=== PATIENT | female | born 1980 | race Caucasian/White ===

== ENCOUNTER 2022-07-19 19:58 | Emergency (ER) | payer MEDICAID, SELFPAY ==
[2022-07-19 19:59] VITALS: BP 141/112; PULSE 88; RESP 16; TEMP 36.8; O2SAT 98; BMI 26.4
[2022-07-19 20:36] LABS: Bacteria 0 SEEN /hpf (None Seen); Mucous, Urine 0 SEEN /hpf (<or=2+); Red Blood Cells-Urine 0 SEEN /hpf (0-5); White Blood Cells 0 SEEN /hpf (0-5)
[2022-07-19 20:38] LABS: Color, Urine Yellow (Yellow); Glucose, Dipstick Normal (Normal); Ketone-Dipstick Negative (Negative); Leukocyte Esterase-Dipstick 25 /ul (Negative); Nitrite-Dipstick Negative (Negative); Occult Blood-Urine 10 /ul (Negative); Protein-Dipstick Negative (Negative); Specific Gravity, Urine 1.015 (1.002-1.030); Urine Bilirubin Dipstick Negative (Negative); Urine Clarity Clear (Clear); Urine Urobilinogen Normal (Normal)
--- NOTE | 2022-07-19 20:58 | CT_ITS ---
STUDY: CT ABDOMEN AND PELVIS WITHOUT CONTRAST REASON FOR EXAM: Female, 41 years old. R flank pain RADIATION DOSAGE (If Supplied By Facility): CTDIvol = ( 6.70 ) mGy, DLP = ( 292.78 ) mGycm TECHNIQUE: Transaxial images were obtained from the dome of the diaphragm to the symphysis pubis without oral contrast, and without intravenous contrast. Sagittal and coronal images were reconstructed. Individualized dose optimization techniques were used for this CT. COMPARISON: 06/09/2017 FINDINGS: The visualized lung bases are unremarkable. The visualized portions of the heart are within normal limits. Normal liver. Normal gallbladder and extrahepatic biliary system. Normal spleen. Normal pancreas. Normal bilateral adrenal glands. Normal right kidney. Normal left kidney. Normal visualized stomach. Normal small intestine. Normal colon. The appendix is visualized and appears normal. Normal abdominal aorta. Normal inferior vena cava. Normal retroperitoneum. Normal urinary bladder. Intrauterine device within the uterus. Normal abdominal wall. Normal osseous structures. CT/Abdomen/Pelvis without Cont IMPRESSION: Normal unenhanced CT of the abdomen and pelvis. Electronically Signed: Monroe Rasheed MD at 22:09 EDT ,
--- NOTE | 2022-07-19 20:58 | ED.VIS.GI ---
HPI HPI - GI History of Present Illness Chief Complaint: Abd Pain Informant: patient Abdominal Pain/Flank Pain Onset: Hours (3) Context: Sudden Onset Timing: Continuous Quality: Aching Location: Right Flank Current Severity: Severe Maximum Severity: Severe Worsened by: Nothing Relieved by: Nothing Nausea/Vomiting/Emesis GI Symptom: Positive for Nausea; Negative for Vomiting Diarrhea/Melena/Hematochezia GI Symptom: Negative for Diarrhea, Melena or Hematochezia Associated Symptoms Associated Symptoms: Negative for Dysuria, Frequency or Hematuria Narrative Narrative: Patient has sudden onset of right flank pain radiating down into her right groin couple hours prior to arrival. Colicky. History of kidney stone but it was very remote and she does not know if this feels the same or not. She denies feeling poorly all day prior to this starting out of nowhere. No injury. No urinary symptoms. No fevers or chills. No hematuria. [facility] Medical History Bacteremia Depression History of endocarditis Marijuana abuse Panic attack Seizure disorder Substance abuse Supraventricular tachycardia (02/08/22) Tobacco abuse Home Medications metoprolol succinate 25 mg tablet,extended release 24 hr 25 mg PO DAILY 07/19/22 [History Last Taken Unknown] sertraline 100 mg tablet (Zoloft) 200 mg PO DAILY 07/19/22 [History Last Taken Unknown] venlafaxine 37.5 mg tablet 37.5 mg PO DAILY 07/19/22 [History Last Taken Unknown] Allergy/AdvReac Type Severity Reaction Status Date / Time hydrocodone [Hydrocodone] AdvReac Itching Verified 07/19/22 20:02 nickel [Nickel] AdvReac Itching Verified 07/19/22 20:02 propoxyphene napsylate AdvReac Itching Verified 07/19/22 20:02 [From Darvocet-N 100] Surgical History History of cardioversion (02/08/22) History of open heart surgery History of ventricular septal defect repair (01/25/15) Social History Smoking Status: Former smoker substance use type: marijuana ROS ROS ED Constitutional Constitutional ED: Denies chills or fever(s) Eyes Eyes: Denies change in vision or diplopia ENT ENT ED: Denies rhinorrhea or sore throat Cardiovascular Cardiovascular: Denies chest pain or palpitations Respiratory/Chest Respiratory/Chest: Denies cough or dyspnea Gastrointestinal Gastrointestinal: Reports abdominal pain and nausea; Denies diarrhea or vomiting Genitourinary Genitourinary ED: Denies dysuria or hematuria Musculoskeletal Musculoskeletal: Reports back pain; Denies neck pain Integumentary Denies abscess or rash Neurologic Neurologic: Denies headache(s), paresthesias or weakness Psychiatric Psychiatric: Denies anxiety or suicidal thoughts EXAM Physical Exam Const Vital Signs: 07/19/22 19:59 07/19/22 22:10 Temperature 98.2 F Temperature Source Temporal Pulse Rate 88 79 Respiratory Rate 16 16 Blood Pressure 141/112 H 120/68 Blood Pressure Mean 121 85 Pulse Ox 98 95 Oxygen Delivery Method Room Air Room Air Positive well nourished and well developed Constitutional Narrative: Uncomfortable-appearing General Appearance ED: well developed and NAD HEENT Reports moist mucous membranes normocephalic and atraumatic Eyes PERRL and EOMs intact bilaterally Neck full ROM and supple Resp normal respiratory effort and clear to auscultation bilaterally Cardio regular rate, regular rhythm and no murmurs GI non-tender and non-distended Auscultation: normoactive bowel sounds Palpation: soft; Negative for pulsatile mass Back/Spine Back/Spine Narrative: Right CVA tenderness but relatively low. Normal inspection no rash. General Back: other FROM Extremity normal to inspection General Extremety ED: Negative for edema, pulses abnormal or tenderness General Extremity: Negative for edema or pulses abnormal Neuro oriented x3, CN's II-XII intact bilaterally and no sensory deficits noted Sensorium / Orientation: awake and alert Motor Exam: strength 5/5 throughout Psych mental status grossly normal and thought process normal Skin no rashes or lesions noted and no wounds MDM MDM MDM Narrative Medical decision making narrative: Sounds like renal colic/ureteral colic, prior to my seeing the patient nurses have already tried venipuncture in both upper extremities without success so we avoided further attempts/IVs, patient was okay getting oral Zofran and intramuscular analgesics while we obtained a CT and ran a urinalysis. As below, urine shows a trace amount of blood but no signs of infection. Her CT is completely negative. On reevaluation after Toradol, her pain is completely resolved. I suspect this was probably a passed stone. Less likely GI-related pain. Discharged stable improved condition discussed reasons to follow-up and return she is comfortable with that plan. Lab Data Attestation: I reviewed the patient's lab results. Labs: Laboratory Results - last 24 hr 07/19/22 20:25 Urine Color Yellow Urine Clarity Clear Urine pH 6.0 Ur Specific [place] 1.015 Urine Protein Negative Urine Glucose (UA) Normal Urine Ketones Negative Urine Occult Blood 10 H Urine Nitrite Negative Urine Bilirubin Negative Urine Urobilinogen Normal Ur Leukocyte Esterase 25 H Urine RBC 0 SEEN Urine WBC 0 SEEN Ur Squamous Epith Cells 0-5 SEEN Urine Bacteria 0 SEEN Urine Mucus 0 SEEN Radiography Diagnostic Testing: Clinical Impression(s) from Imaging Studies Abdomen/Pelvis CT 07/19/22 20:58 IMPRESSION: Normal unenhanced CT of the abdomen and pelvis. Electronically Signed: Monroe Rasheed MD at 22:09 EDT , Discharge Plan Triage Chief Complaint: Abd Pain ED Provider: Roly Blair Dx/Rx/DC Orders Clinical Impression: Acute right flank pain Instructions: ED Flank Pain, Uncertain Cause Prescriptions: No Action sertraline [Zoloft] 100 mg Tablet 200 mg PO DAILY venlafaxine [Effexor] 37.5 mg Tablet 37.5 mg PO DAILY metoprolol succinate 25 mg Tablet Extended Release 24 Hr 25 mg PO DAILY Primary Care Provider: Julio Cesar Mccollum Referrals: Julio Cesar Mccollum MD [Primary Care Provider] - 3-5 Days if not improving Disposition Disposition: Home, Self Care
[2022-07-19] MEDS: Morphine 4 MG/ML Syringe IM (21:05)
[2022-07-19] MEDS: Ketorolac 30 MG/ML Syringe 60 MG IM (21:05)
[2022-07-19] MEDS: Ondansetron ODT 4 MG Tablet 8 MG PO (21:06)
[2022-07-19 21:12] LABS: Squamous Epithelial Cells - UA 0-5 SEEN /hpf (5-10)
[2022-07-19 22:10] VITALS: BP 120/68; PULSE 79; RESP 16; O2SAT 95
[2022-07-19 23:11] VITALS: BP 120/68; PULSE 79; RESP 16; O2SAT 95
== END 2022-07-19 23:12 | disposition home or self-care (01) ==
PROVIDERS: Emergency Provider Emergency Medicine; PCP Family Medicine; Visit Provider Emergency Medicine
DX: R10.9 Unspecified abdominal pain (principal); F12.90 Cannabis use, unspecified, uncomplicated; F32.A Depression, unspecified; Z79.899 Other long term (current) drug therapy; Z87.891 Personal history of nicotine dependence
CPT/HCPCS: 74176; 81001; 96372; 99283; A4216

== ENCOUNTER 2022-09-18 09:47 | Emergency (ER) | payer MEDICAID, SELFPAY ==
[2022-09-18 09:48] VITALS: BP 117/54; PULSE 79; RESP 16; TEMP 36.6; O2SAT 100; BMI 29.5
[2022-09-18 09:50] VITALS: BP 117/54; PULSE 79; RESP 16; TEMP 36.6; O2SAT 100
--- NOTE | 2022-09-18 10:02 | CT_ITS ---
STUDY: CT ABDOMEN AND PELVIS WITHOUT CONTRAST REASON FOR EXAM: Female, 41 years old. Kidney Stone. Left flank pain. RADIATION DOSAGE (If Supplied By Facility): CTDIvol = ( 7.80 ) mGy, DLP = ( 350.62 ) mGycm TECHNIQUE: Transaxial images were obtained from the dome of the diaphragm to the symphysis pubis without oral contrast, and without intravenous contrast. Sagittal and coronal images were reconstructed. Individualized dose optimization techniques were used for this CT. COMPARISON: Comparison is made with prior examination dated 07/19/2022. FINDINGS: Stable mild linear scarring at the left lung base. The visualized portions of the heart are within normal limits. Normal liver. Normal gallbladder and extrahepatic biliary system. Normal spleen. Normal pancreas. Normal bilateral adrenal glands. Normal right kidney. Normal left kidney. Normal visualized stomach. Normal small intestine. Normal colon. The appendix is visualized and appears normal. Normal abdominal aorta. Normal inferior vena cava. Normal retroperitoneum. Normal urinary bladder. IUD is seen within the uterus. Follicles are seen in the left ovary. Phleboliths are seen in the pelvis. Normal abdominal wall. Normal osseous structures. CT/Abdomen/Pelvis without Cont IMPRESSION: Stable examination. No evidence of a obstructive uropathy. IUD is seen within the uterus. Electronically Signed: Rojas Clemons MD at 10:47 EST ,
--- NOTE | 2022-09-18 10:03 | EDS_ITS ---
HPI HPI - Female History of Present Illness Chief Complaint: Flank Pain Narrative Narrative: 41-year-old female presenting with acute onset left-sided flank pain. This started last evening. Its been constant. It radiates to the lower abdomen. Patient states she is having difficulty urinating but denies dysuria or hematuria. No fever, chills. She is not nauseous. No vaginal complaints. She does state that she has less bowel movements for last couple days but does not feel she is constipated. Patient states she has history of kidney stones and urinary tract infections. Patient states he was last treated for this a couple of months ago. She does not have a urologist. [facility] Medical History Bacteremia Depression History of endocarditis Marijuana abuse Panic attack Seizure disorder Substance abuse Supraventricular tachycardia (02/08/22) Tobacco abuse Home Medications metoprolol succinate 25 mg tablet,extended release 24 hr 25 mg PO DAILY 07/19/22 [History Last Taken Unknown] sertraline 100 mg tablet (Zoloft) 200 mg PO DAILY 07/19/22 [History Last Taken Unknown] venlafaxine 37.5 mg tablet 37.5 mg PO DAILY 07/19/22 [History Last Taken Unknown] Allergy/AdvReac Type Severity Reaction Status Date / Time hydrocodone [Hydrocodone] AdvReac Itching Verified 09/18/22 09:50 nickel [Nickel] AdvReac Itching Verified 09/18/22 09:50 propoxyphene napsylate AdvReac Itching Verified 09/18/22 09:50 [From Darvocet-N 100] Surgical History History of cardioversion (02/08/22) History of open heart surgery History of ventricular septal defect repair (01/25/15) Social History Smoking Status: Former smoker substance use type: marijuana ROS ROS ED Constitutional Constitutional ED: Denies chills or fever(s) Eyes Eyes: Denies change in vision or diplopia ENT ENT ED: Denies rhinorrhea or sore throat Cardiovascular Cardiovascular: Denies chest pain or palpitations Respiratory/Chest Respiratory/Chest: Denies cough or dyspnea Gastrointestinal Gastrointestinal: Denies constipation, diarrhea, nausea or vomiting Genitourinary Genitourinary ED: Reports other Details: Difficulty urinating ; Denies dysuria or hematuria Musculoskeletal Musculoskeletal: Denies arthralgias Integumentary Denies abscess or Abrasions Neurologic Neurologic: Denies headache(s) or paresthesias Psychiatric Psychiatric: Denies anxiety or depression EXAM Physical Exam Const Vital Signs: 09/18/22 09:48 09/18/22 09:50 09/18/22 10:50 Temperature 97.9 F 97.9 F 97.9 F Temperature Source Temporal Temporal Temporal Pulse Rate 79 79 79 Respiratory Rate 16 16 16 Blood Pressure 117/54 L 117/54 L 117/54 L Blood Pressure Mean 75 75 75 Pulse Ox 100 100 100 Oxygen Delivery Method Room Air Room Air Room Air Positive well nourished General Appearance ED: NAD; Negative for pallor HEENT Reports moist mucous membranes Eyes PERRL and EOMs intact bilaterally General Eye ED: Negative for pale conjunctiva or scleral icterus Resp normal respiratory effort Cardio regular rate and regular rhythm GI normal to inspection, nondistended, normoactive bowel sounds Back/Spine no CVA tenderness Thoracic Spine / Upper Back: Negative for thoracic spinal tenderness Lumbar Spine / Lower Back: Negative for lumbar spinal tenderness Neuro oriented x3 and CN's II-XII intact bilaterally Sensorium / Orientation: alert and oriented to person Motor Exam: strength 5/5 throughout Psych mental status grossly normal Skin no rashes or lesions noted General Skin Exam: Negative for jaundice or pallor MDM MDM MDM Narrative Medical decision making narrative: Patient treated with Toradol. She feels improvement after this. CBC and BMP are unremarkable. Urinalysis negative for infection or occult blood. CT of the abdomen pelvis was obtained to rule out kidney stone and there is no evidence of this. There is no other acute intra-abdominal process. Patient counseled on findings. She is feeling better so I think she can be discharged home. She will alternate Tylenol and ibuprofen for pain. Return precautions discussed. Impression: 1. Left flank pain Lab Data Attestation: I reviewed the patient's lab results. Labs: Laboratory Results - last 24 hr 09/18/22 09/18/22 09/18/22 10:10 10:10 10:50 WBC 7.2 RBC 4.50 Hgb 12.8 Hct 39.2 MCV 87.1 MCH 28.4 MCHC 32.7 RDW Std Deviation 44.1 H RDW Coeff of Miguel 13.8 Plt Count 264 MPV 10.1 Immature Gran % (Auto) 0.300 Neut % (Auto) 59.5 Lymph % (Auto) 28.5 [place] % (Auto) 7.9 Eos % (Auto) 3.2 Baso % (Auto) 0.6 Absolute Neuts (auto) 4.3 Absolute Lymphs (auto) 2.04 Nucleated RBC % 0 Sodium 140 Potassium 3.9 Chloride 108 H Carbon Dioxide 26.0 Anion Gap 6 BUN 10 Creatinine 0.45 L Estim Creat Clear Calc 125.40 Est GFR (MDRD) Af Amer 200 Est GFR (MDRD) Non-Af 165 BUN/Creatinine Ratio 22.4 H Glucose 69 L Calcium 8.6 Urine Color Yellow Urine Clarity Sl. Cloudy Urine pH 6.0 Ur Specific [place] 1.010 Urine Protein Negative Urine Glucose (UA) 50 H Urine Ketones Negative Urine Occult Blood Negative Urine Nitrite Negative Urine Bilirubin Negative Urine Urobilinogen Normal Ur Leukocyte Esterase 25 H Urine RBC 0 SEEN Urine WBC 0-5 SEEN Ur Squamous Epith Cells 5-10 SEEN Urine Bacteria 1+ Urine Mucus 0 SEEN Radiography Diagnostic Testing: Clinical Impression(s) from Imaging Studies Abdomen/Pelvis CT 09/18/22 10:02 IMPRESSION: Stable examination. No evidence of a obstructive uropathy. IUD is seen within the uterus. Electronically Signed: Rojas Clemons MD at 10:47 EST Reading Location ID and State: [address] [place] [address] , Service support , Discharge Plan Triage Chief Complaint: Flank Pain ED Provider: Dung Schultz Dx/Rx/DC Orders Instructions: ED Flank Pain, Uncertain Cause Prescriptions: No Action sertraline [Zoloft] 100 mg Tablet 200 mg PO DAILY venlafaxine [Effexor] 37.5 mg Tablet 37.5 mg PO DAILY metoprolol succinate 25 mg Tablet Extended Release 24 Hr 25 mg PO DAILY Primary Care Provider: Julio Cesar Mccollum Referrals: Julio Cesar Mccollum MD [Primary Care Provider] - Disposition Disposition: Home, Self Care
[2022-09-18 10:17] LABS: Absolute Lymphocyte Count 2.04 X10^3/uL (0.83-4.51); Absolute Neutrophil Count 4.3 X10^3/uL (2.0-7.7); Basophil# 0.04 X10^3/uL; Basophil% 0.6 % (0-1); Eosinophil# 0.23 X10^3/uL; Eosinophils% 3.2 % (0-5); Hematocrit 39.2 % (37-47); Hemoglobin 12.8 g/dL (12.0-15.0); Lymphocyte # 2.04 X10^3/ul (0.83-4.51); Lymphocyte % 28.5 % (19-41); Mean Corp Hgb Conc 32.7 g/dL (32-36); Mean Corpuscular Hgb 28.4 pg (27.0-32.0); Mean Corpuscular Volume 87.1 fL (81-99); Mean Platelet Vol. 10.1 fl (6.2-12.0); Monocyte# 0.57 X10^3/uL; Monocyte% 7.9 % (0-10); NRBC Flagged by Analyzer 0 % (0-5); Neutrophil # 4.27 X10^3/uL (2.7-7.7); Neutrophil % 59.5 % (47-70); Platelet Count 264 K/mm3 (150-450); RBC Distribution Width CV 13.8 % (11.6-14.6); RBC Distribution Width SD 44.1 fl (35.1-43.9); White Blood Count 7.2 K/mm3 (4.4-11.0)
[2022-09-18] MEDS: Ketorolac 15 MG/ML Vial IV (10:26)
[2022-09-18 10:30] LABS: Anion Gap 6 (5-15); BUN 10 mg/dL (7-18); BUN/Creat Ratio 22.4 RATIO (10-20); Calcium,Total 8.6 mg/dL (8.5-10.1); Chloride 108 mmol/L (98-107); Creatinine, Serum 0.45 mg/dL (0.55-1.02); EST Glomerular Filtration Rate 165 mL/min (>60); Est Glom Filt Rate - Afr Amer 200 mL/min (>60); Glucose 69 mg/dL (74-106); Potassium 3.9 mmol/L (3.5-5.1); Sodium Level 140 mmol/L (136-145)
[2022-09-18 10:50] VITALS: BP 117/54; PULSE 79; RESP 16; TEMP 36.6; O2SAT 100
[2022-09-18 11:06] LABS: Mucous, Urine 0 SEEN /hpf (<or=2+); Red Blood Cells-Urine 0 SEEN /hpf (0-5)
[2022-09-18 11:10] LABS: Color, Urine Yellow (Yellow); Glucose, Dipstick 50 mg/dl (Normal); Ketone-Dipstick Negative (Negative); Leukocyte Esterase-Dipstick 25 /ul (Negative); Nitrite-Dipstick Negative (Negative); Occult Blood-Urine Negative /ul (Negative); Protein-Dipstick Negative (Negative); Urine Bilirubin Dipstick Negative (Negative); Urine Clarity Sl. Cloudy (Clear); Urine Urobilinogen Normal (Normal)
[2022-09-18 11:15] LABS: Bacteria 1+ /hpf (None Seen); Squamous Epithelial Cells - UA 5-10 SEEN /hpf (5-10); White Blood Cells 0-5 SEEN /hpf (0-5)
[2022-09-18 12:01] VITALS: BP 109/73; PULSE 71; RESP 16; O2SAT 100
== END 2022-09-18 12:00 | disposition home or self-care (01) ==
PROVIDERS: Emergency Provider Student in an Organized Health Care Education/Training Program; PCP Family Medicine; Visit Provider Student in an Organized Health Care Education/Training Program
DX: R10.9 Unspecified abdominal pain (principal); F12.90 Cannabis use, unspecified, uncomplicated; Z87.891 Personal history of nicotine dependence
CPT/HCPCS: 74176; 80048; 81001; 85025; 96374; 99283; A4216

== ENCOUNTER 2023-04-28 15:52 | Emergency (ER) | payer MEDICAID, SELFPAY ==
[2023-04-28 15:53] VITALS: BP 190/158; PULSE 88; RESP 24; TEMP 36.6; O2SAT 98; BMI 31.4
--- NOTE | 2023-04-28 16:18 | EKG12_ITS ---
Test Reason : Blood Pressure : / mmHG Vent. Rate : 078 BPM Atrial Rate : 078 BPM P-R Int : 144 ms QRS Dur : 100 ms QT Int : 408 ms P-R-T Axes : -23 019 026 degrees QTc Int : 465 ms Normal sinus rhythm Normal ECG Confirmed by JACKY WOLFE, BARRON ([id number]), staff editor HORACIO TAPIA ([id number]) on 04/29/2023 10:43:19 AM Referred By: JAYE Confirmed By:BARRON RICO MD
--- NOTE | 2023-04-28 16:19 | EDS_ITS ---
HPI History of Present Illness Chief Complaint: Chest Pain Informant: patient Onset/Context/Timing Onset: Days Activity at onset: gradual Timing: Intermittent Narrative Narrative: Patient presents secondary to upper abdominal and chest pain. She states she has pain in the high epigastrium that will radiate up into the central portion of her chest. It has been intermittent over the past week. Over the past day or so she has had a few sharp pains over the lateral portion of her left chest. She also feels short of breath as if she has to continually take deep breaths. She has not had cough. No fever or chills. No vomiting or diarrhea. She states she tried taking a few Tums but this did not resolve her pain. Blood pressure is noted to be elevated at 190/158 in triage, however the time of my exam her blood pressure is 135/88. [facility] Medical History Bacteremia Depression History of endocarditis Marijuana abuse Panic attack Seizure disorder Substance abuse Supraventricular tachycardia (02/08/22) Tobacco abuse Home Medications metoprolol succinate 25 mg tablet,extended release 24 hr 25 mg PO DAILY 07/19/22 [History Last Taken Unknown] sertraline 100 mg tablet (Zoloft) 200 mg PO DAILY 07/19/22 [History Last Taken Unknown] venlafaxine 37.5 mg tablet 37.5 mg PO DAILY 07/19/22 [History Last Taken Unknown] hydroxyzine pamoate 25 mg capsule 25 mg PO QHS PRN anxiety 04/28/23 [History Last Taken 04/27/23] omeprazole 20 mg capsule,delayed release 20 mg PO DAILY 4 weeks #28 caps 04/28/23 [Rx Last Taken Unknown] prazosin 2 mg capsule (Minipress) 2 mg PO DAILY 04/28/23 [History Last Taken Unknown] quetiapine 100 mg tablet (Seroquel) 100 mg PO QHS 04/28/23 [History Last Taken Unknown] Allergy/AdvReac Type Severity Reaction Status Date / Time hydrocodone [Hydrocodone] AdvReac Itching Verified 04/28/23 15:52 nickel [Nickel] AdvReac Itching Verified 04/28/23 15:52 propoxyphene napsylate AdvReac Itching Verified 04/28/23 15:52 [From Darvocet-N 100] Surgical History History of cardioversion (02/08/22) History of open heart surgery History of ventricular septal defect repair (01/25/15) Social History Smoking Status: Former smoker substance use type: marijuana ROS ROS ED Constitutional Constitutional ED: Denies chills or fever(s) Eyes Eyes: Denies change in vision or discharge from eye(s) ENT ENT ED: Denies discharge from eye(s), rhinorrhea or sore throat Cardiovascular Cardiovascular: Reports chest pain; Denies palpitations Respiratory/Chest Respiratory/Chest: Reports dyspnea; Denies cough Gastrointestinal Gastrointestinal: Reports abdominal pain; Denies diarrhea, nausea or vomiting Genitourinary Genitourinary ED: Denies dysuria Musculoskeletal Musculoskeletal: Denies back pain or extremity pain Integumentary Denies Abrasions or rash Neurologic Neurologic: Denies headache(s) or weakness Psychiatric Psychiatric: Denies anxiety or depression Allergic/Immunologic Allergic/Immunologic ED: Denies lip swelling or urticaria EXAM Physical Exam Const Vital Signs: 04/28/23 15:53 04/28/23 15:52 04/28/23 17:52 Temperature 97.8 F Temperature Source Temporal Pulse Rate 88 77 Respiratory Rate 24 H 16 Respiratory Effort Normal Non-Labored Blood Pressure 190/158 H 124/88 H Blood Pressure Mean 168 100 Pulse Ox 98 99 Oxygen Delivery Method Room Air Room Air 04/28/23 18:46 Temperature Temperature Source Pulse Rate 75 Respiratory Rate 20 H Respiratory Effort Blood Pressure 126/74 H Blood Pressure Mean 91 Pulse Ox 100 Oxygen Delivery Method Room Air Positive well nourished and well developed General Appearance ED: well developed HEENT Reports normocephalic and head/scalp atraumatic Eyes PERRL and EOMs intact bilaterally Neck supple Chest Wall inspection of chest normal and palpation of chest normal Resp normal respiratory effort and clear to auscultation bilaterally Cardio regular rate and regular rhythm GI GI Narrative: Mild tenderness in the epigastrium. No guarding or rebound. 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 Dose of Protonix is ordered. EKG obtained to evaluate for cardiac arrhythmia/ischemia. Chest x-ray obtained to evaluate for acute lung pathology, cardiac size, or mediastinal abnormality. Labwork obtained to evaluate for leukocytosis, anemia, and electrolyte derangement. Lab Data Attestation: I reviewed the patient's lab results. Labs: Laboratory Results - last 24 hr 04/28/23 16:13 WBC 5.9 RBC 4.27 Hgb 12.4 Hct 37.0 MCV 86.7 MCH 29.0 MCHC 33.5 RDW Std Deviation 45.1 H RDW Coeff of Miguel 14.3 Plt Count 260 MPV 10.4 Immature Gran % (Auto) 0.300 Neut % (Auto) 60.2 Lymph % (Auto) 30.7 [place] % (Auto) 6.6 Eos % (Auto) 1.7 Baso % (Auto) 0.5 Absolute Neuts (auto) 3.6 Absolute Lymphs (auto) 1.81 Nucleated RBC % 0 D-Dimer Quant (PE/DVT) 0.57 H* Sodium 140 Potassium 3.5 Chloride 111 H Carbon Dioxide 25.0 Anion Gap 4 L BUN 9 Creatinine 0.61 Estim Creat Clear Calc 91.58 Est GFR (MDRD) Af Amer 140 Est GFR (MDRD) Non-Af 116 BUN/Creatinine Ratio 14.9 Glucose 82 Calcium 8.7 Total Bilirubin 0.10 L Direct Bilirubin 0.06 AST 14 L ALT 25 Alkaline Phosphatase 117 Troponin I High Sens 5 Total Protein 7.3 Albumin 3.4 Globulin 3.9 Lipase 45 Serum , Qual NEGATIVE Radiography Chest X-Ray - ED: 1 View, Read by ED Physician, Normal, Heart, Lungs and Mediastinum Diagnostic Testing: Clinical Impression(s) from Imaging Studies Chest X-Ray 04/28/23 16:27 IMPRESSION: No radiographic evidence of acute cardiopulmonary disease. Electronically Signed: Ed uTrner, at 16:48 EDT Reading Location ID and State: [facility] / [place] Tel , Service support , Chest CTA 04/28/23 17:39 IMPRESSION: Normal CTA chest examination, without a demonstrated pulmonary embolism or arterial dissection. Small calcified granuloma in the right upper lobe. Electronically Signed: Ed Turner, at 18:38 EDT , EKG Initial EKG: Attestation: I personally reviewed and interpreted this EKG as follows: Interpretation: Sinus Rhythm (Sinus at 78 bpm with no acute ischemia.) Differential Diagnosis Chest pain/SOB: pulmonary embolism Reason(s) PE less likely: Positive for Other (No PE on imaging studies.) and ACS ACS: Positive for no evidence of ACS based on cardiac biomarkers and EKG without ischemia Abdominal Pain: Pancreatitis Reason(s) Pancreatitis less likely: NL lab values Treatment and Re-Evaluation :: CBC was normal white count and hemoglobin. D-dimer slightly elevated at 0.57. Chemistry studies unremarkable with normal renal function. LFTs and lipase are normal. Troponin is normal at 5. test negative. Portable chest x- ray per my interpretation reveals no acute abnormalities. Radiology interpretation is reviewed and agrees. EKG reveals no ischemia. Patient was sent for CTA of the chest. This reveals no evidence of PE or dissection. Test results are discussed with the patient. She does report a lot of heartburn and will be started on Prilosec. Return instructions were provided. Discharge Plan Triage Chief Complaint: Chest Pain ED Provider: Rosalind Millan Dx/Rx/DC Orders Clinical Impression: Acid reflux, Chest pain Instructions: ED Chest Pain, Noncardiac, ED GERD (Adult) Prescriptions: New omeprazole 20 mg capsule,delayed release(DR/EC) 20 mg PO DAILY 28 Days Qty: 28 0RF No Action sertraline [Zoloft] 100 mg Tablet 200 mg PO DAILY venlafaxine [Effexor] 37.5 mg Tablet 37.5 mg PO DAILY metoprolol succinate 25 mg Tablet Extended Release 24 Hr 25 mg PO DAILY quetiapine [Seroquel] 100 mg tablet 100 mg PO QHS prazosin [Minipress] 2 mg capsule 2 mg PO DAILY hydroxyzine pamoate 25 mg capsule 25 mg PO QHS PRN Patient Comments: TAKE 1 CAPSULE BY MOUTH AT BEDTIME NEEDED FOR TROUBLE SLEEPING Primary Care Provider: Julio Cesar Mccollum Referrals: Julio Cesar Mccollum MD [Primary Care Provider] - 1-2 Weeks Disposition Disposition: Home, Self Care
--- NOTE | 2023-04-28 16:27 | RAD_ITS ---
INDICATION: chest pain EXAMINATION/TECHNIQUE: X-RAY - XR Chest 1 View COMPARISON: FINDINGS: LINES/DEVICES: None. LUNGS: No consolidation, edema or effusion. No pneumothorax. MEDIASTINUM AND CARDIOVASCULAR STRUCTURES: Cardiac silhouette not enlarged. Central airways and mediastinal contour are unremarkable. BONES AND SOFT TISSUES: Unremarkable. RAD/Chest 1 View (Portable) IMPRESSION: No radiographic evidence of acute cardiopulmonary disease. Electronically Signed: Ed Turner, at 16:48 EDT ,
[2023-04-28 16:40] LABS: Absolute Lymphocyte Count 1.81 X10^3/uL (0.83-4.51); Absolute Neutrophil Count 3.6 X10^3/uL (2.0-7.7); Basophil# 0.03 X10^3/uL; Basophil% 0.5 % (0-1); Eosinophils% 1.7 % (0-5); Hemoglobin 12.4 g/dL (12.0-15.0); Lymphocyte # 1.81 X10^3/ul (0.83-4.51); Lymphocyte % 30.7 % (19-41); Mean Corp Hgb Conc 33.5 g/dL (32-36); Mean Corpuscular Volume 86.7 fL (81-99); Mean Platelet Vol. 10.4 fl (6.2-12.0); Monocyte# 0.39 X10^3/uL; Monocyte% 6.6 % (0-10); NRBC Flagged by Analyzer 0 % (0-5); Neutrophil # 3.55 X10^3/uL (2.7-7.7); Neutrophil % 60.2 % (47-70); Platelet Count 260 K/mm3 (150-450); RBC Distribution Width CV 14.3 % (11.6-14.6); RBC Distribution Width SD 45.1 fl (35.1-43.9); Red Blood Count 4.27 M/mm3 (4.2-5.4); White Blood Count 5.9 K/mm3 (4.4-11.0)
[2023-04-28] MEDS: 0.9% Normal Saline 1,000 ML 150 ML IV (16:45)
[2023-04-28 16:58] LABS: D-Dimer Quantitative (DVT/PE) 0.57 FEU/ug/m (0.27-0.49)
--- NOTE | 2023-04-28 17:00 | ED.RN ---
d-dimer 0.57
[2023-04-28 17:09] LABS: AST(SGOT) 14 U/L (15-37); Alanine Aminotransfer ALT/SGPT 25 U/L (13-56); Albumin, Serum 3.4 g/dL (3.2-5.0); Alkaline Phosphatase 117 U/L (45-117); Anion Gap 4 (5-15); BUN 9 mg/dL (7-18); BUN/Creat Ratio 14.9 RATIO (10-20); Bilirubin, Direct 0.06 mg/dL (0.00-0.30); Calcium,Total 8.7 mg/dL (8.5-10.1); Chloride 111 mmol/L (98-107); Creatinine, Serum 0.61 mg/dL (0.55-1.02); EST Glomerular Filtration Rate 116 mL/min (>60); Est Glom Filt Rate - Afr Amer 140 mL/min (>60); Estimated Creatinine Clearance 91.58 ml/min; Globulin 3.9 g/dL (2.2-4.2); Glucose 82 mg/dL (74-106); Internal QC Validated? YES +Cl - CLEAR BKGD; Lipase 45 U/L (13-75); Potassium 3.5 mmol/L (3.5-5.1); Pregnancy, Serum, hCG Quali. NEGATIVE Negative; Protein, Total 7.3 g/dL (6.4-8.2); Sodium Level 140 mmol/L (136-145); Troponin-I HS 5 pg/mL (3.0-54.0)
--- NOTE | 2023-04-28 17:39 | CT_ITS ---
STUDY: CTA CHEST REASON FOR EXAM: Female, 42 years old. pulmonary embolism RADIATION DOSAGE (If Supplied By Facility): CTDIvol = ( 10.90 ) mGy, DLP = ( 438.22 ) mGycm TECHNIQUE: The examination was performed with the intravenous administration of IV 100mL Isovue-370. Post-processing of the angiographic images was performed, with multiplanar reformation and 3D reconstruction. Individualized dose optimization techniques were used for this CT. COMPARISON: FINDINGS: Normal enhancement of the main pulmonary artery and right and left pulmonary arteries. Normal enhancement of the bilateral peripheral pulmonary arteries. There is no demonstrated pulmonary embolism. Normal thoracic aorta and visualized great vessels. There is no demonstrated aortic dissection. Normal heart and pericardium. Normal mediastinum. Normal hilar regions. Normal visualized trachea and bronchi. The lungs are well expanded. There is a 4 mm calcified granuloma in the right upper lobe axial image 160. Lungs are otherwise clear without focal consolidations masses or fluid collections. There is minimal reticulonodular scarring in the left lung apex. Normal pleura. Normal chest wall structures. Normal osseous structures. Normal visualized upper abdomen. CT/CTA Chest W/WO Contrast IMPRESSION: Normal CTA chest examination, without a demonstrated pulmonary embolism or arterial dissection. Small calcified granuloma in the right upper lobe. Electronically Signed: Ed Turner, at 18:38 EDT ,
[2023-04-28 17:52] VITALS: BP 124/88; PULSE 77; RESP 16; O2SAT 99
[2023-04-28 18:46] VITALS: BP 126/74; PULSE 75; RESP 20; O2SAT 100
== END 2023-04-28 19:10 | disposition home or self-care (01) ==
PROVIDERS: Emergency Provider Emergency Medicine; PCP Family Medicine; Visit Provider Emergency Medicine
DX: K21.9 Gastro-esophageal reflux disease without esophagitis (principal); R07.9 Chest pain, unspecified; F12.90 Cannabis use, unspecified, uncomplicated; F32.A Depression, unspecified; Z79.899 Other long term (current) drug therapy; Z87.891 Personal history of nicotine dependence
CPT/HCPCS: 71045; 71275; 80048; 80076; 83690; 84484; 84703; 85025; 85379; 93005; 96365; 99283; J7030; Q9967; A4216

== ENCOUNTER 2023-11-24 19:46 | Emergency (ER) | payer MEDICAID, SELFPAY ==
[2023-11-24 19:47] VITALS: BP 123/89; PULSE 92; RESP 16; TEMP 36.7; O2SAT 100; BMI 30.2
--- NOTE | 2023-11-24 22:12 | EX.ED.VIS.HA ---
HPI History of Present Illness Chief Complaint: Headache Informant: patient Narrative Narrative: Patient states she has a history of migraines and has been having 1 off-and-on for the past week. Tonight it came on while she was at work it was fairly severe, she thinks it was triggered by the heat of the fryer's in the kitchen which has triggered her headaches in the past, and she was having trouble concentrating on her job because of her sensitivity to light so her boss brought her here to the ER. She took George back and body and some ibuprofen earlier, states it put a dent in her headache but it is still prominent. She denies any new unusual symptoms, these are typical of her migraines when she gets them which is on average about once every 4 months. She has a right frontal parietal headache, photophobia, nausea. No peripheral neurologic symptoms. No recent illness. No other [id number] medications or drugs recently. [facility] Medical History Bacteremia Depression History of endocarditis Marijuana abuse Panic attack Seizure disorder Substance abuse Supraventricular tachycardia (02/08/22) Tobacco abuse Home Medications metoprolol succinate 25 mg tablet,extended release 24 hr 25 mg PO DAILY 07/19/22 [History Last Taken Unknown] sertraline 100 mg tablet (Zoloft) 200 mg PO DAILY 07/19/22 [History Last Taken Unknown] venlafaxine 37.5 mg tablet 37.5 mg PO DAILY 07/19/22 [History Last Taken Unknown] hydroxyzine pamoate 25 mg capsule 25 mg PO QHS PRN anxiety 04/28/23 [History Last Taken 04/27/23] omeprazole 20 mg capsule,delayed release 20 mg PO DAILY 4 weeks #28 caps 04/28/23 [Rx Last Taken Unknown] prazosin 2 mg capsule (Minipress) 2 mg PO DAILY 04/28/23 [History Last Taken Unknown] quetiapine 100 mg tablet (Seroquel) 100 mg PO QHS 04/28/23 [History Last Taken Unknown] Allergy/AdvReac Type Severity Reaction Status Date / Time hydrocodone [Hydrocodone] AdvReac Itching Verified 11/24/23 19:50 nickel [Nickel] AdvReac Itching Verified 11/24/23 19:50 propoxyphene napsylate AdvReac Itching Verified 11/24/23 19:50 [From Darvocet-N 100] Surgical History History of cardioversion (02/08/22) History of open heart surgery History of ventricular septal defect repair (01/25/15) Social History Smoking Status: Former smoker substance use type: marijuana ROS ROS ED Constitutional Constitutional ED: Denies chills or fever(s) Eyes Eyes: Reports photophobia; Denies blurry vision or diplopia ENT ENT ED: Denies ear pain or sore throat Cardiovascular Cardiovascular: Denies chest pain or palpitations Respiratory/Chest Respiratory/Chest: Denies cough or dyspnea Gastrointestinal Gastrointestinal: Reports nausea; Denies abdominal pain, diarrhea or vomiting Genitourinary Genitourinary ED: Denies dysuria or urinary frequency Musculoskeletal Musculoskeletal: Denies back pain or myalgias Integumentary Denies abscess or rash Neurologic Neurologic: Reports headache(s); Denies paresthesias or weakness EXAM Physical Exam Const Vital Signs: 11/24/23 19:47 Temperature 98.1 F Temperature Source Temporal Pulse Rate 92 Respiratory Rate 16 Blood Pressure 123/89 H Blood Pressure Mean 100 Pulse Ox 100 Oxygen Delivery Method Room Air HEENT Reports normocephalic and moist mucous membranes atraumatic Eyes PERRL, EOMs intact bilaterally and conjunctivae normal Eyes Narrative: photophobia Neck no lymphadenopathy, supple and no meningeal signs Resp normal respiratory effort and clear to auscultation bilaterally GI non-tender and non-distended Palpation: soft Extremity normal to inspection and full ROM Neuro oriented x3 and CN's II-XII intact bilaterally Sensorium / Orientation: awake and alert Speech: speech normal Gait (Neuro): normal gait Motor Exam: strength 5/5 throughout Psych mental status grossly normal Skin Lesions: no lesions Rashes: no rashes MDM MDM MDM Narrative Medical decision making narrative: Patient sounds like she is having a standard migraine for her, I do not think she needs to have any advanced imaging or lumbar puncture to evaluate for other pathology such as meningitis or subarachnoid hemorrhage. She was treated empirically for migraine which is what she was requesting, she was given Reglan Benadryl and some IV fluids and Decadron to help prevent a recurrence and has been having them for the past week. She feeling much better on reevaluation and comfortable going home. We discussed reasons to return. Discharge Plan Triage Chief Complaint: Headache ED Provider: Roly Blair Dx/Rx/DC Orders Clinical Impression: Headache, migraine Instructions: ED, Migraine (Classical) Prescriptions: No Action sertraline [Zoloft] 100 mg Tablet 200 mg PO DAILY venlafaxine [Effexor] 37.5 mg Tablet 37.5 mg PO DAILY metoprolol succinate 25 mg Tablet Extended Release 24 Hr 25 mg PO DAILY quetiapine [Seroquel] 100 mg tablet 100 mg PO QHS prazosin [Minipress] 2 mg capsule 2 mg PO DAILY hydroxyzine pamoate 25 mg capsule 25 mg PO QHS PRN Patient Comments: TAKE 1 CAPSULE BY MOUTH AT BEDTIME NEEDED FOR TROUBLE SLEEPING omeprazole 20 mg capsule,delayed release(DR/EC) 20 mg PO DAILY 28 Days Qty: 28 0RF Primary Care Provider: Julio Cesar Mccollum Referrals: Julio Cesar Mccollum MD [Primary Care Provider] - As Needed Disposition Disposition: Home, Self Care
[2023-11-24] MEDS: dexAMETHasone 4 MG/ML Vial IV (22:17)
[2023-11-24] MEDS: 0.9% Normal Saline (500mL Bag) 500 ML 999 ML IV (22:17)
[2023-11-24] MEDS: DiphenhydrAMINE 50 MG/ML Syringe 25 MG IV (22:17)
[2023-11-24] MEDS: Metoclopramide 10 MG/2 ML Vial IV (22:17)
--- OUTSIDE RECORDS SUMMARY | 2023-11-24 22:37 | XMS RPT_ITS | CCD ---
Author Name Unknown Address [address] [place] [address] Organization [facility] Care Team Providers Care Director Of Student Affairs Name Role Phone Stephany Lozano Unavailable Unavailable Update Needed Unavailable Unavailable Unavailable Primary Care Provider Unavailabl e Robinson Smith MD Primary Care Provider [phone] Jeanette RN, Treasure Unavailable Unavailable Robinson Smith MD Primary Care Provider Robinson Smith MD Primary Care Provider Robinson Smith MD Primary Care Provider TORO OSUNA Attending Unavailable ROBINSON SMITH Primary Care Unavailable ROBINSON SMITH Primary Care Unavailable JUAN MATHIS Referring Unavailable ROBINSON SMITH Primary Care Unavailable ROBINSON SMITH Primary Care Unavailable Allergies Allergy Classification Reported Allergen(s) Allergy Type Date of Onset Reaction(s) Facility (1 source) HYDROcodone drug allergy 2 Itching [facility] Work Phone: (1 source) HYDROmorphone drug allergy 2 Itching [facility] Work Phone: (1 source) propoxyphene drug allergy 2 Itching [facility] Work Phone: (18 sources) Acetaminophen / HYDROcodone; Translations: [HYDROCODONE-ACET AMINOPHEN] Drug Allergy [address] [facility] (18 sources) nickel; Translations: [NICKEL] Drug Allergy 0 Rash, Unknown, Hives [facility] (18 sources) Propoxyphene N-Acetaminophen; Translations: [PROPOXYPHENE N-ACETAMINOPHEN] Drug Intolerance [address] [facility] Work Phone: Medications Completed/Discontinued Medications Medication Drug Class(es) Dates Sig (Normalized) Sig (Original) acetaminophen 325 mg / oxyCODONE hydrochloride 5 mg oral tablet (1 source) Opioid Agonist take 2 tablets by mouth every six hours as needed Percocet 5-325 MG Oral Tablet TAKE 2 TABLETS EVERY 6 HOURS NEEDED. Refills: 0 DO Active aspirin 81 mg oral strip (2 sources) Nonsteroidal Anti-inflammatory Drug Start: 02-01-2015 take 1 tablet by mouth once daily ASPIRIN 81 MG TABS One tablet by mouth daily ASPIRIN [id number] Scarlett Longoria RN Problems Active Problems Problem Classification Problem Date Documented Date Episodic/Chronic Anxiety disorders (17 sources) Generalized anxiety disorder; Translations: [Generalized anxiety disorder] Onset: 04-15-2010 04-15-2010 Chronic Cardiac and circulatory congenital anomalies (18 sources) Ventricular septal defect; Translations: [Patent foramen ovale] Onset: 03-03-2010 12-24-2011 Chronic Cardiac dysrhythmias (20 sources) Supraventricular tachycardia; Translations: [Supraventricular tachycardia] Onset: 02-11-2022 02-11-2022 Chronic Mood disorders (17 sources) Depressive disorder; Translations: [Depression] Onset: 04-15-2010 04-15-2010 Chronic Nonspecific chest pain (1 source) Chest discomfort; Translations: [Other chest pain] Episodic Other and ill-defined heart disease (16 sources) Left cardiac ventricular dilatation; Translations: [Cardiomegaly] Onset: 03-03-2010 03-03-2010 Chronic Other screening for suspected conditions (not mental disorders or infectious disease) (1 source) Patient encounter status; Translations: [Encounter for screening mammogram for malignant neoplasm of breast] Episodic Other upper respiratory infections (1 source) Sore throat symptom; Translations: [Acute pharyngitis, unspecified] Episodic Pulmonary heart disease (1 source) Pulmonary hypertension; Translations: [Other secondary pulmonary hypertension] Onset: 12-24-2011 12-24-2011 Chronic Residual codes; unclassified (1 source) History of repair of atrial septal defect; Translations: [History of Status post patent foramen ovale closure] Episodic Residual codes; unclassified (1 source) Other specified personal risk factors, not elsewhere classified; Translations: [Other specified personal history presenting hazards to health] Episodic Substance-related disorders (17 sources) History of drug abuse; Translations: [Nicotine dependence] Onset: 02-08-2022 02-08-2022 Chronic Past or Other Problems Problem Classification Problem Date Documented Date Episodic/Chronic Bacterial infection; unspecified site (16 sources) Chlamydial infection; Translations: [Chlamydial infection, unspecified] Onset: 03-10-2013 03-10-2013 Episodic Cardiac dysrhythmias (17 sources) Palpitations; Translations: [Palpitations] Onset: 12-24-2011 12-24-2011 Episodic Epilepsy; convulsions (17 sources) Seizure; Translations: [Unspecified convulsions] Onset: 11-22-2013 11-22-2013 Episodic Heart valve disorders (1 source) Heart murmur; Translations: [Cardiac murmur, unspecified] Onset: 12-24-2011 12-24-2011 Episodic Malaise and fatigue (1 source) Fatigue; Translations: [Other fatigue] Onset: 12-24-2011 12-24-2011 Episodic Other circulatory disease (1 source) Abnormal result of cardiovascular function study, unspecified; Translations: [Abnormal result of cardiovascular function study, unspecified] Onset: 12-24-2011 12-24-2011 Episodic Other lower respiratory disease (1 source) Dyspnea; Translations: [Dyspnea, unspecified] Onset: 12-24-2011 12-24-2011 Episodic Other non-traumatic joint disorders (1 source) Pain in right ankle and joints of right foot; Translations: [Acute right ankle pain] Onset: 06-14-2023 Episodic Mey-; endo-; and myocarditis; cardiomyopathy (1 source) Acute and subacute bacterial endocarditis; Translations: [Acute and subacute infective endocarditis] Onset: 02-04-2015 02-04-2015 Episodic Pulmonary heart disease (1 source) Pulmonary embolism; Translations: [Other pulmonary embolism without acute cor pulmonale] Onset: 01-14-2015 01-14-2015 Episodic Sexually transmitted infections (not HIV or hepatitis) (16 sources) Human papillomavirus deoxyribonucleic acid test positive, high risk on cervical specimen; Translations: [Cervical high risk human papillomavirus (HPV) DNA test positive] Onset: 03-09-2013 03-09-2013 Episodic Syncope (1 source) Syncope and collapse; Translations: [Syncope and collapse] Onset: 12-28-2011 12-28-2011 Episodic Unclassified (1 source) Patient encounter status; Translations: [Examination of ears and hearing] Unclassified (1 source) History of closure of ventricular septal defect; Translations: [History of S/P VSD closure] Results Test Name Value Interpretation Reference Range Facil ity Vital Signs Date Time Vital Sign Value Performing Clinician Aydin weiner 05-18-2023 14:51-0400 Body weight 73.03 kg Toro Osuna MD Work Phone: [facility] 05-18-2023 14:51-0400 Diastolic blood pressure 81 mm[Hg] Toro Osuna MD Work Phone: [facility] 05-18-2023 14:51-0400 Heart rate 88 /min Toro Osuna MD Work Phone: [facility] 05-18-2023 14:51-0400 SaO2% (BldA) [Mass fraction] 97 % Toro Osuna MD Work Phone: [facility] 05-18-2023 14:51-0400 Systolic blood pressure 122 mm[Hg] Toro Osuna MD Work Phone: [facility] 04-28-2023 15:26-0400 Body temperature 98.2 [degF] Desiree Juarez APRN.DENTAL INSTRUCTOR Work Phone: [facility] 04-28-2023 15:26-0400 Body weight 75.3 kg Desiree Juarez APRN.DENTAL INSTRUCTOR Work Phone: [facility] 04-28-2023 15:26-0400 Diastolic blood pressure 80 mm[Hg] Desiree Juarez APRN.DENTAL INSTRUCTOR Work Phone: [facility] 04-28-2023 15:26-0400 Heart rate 80 /min Desiree Juarez APRN.DENTAL INSTRUCTOR Work Phone: [facility] 04-28-2023 15:26-0400 Respiratory rate 18 /min Desiree Juarez APRN.DENTAL INSTRUCTOR Work Phone: [facility] 04-28-2023 15:26-0400 SaO2% (BldA) [Mass fraction] 100 % Desiree Juarez APRN.DENTAL INSTRUCTOR Work Phone: [facility] 04-28-2023 15:26-0400 Systolic blood pressure 122 mm[Hg] Desiree Juarez APRN.DENTAL INSTRUCTOR Work Phone: [facility] 07-15-2022 11:39-0400 Body temperature 97.9 [degF] Desiree Juarez APRN.DENTAL INSTRUCTOR Work Phone: [facility] 07-15-2022 11:39-0400 Body weight 63.5 kg Desiree Juarez APRN.DENTAL INSTRUCTOR Work Phone: [facility] 07-15-2022 11:39-0400 Diastolic blood pressure 60 mm[Hg] Desiree Juarez APRN.DENTAL INSTRUCTOR Work Phone: [facility] 07-15-2022 11:39-0400 Heart rate 92 /min Desiree Juarez APRN.DENTAL INSTRUCTOR Work Phone: [facility] 07-15-2022 11:39-0400 Respiratory rate 16 /min Desiree Juarez APRN.DENTAL INSTRUCTOR Work Phone: [facility] 07-15-2022 11:39-0400 SaO2% (BldA) [Mass fraction] 100 % Desiree Juarez APRN.DENTAL INSTRUCTOR Work Phone: [facility] 07-15-2022 11:39-0400 Systolic blood pressure 102 mm[Hg] Desiree Juarez APRN.DENTAL INSTRUCTOR Work Phone: [facility] 04-10-2022 14:22-0400 Body height 153 cm Toro Osuna MD Work Phone: [facility] 04-10-2022 14:22-0400 Body weight 57.15 kg Toro Osuna MD Work Phone: [facility] 04-10-2022 14:22-0400 Diastolic blood pressure 80 mm[Hg] Toro Osuna MD Work Phone: [facility] 04-10-2022 14:22-0400 Heart rate 90 /min Toro Osuna MD Work Phone: [facility] 04-10-2022 14:22-0400 SaO2% (BldA) [Mass fraction] 96 % Toro Osuna MD Work Phone: [facility] 04-10-2022 14:22-0400 Systolic blood pressure 112 mm[Hg] Toro Osuna MD Work Phone: [facility] 03-25-2022 09:43-0400 Body height 154.9 cm Kalie Munira AMBULATORY CARE.DENTAL INSTRUCTOR Work Phone: [facility] 03-25-2022 09:43-0400 Body weight 58.11 kg Kalie Munira AMBULATORY CARE.DENTAL INSTRUCTOR Work Phone: [facility] 03-25-2022 09:43-0400 Diastolic blood pressure 45 mm[Hg] Kalie Munira AMBULATORY CARE.DENTAL INSTRUCTOR Work Phone: [facility] 03-25-2022 09:43-0400 Heart rate 76 /min Kalie Munira AMBULATORY CARE.DENTAL INSTRUCTOR Work Phone: [facility] 03-25-2022 09:43-0400 Systolic blood pressure 107 mm[Hg] Kalie Munira AMBULATORY CARE.DENTAL INSTRUCTOR Work Phone: [facility] 12-28-2011 08:52-0500 BMI (Body Mass Index) 24.14 kg/m2 Stephany Thomas [facility] Work Phone: 12-28-2011 08:52-0500 BP Diastolic 70 mm[Hg] Stephany Thomas [facility] Work Phone: 12-28-2011 08:52-0500 BP Systolic 106 mm[Hg] Stephany [facility] Work Phone: 12-28-2011 08:52-0500 Height 154.94 cm Stephany [facility] Work Phone: 12-28-2011 08:52-0500 Pulse (Heart Rate) 80 /min Stephany [facility] Work Phone: 12-28-2011 08:52-0500 Respiratory Rate 16 /min Steph[facility] Work Phone: 12-28-2011 08:52-0500 Weight 57.74 kg Stephany [facility] Work Phone: Encounters Encounter Date Encounter Type Care Provider Facility Start: 06-14-2023 End: 06-14-2023 ambulatory ROBINSON SMITH Facility:[facility] Start: 05-18-2023 End: 05-18-2023 ambulatory TORO OSUNA Facility:[facility] Start: 05-18-2023 End: 05-18-2023 Patient encounter procedure Toro Osuna MD Work Phone: [facility] Procedures Date Procedure Procedure Detail Performing Clinician Start: 05-18-2023 Ecg routine ecg w/le ast 12 lds w/i&r Toro Osuna MD Work Phone: Start: 07-15-2022 STREP A MOLECULAR (POC) Desiree Juarez AMBULATORY CARE.DENTAL INSTRUCTOR Work Phone: Start: 04-10-2022 Ecg routine ecg w/le ast 12 lds w/i&r Toro Osuna MD Work Phone: Start: 07-04-2021 Hemoglobin glycosyla kayden a1c Ciro Tinsley Cain AMBULATORY CARE - DENTAL INSTRUCTOR Work Phone: Start: 12-28-2011 End: 12-28-2011 Electrocardiogram, complete Jose Maldonado MD Start: 12-28-2011 End: 12-28-2011 Follow Up Appt 3 months Jose Maldonado MD Plan of Treatment Date Care Activity Detail Author Start: 07-02-2023 Influenza vaccination C [facility] Start: 12-15-2022 COVID-19 VACCINE (3 - Booster for Pfizer series) COVID-19 VACCINE (3 - Booster for Pfizer series) [facility] Immunizations Immunization Date Immunization Notes Care Provider Fa cility 12-15-2021 influenza, injectabl e, quadrivalent, contains preservative Treasure Reid RN [facility] 12-15-2021 pneumococcal polysaccharide vaccine, 23 valent Treasure Reid RN [facility] 05-30-2021 COVID-19, Pfizer, PF , 30mcg/0.3mL Ciro Tinsley Sine AMBULATORY CARE - DENTAL INSTRUCTOR Work Phone: [facility] Work Phone: 05-09-2021 COVID-19, Pfizer, PF , 30mcg/0.3mL Ciro Tinsley Sine AMBULATORY CARE - DENTAL INSTRUCTOR Work Phone: [facility] Work Phone: Payers Date Payer Category Payer Medicaid [id number] 2020 Medicaid [employer] [id number] 2020-Present [phone] [address] [place] [address] Medicaid [id number] 2020 Medicaid [id number] 2020 Unknown [employer] [facility] MEDICAID [id number] 2020-Present [phone] CLAIMS DEPARTMENT [address] [place] [address] [id number] Social History Date Type Detail Facility Start: 1980 Sex Assigned At Not on file [facility] Work Phone: Tobacco smoking status NHIS Smokes tobacco daily [facility] History of tobacco use Cigarette Smoker [facility] Start: 02-11-2022 End: 05-18-2023 Alcohol intake Current drinker of alcohol (finding) [facility] Start: 08-31-2008 History SDOH Alcohol Comment OCCASIONALLY [facility] Start: 01-29-2022 End: 04-10-2022 Exposure to SARS-CoV-2 (event) Not sure [facility] Start: 04-10-2022 Tobacco Comment 4 xigs daily [facility] Start: 07-15-2022 Tobacco smoking status NHIS Ex-smoker [facility] Work Phone: History of tobacco use Current smoker [facility] Work Phone: Start: 07-15-2022 End: 11-13-2022 Cigarettes smoked current (pack per day) - Reported 0.3 [facility] Start: 07-15-2022 Tobacco use and exposure Smokeless tobacco non-user [facility] Work Phone: Start: 11-13-2022 End: 05-18-[address] [facility] National Score (1-100), lower number is lower risk 48 [facility] NEGATED: Highlighted row - - [facility] Work Phone: Functional Status Date Assessment Result Facility NEGATED: Highlighted row Functional performance Functional status health issues are not documented Disease [facility] Work Phone: Mental Status Date Assessment Result Facility NEGATED: Highlighted row Cognitive function [Interpretation] Cognitive status health issues are not documented Disease [facility] Work Phone: Clinical Notes 12-15-2021 to 10-20-2023 Toro Osuna MD - 05/18/2023 3:19 PM Libia Mack MA - 05/18/2023 2:55 PM EDTTelephone Encounter - Ria Milligan - 04/29/2023 5:33 PM EDT Note Date & Type Note Facility 10-20-2023 Note Patient Outreach (IN [facility]) ÁNGEL GALVAN ([id number]) 1980 F Date Time Provider Department 10/20/23 ROBINSON SMITH During your visit today, we recorded the following information about you: Allergies As of Date: 10/20/2023 Noted Allergy Reaction NICKEL 03/10/2010 2 - Rash 16 - Unknown 4 - Hives HYDROCODONE-ACETAMINOPHEN 10/09/2008 9 - Itching PROPOXYPHENE N-ACETAMINOPHEN 10/09/2008 11 - Vomiting Date Reviewed: 06/14/2023 Reviewed by: Yarelis Mckeon MA - Fully Assessed Visit Diagnosis:Encounter for screening mammogram for breast cancer [Z12.31] Order(s):[facility] SCREENING [[id number]] Order #: [id number] FUTURE Prescriptions as of 2023 - sertraline (ZOLOFT) 100 mg tablet Take 2 tablets by mouth once daily. - QUEtiapine (SEROQUEL) 100 mg tablet Take 100 mg by mouth daily at bedtime. - prazosin (MINIPRESS) 2 mg cap Take 2 mg by mouth daily at bedtime. - melatonin 3 mg tablet TAKE 2 TABLETS BY MOUTH AT BEDTIME NEEDED FOR FOR INSOMNIA. - venlafaxine ER (EFFEXOR XR) 37.5 mg 24 hr capsule Take 37.5 mg by mouth once daily. - venlafaxine HCl (EFFEXOR ORAL) Take by mouth. - metoprolol succinate ER (TOPROL XL) 25 mg 24 hr tablet Take 1 tablet by mouth once daily. - lisinopril 2.5 mg tablet Take 1 tablet by mouth once daily. - diphenhydrAMINE (BENADRYL) 25 mg capsule Take 1 capsule by mouth every 6 hours as needed (anxiety). Discontinue previous Rx Problem List As Of Date 10/20/2023 Noted Resolved Ventricular Septal Defect [Q21.0] 03/03/2010 LVE (Left Ventricular Enlargement) [I51.7] 03/03/2010 DEON (Generalized Anxiety Disorder) [F41.1] 04/15/2010 Depression [F32.A] 04/15/2010 Cervical high risk human papillomavirus (HPV) D*03/09/2013 Chlamydia [A74.9] 03/10/2013 Seizures [R56.9] 11/22/2013 Palpitations [R00.2] 02/08/2022 Nicotine use disorder, F17.2 [F17.200] 02/08/2022 SVT (supraventricular tachycardia) (HCC) [I47.1*02/11/2022 Encounter Status:Closed by EPIC, PRODUSER on 10/25/23 [facility] 06-14-2023 Note HNO ID: [id number] Author: Iris Pantoja RT(R) Service: Radiology Author Type: Technologist Type: Progress Notes Filed: 06/14/2023 4:28 PM Note Text: Radiology Service Progress Note PATIENT NAME: Ángel Galvan DATE OF SERVICE: June 14, 2023 TIME: 4:21 PM PATIENT IDENTITY VERIFICATION COMPLETED USING TWO (2) IDENTIFIERS: Name and Date of confirmed by patient verbally. FALL SCREENING: Has the patient had 2 falls in the last year or 1 fall with injury or currently using an Ambulatory Assistive Device (Walker, Cane, Wheelchair, Crutches, etc.)? No PATIENT GENDER DATA: Female. status: : No status: NO. PATIENT RELEVANT IMPLANT DATA REVIEWED: Not Applicable RADIOLOGY DEPARTMENT: General X-ray: Exam(s) Completed: Lower Extremity X-Ray(s): Tibia Fibula, Right PERIPHERAL IV DATA: Not applicable SIGNED BY: RT Nina(R) June 14, 2023 4:21 PM [facility] 06-14-2023 Note HNO ID: [id number] Author: Juan Mathis MD Service: ? Author Type: Physician Type: Progress Notes Filed: 06/14/2023 4:55 PM Note Text: Patient presents with: Ankle Injury: R ankle injury x2 days, unsure of cause, bruised and swollen HPI: Right ankle pain: Duration: noticed abruptly when standing up from sitting on the floor 2 days ago. Symptoms improved the following day, but have been bad since yesterday. Location: lateral right ankle and lower fibula Character: sharp and pulling with weight bearing Radiation: lateral leg Aggravating: standing and walking Relieving: very little throbbing at rest Pain relievers: Motrin and ice Associated: bruising, swelling Pertinent negatives: Denies numbness, knownsprain/injury PAST MEDICAL HISTORY Diagnosis Date Backache, unspecified Cervical high risk human papillomavirus (HPV) DNA test positive 03/09/2013 Chronic infective endocarditis Encounter for IUD insertion 06/09/2011 Mirena Insertion Generalized anxiety disorder PMH - PAST MEDICAL HISTORY OF HEART MURMUR MEDICATIONS: QUEtiapine (SEROQUEL) 100 mg tablet Take 100 mg by mouth daily at bedtime. prazosin (MINIPRESS) 2 mg cap Take 2 mg by mouth daily at bedtime. melatonin 3 mg tablet TAKE 2 TABLETS BY MOUTH AT BEDTIME NEEDED FOR FOR INSOMNIA. (Patient not taking: Reported on 07/15/2022) venlafaxine ER (EFFEXOR XR) 37.5 mg 24 hr capsule Take 37.5 mg by mouth once daily. venlafaxine HCl (EFFEXOR ORAL) Take by mouth. (Patient not taking: Reported on 04/10/2022) metoprolol succinate ER (TOPROL XL) 25 mg 24 hr tablet Take 1 tablet by mouth once daily. sertraline (ZOLOFT) 100 mg tablet Take 2 tablets by mouth once daily. lisinopril 2.5 mg tablet Take 1 tablet by mouth once daily. (Patient not taking: Reported on 04/10/2022) diphenhydrAMINE (BENADRYL) 25 mg capsule Take 1 capsule by mouth every 6 hours as needed (anxiety). Discontinue previous Rx (Patient not taking: Reported on 07/15/2022) ALLERGIES: ALLERGIES Allergen Reactions Nickel Rash, Unknown, Hives Hydrocodone-Acetami* Itching Propoxyphene N-Acet* Vomiting VITALS: BP 128/85 Pulse 98 Temp 36.6 ?C (97.9 ?F) Resp 18 Wt 74 kg (163 lb 3.2 oz) LMP 06/02/2011 SpO2 98% BMI 31.61 kg/m? PE: Pleasant, in no acute distress. ANKLE: right . Mild swelling lateral malleolus Range of motion: inversion - painful, eversion - painful, anterior drawer- non-painful. painful to bear weight. limping gait. Palpation: Medial malleolus non-painful, lateral malleolus numb, Dorsal proximal midfoot - non-painful, proximal 5th metatarsal - mild discomfort, posterior calcaneus non-painful ASSESSMENT/PLAN: 1. Acute right ankle pain - ICD9: 719.47, 338.19, ICD10: M25.571 - XR TIBIA FIBULA 2V AP/LAT RIGHT - no fractures or lytic lesions. Suspect inversion sprain. treat with rest, ice, and as needed analgesia. Provided crutches from [employer]. Follow-up with orthopedics if worsening or not improving. Juan Mathis MD [facility] 05-18-2023 Note HNO ID: [id number] Author: Toro Osuna MD Service: ? Author Type: Physician Type: Progress Notes Filed: 05/18/2023 3:22 PM Note Text: [facility] [place] [facility] SECTION OF CARDIAC PACING and ELECTROPHYSIOLOGY OUTPATIENT VISIT DATE May 18, 2023 OUTPATIENT VISIT TYPE ESTABLISHED PRIMARY CARE PHYSICIAN: Robinson Smith [address] [place] [address] [place] [address] HISTORY OF PRESENT ILLNESS: Prior history: 42-year-old female with history of remote tricuspid valve repair and amphetamine use who presented to the hospital in the spring 2021. Apparently she called 911 for dyspnea, and, according to the report, her heart rate was approximately 200 bpm. She was cardioverted. The tracings of the rhythm are not available to review. She remained in sinus rhythm throughout hospital stay, had an echocardiogram with EF of 40 to 45%, was discharged with an event monitor. Ms. Galvan was referred to EPS for suspected SVT. She reports ongoing fatigue and episodes of nonexertional pain in the left side of the chest lasting for a second . She also describes sensation of single skipped heartbeats that she describes as jumping . Denies sustained palpitation or syncope. Her ECG shows sinus rhythm at 79 bpm with normal intervals and no obvious preexcitation. Event monitor demonstrated sinus rhythm with infrequent supraventricular and ventricular ectopy, a brief episode of atrial tachycardia and NSVT, both not associated with symptoms, as well as multiple episodes of dyspnea and chest pain that correlated with normal sinus rhythm. Interval history: Ms. Galvan presents for an office visit. She reports fatigue, reports exertional dyspnea, denies chest pain, palpitation, or dizziness. Her ECG shows sinus rhythm 86 bpm with no ectopy. PAST MEDICAL HISTORY Diagnosis Date Backache, unspecified Cervical high risk human papillomavirus (HPV) DNA test positive 03/09/2013 Chronic infective endocarditis Encounter for IUD insertion 06/09/2011 Mirena Insertion Generalized anxiety disorder PMH - PAST MEDICAL HISTORY OF HEART MURMUR MEDICATIONS: QUEtiapine (SEROQUEL) 100 mg tablet Take 100 mg by mouth daily at bedtime. prazosin (MINIPRESS) 2 mg cap Take 2 mg by mouth daily at bedtime. venlafaxine ER (EFFEXOR XR) 37.5 mg 24 hr capsule Take 37.5 mg by mouth once daily. sertraline (ZOLOFT) 100 mg tablet Take 2 tablets by mouth once daily. melatonin 3 mg tablet TAKE 2 TABLETS BY MOUTH AT BEDTIME NEEDED FOR FOR INSOMNIA. (Patient not taking: Reported on 07/15/2022) venlafaxine HCl (EFFEXOR ORAL) Take by mouth. (Patient not taking: Reported on 04/10/2022) metoprolol succinate ER (TOPROL XL) 25 mg 24 hr tablet Take 1 tablet by mouth once daily. lisinopril 2.5 mg tablet Take 1 tablet by mouth once daily. (Patient not taking: Reported on 04/10/2022) diphenhydrAMINE (BENADRYL) 25 mg capsule Take 1 capsule by mouth every 6 hours as needed (anxiety). Discontinue previous Rx (Patient not taking: Reported on 07/15/2022) Review of Systems Constitutional: Positive for fatigue. Respiratory: Positive for shortness of breath. Cardiovascular: Negative for chest pain and palpitations. Neurological: Negative for syncope. Psychiatric/Behavioral: The patient is not nervous/anxious. PHYSICAL EXAMINATION: BP 122/81 (BP Site: Left Arm, BP Position: Sitting, BP Cuff Size: Regular Adult) Pulse 88 Wt 161 lb (73 kg) LMP 06/02/2011 SpO2 97% BMI 31.18 kg/m? BP w/Orthostatic Vitals Date and Time Orthostatic BP Orthostatic Pulse BP Pulse BP Position BP Site BP Cuff Size 05/18/23 1451 -- -- 122/81 88 Sitting Left Arm Regular Adult Physical Exam Constitutional: Appearance: Normal appearance. HENT: Head: Normocephalic and atraumatic. Eyes: Conjunctiva/sclera: Conjunctivae normal. Cardiovascular: Rate and Rhythm: Normal rate and regular rhythm. Pulmonary: Effort: Pulmonary effort is normal. No respiratory distress. Breath sounds: No stridor. No wheezing or rales. Skin: General: Skin is dry. Coloration: Skin is not pale. Neurological: Mental Status: She is alert and oriented to person, place, and time. Psychiatric: Mood and Affect: Mood normal. I have personally reviewed the Electrocardiogram. Assessment PLAN AND RECOMMENDATIONS: ASSESSMENT/PLAN: 1. PAC (premature atrial contraction) - ICD9: 427.61, ICD10: I49.1 - Event monitor in 2021 showed physiologic burden of supraventricular ectopy. Current symptoms do not appear to be related to cardiac rhythm abnormalities. Would recommend EPS follow-up on as-needed basis. - ECG B/O W INTERP (MED OFFICE) Toro Osuna MD CONTACT INFORMATION: Toro Osuna MD [facility] 05-18-2023 History of Present illness Narrative Images from the original note were not included. [facility] [place] [facility] SECTION OF CARDIAC PACING and ELECTROPHYSIOLOGY OUTPATIENT VISIT DATE May 18, 2023 OUTPATIENT VISIT TYPE ESTABLISHED PRIMARY CARE PHYSICIAN: Robinson Smith [address] [place] [address] [place] [address] HISTORY OF PRESENT ILLNESS: Prior history: 42-year-old female with history of remote tricuspid valve repair and amphetamine use who presented to the hospital in the spring 2021. Apparently she called 911 for dyspnea, and, according to the report, her heart rate was approximately 200 bpm. She was cardioverted. The tracings of the rhythm are not available to review. She remained in sinus rhythm throughout hospital stay, had an echocardiogram with EF of 40 to 45%, was discharged with an event monitor. Ms. Galvan was referred to EPS for suspected SVT. She reports ongoing fatigue and episodes of nonexertional pain in the left side of the chest lasting for a second . She also describes sensation of single skipped heartbeats that she describes as jumping . Denies sustained palpitation or syncope. Her ECG shows sinus rhythm at 79 bpm with normal intervals and no obvious preexcitation. Event monitor demonstrated sinus rhythm with infrequent supraventricular and ventricular ectopy, a brief episode of atrial tachycardia and NSVT, both not associated with symptoms, as well as multiple episodes of dyspnea and chest pain that correlated with normal sinus rhythm. Interval history: Ms. Galvan presents for an office visit. She reports fatigue, reports exertional dyspnea, denies chest pain, palpitation, or dizziness. Her ECG shows sinus rhythm 86 bpm with no ectopy. PAST MEDICAL HISTORY Diagnosis Date Backache, unspecified Cervical high risk human papillomavirus (HPV) DNA test positive 03/09/2013 Chronic infective endocarditis Encounter for IUD insertion 06/09/2011 Mirena Insertion Generalized anxiety disorder PMH - PAST MEDICAL HISTORY OF HEART MURMUR MEDICATIONS: QUEtiapine (SEROQUEL) 100 mg tablet Take 100 mg by mouth daily at bedtime. prazosin (MINIPRESS) 2 mg cap Take 2 mg by mouth daily at bedtime. venlafaxine ER (EFFEXOR XR) 37.5 mg 24 hr capsule Take 37.5 mg by mouth once daily. sertraline (ZOLOFT) 100 mg tablet Take 2 tablets by mouth once daily. melatonin 3 mg tablet TAKE 2 TABLETS BY MOUTH AT BEDTIME NEEDED FOR FOR INSOMNIA. (Patient not taking: Reported on 07/15/2022) venlafaxine HCl (EFFEXOR ORAL) Take by mouth. (Patient not taking: Reported on 04/10/2022) metoprolol succinate ER (TOPROL XL) 25 mg 24 hr tablet Take 1 tablet by mouth once daily. lisinopril 2.5 mg tablet Take 1 tablet by mouth once daily. (Patient not taking: Reported on 04/10/2022) diphenhydrAMINE (BENADRYL) 25 mg capsule Take 1 capsule by mouth every 6 hours as needed (anxiety). Discontinue previous Rx (Patient not taking: Reported on 07/15/2022) Review of Systems Constitutional: Positive for fatigue. Respiratory: Positive for shortness of breath. Cardiovascular: Negative for chest pain and palpitations. Neurological: Negative for syncope. Psychiatric/Behavioral: The patient is not nervous/anxious. PHYSICAL EXAMINATION: BP 122/81 (BP Site: Left Arm, BP Position: Sitting, BP Cuff Size: Regular Adult) Pulse 88 Wt 161 lb (73 kg) LMP 06/02/2011 SpO2 97% BMI 31.18 kg/m BP w/Orthostatic Vitals Date and Time Orthostatic BP Orthostatic Pulse BP Pulse BP Position BP Site BP Cuff Size 05/18/23 1451 -- -- 122/81 88 Sitting Left Arm Regular Adult Physical Exam Constitutional: Appearance: Normal appearance. HENT: Head: Normocephalic and atraumatic. Eyes: Conjunctiva/sclera: Conjunctivae normal. Cardiovascular: Rate and Rhythm: Normal rate and regular rhythm. Pulmonary: Effort: Pulmonary effort is normal. No respiratory distress. Breath sounds: No stridor. No wheezing or rales. Skin: General: Skin is dry. Coloration: Skin is not pale. Neurological: Mental Status: She is alert and oriented to person, place, and time. Psychiatric: Mood and Affect: Mood normal. I have personally reviewed the Electrocardiogram. Assessment PLAN AND RECOMMENDATIONS: ASSESSMENT/PLAN: 1. PAC (premature atrial contraction) - ICD9: 427.61, ICD10: I49.1 - Event monitor in 2021 showed physiologic burden of supraventricular ectopy. Current symptoms do not appear to be related to cardiac rhythm abnormalities. Would recommend EPS follow-up on as-needed basis. - ECG B/O W INTERP (MED OFFICE) Toro Osuna MD CONTACT INFORMATION: Toro Osuna MD documented in this encounter [facility] 05-18-2023 Nurse Note C/o increased SOB c/o being very fatigued has been out of Metoprolol for about 2 weeks. Libia Stock MA documented in this encounter [facility] 04-29-2023 Miscellaneous Notes Received ED summary, labs, ekg and imaging for chest pain from [facility]. Placed in provider's inbox for review. Route to [place] scanning. documented in this encounter [facility] 04-28-2023 Note HNO ID: [id number] Author: Desiree Juarez APRN.RODRIGO Service: ? Author Type: Nurse Practitioner Type: Progress Notes Filed: 04/28/2023 3:43 PM Note Text: Female with complaints of chest tightness and discomfort in the center. Patient has a significant heart history including valve repairs endocarditis. Says it feels really hard to get air in. Patient said she had a couple sharp shooting pains in her chest today as well. Patient denies any sick symptoms associated with this. At this time patient is being referred to the emergency room for full work-up. Patient was okay with this care plan and her mother will take her. [facility] 04-28-2023 History of Present illness Narrative Female with complaints of chest tightness and discomfort in the center. Patient has a significant heart history including valve repairs endocarditis. Says it feels really hard to get air in. Patient said she had a couple sharp shooting pains in her chest today as well. Patient denies any sick symptoms associated with this. At this time patient is being referred to the emergency room for full work-up. Patient was okay with this care plan and her mother will take her. documented in this encounter [facility] 11-11-2022 Note Patient Outreach (IN [facility]) ÁNGEL GALVAN ([id number]) 1980 F Date Time Provider Department 11/11/22 ROBINSON SMITH During your visit today, we recorded the following information about you: Allergies As of Date: 11/11/2022 Noted Allergy Reaction NICKEL 03/10/2010 2 - Rash 16 - Unknown 4 - Hives HYDROCODONE-ACETAMINOPHEN 10/09/2008 9 - Itching PROPOXYPHENE N-ACETAMINOPHEN 10/09/2008 11 - Vomiting Date Reviewed: 07/15/2022 Reviewed by: Kemi Egan - Fully Assessed Visit Diagnosis:Encounter for screening mammogram for breast cancer [Z12.31] Order(s):[facility] SCREENING [[id number]] Order #: [id number] FUTURE Prescriptions as of 11/16/2022 - melatonin 3 mg tablet TAKE 2 TABLETS BY MOUTH AT BEDTIME NEEDED FOR FOR INSOMNIA. - venlafaxine ER (EFFEXOR XR) 37.5 mg 24 hr capsule Take 37.5 mg by mouth once daily. - venlafaxine HCl (EFFEXOR ORAL) Take by mouth. - metoprolol succinate ER (TOPROL XL) 25 mg 24 hr tablet Take 1 tablet by mouth once daily. - sertraline (ZOLOFT) 100 mg tablet Take 2 tablets by mouth once daily. - lisinopril 2.5 mg tablet Take 1 tablet by mouth once daily. - diphenhydrAMINE (BENADRYL) 25 mg capsule Take 1 capsule by mouth every 6 hours as needed (anxiety). Discontinue previous Rx Problem List As Of Date 11/11/2022 Noted Resolved Ventricular Septal Defect [Q21.0] 03/03/2010 LVE (Left Ventricular Enlargement) [I51.7] 03/03/2010 DEON (Generalized Anxiety Disorder) [F41.1] 04/15/2010 Depression [F32.A] 04/15/2010 Cervical high risk human papillomavirus (HPV) D*03/09/2013 Chlamydia [A74.9] 03/10/2013 Seizures [R56.9] 11/22/2013 Palpitations [R00.2] 02/08/2022 Nicotine use disorder, F17.2 [F17.200] 02/08/2022 SVT (supraventricular tachycardia) (HCC) [I47.1]02/11/2022 Encounter Status:Closed by RIN QUINTERO on 11/16/22 [facility] 09-18-2022 Miscellaneous Notes Received 09/18/2022 from [facility]. Placed in provider's inbox for review. Route to [place] for scanning ER Summary 09/16/2022 Left sided flank pain. Difficulty urinating. DX flank pain uncertain cause documented in this encounter [facility] 09-18-2022 Miscellaneous Notes Received 09/18/2022 from [facility]. Placed in provider's inbox for review. Route to [place] for scanning. 09/18/2022 CT abdomen and pelvis Stable examination No evidence of obstructive uropathy IUD is seen within the uterus documented in this encounter [facility] 07-15-2022 History of Present illness Narrative CC: Patient presents with: Sore Throat: sore throat x 2 days, cough x 1 day HPI: Ángel Galvan is a 41 year old female who presents to the office with complaint of cough, nonproductive and sore throat since last night. Symptoms are staying the same. Associated symptoms includes headache. Denies fever, nausea, vomiting , and diarrhea. Treatments tried include nothing so far. with no relief of symptoms. Sick contacts: unknown. History of asthma, frequent episodes of bronchitis, chronic bronchitis, bronchiectasis or COPD: No Smoker: No Seasonal/environmental allergies: No The ROS is otherwise negative. The patient's pmh, medications, allergies, and past visits are reviewed. PHYSICAL EXAM: BP 102/60 Pulse 92 Temp 36.6 C (97.9 F) Resp 16 Wt 63.5 kg (140 lb) LMP 06/02/2011 SpO2 100% BMI 27.12 kg/m General appearance: alert, cooperative, pleasant, in no acute distress Head: Normocephalic Eyes: EOM's intact, conjunctiva pink and moist, no icterus, sclera white, non-injected Ears: Right ear: External ear/canal- Normal, TM - clear with good landmarks. Left ear: External ear/canal- Normal, TM - clear with good landmarks Oropharynx:moderate erythema, without exudates present Heart: Negative. RRR without obvious murmur, gallop, or rubs. No ectopy. 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 metoprolol succinate ER (TOPROL XL) 25 mg 24 hr tablet Take 1 tablet by mouth once daily. sertraline (ZOLOFT) 100 mg tablet Take 2 tablets by mouth once daily. melatonin 3 mg tablet TAKE 2 TABLETS BY MOUTH AT BEDTIME NEEDED FOR FOR INSOMNIA. (Patient not taking: Reported on 07/15/2022) venlafaxine HCl (EFFEXOR ORAL) Take by mouth. (Patient not taking: Reported on 04/10/2022 ) lisinopril 2.5 mg tablet Take 1 tablet by mouth once daily. (Patient not taking: Reported on 04/10/2022 ) diphenhydrAMINE (BENADRYL) 25 mg capsule Take 1 capsule by mouth every 6 hours as needed (anxiety). Discontinue previous Rx (Patient not taking: Reported on 07/15/2022) FAMILY HISTORY Problem Relation Age of Onset Cancer Maternal Grandmother LUNG Cancer Maternal Aunt CERVICAL Colon Cancer Maternal Uncle Ischemic Heart Disease Maternal Uncle in his sleep at age 54 Social History Tobacco Use Smoking status: Former Packs/day: 0.25 Types: Cigarettes Smokeless tobacco: Never Substance Use Topics Alcohol use: Yes Comment: OCCASIONALLY Drug use: No Comment: history of meth use ASSESSMENT/PLAN: 1. Sore throat - ICD9: 462, ICD10: J02.9 - STREP A MOLECULAR (POC) - negative Covid test pending Prescription instructions reviewed with patient as applicable. Potential red flag symptoms discussed with the patient. Reviewed appropriate action plan to take if red flag symptoms occur. Patient agreeable to treatment plan. Desiree Juarez APRN.RODRIGO documented in this encounter [facility] 04-21-2022 Miscellaneous Notes Pharmacy verified in [employer]. Patient has been identified by name and date of : Yes Patient aware RX will be sent to pharmacy. No need to notify patient. Patient phones for refill(s): Pending Prescriptions Disp Refills MELATONIN 3 MG TABLET 60 tablet 1 Sig: TAKE 2 TABLETS BY MOUTH AT BEDTIME NEEDED FOR FOR INSOMNIA. ABEL: Yes Date of last office visit : 03/25/2022 Date of next office visit : Visit date not found Last 2 Encounter Wt Readings: Date: Wt: 04/10/2022 57.2 kg (126 lb) 03/25/2022 58.1 kg (128 lb 1.6 oz) Not applicable Please advise. Gris Holloway MA documented in this encounter [facility] 04-10-2022 History of Present illness Narrative This note was created using Access UK[employer]. Subjective Ángel Galvan is a 41 year old female. HPI 41-year-old female with history of remote tricuspid valve repair and amphetamine use who presented to the hospital in the spring 2021. Apparently she called 911 for dyspnea, and, according to the report, her heart rate was approximately 200 bpm. She was cardioverted. The tracings of the rhythm are not available to review. She remained in sinus rhythm throughout hospital stay, had an echocardiogram with EF of 40 to 45%, was discharged with an event monitor. Ms. Galvan was referred to EPS for suspected SVT. She reports ongoing fatigue and episodes of nonexertional pain in the left side of the chest lasting for a second . She also describes sensation of single skipped heartbeats that she describes as jumping . Denies sustained palpitation or syncope. Her ECG shows sinus rhythm at 79 bpm with normal intervals and no obvious preexcitation. Event monitor demonstrated sinus rhythm with infrequent supraventricular and ventricular ectopy, a brief episode of atrial tachycardia and NSVT, both not associated with symptoms, as well as multiple episodes of dyspnea and chest pain that correlated with normal sinus rhythm. PAST MEDICAL HISTORY Diagnosis Date Backache, unspecified Cervical high risk human papillomavirus (HPV) DNA test positive 03/09/2013 Chronic infective endocarditis Encounter for IUD insertion 06/09/2011 Mirena Insertion Generalized anxiety disorder PMH - PAST MEDICAL HISTORY OF HEART MURMUR Current Outpatient Medications Medication Sig Dispense Refill venlafaxine ER (EFFEXOR XR) 37.5 mg 24 hr capsule Take 37.5 mg by mouth once daily. metoprolol succinate ER (TOPROL XL) 25 mg 24 hr tablet Take 1 tablet by mouth once daily. 90 tablet 1 melatonin 3 mg tablet Take 2 tablets by mouth at bedtime as needed for for insomnia. (Patient taking differently: Take 6 mg by mouth at bedtime as needed for for insomnia. Taking 10 mg ) 90 tablet 0 sertraline (ZOLOFT) 100 mg tablet Take 2 tablets by mouth once daily. 60 tablet 1 diphenhydrAMINE (BENADRYL) 25 mg capsule Take 1 capsule by mouth every 6 hours as needed (anxiety). Discontinue previous Rx 90 capsule 0 venlafaxine HCl (EFFEXOR ORAL) Take by mouth. (Patient not taking: Reported on 04/10/2022 ) lisinopril 2.5 mg tablet Take 1 tablet by mouth once daily. (Patient not taking: Reported on 04/10/2022 ) 90 tablet 3 No current facility-administered medications for this visit. Review of Systems Constitutional: Positive for fatigue. Negative for fever. HENT: Negative for hearing loss. Eyes: Negative for pain. Respiratory: Positive for shortness of breath. Negative for cough. Cardiovascular: Positive for chest pain and palpitations. Negative for leg swelling. Gastrointestinal: Negative for abdominal pain and blood in stool. Endocrine: Negative for cold intolerance. Genitourinary: Negative for hematuria. Musculoskeletal: Negative for back pain. Skin: Negative for pallor. Neurological: Negative for dizziness and syncope. Psychiatric/Behavioral: The patient is nervous/anxious. Objective BP 112/80 (BP Site: Left Arm, BP Position: Sitting, BP Cuff Size: Regular Adult) Pulse 90 Ht 5' 0.25 (1.53 m) Wt 126 lb (57.2 kg) LMP 06/02/2011 SpO2 96% BMI 24.40 kg/m Physical Exam Constitutional: General: She is not in acute distress. Appearance: She is well-developed. HENT: Head: Normocephalic and atraumatic. Eyes: General: No scleral icterus. Conjunctiva/sclera: Conjunctivae normal. Pupils: Pupils are equal, round, and reactive to light. Cardiovascular: Rate and Rhythm: Normal rate and regular rhythm. Pulmonary: Effort: No respiratory distress. Breath sounds: No stridor. No wheezing or rales. Abdominal: Tenderness: There is no abdominal tenderness. Skin: General: Skin is warm and dry. Findings: No rash. Neurological: Mental Status: She is alert and oriented to person, place, and time. Assessment and Plan 41-year-old female with history of tricuspid valve repair and substance abuse with atypical chest pain and dyspnea correlated with sinus rhythm on an event monitor, as well as a history of tachycardia that required cardioversion with no further information available. Ángel's chest discomfort does not appear to be related to any arrhythmia. She does have PACs which she is aware of, but the burden is well within normal limits. It is possible that the rhythm described by the paramedics was indeed SVT. If she experiences further episodes of sustained palpitation, she would need either long-term cardiac rhythm monitoring or even an electrophysiologic study for SVT inducibility. She will contact the office for additional testing if she develops symptoms suggestive of supraventricular tachycardia. Meanwhile she can be seen in EPS follow-up on as-needed basis. documented in this encounter [facility] 04-10-2022 Nurse Note C/o sob and shooting pain in left chest area,states she is having a lot of anxiety since being off of the Lisinopril, also lightheadedness. Libia Stock MA documented in this encounter [facility] 03-25-2022 Miscellaneous Notes Patient is scheduled to see EP Francheska Ascencio Consult to EP Any Provider For SVT Please call to Schedule Nisreen Rivers APRN.RODRIGO Yes, Ms Galvan said she would see an EP. Thank you, Love Castano LPN Ok To stop Lisinopril At Last OV She was hesitant about EP Referral. Has she changed her mind? Nisreen Rivers APRN.RODRIGO Ms Galvan called to let Nisreen Rivers NP know that since starting the lisinopril 2.5mg daily on 03-13-22, she has noted headache, exhaustion, and dizziness. Her B/P today at Kalie Fox NP's office was 107/45 as noted on her Epic chart. Ángel said she is going to hold the lisinopril at this time until she hears back from our office. She also wanted to know if Nisreen is going to refer her to EP since she failed the lisinopril? She said this was discussed in office visit on 03-12-2022. Thank you, Love Castano LPN documented in this encounter [facility] 03-25-2022 History of Present illness Narrative This note was created using Access UK[employer]. Subjective Ángel Galvan is a 41 year old female. Patient here for follow-up on mood and SVT. She saw the robot programmer and was continued on metoprolol and started on low dose lisinopril. Since starting the lisinopril she has had a headache, and this morning she felt dizzy. Her blood pressure is low today, she is not monitoring her blood pressure's as she is still living in [facility], scheduled to be discharged from there at the end of April. Has follow-up with cardiology on 04/23. Saw psychiatrist yesterday and started on Effexor in addition to Zoloft. Sees them again in 6 weeks, appt mid-May. Is using benadryl at night only to help with sleep, hasn't needed it for anxiety symptoms during the day. Review of Systems Respiratory: Negative for shortness of breath and wheezing. Cardiovascular: Positive for palpitations. Negative for chest pain. Gastrointestinal: Negative for abdominal pain. Allergic/Immunologic: Negative for immunocompromised state. Neurological: Positive for dizziness and headaches. 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 metoprolol succinate ER (TOPROL XL) 25 mg 24 hr tablet Take 1 tablet by mouth once daily. melatonin 3 mg tablet Take 2 tablets by mouth at bedtime as needed for for insomnia. sertraline (ZOLOFT) 100 mg tablet Take 2 tablets by mouth once daily. lisinopril 2.5 mg tablet Take 1 tablet by mouth once daily. diphenhydrAMINE (BENADRYL) 25 mg capsule Take 1 capsule by mouth every 6 hours as needed (anxiety). Discontinue previous Rx FAMILY HISTORY Problem Relation Age of Onset Cancer Maternal Grandmother LUNG Cancer Maternal Aunt CERVICAL Colon Cancer Maternal Uncle Ischemic Heart Disease Maternal Uncle in his sleep at age 54 Social History Tobacco Use Smoking status: Current Every Day Smoker Packs/day: 0.50 Types: Cigarettes Smokeless tobacco: Never Used Substance Use Topics Alcohol use: Yes Comment: OCCASIONALLY Drug use: No Comment: history of meth use Objective BP (!) 107/45 Pulse 76 Ht 154.9 cm (5' 0.98 ) Wt 58.1 kg (128 lb 1.6 oz) LMP 06/02/2011 BMI 24.22 kg/m Physical Exam Vitals and nursing note reviewed. Constitutional: Appearance: She is well-developed. She is not ill-appearing. Cardiovascular: Rate and Rhythm: Normal rate and regular rhythm. Heart sounds: Normal heart sounds. Pulmonary: Effort: Pulmonary effort is normal. Breath sounds: Normal breath sounds. Skin: General: Skin is warm and dry. Neurological: Mental Status: She is alert and oriented to person, place, and time. Psychiatric: Mood and Affect: Mood normal. Behavior: Behavior normal. Thought Content: Thought content normal. Assessment and Plan 1. SVT (supraventricular tachycardia) (HCC) Continue to follow with cardiology. Recommend to contact robot programmer about the symptoms she's experiencing since starting the lisinopril as they will probably discontinue that due to the side effects and low blood pressure. - metoprolol succinate ER (TOPROL XL) 25 mg 24 hr tablet; Take 1 tablet by mouth once daily. Dispense: 90 tablet; Refill: 1 2. DEON (generalized anxiety disorder) Linked with psychiatrist now for medication Management and will follow with them. Plans to start counseling in [place] once she returns home after being discharged from [facility] next month. 3. Depression, unspecified depression type Follow up with us once yearly for a physical and as needed for any new concerns. Kalie Lombardo APRN.RODRIGO documented in this encounter [facility] 03-04-2022 Miscellaneous Notes Received 03/14/2022 from Cardiac Testing Dept [facility]. Placed in provider's inbox for review. Route to [place] for scanning [facility] monitoring report 02/11/2022 - 02/24/2022 documented in this encounter [facility] 02-13-2022 History of Present illness Narrative TRANSITIONAL CARE MANAGEMENT (TCM) COMMUNITY MONITORING PROGRAM Provider Action/FYI: Unable to reach- LM on VM. Additional Instructions Patient discharged from [facility] to Facility Substance Abuse Treatment Provider Name Lauren House TCM Home Visit Referral Source of Stratification: [facility] Admission Status: Discharged Readmission Risk Score: 8 DELONTE Score: 3 Program referral criteria met: Does not meet referral criteria Patient does not qualify for High Risk TCM Home Visit program due to: Does not meet referral criteria Patient does not quality for High Risk TCM Home Visit Program due to: Does not meet referral criteria Preferred contact number: N/A Is patient staying somewhere other than the listed home address: No Dialysis Patient: No SUMMARY: Pt discharged from on 02/11. Admitted for: palpitations Contact made with patient: No - 2nd unsuccessful attempt - end outreach and close encounter Outreach ended documented in this encounter [facility] 02-12-2022 History of Present illness Narrative TCM Home Visit Referral Source of Stratification: [facility] Admission Status: Discharged Readmission Risk Score: 8 DELONTE Score: 3 Program referral criteria met: Does not meet referral criteria Patient does not qualify for High Risk TCM Home Visit program due to: Does not meet referral criteria Patient does not quality for High Risk TCM Home Visit Program due to: Does not meet referral criteria Preferred contact number: N/A Is patient staying somewhere other than the listed home address: No Dialysis Patient: No Treasure Reid RN, BSN Care Coordination team TRANSITIONAL CARE MANAGEMENT (TCM) COMMUNITY MONITORING PROGRAM Provider Action/FYI: [facility] discharge 02-11-22- initial outreach - Left voice message SUMMARY: Pt discharged from on 02-11-22. Admitted for: Palpitations. 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 Return as directed. You will receive results from your PCP appointment. If you have any questions, you may call the company number as provided in the packet. -Please work on quitting smoking. This is one of the best things you can do for your health right now. Smoking causes lung cancer, heart disease and vascular disease. Quitting now can help prevent future health problems. If you need help quitting smoking, you just have to ask. Talk with your doctor and your family and ask for help. Nothing changes until you take that step. But you CAN do it. Contact made with patient: No - next outreach attempt will be on next business day Attempted outreach to patient for hospital discharge initial outreach first attempt. No answer. Left a voicemail to return my call at [phone] Will attempt to outreach to patient again later today or on next business day 02-13-22 if no return call from patient. Thank you. Outreach ended Treasure Reid RN, BSN Care Coordination team documented in this encounter [facility] 12-15-2021 Miscellaneous Notes Opened in error documented in this encounter [facility] Diagnosis SVT (supraventricular tachycardia) (HCC)- Primary Other specified cardiac dysrhythmias [facility] [place] [facility] Diagnosis SVT (supraventricular tachycardia) (HCC)- Primary Other specified cardiac dysrhythmias [facility] [place] [facility]* Diagnosis Sore throat- Primary Acute pharyngitis At increased risk of exposure to COVID-19 virus [facility] [place] [facility]* Diagnosis Encounter for screening mammogram for breast cancer [facility] Diagnosis Chest discomfort- Primary Other chest pain [facility] [place] [facility]* Diagnosis PAC (premature atrial contraction)- Primary Supraventricular premature beats [facility]ative)* Diagnostic Procedure Only (Routine) - Pending Review Specialty Diagnoses / Procedures Referred By Ko sotelo Referred To Contact [facility] Diagnoses Encounter for screening mammogram for breast cancer Procedures MICHAEL SCREENING SCREENING MAMMOGRAPHY BI 2-VIEW BREAST INC Robinson Thomason MD [address] [place] [address] [place] [address] [facility] [address] [place] [address] Referral ID Status Reason Start Date Expiration Date Visits Requested Visits Authorized [id number] Pending Review Auto-Generat ed Referral 11/11/2022 12/11/2023 1 1 [facility] Family History No Family History Records Found Father Name Dates Details Family history of cardiac di sorder(V17.49, Z82.49) Status:Active Summary Purpose Advance Directives No Advanced Directives Records FoundDocuments on File Type Date Recorded 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 Advance Directive(s) Advance Directive(s) 02/08/2022 11:30 AM Advance Directive(s) 07/26/2021 9:50 PM Advance Directive(s) 12/17/2019 11:37 PM Documents on File Type Date Recorded 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 Advance Directive(s) Advance Directive(s) 02/17/2022 12:02 PM Advance Directive(s) 02/08/2022 11:30 AM Advance Directive(s) 07/26/2021 9:50 PM Advance Directive(s) 12/17/2019 11:37 PM Documents on File Type Date Recorded 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 Advance Directive(s) Advance Directive(s) 02/17/2022 12:02 PM Advance Directive(s) 02/08/2022 11:30 AM Advance Directive(s) 07/26/2021 9:50 PM Advance Directive(s) 12/17/2019 11:37 PM Health Concerns Infection Onset Date Last Indicated Resolved Time COVID-19 Rule-Out 02/08/2022 02/08/2022 02/08/2022 4:02 PM EDT Infection Onset Date Last Indicated Resolved Time COVID-19 Rule-Out 07/15/2022 07/15/2022 Reason for Referral Specialty Diagnoses / Procedures Referred By Contac t Referred To Contact Diagnoses SVT (supraventricular tachycardia) (HCC) Procedures CONSULT TO ELECTROPHYSIOLOGY OFFICE/OUTPATIENT NEW HIGH MDM 60-74 MINUTES Denzel Napier MD [address] [place] [address] Referral ID Status Reason Start Date Expiration Date Visits Requested Visits Authorized [id number] Authorized PCP Requested Referral 04/02/2022 06/23/2022 1 1 Additional Source Comments INFORMATION SOURCE (unrecogn ized section and content) DATE CREATED AUTHOR AUTHOR'S ORGANIZ ATION 07/10/2021 [facility] DATE CREATED AUTHOR AUTHOR'S ORGANIZ ATION 05/19/2023 [facility] DATE CREATED AUTHOR AUTHOR'S ORGANIZ ATION 10/27/2023 [facility] Source Comments (unrecognize d section and content) In the event this informatio n is protected by the Federal Confidentiality of Alcohol and Drug Abuse Patient Records regulations: The Federal rules restrict any use of the information to criminally investigate or prosecute any alcohol or drug abuse patient.[facility] the event this information is protected by the Federal Confidentiality of Alcohol and Drug Abuse Patient Records regulations: The Federal rules restrict any use of the information to criminally investigate or prosecute any alcohol or drug abuse patient.[facility] the event this information is protected by the Federal Confidentiality of Alcohol and Drug Abuse Patient Records regulations: The Federal rules restrict any use of the information to criminally investigate or prosecute any alcohol or drug abuse patient.[facility] the event this information is protected by the Federal Confidentiality of Alcohol and Drug Abuse Patient Records regulations: The Federal rules restrict any use of the information to criminally investigate or prosecute any alcohol or drug abuse patient.[facility] the event this information is protected by the Federal Confidentiality of Alcohol and Drug Abuse Patient Records regulations: The Federal rules restrict any use of the information to criminally investigate or prosecute any alcohol or drug abuse patient.[facility] the event this information is protected by the Federal Confidentiality of Alcohol and Drug Abuse Patient Records regulations: The Federal rules restrict any use of the information to criminally investigate or prosecute any alcohol or drug abuse patient.[facility] the event this information is protected by the Federal Confidentiality of Alcohol and Drug Abuse Patient Records regulations: The Federal rules restrict any use of the information to criminally investigate or prosecute any alcohol or drug abuse patient.[facility] the event this information is protected by the Federal Confidentiality of Alcohol and Drug Abuse Patient Records regulations: The Federal rules restrict any use of the information to criminally investigate or prosecute any alcohol or drug abuse patient.[facility] the event this information is protected by the Federal Confidentiality of Alcohol and Drug Abuse Patient Records regulations: The Federal rules restrict any use of the information to criminally investigate or prosecute any alcohol or drug abuse patient.[facility] the event this information is protected by the Federal Confidentiality of Alcohol and Drug Abuse Patient Records regulations: The Federal rules restrict any use of the information to criminally investigate or prosecute any alcohol or drug abuse patient.[facility] the event this information is protected by the Federal Confidentiality of Alcohol and Drug Abuse Patient Records regulations: The Federal rules restrict any use of the information to criminally investigate or prosecute any alcohol or drug abuse patient.[facility] the event this information is protected by the Federal Confidentiality of Alcohol and Drug Abuse Patient Records regulations: The Federal rules restrict any use of the information to criminally investigate or prosecute any alcohol or drug abuse patient.[facility] the event this information is protected by the Federal Confidentiality of Alcohol and Drug Abuse Patient Records regulations: The Federal rules restrict any use of the information to criminally investigate or prosecute any alcohol or drug abuse patient.[facility] the event this information is protected by the Federal Confidentiality of Alcohol and Drug Abuse Patient Records regulations: The Federal rules restrict any use of the information to criminally investigate or prosecute any alcohol or drug abuse patient.[facility] the event this information is protected by the Federal Confidentiality of Alcohol and Drug Abuse Patient Records regulations: The Federal rules restrict any use of the information to criminally investigate or prosecute any alcohol or drug abuse patient.[facility]In the event this information is protected by the Federal Confidentiality of Alcohol and Drug Abuse Patient Records regulations: The Federal rules restrict any use of the information to criminally investigate or prosecute any alcohol or drug abuse patient.[facility] Reason for Visit (unrecogniz ed section and content) Reason Onset Date Comments Transition Of Care 02/13/2022 TCM initial o utreach- discharge 02/11 Reason Comments Opened In Error Reason Comments Received Outside Medical Records Cardiac Testing Dept [facility] Reason Comments Follow Up Reason Comments Patient Update Reason Comments New Patient SVT Reason Comments Refill Request Reason Comments Sore Throat sore throat x 2 days , cough x 1 day Reason Comments Received Outside Medical Records [facility] CT abdomen/ pelvis without contrast 09/18/2022 Reason Comments Received Outside Medical Records [facility] Emergency Depart Summary 09/16/2022 Reason Comments Received Outside Medical Records Reason Comments Chest Congestion Chest congestion and SOB x 6 days Reason Comments Received Outside Medical Records [facility] ED 04/28/23 Reason Comments Cardiology Follow Up SVT c/o SOB x 1 mon and very fatigued Care Teams (unrecognized sec tion and content) Director Of Student Affairs Relationship Specialty Start Date End Date Robinson Smith MD [address] [place], [place] [id number] PCP - General Family Practice 12/15/11 Director Of Student Affairs Relationship Specialty Start Date End Date Robinson Smith MD [address] [place], [place] [id number] PCP - General Family Practice 12/15/11 Director Of Student Affairs Relationship Specialty Start Date End Date Robinson Smith MD [address] [place] [address] PCP - General Family Practice 12/15/11 Director Of Student Affairs Relationship Specialty Start Date End Date Robinson Smith MD [facility] [place] [address] PCP - General Family Practice 12/15/11 Director Of Student Affairs Relationship Specialty Start Date End Date Robinson Smith MD [address] [place] [address], [place] [address] PCP - General Family Practice 12/15/11 Director Of Student Affairs Relationship Specialty Start Date End Date Robinson Smith MD [address] [place] [address], [place] [address] PCP - General Family Practice 12/15/11 Director Of Student Affairs Relationship Specialty Start Date End Date Robinson Smith MD [address] [place] [address], [place] [address] PCP - General Family Medicine 12/15/11 Director Of Student Affairs Relationship Specialty Start Date End Date Robinson Smith MD [address] [place] [address], [place] [address] PCP - General Family Medicine 12/15/11 Director Of Student Affairs Relationship Specialty Start Date End Date Robinson Smith MD [address] [place] [address], [place] [address] PCP - General Family Medicine 12/15/11 Director Of Student Affairs Relationship Specialty Start Date End Date Robinson Smith MD [address] [place] [address], [place] [address] PCP - General Family Medicine 12/15/11 Director Of Student Affairs Relationship Specialty Start Date End Date Robinson Smith MD [address] [place] [address], [place] [address] PCP - General Family Medicine 12/15/11 Director Of Student Affairs Relationship Specialty Start Date End Date Robinson Smith MD [address] [place] [address] PCP - General Family Medicine 12/15/11 FOR RECORDS PERTAINING TO PATIENTS WHO ARE OR HAVE BEEN ENROLLED IN A CHEMICAL DEPENDENCY/SUBSTANCEABUSE PROGRAM, SOME INFORMATION MAY BE OMITTED. This clinical summary was aggregated from multiple sources. Caution should be exercised in using it in the provision of clinical care. This summary normalizes information from multiple sources, and as a consequence, information in this document may materially change the coding, format and clinical context of patient data. In addition, data may be omitted in some cases. CLINICAL DECISIONS SHOULD BE BASED ON THE PRIMARY CLINICAL RECORDS. [email or web address] provides no warranty or guarantee of the accuracy or completeness of information in this document.
== END 2023-11-24 22:50 | disposition home or self-care (01) ==
PROVIDERS: Emergency Provider Emergency Medicine; PCP Family Medicine; Visit Provider Emergency Medicine
DX: G43.909 Migraine, unspecified, not intractable, without status migrainosus (principal); R51.9 Headache, unspecified; F12.90 Cannabis use, unspecified, uncomplicated; Z87.891 Personal history of nicotine dependence
CPT/HCPCS: 96374; 96375; 99282; A4216

== ENCOUNTER 2024-01-01 09:27 | Emergency (ER) | payer MEDICAID, SELFPAY ==
[2024-01-01 09:28] VITALS: BP 112/61; PULSE 80; RESP 16; TEMP 35.8; O2SAT 97; BMI 30.1
--- NOTE | 2024-01-01 10:08 | EDS_ITS ---
HPI History of Present Illness Chief Complaint: Abscess Detail of Chief Complaint: Right-sided facial abscess and cellulitis. Began on Wednesday. Informant: patient Onset/Context/Timing Onset: Days Context: Gradual Onset Timing: Continuous Current Severity: Moderate Maximum Severity: Moderate Narrative Narrative: 43-year-old female developed right-sided facial cellulitis and abscess began on Wednesday. Worse on Wednesday saw in urgent care was started on Bactrim and Keflex. Its only gotten worse and now she has a small had do an abscess to the right of her nose. Denies any eye pain. Prior similar symptoms: No Recent Illness/[facility]: [facility] History Bacteremia Depression History of endocarditis Marijuana abuse Panic attack Seizure disorder Substance abuse Supraventricular tachycardia (02/08/22) Tobacco abuse Home Medications metoprolol succinate 25 mg tablet,extended release 24 hr 25 mg PO DAILY 07/19/22 [History Last Taken Unknown] sertraline 100 mg tablet (Zoloft) 200 mg PO DAILY 07/19/22 [History Last Taken Unknown] venlafaxine 37.5 mg tablet 37.5 mg PO DAILY 07/19/22 [History Last Taken Unknown] hydroxyzine pamoate 25 mg capsule 25 mg PO QHS PRN anxiety 04/28/23 [History Last Taken 04/27/23] omeprazole 20 mg capsule,delayed release 20 mg PO DAILY 4 weeks #28 caps 04/28/23 [Rx Last Taken Unknown] prazosin 2 mg capsule (Minipress) 2 mg PO DAILY 04/28/23 [History Last Taken Unknown] quetiapine 100 mg tablet (Seroquel) 100 mg PO QHS 04/28/23 [History Last Taken Unknown] cephalexin 500 mg capsule 500 mg PO Q6 #20 CAPSULES 01/01/24 [Rx Last Taken Unknown] Allergy/AdvReac Type Severity Reaction Status Date / Time hydrocodone [Hydrocodone] AdvReac Itching Verified 11/24/23 19:50 nickel [Nickel] AdvReac Itching Verified 11/24/23 19:50 propoxyphene napsylate AdvReac Itching Verified 11/24/23 19:50 [From Darvocet-N 100] Surgical History History of cardioversion (02/08/22) History of open heart surgery History of ventricular septal defect repair (01/25/15) Social History Smoking Status: Former smoker substance use type: marijuana ROS ROS ED ROS Narrative Denies any fever or chills. Right-sided facial abscess with cellulitis. Review of Systems ROS Unobtainable: Denies due to encephalopathy Constitutional Constitutional ED: Denies chills or fever(s) Eyes Eyes: Denies blurry vision ENT ENT ED: Denies ear pain Cardiovascular Cardiovascular: Denies chest pain Respiratory/Chest Respiratory/Chest: Denies cough or dyspnea Gastrointestinal Gastrointestinal: Denies abdominal pain, constipation, diarrhea, melena, nausea or vomiting Genitourinary Genitourinary ED: Denies dysuria Musculoskeletal Musculoskeletal: Denies arthralgias Integumentary Reports abscess Neurologic Neurologic: Denies headache(s) Psychiatric Psychiatric: Denies anxiety Endocrine Endocrinology: Denies cold intolerance Hematologic/Lymphatic Hematologic/Lymphatic: Reports none Allergic/Immunologic Allergic/Immunologic ED: Denies mouth swelling, tongue swelling or urticaria EXAM Physical Exam Narrative Exam Narrative: 43-year-old female no acute distress vital signs stable afebrile. HEENT exam just to the right of her nose on her face there is a small abscess. Surrounding indurated tissue and cellulitis along her right cheek with mild swelling around the right eye. There is no proptosis. Normal extraocular motions of her eye without pain. I do not think there is any orbital cellulitis. Neck nontender no lymphadenopathy. Lungs clear. Heart regular rhythm no murmur. Abdomen soft nontender. Moving all 4 extremities. Awake and alert no focal motor deficits. Const Vital Signs: 01/01/24 09:28 Temperature 96.5 F L Temperature Source Temporal Pulse Rate 80 Respiratory Rate 16 Blood Pressure 112/61 Blood Pressure Mean 78 Pulse Ox 97 Oxygen Delivery Method Room Air Positive well nourished and well developed; Negative for cachectic, contractures or unkempt General Appearance ED: well developed and NAD; Negative for unkempt, cachectic, contractures, cyanotic, diaphoretic or pallor Nutritional Appearance: Negative for cachectic HEENT Reports moist mucous membranes Negative for trauma or tenderness Eyes PERRL and EOMs intact bilaterally General Eye ED: Negative for pale conjunctiva, scleral icterus or other Neck no lymphadenopathy, supple and no JVD General: Negative for tenderness Lymph Lymphatic: Negative for other Chest Wall inspection of chest normal and palpation of chest normal Chest: Negative for other Resp normal respiratory effort and clear to auscultation bilaterally Effort and Inspection: Negative for retractions Auscultation: Negative for rales, rhonchi or wheezes Cardio regular rate, regular rhythm, S1 normal heart sound, S2 normal heart sound and no murmurs Palpation: Negative for palpable S3 or palpable S4 Rate: Negative for bradycardia or tachycardic Rhythm: Negative for abnormal rhythm GI normal to inspection, nondistended, normoactive bowel sounds, non-tender, non- distended and no masses Auscultation: normoactive bowel sounds Palpation: soft; Negative for tender, guarding or rebound tenderness present Back/Spine Negative for no CVA tenderness General Back: Negative for CVA tenderness Cervical Spine: Negative for cervical spine tenderness Thoracic Spine / Upper Back: Negative for thoracic spinal tenderness Lumbar Spine / Lower Back: Negative for lumbar spinal tenderness Extremity normal to inspection General Extremety ED: Negative for edema or tenderness General Extremity: Negative for edema Neuro oriented x3 and CN's II-XII intact bilaterally Sensorium / Orientation: alert; Negative for orientation impaired Motor Exam: strength 5/5 throughout Psych mental status grossly normal Appearance: Negative for unkempt Attitude: No agitated Mood & Affect: Negative for depressed, anxious or tearful Skin No no rashes or lesions noted and no wounds Skin Narrative: Right facial abscess with surrounding cellulitis. General Skin Exam: Negative for jaundice or pallor Lesions: No lesion noted Rashes: rashes noted Trauma: Negative for abrasion MDM MDM MDM Narrative Medical decision making narrative: 43-year-old female on Keflex and Bactrim right-sided facial abscess with cellulitis that needs drained. Let will be applied. I was able to express about 3 cc of pus and blood from the facial abscess. She will continue warm compresses. Keflex 4 times a day. Bactrim twice a day till gone. Has a appointment to see her doctor again on Wednesday. She knows to return if she has worsening facial swelling, feels worse or fever. Otherwise outpatient treatment with warm compresses and antibiotics. History & Record Review Discussion w/independent historian: Patient Additional record(s) reviewed:: Prior inpatient record, Prior outpatient record, Prior ED visit and Prior labs Procedures Other Procedures Procedure(s): Small right facial abscess just to the right of her nose. Local anesthetized with let. I unroofed the small pimple. Was able to express about a cc of pus. Then used an 11 blade and opening up some more and express another 2 cc of pus and blood. I do not think there is anything left to drain. Patient really did not want incision on her face if at all possible. She was instructed on abscess care. She has follow-up on Wednesday. Discharge Plan Triage Chief Complaint: Abscess ED Provider: Kenneth Harmon Dx/Rx/DC Orders Clinical Impression: Abscess of face, History of endocarditis, Cellulitis Instructions: ED Abscess Incision And Drainage Prescriptions: New cephalexin 500 mg capsule 500 mg PO Q6 Qty: 20 0RF No Action sertraline [Zoloft] 100 mg Tablet 200 mg PO DAILY venlafaxine [Effexor] 37.5 mg Tablet 37.5 mg PO DAILY metoprolol succinate 25 mg Tablet Extended Release 24 Hr 25 mg PO DAILY quetiapine [Seroquel] 100 mg tablet 100 mg PO QHS prazosin [Minipress] 2 mg capsule 2 mg PO DAILY hydroxyzine pamoate 25 mg capsule 25 mg PO QHS PRN Patient Comments: TAKE 1 CAPSULE BY MOUTH AT BEDTIME NEEDED FOR TROUBLE SLEEPING omeprazole 20 mg capsule,delayed release(DR/EC) 20 mg PO DAILY 28 Days Qty: 28 0RF Primary Care Provider: Julio Cesar Mccollum Referrals: Julio Cesar Mccollum MD [Primary Care Provider] - Keep Frances appointment Activity Restrictions/Additional Instructions: Keflex 4 times a day. The Bactrim twice today. Motrin and Tylenol for pain. Follow-up with your doctor in the next 3 to 5 days to ensure this is getting better return if it is getting worse or you develop a fever or feel a lot worse. Disposition Disposition: Home, Self Care
[2024-01-01] MEDS: Lidocaine/Epi/Tetracaine 50 ML 1 APPLIC TOPICAL (10:35)
[2024-01-01 11:13] VITALS: BP 113/81; PULSE 66; RESP 16; TEMP 35.8; O2SAT 96
== END 2024-01-01 11:15 | disposition home or self-care (01) ==
PROVIDERS: Emergency Provider Emergency Medicine; PCP Family Medicine; Visit Provider Emergency Medicine
DX: L02.01 Cutaneous abscess of face (principal); L03.211 Cellulitis of face; F12.90 Cannabis use, unspecified, uncomplicated; Z87.891 Personal history of nicotine dependence
CPT/HCPCS: 99284

== ENCOUNTER 2024-01-23 00:14 | Emergency (ER) | payer MEDICAID, SELFPAY ==
[2024-01-23 00:14] VITALS: BP 144/83; PULSE 80; RESP 16; TEMP 36.6; O2SAT 98; BMI 29.9
--- NOTE | 2024-01-23 00:21 | EX.ED.VIS.HA ---
HPI History of Present Illness Chief Complaint: Headache Informant: patient Onset/Context/Timing Onset: Yesterday Current Severity: Moderate Maximum Severity: Moderate Narrative Narrative: Patient presents with 2-day history of migraine. She points to the frontal area and describing her area of headache. She states this is like her typical migraines but they are coming on more frequently more severe. She tried to make a visit with her doctor but was unable to over the weekend. She denies recent head injury and no recent URI symptoms. [facility] Medical History Bacteremia Depression History of endocarditis Marijuana abuse Panic attack Seizure disorder Substance abuse Supraventricular tachycardia (02/08/22) Tobacco abuse Home Medications metoprolol succinate 25 mg tablet,extended release 24 hr 25 mg PO DAILY 07/19/22 [History Last Taken Unknown] sertraline 100 mg tablet (Zoloft) 200 mg PO DAILY 07/19/22 [History Last Taken Unknown] venlafaxine 37.5 mg tablet 37.5 mg PO DAILY 07/19/22 [History Last Taken Unknown] hydroxyzine pamoate 25 mg capsule 25 mg PO QHS PRN anxiety 04/28/23 [History Last Taken 04/27/23] Allergy/AdvReac Type Severity Reaction Status Date / Time hydrocodone [Hydrocodone] AdvReac Itching Verified 11/24/23 19:50 nickel [Nickel] AdvReac Itching Verified 11/24/23 19:50 propoxyphene napsylate AdvReac Itching Verified 11/24/23 19:50 [From Darvocet-N 100] Surgical History History of cardioversion (02/08/22) History of open heart surgery History of ventricular septal defect repair (01/25/15) Social History Smoking Status: Current every day smoker tobacco type: e-cigarettes substance use type: marijuana ROS ROS ED Constitutional Constitutional ED: Denies chills or fever(s) Eyes Eyes: Denies change in vision or discharge from eye(s) ENT ENT ED: Denies discharge from eye(s), rhinorrhea or sore throat Cardiovascular Cardiovascular: Denies chest pain or palpitations Respiratory/Chest Respiratory/Chest: Denies cough or dyspnea Gastrointestinal Gastrointestinal: Reports nausea; Denies abdominal pain or vomiting Musculoskeletal Musculoskeletal: Denies back pain or extremity pain Integumentary Denies Abrasions or rash Neurologic Neurologic: Reports headache(s); Denies weakness Psychiatric Psychiatric: Denies anxiety or depression Allergic/Immunologic Allergic/Immunologic ED: Denies lip swelling or urticaria EXAM Physical Exam Const Vital Signs: 01/23/24 00:14 Temperature 97.8 F Temperature Source Oral Pulse Rate 80 Respiratory Rate 16 Blood Pressure 144/83 H Blood Pressure Mean 103 Pulse Ox 98 Oxygen Delivery Method Room Air Positive well nourished and well developed General Appearance ED: well developed HEENT Reports moist mucous membranes Eyes PERRL and EOMs intact bilaterally Resp normal respiratory effort and clear to auscultation bilaterally Cardio regular rate and regular rhythm GI non-tender Palpation: soft Extremity normal to inspection Neuro oriented x3 and no sensory deficits noted Sensorium / Orientation: awake and alert Motor Exam: strength 5/5 throughout Psych mental status grossly normal Skin Lesions: no lesions Rashes: no rashes MDM MDM MDM Narrative Medical decision making narrative: IV line initiated. Patient given a liter IV fluids along with Toradol, Compazine, Benadryl. On repeat evaluation patient states she feels significantly improved and is comfortable with discharge to home. Return instructions given. Discharge Plan Triage Chief Complaint: Headache ED Provider: Rosalind Millan Dx/Rx/DC Orders Clinical Impression: Migraine Instructions: ED, Migraine (Classical) Prescriptions: No Action sertraline [Zoloft] 100 mg Tablet 200 mg PO DAILY venlafaxine [Effexor] 37.5 mg Tablet 37.5 mg PO DAILY metoprolol succinate 25 mg Tablet Extended Release 24 Hr 25 mg PO DAILY hydroxyzine pamoate 25 mg capsule 25 mg PO QHS PRN Patient Comments: TAKE 1 CAPSULE BY MOUTH AT BEDTIME NEEDED FOR TROUBLE SLEEPING Primary Care Provider: Julio Cesar Mccollum Referrals: Julio Cesar Mccollum MD [Primary Care Provider] - 1 Week if not improving Disposition Disposition: Home, Self Care
[2024-01-23] MEDS: 0.9% Normal Saline (1000mL) 1,000 ML 999 ML IV (00:35)
[2024-01-23] MEDS: proCHLORPERazine 10 MG/2 ML Vial IV (00:36)
[2024-01-23] MEDS: DiphenhydrAMINE 50 MG/ML Syringe 25 MG IV (00:37)
[2024-01-23] MEDS: Ketorolac 15 MG/ML Vial IV (00:38)
[2024-01-23 01:54] VITALS: BP 118/81; PULSE 73; RESP 16; TEMP 36.2; O2SAT 96
== END 2024-01-23 01:55 | disposition home or self-care (01) ==
PROVIDERS: Emergency Provider Emergency Medicine; PCP Family Medicine; Visit Provider Emergency Medicine
DX: G43.909 Migraine, unspecified, not intractable, without status migrainosus (principal); F17.290 Nicotine dependence, other tobacco product, uncomplicated; F12.90 Cannabis use, unspecified, uncomplicated; Z79.899 Other long term (current) drug therapy
CPT/HCPCS: 96361; 96374; 96375; 99284; J7030; A4216

== ENCOUNTER 2024-06-22 09:14 | Emergency (ER) | payer MEDICAID, SELFPAY ==
[2024-06-22 09:16] VITALS: BP 124/75; PULSE 69; RESP 14; TEMP 36.3; O2SAT 100; BMI 28.3
--- NOTE | 2024-06-22 09:41 | RAD_ITS ---
STUDY: X-RAY CHEST REASON FOR EXAM: Female, 43 years old. chest pain TECHNIQUE: Single AP portable view of the chest. COMPARISON: 04/28/2023 FINDINGS: Status post median sternotomy. The lungs are clear and expanded. There is no demonstrated pleural abnormality. Normal size heart. Normal mediastinum and bonita. Normal visualized pulmonary arteries. Normal visualized aortic arch and descending thoracic aorta. Normal visualized thoracic spine. Normal visualized ribs, clavicles, and shoulders. There is no demonstrated abnormality of the visualized soft tissue structures of the upper abdomen. RAD/Chest 1 View (Portable) IMPRESSION: No active disease. Electronically Signed: Monroe Rasheed MD at 10:13 EDT ,
--- NOTE | 2024-06-22 09:46 | ED.VIS.CHEST ---
HPI History of Present Illness Chief Complaint: Chest Pain Informant: patient Onset/Context/Timing Onset: Today and Yesterday Activity at onset: gradual Timing: Intermittent Quality: Positive for Burning and Pain Location: Left Chest Maximum Severity: Mild Worsened By: Nothing; Not Worsened By Exertion Relieved By: Nothing Associated Symptoms: Positive for Nausea and Vomiting; Negative for Diaphoresis, Dyspnea, Cough, Fever, Lightheadedness, Acid Reflux or Palpitations Narrative Narrative: 43-year-old female history of anxiety history of prior endocarditis from a dental infection. History of prior substance abuse but has been clean for 2 years. Prior surgery for VSD and endocarditis. States yesterday around 5 AM she was awoke with left-sided chest discomfort. Comes and goes. Not associated with exertion. She took some Tums because she has had reflux before and said she threw those up. She took a Seroquel Might Be Anxiety. She Denies Any Recent Exertional Dyspnea nor Exertional Chest Pain. No History of DVT or PE. No Recent Travel Surgery or Immobilization. No Leg Pain or Swelling. No Hemoptysis. Prior Similar Symptoms: Yes Recent Illness/Hospitalization: No CVD Risk Factors: Negative for Hypertension, Diabetes, Hypercholesterolemia, Family History 1' </=55 or Smoking PE Risk Factors: Negative for Recent Travel/Surgery, Recent Immobilization, Prior DVT or PE or OCP + Smoking + >/=35 TAD Risk Factors: Negative for Marfan's Syndrome [facility] Medical History History of endocarditis Panic attack Depression Marijuana abuse Tobacco abuse Substance abuse Supraventricular tachycardia (02/08/22) Bacteremia Seizure disorder Home Medications ?Medication ?Instructions ?Recorded ?Last Taken ?Type metoprolol succinate 25 mg 25 mg PO DAILY 07/19/22 Unknown History tablet,extended release 24 hr sertraline 100 mg tablet (Zoloft) 200 mg PO DAILY 07/19/22 Unknown History venlafaxine 37.5 mg tablet 37.5 mg PO DAILY 07/19/22 Unknown History hydroxyzine pamoate 25 mg capsule 25 mg PO QHS PRN anxiety 04/28/23 04/27/23 History Allergy/AdvReac Type Severity Reaction Status Date / Time hydrocodone (Hydrocodone) AdvReac Itching Verified 06/22/24 09:15 nickel (Nickel) AdvReac Itching Verified 06/22/24 09:15 propoxyphene napsylate (From AdvReac Itching Verified 06/22/24 09:15 Darvocet-N 100) Surgical History History of open heart surgery History of cardioversion (02/08/22) History of ventricular septal defect repair (01/25/15) Social History Smoking Status: Current every day smoker tobacco type: e-cigarettes substance use type: marijuana ROS ROS ED ROS Narrative Left-sided chest pain. Constitutional Constitutional ED: Denies chills or fever(s) Eyes Eyes: Reports none ENT ENT ED: Denies ear pain Cardiovascular Cardiovascular: Reports as per HPI and chest pain; Denies palpitations or racing heartbeat Respiratory/Chest Respiratory/Chest: Denies cough or dyspnea Gastrointestinal Gastrointestinal: Reports nausea; Denies abdominal pain, constipation, diarrhea or melena Genitourinary Genitourinary ED: Denies dysuria or hematuria Musculoskeletal Musculoskeletal: Denies arthralgias Integumentary Denies abscess Neurologic Neurologic: Denies headache(s) Psychiatric Psychiatric: Reports anxiety Endocrine Endocrinology: Denies cold intolerance Hematologic/Lymphatic Hematologic/Lymphatic: Denies easy bleeding, easy bruising or lymphadenopathy Allergic/Immunologic Allergic/Immunologic ED: Denies mouth swelling, tongue swelling or urticaria EXAM Physical Exam Narrative Exam Narrative: 15-year-old female no acute distress. Vital signs stable afebrile. Pulse ox 100% on room air no hypoxia. H EENT exam unremarkable. Neck nontender. Lungs clear to auscultation bilaterally. Heart regular rhythm rate about 70 no murmur. Chest wall and ribs no reproducible pain. No ecchymosis or bruising. No redness or warmth. No rashes or signs of trauma. Abdomen soft and nontender. Moving all 4 extremities. Calves are nontender without edema or cords. 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 Dorsi plantarflexion intact. She is awake and alert no focal motor deficits. Exam benign. No reproducible pain Const Vital Signs: 06/22/24 09:16 06/22/24 09:24 06/22/24 09:47 Temperature 97.3 F L Temperature Source Temporal Pulse Rate 69 Respiratory Rate 14 Respiratory Effort Normal Non-Labored Respiratory Pattern Normal Blood Pressure 124/75 H Blood Pressure Mean 91 Pulse Ox 100 100 Oxygen Delivery Method Room Air Room Air 06/22/24 11:00 Temperature Temperature Source Pulse Rate 68 Respiratory Rate Respiratory Effort Respiratory Pattern Blood Pressure 119/59 L Blood Pressure Mean 79 Pulse Ox Oxygen Delivery Method Positive well nourished and well developed; Negative for obese, cachectic, contractures or unkempt General Appearance ED: well developed and NAD; Negative for unkempt, cachectic, contractures or pallor Nutritional Appearance: Negative for cachectic or obese HEENT Reports TM's clear Tympanic Membrane ED: Yes TM's clear Eyes PERRL and EOMs intact bilaterally General Eye ED: Negative for pale conjunctiva or scleral icterus Neck no lymphadenopathy, supple and no JVD General: Negative for tenderness Chest Wall inspection of chest normal and palpation of chest normal Chest: Negative for tenderness Resp normal respiratory effort and clear to auscultation bilaterally Effort and Inspection: Negative for respiratory distress or pain with movement Auscultation: Negative for rales, rhonchi, wheezes or diminished lung sounds Cardio regular rate, regular rhythm, S1 normal heart sound, S2 normal heart sound and no murmurs Rate: Negative for bradycardia or tachycardic Rhythm: Negative for abnormal rhythm Peripheral Pulses: pulses 2+ throughout GI normal to inspection, nondistended, normoactive bowel sounds, soft to palpation, non-tender, non-distended and no masses Back/Spine no CVA tenderness and no thoracic nor lumbar tenderness General Back: Negative for CVA tenderness or other Cervical Spine: Negative for cervical spine tenderness Extremity normal to inspection General Extremety ED: Negative for edema, pulses abnormal or tenderness General Extremity: Negative for edema or pulses abnormal Neuro oriented x3, no sensory deficits noted and gait normal Sensorium / Orientation: awake, alert, oriented to person, oriented to place and oriented to time; Negative for confused or lethargic Motor Exam: strength 5/5 throughout; Negative for general weakness Psych mental status grossly normal Appearance: Negative for unkempt Attitude: No agitated Mood & Affect: Negative for depressed or tearful Skin no rashes or lesions noted and no wounds General Skin Exam: Negative for jaundice, pallor or other Rashes: No rashes noted Trauma: Negative for abrasion, laceration or puncture Heart Score History: Slightly/Non-Suspicious ECG: Normal Age: </= 45 years Risk Factors: No Risk Factors Troponin: </= Normal Limit Score: 0 MDM MDM MDM Narrative Medical decision making narrative: 43-year-old female with nonreproducible atypical, nonexertional chest pain with a normal exam and EKG. She undergo cardiac workup. I [place] is reproducible musculoskeletal pain. She has no risk factors or history of DVT or PE I do not think it is a PE. Unlikely to be a collapsed lung. It could be reflux does not really sound particularly like reflux. If her workup is negative she will be discharged home. Does not sound like a dissection. Repeat exam at 12:33 PM doing well. Repeat exam unchanged. Patient be discharged home with outpatient follow-up. History & Record Review Discussion w/independent historian: Patient Additional record(s) reviewed:: Prior inpatient record, Prior outpatient record, Prior ED visit and Prior labs Lab Data Attestation: I reviewed the patient's lab results. Lab results narrative: Chest x-ray chronic changes. Prior sternotomy. No acute process. CBC normal. White count 9. H&H 13 and 41. Platelets 286. Electrolytes show gap 6. Normal BUN and creatinine. Glucose 101. Troponin 1. Labs: Laboratory Results - last 24 hr 06/22/24 09:25 WBC 9.1 RBC 4.64 Hgb 13.1 Hct 41.3 MCV 89.0 MCH 28.2 MCHC 31.7 L RDW Std Deviation 45.1 H RDW Coeff of Miguel 14.0 Plt Count 286 MPV 11.6 Immature Gran % (Auto) 0.300 Neut % (Auto) 59.9 Lymph % (Auto) 32.2 Tyrrell % (Auto) 5.9 Eos % (Auto) 1.1 Baso % (Auto) 0.6 Absolute Neuts (auto) 5.4 Absolute Lymphs (auto) 2.92 Nucleated RBC % 0 Sodium 139 Potassium 4.2 Chloride 104 Carbon Dioxide 29.0 Anion Gap 6 BUN 12 Creatinine 0.57 Estim Creat Clear Calc 113.42 Est GFR (MDRD) Af Amer 149 Est GFR (MDRD) Non-Af 123 BUN/Creatinine Ratio 21.1 H Glucose 101 Calcium 10.0 Troponin I High Sens 4 Radiography Chest X-Ray - ED: 1 View, Read by ED Physician, Read by Radiologist, Heart, Lungs, Mediastinum, Bony Structures, No Acute Disease and Chronic Changes Diagnostic Testing: Clinical Impression(s) from Imaging Studies Chest X-Ray 06/22/24 09:41 IMPRESSION: No active disease. Electronically Signed: Monroe Rasheed MD at 10:13 EDT , Chest x-ray, portable, single view interpreted by myself and the radiologist shows no acute process. Normal cardiac silhouette. Prior sternotomy. No infiltrates. No effusions. Rhythm Strip Rhythm Strip: Sinus Rhythm Rate: 66 Ectopy: None EKG Initial EKG: Attestation: I personally reviewed and interpreted this EKG as follows: Interpretation: No Acute Injury Pattern Comments: Normal sinus rhythm rate of 66 no acute signs of CA or ischemia. No [id number]. No pericarditis. Discharge Plan Triage Chief Complaint: Chest Pain ED Provider: Kenneth Harmon Dx/Rx/DC Orders Clinical Impression: Chest pain of uncertain etiology, History of ventricular septal defect Instructions: ED Chest Pain, Uncertain Cause Prescriptions: No Action sertraline [Zoloft] 100 mg Tablet 200 mg PO DAILY venlafaxine [Effexor] 37.5 mg Tablet 37.5 mg PO DAILY metoprolol succinate 25 mg Tablet Extended Release 24 Hr 25 mg PO DAILY hydroxyzine pamoate 25 mg capsule 25 mg PO QHS PRN Patient Comments: TAKE 1 CAPSULE BY MOUTH AT BEDTIME NEEDED FOR TROUBLE SLEEPING Primary Care Provider: Julio Cesar Mccollum Referrals: Julio Cesar Mccollum MD [Primary Care Provider] - 3-5 Days Activity Restrictions/Additional Instructions: All your test, chest x-ray and EKG today were unremarkable. Follow-up with your doctor. Print Language: Yi Disposition Disposition: Home, Self Care
[2024-06-22 09:47] VITALS: O2SAT 100
[2024-06-22 09:50] LABS: Absolute Lymphocyte Count 2.92 X10^3/uL (0.83-4.51); Absolute Neutrophil Count 5.4 X10^3/uL (2.0-7.7); Basophil# 0.05 X10^3/uL; Basophil% 0.6 % (0-1); Eosinophils% 1.1 % (0-5); Hematocrit 41.3 % (37-47); Hemoglobin 13.1 g/dL (12.0-15.0); Lymphocyte # 2.92 X10^3/ul (0.83-4.51); Lymphocyte % 32.2 % (19-41); Mean Corp Hgb Conc 31.7 g/dL (32-36); Mean Corpuscular Hgb 28.2 pg (27.0-32.0); Mean Platelet Vol. 11.6 fl (6.2-12.0); Monocyte# 0.54 X10^3/uL; Monocyte% 5.9 % (0-10); NRBC Flagged by Analyzer 0 % (0-5); Neutrophil # 5.44 X10^3/uL (2.7-7.7); Neutrophil % 59.9 % (47-70); Platelet Count 286 K/mm3 (150-450); RBC Distribution Width SD 45.1 fl (35.1-43.9); Red Blood Count 4.64 M/mm3 (4.2-5.4); White Blood Count 9.1 K/mm3 (4.4-11.0)
[2024-06-22 10:51] LABS: Anion Gap 6 (5-15); BUN 12 mg/dL (7-18); BUN/Creat Ratio 21.1 RATIO (10-20); Chloride 104 mmol/L (98-107); Creatinine, Serum 0.57 mg/dL (0.55-1.02); EST Glomerular Filtration Rate 123 mL/min (>60); Est Glom Filt Rate - Afr Amer 149 mL/min (>60); Estimated Creatinine Clearance 113.42 ml/min; Glucose 101 mg/dL (74-106); Potassium 4.2 mmol/L (3.5-5.1); Sodium Level 139 mmol/L (136-145); Troponin-I HS 4 pg/mL (3.0-54.0)
[2024-06-22 11:00] VITALS: BP 119/59; PULSE 68
[2024-06-22 12:52] VITALS: BP 121/79; PULSE 97; RESP 14; TEMP 36.1; O2SAT 100
== END 2024-06-22 12:53 | disposition home or self-care (01) ==
PROVIDERS: Emergency Provider Emergency Medicine; PCP Family Medicine; Visit Provider Emergency Medicine
DX: R07.9 Chest pain, unspecified (principal); F41.9 Anxiety disorder, unspecified; F17.290 Nicotine dependence, other tobacco product, uncomplicated; F12.90 Cannabis use, unspecified, uncomplicated; F32.A Depression, unspecified; Z79.899 Other long term (current) drug therapy
CPT/HCPCS: 71045; 80048; 84484; 85025; 93005; 99284; A4216

== ENCOUNTER 2025-02-03 12:45 | Emergency (ER) | payer MEDICAID, SELFPAY ==
[2025-02-03 12:46] VITALS: BP 120/82; PULSE 73; RESP 15; TEMP 36; O2SAT 97; BMI 26.0
--- NOTE | 2025-02-03 12:54 | EDS_ITS ---
HPI History of Present Illness Chief Complaint: Headache Detail of Chief Complaint: Headache Informant: patient Narrative Narrative: Patient presents to the emergency department with complaint of a headache that started initially 2 days ago. Initially the headache was mild. This morning she woke up around 3 AM with more severe pain in the left side of her head. She describes nausea and while at work today she vomited x 3. She complains of photophobia. She does have history of migraines and gets them relatively frequently. She took 2 Tylenol and 2 ibuprofen this morning but did not get much relief. She denies fall or head injury. She states that she had like a sinus congestion or upper respiratory infection last week but had no fever with that. [facility] Medical History History of endocarditis Panic attack Depression Marijuana abuse Tobacco abuse Substance abuse Supraventricular tachycardia (02/08/22) Bacteremia Seizure disorder Home Medications ?Medication ?Instructions ?Recorded ?Last Taken ?Type metoprolol succinate 25 mg 25 mg PO DAILY 07/19/22 Unk nown History tablet,extended release 24 hr sertraline 100 mg tablet (Zoloft) 200 mg PO DAILY 07/02 06/22 Unknown History venlafaxine 37.5 mg tablet 37.5 mg PO DAILY 07/19/22 U nknown History hydroxyzine pamoate 25 mg capsule 25 mg PO QHS PRN anx iety 04/28/23 04/27/23 History Allergy/AdvReac Type Severity Reaction Status Date / Time hydrocodone (Hydrocodone) AdvReac Itching Verified 02/03/25 12:48 nickel (Nickel) AdvReac Itching Verified 02/03/25 12:48 propoxyphene napsylate (From AdvReac Itching Verified 02/03/25 12:48 Darvocet-N 100) Surgical History History of open heart surgery History of cardioversion (02/08/22) History of ventricular septal defect repair (01/25/15) Social History Smoking Status: Current every day smoker tobacco type: e-cigarettes substance use type: marijuana ROS ROS ED Review of Systems ROS Unobtainable: other Constitutional Constitutional ED: Reports lethargy; Denies chills, fever(s), sweats or weight loss Eyes Eyes: Denies blurry vision, change in vision or diplopia ENT ENT ED: Denies rhinorrhea or sore throat Cardiovascular Cardiovascular: Denies chest pain, orthopnea or racing heartbeat Respiratory/Chest Respiratory/Chest: Denies cough, dyspnea, dyspnea on exertion, orthopnea or sputum Gastrointestinal Gastrointestinal: Reports nausea and vomiting; Denies abdominal pain or diarrhea Genitourinary Genitourinary ED: Denies dysuria, hematuria or urinary frequency Musculoskeletal Musculoskeletal: Denies arthralgias, back pain, myalgias or neck pain Integumentary Denies abscess, Abrasions or rash Neurologic Neurologic: Reports headache(s); Denies weakness Psychiatric Psychiatric: Denies anxiety, depression or suicidal thoughts Endocrine Endocrinology: Denies polydipsia, polyphagia or polyuria Hematologic/Lymphatic Hematologic/Lymphatic: Denies easy bleeding, easy bruising or lymphadenopathy Allergic/Immunologic Allergic/Immunologic ED: Denies mouth swelling, tongue swelling or urticaria EXAM Physical Exam Const Vital Signs: 02/03/25 12:46 Temperature 96.8 F L Temperature Source Temporal Pulse Rate 73 Respiratory Rate 15 Blood Pressure 120/82 H Blood Pressure Mean 94 Pulse Ox 97 Oxygen Delivery Method Room Air Positive well nourished and well developed General Appearance ED: well developed and NAD HEENT Reports TM's clear and moist mucous membranes normocephalic and atraumatic; Negative for trauma or tenderness Tympanic Membrane ED: Yes TM's clear Eyes PERRL and EOMs intact bilaterally General Eye ED: Negative for pale conjunctiva or scleral icterus Neck no lymphadenopathy, supple and no JVD General: Negative for tenderness Chest Wall inspection of chest normal and palpation of chest normal Chest: Negative for tenderness Resp normal respiratory effort and clear to auscultation bilaterally Effort and Inspection: Negative for respiratory distress or pain with movement Auscultation: Negative for rhonchi, wheezes or diminished lung sounds Cardio regular rate, regular rhythm, S1 normal heart sound, S2 normal heart sound and no murmurs Peripheral Pulses: pulses 2+ throughout GI normal to inspection, nondistended, normoactive bowel sounds, soft to palpation, non-tender, non-distended and no masses Back/Spine no CVA tenderness and no thoracic nor lumbar tenderness Extremity normal to inspection General Extremety ED: Negative for edema General Extremity: Negative for edema Neuro oriented x3, CN's II-XII intact bilaterally, no sensory deficits noted and gait normal Neuro Narrative: Finger-nose and [id number] testing within normal limits, negative Romberg, negative for drift, fund of Sensorium / Orientation: awake, alert, oriented to person, oriented to place and oriented to time Motor Exam: strength 5/5 throughout and strength abnormal Psych mental status grossly normal Skin no rashes or lesions noted and no wounds MDM MDM MDM Narrative Medical decision making narrative: Patient presents the emergency department with complaint of headache with history of migraines. She has classic symptoms. IV line established. She was given a liter normal saline fluid bolus as well as Reglan, Benadryl, and Toradol. On repeat examination after half an hour headache mostly resolved. She feels markedly improved. She will be discharged to home. Advised to push fluids. Advised to sleep. Instructed to follow-up with primary care physician within next 3 to 5 days Discharge Plan Triage Chief Complaint: Headache ED Provider: Brittani Riley Dx/Rx/DC Orders Clinical Impression: Migraine Instructions: Migraine Triggers, ED, Migraine (Classical) Prescriptions: No Action sertraline [Zoloft] 100 mg Tablet 200 mg PO DAILY venlafaxine [Effexor] 37.5 mg Tablet 37.5 mg PO DAILY metoprolol succinate 25 mg Tablet Extended Release 24 Hr 25 mg PO DAILY hydroxyzine pamoate 25 mg capsule 25 mg PO QHS PRN Patient Comments: TAKE 1 CAPSULE BY MOUTH AT BEDTIME NEEDED FOR TROUBLE SLEEPING Primary Care Provider: Julio Cesar Mccollum Referrals: Julio Cesar Mccollum MD [Primary Care Provider] - 3-5 Days Print Language: Spanish Disposition Disposition: Home, Self Care
[2025-02-03] MEDS: DiphenhydrAMINE 50 MG/ML Syringe 25 MG IV (13:04)
[2025-02-03] MEDS: 0.9% Normal Saline (1000mL) 1,000 ML 1000 ML IV (13:04)
[2025-02-03] MEDS: Ketorolac 30 MG/ML Syringe IV (13:04)
[2025-02-03] MEDS: Metoclopramide 10 MG/2 ML Vial IV (13:04)
[2025-02-03 13:51] VITALS: BP 120/84; PULSE 71; RESP 16; TEMP 36.3; O2SAT 98
== END 2025-02-03 13:53 | disposition home or self-care (01) ==
PROVIDERS: Emergency Provider Emergency Medicine; PCP Family Medicine; Referring Provider Emergency Medicine; Visit Provider Emergency Medicine
DX: G43.909 Migraine, unspecified, not intractable, without status migrainosus (principal); F41.0 Panic disorder [episodic paroxysmal anxiety]; F32.A Depression, unspecified; I47.10 Supraventricular tachycardia, unspecified; F17.290 Nicotine dependence, other tobacco product, uncomplicated; Z87.74 Personal history of (corrected) congenital malformations of heart and circulatory system; Z79.899 Other long term (current) drug therapy
CPT/HCPCS: 96361; 96374; 96375; 99283; A4216

== ENCOUNTER 2025-09-11 14:50 | Emergency (ER) | payer MEDICAID, SELFPAY ==
[2025-09-11 14:50] VITALS: BP 145/64; PULSE 90; RESP 16; TEMP 36.9; O2SAT 100; BMI 28.0
--- NOTE | 2025-09-11 17:05 | CT_ITS ---
PROCEDURE: ABDOMEN/PELVIS W IV CONT ONLY 09/11/2025 REASON FOR EXAM: RIGHT INGUINAL FOLD ABSCESS, RULE OUT DEEPER TECHNIQUE: Procedure Code: [id number] Modality: CT Procedure: ABDOMEN/PELVIS W IV CONT ONLY Coronal and Sagittal reconstruction series were provided. CONTRAST: Isovue 370 VOLUME: 100 mL One or more dose reduction techniques were used (e.g., Automated exposure control, adjustment of the mA and/or kV according to patient size, use of iterative reconstruction technique. RADIATION DOSE SUMMARY: CTDlvol: 19.95, 14.13 mGy DLP: 717.86 mGycm COMPARISON: CT Abdomen and Pelvis w/o contrast, 09/18/2022 FINDINGS: LUNG BASES: No pleural effusion. Minimal atelectasis bilaterally. LIVER: Unremarkable. GALLBLADDER: Unremarkable. No calcified stone. BILE DUCTS: No ductal dilation. PANCREAS: Unremarkable. SPLEEN: Unremarkable. ADRENAL GLANDS: Unremarkable. KIDNEYS: Unremarkable. The kidneys enhance symmetrically. No hydronephrosis or hydroureter. STOMACH AND BOWEL: No obstruction or perforation. No wall thickening. Few colonic diverticula. No CT evidence of colitis or acute diverticulitis. APPENDIX: Normal-appearing appendix. No CT evidence for appendicitis. RETRO/PERITONEUM: Minimal pelvic fluid, possibly physiologic. No free air or fluid collections. LYMPH NODES: Mildly prominent reactive right inguinal lymph nodes. PELVIC ORGANS: Unremarkable urinary bladder. Hyperdense 1.4 cm region in the right posterior uterine fundus/body, likely a fibroid. Well-positioned IUD within the endometrial cavity. Irregular rim hyperdense 1.4 cm cystic lesion in the left ovary, likely a corpus luteum. Dominant right ovarian follicle measuring 1.7 cm. VASCULATURE: No aortic aneurysm. ABDOMINAL WALL AND SOFT TISSUES: Subcutaneous 9.4 (AP) x 5.5 (TR) x 5.3 (CC) mm hypodense collection with peripheral enhancement in the right inguinal crease/groin fold with adjacent fat stranding and overlying skin thickening. Small fat-containing umbilical and right inguinal hernias. BONES: No fracture or suspicious osseous abnormality. Mild sacroiliac joint sclerosis bilaterally. CT/Abdomen/Pelvis W IV Cont ONLY IMPRESSION: 1. Small subcutaneous abscess in the right inguinal crease/fold. 2. Hyperdense uterine lesion, likely a small fibroid. Reading Location: [id number]
--- NOTE | 2025-09-11 17:06 | EX.ED.DYSGE1 ---
HPI History of Present Illness Chief Complaint: Abscess Narrative Narrative: Patient is a 45-year-old female presenting to the emergency department for a right groin abscess that she noted this morning. Patient has a past medical history of substance abuse, tobacco abuse, VTE, VSD, infectious endocarditis. Patient denies any recent drug use, daily steroid use, diabetes or immunocompromised status. States that she gets these abscesses frequently. She denies any fever, chills, nausea, vomiting, abdominal pain. Denies any trauma to the area. States that she went to urgent care and they told her to come here to be evaluated. [facility] Medical History History of endocarditis Panic attack Depression Marijuana abuse Tobacco abuse Substance abuse Supraventricular tachycardia (02/08/22) Bacteremia Seizure disorder Home Medications Medication Instructions Recorded Last Taken Type metoprolol succinate 25 mg 25 mg PO DAILY 07/19/22 Unknown History tablet,extended release 24 hr sertraline 100 mg tablet (Zoloft) 200 mg PO DAILY 07/19/22 Unknown History venlafaxine 37.5 mg tablet 37.5 mg PO DAILY 07/19/22 Unknown History hydroxyzine pamoate 25 mg capsule 25 mg PO QHS PRN anxiety 04/28/23 04/27/23 History doxycycline hyclate 100 mg capsule 100 mg PO BID 7 days #14 caps 09/11/25 Unknown Rx Allergy/AdvReac Type Severity Reaction Status Date / Time hydrocodone (Hydrocodone) AdvReac Itching Verified 09/11/25 14:51 nickel (Nickel) AdvReac Itching Verified 09/11/25 14:51 propoxyphene napsylate (From AdvReac Itching Verified 09/11/25 14:51 Darvocet-N 100) Surgical History History of open heart surgery History of cardioversion (02/08/22) History of ventricular septal defect repair (01/25/15) Social History Smoking Status: Current every day smoker tobacco type: e-cigarettes substance use type: marijuana ROS ROS ED ROS Narrative see HPI EXAM Physical Exam Narrative Exam Narrative: Vital signs: Reviewed General: Alert and orientedx3. No acute distress HEENT: Head is normocephalic and atraumatic, sinuses nontender, pupils equal round and reactive. Nares are patent. Oropharynx and throat exams normal. Neck: Supple without lymphadenopathy nontender Cardiovascular: Regular rate and rhythm, no murmurs. No rubs or gallops. Normal S1 and S2 Respiratory: Clear to auscultation bilaterally. No wheezes, rales, rhonchi Abdominal: Soft and nontender. Normal bowel sounds. No guarding or rebound. Nonsurgical abdomen Extremities: No tenderness. No bruising. Normal range of motion. Normal sensation. Skin: Right inguinal fold with a 3 cm area of induration and erythema. Draining small amount of purulent drainage. There is no crepitus. No involvement of the labia or perineal area. No tracking of the erythema up or down the leg. The rest of the physical exam is unremarkable Const Vital Signs: 09/11/25 14:50 09/11/25 19:10 Temperature 98.4 F 98.0 F Temperature Source Oral Pulse Rate 90 70 Respiratory Rate 16 18 Blood Pressure 145/64 H 128/70 H Blood Pressure Mean 91 89 Pulse Ox 100 100 MDM MDM MDM Narrative Medical decision making narrative: Patient is a 44-year-old female presenting to the emergency department for an abscess. Patient was seen and examined. Vitals are stable. Patient resting in bed comfortably in no acute distress. Patient has no systemic symptoms. It appears that she has a localized abscess. Given the area where the abscess is out I would like to obtain a CT abdomen pelvis to rule out any deeper extension of the abscess. There is no crepitus, involvement of the perennial area and no signs of necrotizing fasciitis. No risk factors for necrotizing fasciitis. No involvement of the labia. CBC with no leukocytosis and a normal hemoglobin. BMP with no significant abnormalities. CT shows a small subcutaneous abscess in the right inguinal crease and fold. Written informed consent was obtained from the patient for incision and drainage of the small abscess. Risks and benefits were discussed with the patient and all questions were answered. Patient has capacity. Alternatives were discussed with the patient. She is agreeable with moving forward with I&D. Area was cleansed with alcohol pad. 2% lidocaine with epi was injected into the abscess to provide anesthetic. 2 stab incisions were made with small amount of bloody purulent discharge. Patient tolerated well. Patient was given doxycycline given concern for possible overlying cellulitis as well. First dose given here. She was given wound care instructions including keeping the area clean and dry and watching for worsening signs of infection or systemic signs of infection which were discussed. Patient discharged from the Emergency Department. I do not feel that the patient's evaluation reveals any acute reason for admission at this time. I instructed them to either follow-up with their primary care physician or promptly return to the Emergency Department for reevaluation should symptoms worsen or new symptoms develop. I explained what symptoms would indicate the need to return to the emergency department. Shared decision making was used. The patient voiced understanding of the treatment plan and is agreeable with it. Clinical impression Groin abscess History & Record Review Discussion w/independent historian: Patient Lab Data Attestation: I reviewed the patient's lab results. Labs: Laboratory Results - last 24 hr 09/11/25 17:17 WBC 9.6 RBC 4.18 L Hgb 12.1 Hct 36.2 L MCV 86.6 MCH 28.9 MCHC 33.4 RDW Std Deviation 43.9 RDW Coeff of Miguel 14.0 Plt Count 294 MPV 10.5 Immature Gran % (Auto) 0.200 Neut % (Auto) 64.5 Lymph % (Auto) 27.9 [place] % (Auto) 6.0 Eos % (Auto) 0.9 Baso % (Auto) 0.5 Absolute Neuts (auto) 6.2 Absolute Lymphs (auto) 2.68 Nucleated RBC % 0 Sodium 136 Potassium 3.7 Chloride 104 Carbon Dioxide 23.0 Anion Gap 9 BUN 9 Creatinine 0.46 L Estim Creat Clear Calc 138.56 Est GFR (MDRD) Non-Af 122 BUN/Creatinine Ratio 19.1 Glucose 125 H Calcium 8.7 Radiography Diagnostic Testing: Clinical Impression(s) from Imaging Studies Abdomen/Pelvis CT 09/11/25 17:05 IMPRESSION: 1. Small subcutaneous abscess in the right inguinal crease/fold. 2. Hyperdense uterine lesion, likely a small fibroid. Reading Location: [facility] Discharge Plan Triage Chief Complaint: Abscess ED Provider: Jessica Mack Dx/Rx/DC Orders Clinical Impression: Abscess Instructions: ED Abscess Incision And Drainage, ED Cellulitis Prescriptions: New doxycycline hyclate 100 mg capsule 100 mg PO BID 7 Days Qty: 14 0RF No Action sertraline [Zoloft] 100 mg Tablet 200 mg PO DAILY venlafaxine [Effexor] 37.5 mg Tablet 37.5 mg PO DAILY metoprolol succinate 25 mg Tablet Extended Release 24 Hr 25 mg PO DAILY hydroxyzine pamoate 25 mg capsule 25 mg PO QHS PRN Patient Comments: TAKE 1 CAPSULE BY MOUTH AT BEDTIME NEEDED FOR TROUBLE SLEEPING Primary Care Provider: Julio Cesar Mccollum Referrals: Julio Cesar Mccollum MD [Primary Care Provider, Family Practice] - As soon as possible Activity Restrictions/Additional Instructions: Take the antibiotic as prescribed twice daily for 7 days. Watch for any worsening signs of infection including redness tracking up or down your leg, worsening swelling, fevers, chills, feeling unwell, nausea or vomiting. You need to return immediately if you develop any new symptoms. Your evaluation in the Emergency Department did not reveal any acute reason for admission. However, I want to emphasize that you may be early in the course of a disease process or illness even if it is not present. For this reason you should follow-up within 24 hours for reevaluation with either your primary care physician or if necessary back here in the Emergency Department. You should return to the Emergency Department immediately if your symptoms worsen or new symptoms develop. Print Language: Hungarian Disposition Disposition: Home, Self Care Discharge Date/Time: 09/11/25 19:12 D/C Safety Score for UGIB Assessment Palmer-Blatchford Bleeding Score (GBS): Stratifies upper GI bleeding patients who are "low-risk" and candidates for outpatient management. Hemoglobin, BUN, Recent Vital Signs: Hgb 12.1 g/dL (12.0-15.0) 09/11/25 17:17 BUN 9 mg/dL (4-19) 09/11/25 17:17 Pulse Rate 70 Blood Pressure 128/70 Total Risk Score: 1 Score Interpretation: Score of 0: A GBS of 0 is a “Low Risk” GI bleed, and is highly sensitive (99.6% in a 2007 retrospective study) for predicting which patients did not require any “medical intervention”: blood transfusion, endoscopy, or surgery. This was confirmed in a 2009 [facility] [place] study where patients with a score of 0 were actually discharged and had no GI bleeding mortality at 6 month followup Score above 0: A GBS greater than zero suggests a “High Risk” GI bleed that is likely to require “medical intervention”: transfusion, endoscopy, or surgery. A higher GBS also correlated with a higher likelihood of needing intervention Scores >/= 6 are associated with >50% risk of needing intervention D/C Safety Score for LGIB Assessment Assessment Tool: Readmission and adverse event risk in patients with acute lower GI bleeding. Age, in years: 40-69 Hemoglobin and Recent Vital Signs: Hgb 12.1 g/dL (12.0-15.0) 09/11/25 17:17 Pulse Rate 70 09/11/25 19:10 Blood Pressure 128/70 09/11/25 19:10 Probability of safe discharge: 99% Total Risk Score: 1 Score Interpretation: Probability Percentage of safe discharge (absence of rebleeding, blood transfusion, therapeutic intervention, 28 day readmission, or ) Score of 8 or below: Consider discharge, with appropriate precautions. Score of 9 or above: Discharge NOT recommended. Consider admission with further workup and resuscitation as necessary.
[2025-09-11] MEDS: Lidocaine 2% /Epi 1:100 (20ml) 20 ML VIAL 10 ML INFILT (17:25)
[2025-09-11 17:50] LABS: Anion Gap 9 (5-15); BUN 9 mg/dL (4-19); BUN/Creat Ratio 19.1 RATIO (10-20); Calcium,Total 8.7 mg/dL (7.6-11.0); Carbon Dioxide 23.0 mmol/L (21.0-32.0); Chloride 104 mmol/L (98-108); Estimated Creatinine Clearance 138.56 ml/min (50-250); Glucose 125 mg/dL (70-99); Potassium 3.7 mmol/L (3.3-5.1)
[2025-09-11 17:58] LABS: Hematocrit 36.2 % (37-47); Hemoglobin 12.1 g/dL (12.0-15.0); Immature Granulocytes Count 0.020 X10^3/uL (0.0-0.0); Mean Corp Hgb Conc 33.4 g/dL (32-36); Mean Corpuscular Volume 86.6 fL (81-99); Mean Platelet Vol. 10.5 fl (6.2-12.0); NRBC Flagged by Analyzer 0 % (0-5); Platelet Count 294 K/mm3 (150-450); RBC Distribution Width CV 14.0 % (11.6-14.6); RBC Distribution Width SD 43.9 fl (35.1-43.9); Red Blood Count 4.18 M/mm3 (4.2-5.4); White Blood Count 9.6 K/mm3 (4.4-11.0)
--- OUTSIDE RECORDS SUMMARY | 2025-09-11 18:04 | XMS RPT_ITS | CCD ---
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 Julio Cesar Smith MD Primary Care Provider [phone] Dr. Brittani Riley DO Referring Provider Dr. Brittani Riley DO Emergency Provider [phone] Brittani Riley Referring Unavailable Brittani Riley Attending Unavailable Julio Cesar Smith Primary Care Unavailable Kenneth Haromn Unavailable Julio Cesar Smith Primary Care Unavailable ROBINSON SMITH MD Primary Care Physicia n GIA KIRK DO Attending Unavailable ROBINSON SMITH MD Primary Care Unava ilable KONTAK, ROBINSON R Primary Care Unavailable ADELA SCHUSTER Referring Unavailable ROBINSON SMITH Primary Care Unavailable ROBINSON SMITH Primary Care Unavailable NOA APPIAH Attending Unavailable SOLEDAD GARRIDO Attending Unavailable NOA APPIAH Referring Unavailable ROBINSON SMITH Primary Care Unavailable ROBINSON SMITH Primary Care Unavailable SOLEDAD GARRIDO Referring Unavailable ROBINSON SMITH Primary Care Unavailable SOLEDAD GARRIDO Referring Unavailable SARAH, ROBINSON Frazier Primary Care Unavailable JOSÉ LUIS SORIA Attending Unavailable NOA APPIAH Referring Unavailable ROBINSON SMITH Primary Care Unavailable SELF Referring Unavailable SARAH, ROBINSON R Primary Care Unavailable PAYAM MILLER Attending Unavailable SARAH, ROBINSON Frazier Primary Care Unavailable ED STEPHENSON Attending Unavailable PAYAM MILLER Referring Unavailable ROBINSON SMITH Referring Unavailable ROBINSON SMITH R Primary Care Unavailable SARAH, ROBINSON R Primary Care Unavailable SARAH, ROBINSON Frazier Primary Care Unavailable CLARENCE SNOWDEN Attending Unavailable SOLEDAD GARRIDO Referring Unavailable SARAH, ROBINSON Frazier Primary Care Unavailable ROBINSON SMITH Attending Unavailable Allergies Allergy Classification Reported Allergen(s) Allergy Type Date of Onset Reaction(s) Facility (10 sources) HYDROcodone; Translations: [hydrocodone] drug allergy 12-24-19 12 Itching [facility] Work Phone: (1 source) HYDROmorphone drug allergy 12-24-19 12 Itching [facility] Work Phone: (1 source) propoxyphene drug allergy 12-24-19 12 Itching [facility] Work Phone: (20 sources) Acetaminophen / HYDROcodone; Translations: [HYDROCODONE-ACET AMINOPHEN] Drug Allergy 10-09-20 08 Itching [facility] (20 sources) nickel; Translations: [NICKEL] Drug Allergy 03-10-20 10 Rash, Unknown, Hives [facility] (20 sources) Propoxyphene N-Acetaminophen; Translations: [PROPOXYPHENE N-ACETAMINOPHEN] Drug Intolerance 10-09-20 08 Vomiting [facility] Work Phone: (8 sources) Propoxyphene; Translations: [propoxyphene napsylate] Drug Allergy 07-19-20 Itching [facility] (1 source) nickel Drug Allergy 02-04-20 [facility] Medications Current Medications Medication Drug Class(es) Dates Sig (Normalized) Sig (Original) gabapentin 300 mg oral capsule (11 sources) Anti-epileptic Agent Start: 02-20-2025 End: 08-23-2025 take 1 capsule by mouth twice daily gabapentin (NEURONTIN) 300 mg capsule Indications: Migraine with aura and without status migrainosus, not intractable Take 1 capsule by mouth two times a day for 90 days. 60 capsule 2 05/25/2025 08/23/2025 Active hydrOXYzine pamoate 25 mg oral capsule (7 sources) Antihistamine Start: 04-28-2023 take 1 capsule by mouth at bedtime as needed Hydroxyzine Pamoate 25 mg capsule Active 25 mg PO AT BEDTIME NEEDED April 28, 2023 12:00am Start: 02-01-2015 take 1 tablet by alexandra th every eight hours as needed for anxiety HYDROXYZINE HCL 25 MG TABS 1 tablet by mouth every 8 hrs as needed for anxiety HYDROXYZINE HCL [id number] Scarlett Longoria, JAMES take 1 tablet by alexandra th three times daily as needed hydrOXYzine HCl - 25 MG Oral Tablet TAKE 1 TABLET 3 TIMES DAILY NEEDED. Refills: 0 DO Active 24 hr metoprolol succinate 25 mg extended release oral tablet (20 sources) beta-Adrenergic Ana Start: 03-18-2022 End: 05-29-2025 take 1 tablet by mouth once daily metoprolol succinate ER (TOPROL XL) 25 mg 24 hr tablet Indications: SVT (supraventricular tachycardia) (HCC) Take 1 tablet by mouth once daily. 30 tablet 5 05/30/2025 Active Start: 02-23-2022 take 1 tablet by alexandra th once daily metoprolol succinate ER (TOPROL XL) 25 mg 24 hr tablet Indications: SVT (supraventricular tachycardia) (HCC) Take 1 tablet by mouth once daily. 30 tablet 2 02/23/2022 Active Start: 02-11-2022 take 1 tablet by alexandra th once daily metoprolol succinate ER (TOPROL XL) 25 mg 24 hr tablet Take 1 tablet by mouth once daily. 30 tablet 2 02/11/2022 Active Comment on above: Take 1 tablet by [facility] once daily. polyethylene glycol 3350 734332 mg / potassium chloride 2970 mg / sodium bicarbonate 6740 mg / sodium chloride 5860 mg / sodium sulfate 25331 mg powder for oral solution (1 source) Osmotic Laxative Start: 5 End: peg 3350-Electrolytes (GOLYTELY) 236-22.74-6.74 -5.86 gram suspension Indications: Family history of colon cancer in mother , Screening for colon cancer Take 4,000 mL by mouth one time only for 1 dose. Refer to printed prep instructions from your provider. 4000 mL 02/15/2025 02/15/2025 Active sertraline 100 mg oral tablet (20 sources) Serotonin Reuptake Inhibitor Start: End: take 2 tablets by mouth once daily sertraline (ZOLOFT) 100 mg tablet Indications: Adjustment disorder with mixed anxiety and depressed mood Take 2 tablets by mouth once daily. 60 tablet 1 05/30/2025 Active Start: 12-15-2021 take 2 tablets by [facility] once daily sertraline (ZOLOFT) 100 mg tablet Indications: Adjustment disorder with mixed anxiety and depressed mood Take 2 tablets by mouth once daily. 60 tablet 1 12/15/2021 Active Start: 02-01-2015 take 2 tablets by [facility] once daily SERTRALINE HCL 100 MG TABS 2 tablets by mouth once daily SERTRALINE HCL [id number] Scarlett Longoria RN Comment on above: Take 2 tablets by [facility] once daily. sulfamethoxazole 800 mg / trimethoprim 160 mg oral tablet (2 sources) Dihydrofolate Reductase Inhibitor Antibacterial, Sulfonamide Antimicrobial Start: End: take 1 tablet by mouth twice daily sulfamethoxazole-t rimethoprim (BACTRIM DS) 800-160 mg per tablet Indications: Facial infection Take 1 tablet by mouth two times a day for 7 days. 14 tablet 0 12/31/2023 01/07/2024 Active Comment on above: Take 1 tablet by [facility] two times a day for 7 days. 24 hr venlafaxine 75 mg extended release oral capsule (20 sources) Serotonin and Norepinephrine Reuptake Inhibitor Start: take 1 capsule by mouth once daily venlafaxine ER (EFFEXOR XR) 75 mg 24 hr capsule Take 1 capsule by mouth once daily. 30 capsule 11 07/10/2024 Active Start: 07-19-2022 take 1 tablet by alexandra th once daily Venlafaxine (Effexor) 37.5 mg Tablet Active 37.5 mg PO DAILY July 19, 2022 12:00am Start: 03-23-2022 End: 07-10-2024 take 1 capsule by mouth once daily venlafaxine ER (EFFEXOR XR) 37.5 mg 24 hr capsule Take 37.5 mg by mouth once daily. 03/23/2022 01/03/2024 Discontinued End: 07-10-2024 venlafaxine HCl (EFFEXOR ORA L) Take by mouth. 07/10/2024 Discontinued venlafaxine HCl (EFFEXOR ORAL) Take by mouth. Active venlafaxine HCl (EFFEXOR ORAL) Take by mouth. 0 Active Comment on above: Take by mouth. Take 37.5 mg by mout h once daily. Take 1 capsule by mo uth once daily. Completed/Discontinued Medications Medication Drug Class(es) Dates Sig [...] TABS One tablet by mouth daily ASPIRIN [id number] Scarlett Longoria RN Aspirin 81 MG TA BS TAKE 1 TABLET DAILY. Refills: 0 DO Active busPIRone hydrochloride 15 mg oral tablet (3 sources) Start: 02-01-2015 take 1 tablet by mouth every eight hours BUSPIRONE HCL 15 MG TABS One tablet by mouth every 8 hrs BUSPIRONE HCL [id number] Scarlett Longoria RN take 1 tablet by mouth twice natalia ly busPIRone (BUSPAR) 5 mg tablet Take 5 mg by mouth twice daily. 0 Active take 1 tablet by mouth three nash es daily busPIRone HCl - 15 MG Oral Tablet TAKE 1 TABLET 3 TIMES DAILY. Refills: 0 DO Active Comment on above: Take 5 mg by mouth t wice daily. calcium chloride 0.0014 meq/ml / potassium chloride 0.004 meq/ml / sodium chloride 0.103 meq/ml / sodium lactate 0.028 meq/ml injectable solution (1 source) Start: End: take 30 mL intravenously every hour 30 mL/hr, INTRAVENOUS, CONTINUOUS, Starting on Wed03/05/25 at 0900, Until Wed03/05/25 at 0918, Preprocedure cefTRIAXone 2000 mg injection (1 source) Cephalosporin Antibacterial CefTRIAXone Sodium 2 GM Injection Solution Reconstituted USE DIRECTED. Infuse once daily Refills: 0 DO Active cephalexin 500 mg oral capsule (5 sources) Cephalosporin Antibacterial Start: End: take 1 capsule by mouth every six hours Cephalexin 500 mg capsule Discontinued 500 mg PO EVERY 6 HOURS January 01, 2024 1:00am January 23, 2024 12:18am Start: 12-31-2023 End: 01-07-2024 take 1 capsule by mouth three times daily cephALEXin (KEFLEX) 500 mg capsule Indications: Facial infection Take 1 capsule by mouth three times a day for 7 days. 21 capsule 0 12/31/2023 01/07/2024 Active Comment on above: Take 1 capsule by [facility] three times a day for 7 days. citalopram 20 mg oral tablet (2 sources) Serotonin Reuptake Inhibitor Start: 12-24-19 End: 12-28-19 take 1 tablet by mouth once daily CELEXA 20 MG TABS One tablet by mouth daily CITALOPRAM HYDROBROMIDE [id number] Jose Maldonado MD diphenhydrAMINE (20 sources) Histamine-1 Receptor Antagonist Start: 03-05-20 End: 03-05-20 12.5-50 mg, INTRAVENOUS, DIRECTED, Starting on Wed03/05/25 at 0930, Until Wed03/05/25 at 1329, DOSING DIRECTED BY PHYSICIAN FOR PROCEDURAL SEDATION ONLY, Intraprocedure Start: 02-23-2022 End: 02-08-2025 take 1 capsule by mouth every six hours as needed for anxiety diphenhydrAMINE (BENADRYL) 25 mg capsule Indications: DEON (generalized anxiety disorder) Take 1 capsule by mouth every 6 hours as needed (anxiety). Discontinue previous Rx 90 capsule 02/23/2022 02/08/2025 Discontinued (Other) Benadryl Itch St opping 2 % External Gel APPLY EVERY 8 HOURS TO RASH Refills: 0 DO Active take 1 tablet by alexandra every twelve hours as needed diphenhydrAMINE HCl - 25 MG Oral Capsule Take 1 tablet every 12 hours as needed for itching Refills: 0 DO Active Comment on above: Take 1 capsule by mo pah every 6 hours as needed (anxiety). Discontinue previous Rx docusate sodium 100 mg oral capsule (1 source) take 1 capsule by mouth twice daily as needed Docusate Sodium 100 MG Oral Capsule TAKE 1 CAPSULE TWICE DAILY NEEDED. Refills: 0 DO Active 1 ml fentaNYL 0.05 mg/ml injection (1 source) Opioid Agonist Start: End: 5 25-100 mcg, INTRAVENOUS, DIRECTED, Starting on Wed03/05/25 at 0930, Until Wed03/05/25 at 1329, DOSING DIRECTED BY PHYSICIAN FOR PROCEDURAL SEDATION ONLY, Intraprocedure furosemide 20 mg oral tablet (2 sources) Loop Diuretic Start: take 1 tablet by mouth once daily as needed, then take 3 tablets by mouth as needed FUROSEMIDE 20 MG TABS 1 tablet by mouth once daily, as needed for weight gain 3 lbs/3days FUROSEMIDE [id number] Scarlett Longoria, RN take 1 tablet by mouth every oth er day Furosemide 20 MG Oral Tablet TAKE 1 TABLET DAILY Every Other Day Refills: 0 DO Active Gentamicin in Saline SOLN (1 source) take 60 mg intraveno us route every eight hours Gentamicin in Saline SOLN USE DIRECTED. 60mg intravenously mary carmen 8 hours Refills: 0 DO Active Iron (1 source) Iron TABS TAKE 1 TABLET ONCE DAILY. Iron Polysaccharide Complex/B-12/FA/ Refills: 0 DO Active iv contrast (will be provided with radiology test) (2 sources) Start: 02-20-2025 End: 02-21-2025 inject 1 dose intravenously once iv contrast (will be provided with radiology test) Indications: Migraine with aura and without status migrainosus, not intractable MRI Brain Inject, intravenously, once for 1 dose.No IV access, insert saline lock prior to beginning of sedation, infusion, injection of imaging exam.Discontinue saline lock post exam. If Pt. has a central line or IVAD, may access for administration according to line specific nursing protocol.Once exam is complete flush line and de-access according to line specific nursing protocol in the MR contrast administration guidelines link 1 each 02/20/2025 02/21/2025 Start: 02-20-2025 End: 02-21-2025 inject 1 dose intravenously once iv contrast (will be provided with radiology test) Indications: Migraine with aura and without status migrainosus, not intractable MRI Brain Inject, intravenously, once for 1 dose.No IV access, insert saline lock prior to beginning of sedation, infusion, injection of imaging exam.Discontinue saline lock post exam. If Pt. has a central line or IVAD, may access for administration according to line specific nursing protocol.Once exam is complete flush line and de-access according to line specific nursing protocol in the MR contrast administration guidelines link 1 each 02/20/2025 02/21/2025 Active 2 ml ketorolac tromethamine 30 mg/ml injection (1 source) Nonsteroidal Anti-inflammatory Drug, Cyclooxygenase Inhibitor Start: 02-08-2025 End: 02-08-2025 keTORolac 60 mg injection (Toradol) Start: 02-08-2025 End: 02-08-2025 keTORolac 60 mg injection (T oradol) lisinopril 2.5 mg oral tablet (20 sources) Angiotensin Converting Enzyme Inhibitor Start: 03-12-2022 End: 02-08-2025 take 1 tablet by mouth once daily lisinopril 2.5 mg tablet Take 1 tablet by mouth once daily. 90 tablet 3 03/12/2022 02/08/2025 Discontinued (Other) Comment on above: Take 1 tablet by alexandra th once daily. LORazepam 0.5 mg oral tablet (2 sources) Benzodiazepine Start: 12-24-2011 End: 12-28-2011 take 1 tablet by mouth three times daily as needed ATIVAN 0.5 MG TABS One tablet by mouth three times daily as needed LORAZEPAM [id number] Jose Maldonado MD melatonin 3 mg oral tablet (20 sources) Start: 03-18-2022 End: 02-08-2025 take 2 tablets by mouth every twenty-four hours as needed melatonin 3 mg tablet TAKE 2 TABLETS BY MOUTH AT BEDTIME NEEDED FOR FOR INSOMNIA. 60 tablet 1 04/21/2022 02/08/2025 Discontinued (Other) Start: 02-11-2022 take 2 tablets by [facility] every twenty-four hours as needed melatonin 3 mg tablet Take 2 tablets by mouth at bedtime as needed for for insomnia. 90 tablet 0 02/11/2022 Active Comment on above: Take 2 tablets by mo [facility] at bedtime as needed for for insomnia. 5 ml midazolam 1 mg/ml injection (1 source) Benzodiazepine Start: 03-05-20 End: 03-05-20 1-5 mg, INTRAVENOUS, DIRECTED, Starting on Wed03/05/25 at 0930, Until Wed03/05/25 at 1329, DOSING DIRECTED BY PHYSICIAN FOR PROCEDURAL SEDATION ONLY, Intraprocedure Multi-Day Plus Minerals Oral Tablet (1 source) take 1 tablet by mouth once daily Multi-Day Plus Minerals Oral Tablet TAKE 1 TABLET DAILY. Refills: 0 DO Active MULTIPLE VITAMIN (1 source) Start: 02-02-20 15 take 1 tablet by mouth once daily MULTIVITAMINS TABS One tablet by mouth daily MULTIPLE VITAMIN Scarlett Longoria RN NORGESTIMATE-ETH ESTRADIOL (2 sources) Start: 12-24-19 12 End: 12-28-19 12 take 1 tablet by mouth once daily PREVIFEM 0.25-35 MG-MCG TABS One tablet by mouth daily NORGESTIMATE-ETH ESTRADIOL [id number] Jose Maldonado MD Start: 12-24-2011 take 1 tablet by alexandra once daily PREVIFEM 0.25-35 MG-MCG TABS One tablet by mouth daily NORGESTIMATE-ETH ESTRADIOL [id number] Dedra Jin omeprazole 20 mg delayed release oral capsule (5 sources) Proton Pump Inhibitor Start: 04-28-2023 End: 01-23-2024 take 1 capsule by mouth once daily Omeprazole 20 mg capsule,delayed release(DR/EC) Discontinued 20 mg PO DAILY April 28, 2023 12:00am January 23, 2024 12:18am polyethylene glycol 3350 78314 mg powder for oral solution (1 source) Osmotic Laxative Polyethylene Gl ycol 3350 Oral Powder MIX 1 CAPFUL (17GM) IN 8 OUNCES OF WATER, JUICE, OR TEA AND DRINK DAILY. Refills: 0 DO Active prazosin 2 mg oral capsule (20 sources) alpha-Adrenergic Ana Start: 04-27-2023 End: 02-08-2025 take 1 capsule by mouth once daily at bedtime prazosin (MINIPRESS) 2 mg cap Take 2 mg by mouth daily at bedtime. 04/27/2023 02/08/2025 Discontinued (Other) Comment on above: Take 2 mg by mouth d aily at bedtime. predniSONE 50 mg oral tablet (3 sources) Start: 02-08-2025 End: 02-15-2025 take 1 tablet by mouth once daily predniSONE (DELTASONE) 50 mg Indications: Headache, unspecified headache type Take 1 tablet by mouth once daily. 5 tablet 02/08/2025 02/15/2025 Discontinued (Course of therapy completed) QUEtiapine 100 mg oral tablet (20 sources) Atypical Antipsychotic Start: 04-27-2023 End: 02-08-2025 take 1 tablet by mouth once daily at bedtime QUEtiapine (SEROQUEL) 100 mg tablet Take 100 mg by mouth daily at bedtime. 04/27/2023 02/08/2025 Discontinued (Other) Comment on above: Take 100 mg by mouth daily at bedtime. warfarin sodium 1 mg oral tablet (3 sources) Vitamin K Antagonist Start: 02-01-2015 take 1.5 tablets by mouth once daily in the evening, then take 2-3 tablets by mouth WARFARIN SODIUM 1 MG TABS 1.5 tablets by mouth daily (in evening) (adjust for goal of INR 2 to 3) WARFARIN SODIUM [id number] Scarlett Longoria RN Start: 02-01-2015 take 1 tablet by alexandra th once daily in the evening COUMADIN 3 MG TABS One tablet by mouth every evening Take as directed WARFARIN SODIUM [id number] Marlys Lopez RN take 1 tablet by alexandra th once daily Coumadin 1 MG Oral Tablet TAKE 1 TABLET DAILY. Refills: 0 DO Active Problems Active Problems Problem Classification Problem Date Documented Date Episodic/Chronic Adjustment disorders (7 sources) Adjustment disorder with mixed anxiety and depressed mood; Translations: [Adjustment disorder with mixed anxiety and depressed mood] 01-03-2024 Chronic Anxiety disorders (20 sources) Generalized anxiety disorder; Translations: [Generalized anxiety disorder] Onset: 04-15-2010 04-15-2010 Chronic Cardiac and circulatory congenital anomalies (20 sources) Ventricular septal defect; Translations: [Patent foramen ovale] Onset: 03-03-2010 12-24-2011 Chronic Cardiac and circulatory congenital anomalies (8 sources) History of ventricular septal defect repair; Translations: [Personal history of (corrected) congenital malformations of heart and circulatory system] Onset: 01-25-2015 04-07-2022 Episodic Comment on above: right ventricular ma ss removal and tricuspid valvuectomy along with primary VSD and PFO closure 01/25/2015 Cardiac dysrhythmias (20 sources) Supraventricular tachycardia; Translations: [Supraventricular tachycardia] Onset: 02-08-2022 02-11-2022 Chronic Congestive heart failure; nonhypertensive (20 sources) Chronic systolic heart failure; Translations: [Chronic systolic (congestive) heart failure] Onset: 07-10-2024 07-10-2024 Chronic Diseases of white blood cells (7 sources) Leukocytosis; Translations: [Elevated white blood cell count, unspecified] 02-25-2022 Chronic Epilepsy; convulsions (7 sources) Seizure disorder; Translations: [Epilepsy, unspecified, not intractable, without status epilepticus] 02-25-2022 Chronic Esophageal disorders (5 sources) Gastroesophageal reflux disease; Translations: [Gastro-esophageal reflux disease without esophagitis] 04-28-2023 Chronic Headache; including migraine (16 sources) Migraine; Translations: [Migraine, unspecified, not intractable, without status migrainosus] Onset: 02-15-2025 11-24-2023 Chronic Headache; including migraine (2 sources) Headache; including migraine; Translations: [Headache, unspecified] Onset: 02-09-2025 Mood disorders (20 sources) Depressive disorder; Translations: [Depression] Onset: 04-15-2010 04-15-2010 Chronic Nonspecific chest pain (10 sources) Chest pain; Translations: [Chest pain, unspecified] Onset: 07-17-2024 04-28-2023 Episodic Other and ill-defined heart disease (20 sources) Left cardiac ventricular dilatation; Translations: [Cardiomegaly] Onset: 03-03-2010 03-03-2010 Chronic Other circulatory disease (4 sources) History of endocarditis; Translations: [Personal history of other diseases of the circulatory system] 01-09-2024 Episodic Other circulatory disease (1 source) Tonsil finding; Translations: [Other specified symptoms and signs involving the circulatory and respiratory systems] 07-10-2024 Episodic Other lower respiratory disease (2 sources) Cough; Translations: [Acute cough] 11-07-2024 Episodic Other nervous system disorders (1 source) Numbness of hand; Translations: [Anesthesia of skin] 02-15-2025 Episodic Other non-traumatic joint disorders (1 source) Acute ankle pain; Translations: [Pain in right ankle and joints of right foot] 06-14-2023 Episodic Other skin disorders (1 source) Rash and other nonspecific skin eruption; Translations: [Rash] Onset: 06-05-2025 Episodic Other upper respiratory infections (3 sources) Sore throat symptom; Translations: [Acute pharyngitis, unspecified] Episodic Pulmonary heart disease (1 source) Pulmonary hypertension; Translations: [Other secondary pulmonary hypertension] Onset: 12-24-2011 12-24-2011 Chronic Residual codes; unclassified (1 source) Behavior finding; Translations: [Other sleep apnea] 02-20-2025 Chronic Residual codes; unclassified (2 sources) Obstructive sleep apnea syndrome; Translations: [Obstructive sleep apnea (adult) (pediatric)] 05-27-2025 Chronic Residual codes; unclassified (1 source) Other sleep apnea; Translations: [Sleep apnea-like behavior] Onset: 02-20-2025 Chronic Residual codes; unclassified (1 source) History of repair of atrial septal defect; Translations: [History of Status post patent foramen ovale closure] Episodic Residual codes; unclassified (1 source) Other specified personal risk factors, not elsewhere classified; Translations: [Other specified personal history presenting hazards to health] Episodic Residual codes; unclassified (7 sources) Tobacco user; Translations: [Tobacco use] 04-07-2022 Episodic Residual codes; unclassified (15 sources) Family history of cancer of colon; Translations: [Family history of malignant neoplasm of digestive organs] Onset: 03-05-2025 02-15-2025 Episodic Skin and subcutaneous tissue infections (8 sources) Infected face; Translations: [Local infection of the skin and subcutaneous tissue, unspecified] 12-31-2023 Episodic Substance-related disorders (20 sources) History of drug abuse; Translations: [Nicotine dependence] Onset: 02-08-2022 02-08-2022 Chronic Unclassified (1 source) Behavior finding 02-20-2025 Unclassified (1 source) Acute cough; Translations: [Acute cough] Onset: 11-07-2024 Urinary tract infections (7 sources) Urinary tract infectious disease; Translations: [Urinary tract infection, site not specified] 06-10-2017 Episodic Past or Other Problems Problem Classification Problem Date Documented Date Episodic/Chronic Abdominal pain (9 sources) Right flank pain; Translations: [Unspecified abdominal pain] Onset: 02-15-2025 07-27-2022 Episodic Bacterial infection; unspecified site (20 sources) Chlamydial infection; Translations: [Chlamydial infection, unspecified] Onset: 03-10-2013 03-10-2013 Episodic Cardiac dysrhythmias (20 sources) Palpitations; Translations: [Palpitations] Onset: 12-24-2011 12-24-2011 Episodic Epilepsy; convulsions (20 sources) Seizure; Translations: [Unspecified convulsions] Onset: 11-22-2013 11-22-2013 Episodic Headache; including migraine (4 sources) Headache; Translations: [Headache, unspecified headache type] Onset: 02-20-2025 02-08-2025 Episodic Heart valve disorders (1 source) Heart murmur; Translations: [Cardiac murmur, unspecified] Onset: 12-24-2011 12-24-2011 Episodic Immunizations and screening for infectious disease (3 sources) Exposure to Bordetella pertussis; Translations: [Contact with and (suspected) exposure to other bacterial communicable diseases] Onset: 11-07-2024 11-07-2024 Episodic Malaise and fatigue (1 source) Fatigue; Translations: [Other fatigue] Onset: 12-24-2011 12-24-2011 Episodic Other circulatory disease (1 source) Abnormal result of cardiovascular function study, unspecified; Translations: [Abnormal result of cardiovascular function study, unspecified] Onset: 12-24-2011 12-24-2011 Episodic Other lower respiratory disease (1 source) Dyspnea; Translations: [Dyspnea, unspecified] Onset: 12-24-2011 12-24-2011 Episodic Other nervous system disorders (1 source) Anesthesia of skin; Translations: [Bilateral hand numbness] Onset: 02-15-2025 Episodic Other screening for suspected conditions (not mental disorders or infectious disease) (18 sources) Patient encounter status; Translations: [Encounter for screening mammogram for malignant neoplasm of breast] Onset: 03-05-2025 Episodic Mey-; endo-; and myocarditis; cardiomyopathy (8 sources) Acute and subacute bacterial endocarditis; Translations: [Infective endocarditis] Onset: 03-09-2013 02-04-2015 Episodic Comment on above: 03/09/2013 Pulmonary heart disease (1 source) Pulmonary embolism; Translations: [Other pulmonary embolism without acute cor pulmonale] Onset: 01-14-2015 01-14-2015 Episodic Residual codes; unclassified (1 source) Family history of malignant neoplasm of digestive organs; Translations: [Family history of colon cancer in mother] Onset: 03-05-2025 Episodic Sexually transmitted infections (not HIV or hepatitis) (20 sources) Human papillomavirus deoxyribonucleic acid test positive, high risk on cervical specimen; Translations: [Cervical high risk human papillomavirus (HPV) DNA test positive] Onset: 03-09-2013 03-09-2013 Episodic Spondylosis; intervertebral disc disorders; other back problems (8 sources) Neck pain; Translations: [Cervicalgia] Onset: 02-15-2025 02-08-2025 Episodic Syncope (1 source) Syncope and collapse; Translations: [Syncope and collapse] Onset: 12-28-2011 12-28-2011 Episodic Unclassified (3 sources) Patient encounter status; Translations: [Examination of ears and hearing] 02-15-2025 Unclassified (1 source) History of closure of ventricular septal defect; Translations: [History of S/P VSD closure] Results Test Name Value Interpretation [facility] ([facility] ----- ÁNGEL GALVAN ([id number]) 1980 F Date Time Provider Department 06/05/25 1:45 PM JOSÉ LUIS SORIA During your visit today, we recorded the following information about you: Temperature Pulse Respiration Blood pressure 97.2 degrees 74/minute 18/minute 124/82 Weight Last Period 64 kg 05/31/25 José Luis Soria PA 06/05/2025 1:56 PM Signed [facility] Subjective Ángel Galvan is a 44 year old female. Patient presents with: Derm Problem: Dry red, patches, flat on R upper thigh area, R elbow area, R back of leg x 1.5 weeks, increasing in size Itching, burning, painful HPI Rash: - Onset: 1-1.5 weeks ago. - Initially small, now spreading in the same areas. - Locations: back of the leg and elbow. - Describes sensation as a bunch of little prickles." - Denies new exposures to detergents or body washes. - Denies recent hot tub use. 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 - Reports a coworker had contact dermatitis. Review of Systems Skin: (+) rash, (+) pruritus, (+) burning skin sensation, (+) skin paresthesia Objective BP 124/82 Pulse 74 Temp 36.2 ?C (97.2 ?F) Resp 18 Wt 64 kg (141 lb 1.5 oz) LMP 05/31/2025 (Exact Date) SpO2 100% BMI 26.66 kg/m? Physical Exam Vitals and nursing note reviewed. Constitutional: General: She is not in acute distress. Appearance: Normal appearance. She is not toxic-appearing. Skin: General: Skin is warm and dry. Findings: Rash present. Comments: Erythematous slightly raised pinpoint pustules and papules noted over right inner thigh, right posterior knee and right arm. No vesicular lesions. No drainage or fluctuance. Some linear lesions with scabbing noted. Neurological: Mental Status: She is alert. General: No acute distress. Skin: Erythematous rash on back of leg and elbow, appears inflamed. { 1. Rash (R21) - Acute pruritic rash on back of leg and elbow; differentials include folliculitis and contact dermatitis. - Start prednisone to reduce inflammation and pruritus. - Start topical antibiotic ointment - Educated patient on the non-contagious nature of contact dermatitis and advised to discontinue any newly identified exposures. Recording using [employer] software for draft documentation of the visit was discussed with the patient/authorized medical center representative; all questions welcomed and answered. Patient/authorized medical center representative agreed to proceed Diagnosis and treatment plan were discussed and questions were answered to the patient's satisfaction. Pt acknowledged understanding of concepts and follow up plan. Specific signs and symptoms that would indicate the need for higher level of care were discussed in detail warranting prompt ER evaluation. Disposition The patient was discharged. Procedures Allergies As of Date: 06/05/2025 Noted Allergy Reaction HYDROCODONE 12/24/2011 9 - Itching NICKEL 03/10/2010 2 - Rash 16 - Unknown 4 - Hives HYDROCODONE-ACETAMINOPHEN 10/09/2008 9 - Itching PROPOXYPHENE N-ACETAMINOPHEN 10/09/2008 11 - Vomiting Date Reviewed: 06/05/2025 Reviewed by: Johana Joiner LPN - Fully Assessed Reason for Visit: Derm Problem [33] Cmt: Dry red, patches, flat on R upper thigh area, R elbow area, R back of leg x 1.5 weeks, increasing in size Itching, burning, painful Primary Visit Diagnosis:Rash [R21] Order(s):mupirocin (BACTROBAN) 2 % ointmentApply to affected area three times a day for 7 days.Disp: 15 gRfl: 0 predniSONE (DELTASONE) 10 mg tabletTake 4 tablets by mouth once daily for 3 days, THEN 2 tablets once daily for 3 days, THEN 1 tablet once daily for 3 days.Disp: 21 tabletRfl: 0 Prescriptions as of 06/05/2025 - mupirocin (BACTROBAN) 2 % ointment Apply to affected area three times a day for 7 days. - predniSONE (DELTASONE) 10 mg tablet Take 4 tablets by mouth once daily for 3 days, THEN 2 tablets once daily for 3 days, THEN 1 tablet once daily for 3 days. - metoprolol succinate ER (TOPROL XL) 25 mg 24 hr tablet Take 1 tablet by mouth once daily. - sertraline (ZOLOFT) 100 mg tablet Take 2 tablets by mouth once daily. - gabapentin (NEURONTIN) 300 mg capsule Take 1 capsule by mouth two times a day for 90 days. - venlafaxine ER (EFFEXOR XR) 75 mg 24 hr capsule Take 1 capsule by mouth once daily. Problem List As Of Date 06/05/2025 Noted Resolved Ventricular Septal Defect [Q21.0] 03/03/2010 LVE (Left Ventricular Enlargement) [I51.7] 03/03/2010 DEON (Generalized Anxiety Disorder) [F41.1] 04/15/2010 Depression [F32.A] 04/15/2010 Cervical high risk human papillomavirus (HPV) D*03/09/2013 Chlamydia [A74.9] 03/10/2013 Seizures [R56.9] 11/22/2013 Palpitations [R00.2] 02/08/2022 Nicotine use disorder, F17.2 [F17.200] 02/08/2022 SVT (supraventricular tachycardia) (HCC) [I47.1* (more content not included)... Normal [facility] .Auto Diffon 05-15-2025 Basophil, Absolute 0.1 10 3/mcL Normal 0.0-0.3 [facility] Comment on above: Performed By: #### G FR, CBC, ADIFF, MDW, BMP, PBNP, ANEU, TROPHS, MG #### [address] [address] Lymphocyte, Absolute 2.2 10 3/mcL Normal 0.9-4.3 [facility] Comment on above: Performed By: #### G FR, CBC, ADIFF, MDW, BMP, PBNP, ANEU, TROPHS, MG #### [id number] [place], [place] [address] Monocyte, Absolute 0.4 10 3/mcL Normal 0.1-1.4 [facility] Comment on above: Performed By: #### G FR, CBC, ADIFF, MDW, BMP, PBNP, ANEU, TROPHS, MG #### [id number] [place], [place] [address] .Auto DiffOrdered By: SYSTEM SYSTEM on 05-15-2025 Basophils/100 WBC (Bld) 0.8 % Normal 0.0-2.5 AO Workflow SS Comment on above: Performed By: #### G FR, CBC, ADIFF, MDW, BMP, PBNP, ANEU, TROPHS, MG #### [address] [address] Eosinophil, Absolute 0.1 103/mcL Normal 0.0-0.7 AO Workflow SS Comment on above: Performed By: #### G FR, CBC, ADIFF, MDW, BMP, PBNP, ANEU, TROPHS, MG #### [address] [address] Eosinophils/100 WBC (Bld) 1.3 % Normal 0.0-6.0 AO Workflow SS Comment on above: Performed By: #### G FR, CBC, ADIFF, MDW, BMP, PBNP, ANEU, TROPHS, MG #### [address] [address] Lymphocytes/100 WBC (Bld) 27.7 % Normal 20.0-40.0 AO Workflow SS Comment on above: Performed By: #### G FR, CBC, ADIFF, MDW, BMP, PBNP, ANEU, TROPHS, MG #### [address] [address] Monocytes/100 WBC (Bld) 4.8 % Normal 2.0-13.0 AO Workflow SS Comment on above: Performed By: #### G FR, CBC, ADIFF, MDW, BMP, PBNP, ANEU, TROPHS, MG #### [address] [address] Neutrophils/100 WBC (Bld) 65.4 % Normal 50.0-75.0 AO Workflow SS Comment on above: Performed By: #### G FR, CBC, ADIFF, MDW, BMP, PBNP, ANEU, TROPHS, MG #### [address] [address] .GFROrdered By: SYSTEM KoruE LABOMAR on 05-15-2025 Estimated Glomerular Filtration Rate 120 ml/min/1.73sqm Normal AO Chemistry S Comment on above: Interpretive Data: Stages of Chronic Kidney Disease (CKD) Stage Description eGFR(ml/min/1.73 sq.m.) CKD 1 Normal kidney function or >=90 normal kindney function with possible kidney damage (ex. Proteinuria) CKD 2 Kidney damage with mild loss 60-89 of kidney function CKD 3a Mild to moderate loss of kidney 45-59 function CKD 3b Moderate to severe loss of 30-44 of kindey function CKD 4 Severe loss of kidney function 15-29 CKD 5 Kidney failure <15 Note: ( live 12/05/2024) the eGFR calculation was updated to the 2020 CKD-EPI creatinine equation without a race factor to calculate the eGFR results. Result Comment: Stages of Chronic Kidney Disease (CKD) Stage Description eGFR(ml/min/1.73 sq.m.) CKD 1 Normal kidney function or >=90 normal kindney function with possible kidney damage (ex. Proteinuria) CKD 2 Kidney damage with mild loss 60-89 of kidney function CKD 3a Mild to moderate loss of kidney 45-59 function CKD 3b Moderate to severe loss of 30-44 of kindey function CKD 4 Severe loss of kidney function 15-29 CKD 5 Kidney failure <15 Note: ([facility] 12/05/2024) the eGFR calculation was updated to the 2020 CKD-EPI creatinine equation without a race factor to calculate the eGFR results. Performed By: #### G FR, CBC, ADBARB, W, BMP, PBNP, ANEU, TROPHS, MG #### [address] [address] .MDWon 05-15-2025 Monocyte Distribution Width 18.93 Normal 0.00-20.00 [facility] Comment on above: Result Comment: For ED adult patients suspected of sepsis, MDW<=20.0 does not rule out sepsis or risk of sepsis Performed By: #### G FR, CBC, ADBARB, MDW, BMP, PBNP, ANEU, TROPHS, MG #### [address] [address] .NEUABSon 05-15-2025 Neutrophil, Absolute 5.2 10 3/mcL Normal 2.3-8.1 [facility] Comment on above: Performed By: #### G FR, CBC, ADIFF, MDW, BMP, PBNP, ANEU, TROPHS, MG #### [address] [address] BMPon 05-15-2025 BUN/Creatinine Ratio 25 ratio Normal 7-27 [facility] Comment on above: Performed By: #### G FR, CBC, ADIFF, MDW, BMP, PBNP, ANEU, TROPHS, MG #### [address] [address] BMPOrdered By: SYSTEM SYSTEM on 05-15-2025 Calcium [Mass/Vol] 9.7 mg/dL Normal 8.4-10.2 AO ADM SS Comment on above: Performed By: #### G FR, CBC, ADIFF, MDW, BMP, PBNP, ANEU, TROPHS, MG #### [address] [address] Chloride [Moles/Vol] 103 mmol/L Normal 98-107 AO A DM SS Comment on above: Performed By: #### G FR, CBC, ADIFF, MDW, BMP, PBNP, ANEU, TROPHS, MG #### [address] [address] CO2 [Moles/Vol] 24 mmol/L Normal 22-29 AO ADM SS Comment on above: Performed By: #### G FR, CBC, ADIFF, MDW, BMP, PBNP, ANEU, TROPHS, MG #### [address] [address] Creatinine [Mass/Vol] 0.48 mg/dL Low 0.51-0.95 AO ADM SS Comment on above: Performed By: #### G FR, CBC, ADIFF, MDW, BMP, PBNP, ANEU, TROPHS, MG #### [address] [address] Electrolyte Balance 9.0 mEq/L Normal 4.0-15.0 AO AD M SS Comment on above: Performed By: #### G FR, CBC, ADIFF, MDW, BMP, PBNP, ANEU, TROPHS, MG #### [address] [address] Glucose [Mass/Vol] 105 mg/dL Normal 70-105 AO ADM SS Comment on above: Performed By: #### G FR, CBC, ADIFF, MDW, BMP, PBNP, ANEU, TROPHS, MG #### [address] [address] Potassium [Moles/Vol] 4.5 mmol/L Normal 3.5-5.1 AO ADM SS Comment on above: Performed By: #### G FR, CBC, ADIFF, MDW, BMP, PBNP, ANEU, TROPHS, MG #### [address] [address] Sodium [Moles/Vol] 136 mmol/L Normal 136-145 AO ADM SS Comment on above: Performed By: #### G FR, CBC, ADIFF, MDW, BMP, PBNP, ANEU, TROPHS, MG #### [address] [address] Urea nitrogen [Mass/Vol] 12 mg/dL Normal 7-18 AO ADM SS Comment on above: Performed By: #### G FR, CBC, ADIFF, MDW, BMP, PBNP, ANEU, TROPHS, MG #### [address] [address] CBCOrdered By: SYSTEM SYSTEM on 05-15-2025 Erythrocyte distribution width (RBC) [Ratio] 13.7 % Normal 11.5-15.5 AO Workflow SS Comment on above: Performed By: #### G FR, CBC, ADIFF, MDW, BMP, PBNP, ANEU, TROPHS, MG #### [address] [place] [id number] Hematocrit (Bld) [Volume fraction] 42.0 % Normal 34.0-46.0 AO Workflow SS Comment on above: Performed By: #### G FR, CBC, ADIFF, MDW, BMP, PBNP, ANEU, TROPHS, MG #### [place] [id number] MCH (RBC) [Entitic mass] 29.2 pg Normal 27.0-33.0 AO Workflow SS Comment on above: Performed By: #### G FR, CBC, ADIFF, MDW, BMP, PBNP, ANEU, TROPHS, MG #### [address] [address] MCHC 33.5 G/dL Normal 32.0-36.0 AO Workflow SS Comment on above: Performed By: #### G FR, CBC, ADIFF, MDW, BMP, PBNP, ANEU, TROPHS, MG #### [address] [address] MCV (RBC) [Entitic vol] 87.2 fL Normal 80.0-99.0 AO Workflow SS Comment on above: Performed By: #### G FR, CBC, ADIFF, MDW, BMP, PBNP, ANEU, TROPHS, MG #### [address] [address] Platelet mean volume (Bld) [Entitic vol] 8.9 fL Normal 6.6-10.5 AO Workflow SS Comment on above: Performed By: #### G FR, CBC, ADIFF, MDW, BMP, PBNP, ANEU, TROPHS, MG #### [address] [address] CBCon 05-15-2025 Hgb 14.1 G/dL Normal 12.0-16.0 [facility] Comment on above: Performed By: #### G FR, CBC, ADIFF, MDW, BMP, PBNP, ANEU, TROPHS, MG #### [address] [address] Platelet 243 10 3/mcL Normal 150-450 [facility] Comment on above: Performed By: #### G FR, CBC, ADIFF, MDW, BMP, PBNP, ANEU, TROPHS, MG #### [address] [address] RBC 4.82 10 6/mcL Normal 4.10-5.30 [facility] Comment on above: Performed By: #### G FR, CBC, ADIFF, MDW, BMP, PBNP, ANEU, TROPHS, MG #### [address] [address] WBC 7.9 10 3/mcL Normal 4.5-10.8 [facility] Comment on above: Performed By: #### G FR, CBC, ADIFF, MDW, BMP, PBNP, ANEU, TROPHS, MG #### [facility] [address] [place], [place] [address] LABORATORYOrdered By: SYSTEM SYSTEM on 05-15-2025 Basophils (Bld) [#/Vol] 0.1 103/mcL Normal 0.0 - 0.3 10^3/mcL AO Workflow SS Hemoglobin (Bld) [Mass/Vol] 14.1 G/dL Normal 12.0 - 16.0 G/dL AO Workflow SS Lymphocytes (Bld) [#/Vol] 2.2 103/mcL Normal 0.9 - 4.3 10^3/mcL AO Workflow SS Monocyte distribution width Auto (Bld) [Entitic vol] 18.93 1 Normal 0.00 - 20.00 AO Workflow SS Comment on above: Result Comment: For ED adult patients suspected of sepsis, MDW<=20.0 does not rule out sepsis or risk of sepsis Monocytes (Bld) [#/Vol] 0.4 103/mcL Normal 0.1 - 1.4 10^3/mcL AO Workflow SS Natriuretic peptide.B prohormone N-Terminal [Mass/Vol] 36 pg/mL Normal 0 - 125 pg/mL AO ADM SS Comment on above: Interpretive Data: N T-proBNP results of less than 300 pg/mL effectively rules out acute congestive heart failure with 99% negative predictive value. Neutrophils (Bld) [#/Vol] 5.2 103/mcL Normal 2.3 - 8.1 10^3/mcL AO Workflow SS Platelets (Bld) [#/Vol] 243 103/mcL Normal 150 - 450 10^3/mcL AO Workflow SS RBC (Bld) [#/Vol] 4.82 106/mcL Normal 4.10 - 5.3 0 10^6/mcL AO Workflow SS Urea nitrogen/Creatinine [Mass ratio] 25 ratio Normal 7 - 27 ratio AO ADM SS WBC (Bld) [#/Vol] 7.9 103/mcL Normal 4.5 - 10.8 10^3/mcL AO Workflow SS Troponin I.cardiac DL <= 0.01 ng/mL [Mass/Vol] 5 ng/L Normal 0 - 51 ng/L AO ADM SS Comment on above: Interpretive Data: H igh Sensitive Troponin I Reference Ranges: Female: 0-51 ng/L Male: 0-76 ng/L Testing performed on Dimension EXL using a homogeneous sandwich chemiluminescent immunoassay based on [id number] technology. MGOrdered By: SYSTEM SYSTEM on 05-15-2025 Magnesium [Mass/Vol] 1.6 mg/dL Low 1.8-2.4 AO A DM SS Comment on above: Performed By: #### G FR, CBC, HEATH, JAYDEN, BMP, PBNP, ANEU, TROPHS, MG #### [address] [address] PBNPon 05-15-2025 Natriuretic peptide B (Bld) [Mass/Vol] 36 pg/mL Normal 0-125 [facility] Comment on above: Result Comment: NT-p roBNP results of less than 300 pg/mL effectively rules out acute congestive heart failure with 99% negative predictive value. Performed By: #### G FR, CBC, HEATH, JAYDEN, BMP, PBNP, ANEU, TROPHS, MG #### [address] [address] TROPHSon 05-15-2025 High Sensitivity Troponin I 5 ng/L Normal 0-51 [facility] Comment on above: Result Comment: High Sensitive Troponin I Reference Ranges: Female: 0-51 ng/L Male: 0-76 ng/L Testing performed on Dimension EXL using a homogeneous sandwich chemiluminescent immunoassay based on [employer] technology. Performed By: #### G FR, CBC, HEATH, JAYDEN, BMP, PBNP, ANEU, TROPHS, MG #### [address] [address] XR CHEST 1 VIEWon 05-15-2025 XR CHEST 1 VIEW ORIGINAL EXAMINATION: ONE XRAY VIEW OF THE CHEST 05/15/2025 12:42 pm COMPARISON: None HISTORY: ORDERING SYSTEM PROVIDED HISTORY: Reason for Exam: chest pain FINDINGS: The cardiomediastinal silhouette is normal in width and contour. There is no focal consolidation, pleural effusion or pneumothorax. Status post median sternotomy. No acute displaced fracture is identified. IMPRESSION: No acute cardiopulmonary process. Interpreted by: Gisell Cisneros Preliminary Report By: Gisell Cisneros Electronically signed By Gisell Cisneros Dictated Date: 05/15/2025 1:01:14 PM Prelim Date: 05/15/2025 1:02:51 PM Sign Date: 05/15/2025 1:02:51 PM Ordering Provider: YENI Fall [facility] POLYSOMNOGRAM (PSG)/HOME SLE EP APNEA TEST (HSAT)on 03-15-2025 POLYSOMNOGRAM (PSG)/HOME SLEEP APNEA TEST (HSAT) [facility] at [address], [address], [place] [address] ; Home Sleep Apnea Test (HSAT) Study Report Name: ÁNGEL GALVAN Date of Study: 03/15/2025 [facility]#: [id number] Age: 44 (: 1980) ESS: N/A Neck Circ. (cm): N/A Height (cm): 154.9 Weight (kg): 67.0 BMI: 27.9 Referring Provider: SOLEDAD GARRIDO Mailcode: N/A Sleep history: The patient is a 44 year old female with a history of daytime sleepiness, fatigue, and snoring. The patient is here for assessment of obstructive sleep apnea. The patient does not endorse a habitual sleep position. Pertinent medical history: Anxiety, Congestive heart failure, Depression, Seizures Medications: Gabapentin, Metoprolol Succinate, Sertraline, Venlafaxine Sleep procedure: PSG unattended Type III, minimum of 4 parameters (96[address]) Procedure: This study was performed using a Type III ambulatory PSG device and was unattended. The patient was instructed on proper use of the device by a registered engineering technologist. The monitored parameters included heart rate, oxygen saturation, continuous airflow with thermistor and nasal pressure transducer, snoring via nasal pressure transducer, chest and abdominal effort, and body position. VISHAL definition: Respiratory event index (VISHAL), calculated as respiratory events x 60 / TRT (total recording time in minutes). Note: the apnea hypopnea index has been replaced by the respiratory event index for home sleep apnea test. Since the home sleep apnea test does not measure sleep, the VISHAL is most accurate index of respiratory events. The VISHAL is a surrogate of the AHI per the AASM Manual for Scoring of Sleep and Associated Events version 3. Apnea definition: The peak signal excursions drop by >90% of pre-event baseline using an oronasal thermal sensor (diagnostic study), PAP device flow (titration study) or an alternative apnea sensor (diagnostic study). The duration of the >90% drop in signal excursion is >=10 seconds. Hypopnea definition: The peak signal excursions drop by >= 30% of pre-event baseline using nasal pressure (diagnostic study), PAP device flow (titration study) or an alternative hypopnea sensor (diagnostic study). The duration of the >= 30% drop in signal excursion is >=10 seconds. There is a greater than or equal to 3% oxygen desaturation from pre-event baseline. RESPIRATORY DATA: The study started at 22:11:27 and ended at 06:06:15 and the total recording time was 475 minutes. By convention, sleep is assumed for the whole recording. Snoring was noted. There was a total of 69 respiratory events. Of these events, the total number of apneas was 0 (0 obstructive, 0 mixed, and 0 central (0.0%)) and 69 hypopneas. The central apnea index (ALEKSEY) was 0.0. The respiratory event index (VISHAL) was 8.7 events per hour of study time. The mean oxygen saturation during the study was 95.0%, with a minimum oxygen saturation of 88.0%. The patient spent 0.1 minutes at oxygen saturation measured less than 90% (0.0% of recording time) and 0.0 minutes at oxygen saturation measured at or less than 88% (0.0% of recording time). Time VISHAL/AHI Supine 90.5 min 7.3 Off-Supine 384.5 min 9.1 Total 475.0 min 8.7 ECG DATA: The average heart rate was 73 bpm with a range of 57 bpm to 108 bpm. ICSD DIAGNOSIS: Obstructive Sleep Apnea Syndrome [G47.33] IMPRESSION/RECOMMENDATION S: 1. This study confirms a diagnosis of at least mild obstructive sleep apnea. 2. The results of this study may represent an underestimation of the degree of obstructive sleep apnea, especially hypopneas, because of the known limitations of HSAT, such as inability to record arousals because EEG is not recorded. 3. Treatment of mild sleep apnea can include weight loss, positional therapy, treatment of allergies, oral appliance therapy or ENT evaluation of any airway abnormalities. PAP therapy may be considered in patients with documented symptoms of daytime sleepiness, impaired cognition, mood disorder, insomnia, or documented hypertension, ischemic heart disease, or history of stroke. INTERPRETING PHYSICIAN: CITLALLI Montes DO MS I attest that I have performed epoch by epoch review of the entire raw data and find this study to be technically adequate. Report Digitally Signed By: CAMERON MONTES (03/27/2025 9:08:39 AM) Normal [facility] MR Brain WO and W contrast I Von 03-06-2025 IMPRESSION: Normal MRI brain without and with contrast. 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 TECHNIQUE: Routine brain MRI protocol without and with contrast including diffusion images. MQ: [id number] Contrast: 7 mL Elucirem IV COMPARISON: None. RESULT: Acute Change: There is no evidence of restricted diffusion to suggest an acute infarct. Hemorrhage: No evidence of prior parenchymal hemorrhage on the susceptibility weighted images. Mass Lesion/ Mass Effect: No evidence of an intracranial mass or extra-axial fluid collection. No abnormal parenchymal or leptomeningeal enhancement is noted following contrast administration. No significant mass effect. Chronic Change: The white matter is within normal limits of signal intensity for age. Parenchyma: No significant volume loss for age. The brain parenchyma is otherwise within normal limits of signal intensity and morphology. Ventricles: Normal caliber and morphology. Skull Base: Hypothalamic and pituitary region are grossly normal. Craniocervical junction is normal. No significant marrow replacement process. Vasculature: Major intracranial arterial structures, and dural venous sinuses show typical flow void, suggesting patency by spin echo criteria. Other: The visualized paranasal sinuses and mastoid air cells are clear. The orbits and extracranial soft tissues are unremarkable. DIVISION OF RADIOLOGY Provider, Teri Alicea - 03/06/2025 * * *Final Report* * * DATE OF EXAM: Mar 06 2025 12:57PM [facility] 0295 - MRI BRAIN WO/W IVCON / PROCEDURE REASON: Migraine with aura and without status migrainosus, not intractable * * * * Physician Interpretation * * * * EXAMINATION: MRI BRAIN WO/W IVCON CLINICAL HISTORY: Migraine headaches. TECHNIQUE: Routine brain MRI protocol without and with contrast including diffusion images. MQ: MRBWOW_2 Contrast: 7 mL Elucirem IV COMPARISON: None. RESULT: Acute Change: There is no evidence of restricted diffusion to suggest an acute infarct. Hemorrhage: No evidence of prior parenchymal hemorrhage on the susceptibility weighted images. Mass Lesion/ Mass Effect: No evidence of an intracranial mass or extra-axial fluid collection. No abnormal parenchymal or leptomeningeal enhancement is noted following contrast administration. No significant mass effect. Chronic Change: The white matter is within normal limits of signal intensity for age. Parenchyma: No significant volume loss for age. The brain parenchyma is otherwise within normal limits of signal intensity and morphology. Ventricles: Normal caliber and morphology. Skull Base: Hypothalamic and pituitary region are grossly normal. Craniocervical junction is normal. No significant marrow replacement process. Vasculature: Major intracranial arterial structures, and dural venous sinuses show typical flow void, suggesting patency by spin echo criteria. Other: The visualized paranasal sinuses and mastoid air cells are clear. The orbits and extracranial soft tissues are unremarkable. IMPRESSION IMPRESSION: Normal MRI brain without and with contrast. 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 Date/Time: Mar 06 2025 1:05P Dictated by : NINA PADILLA MD This examination was interpreted and the report reviewed and electronically signed by: NINA PADILLA MD on Mar 06 2025 1:06PM EST [facility] Radiology Study observation (narrative) [facility] MR Brain WO and W contrast I VOrdered By: [facility] Provider on 03-06-2025 [facility] MRI BRAIN WO/W IVCONon 03-06 MRI BRAIN WO/W IVCON * * *Final Report* * * DATE OF EXAM: Mar 06 2025 12:57PM [facility] 0295 - MRI BRAIN WO/W IVCON / PROCEDURE REASON: Migraine with aura and without status migrainosus, not intractable * * * * Physician Interpretation * * * * EXAMINATION: MRI BRAIN WO/W IVCON CLINICAL HISTORY: Migraine headaches. TECHNIQUE: Routine brain MRI protocol without and with contrast including diffusion images. MQ: MRBWOW_2 Contrast: 7 mL Elucirem IV COMPARISON: None. RESULT: Acute Change: There is no evidence of restricted diffusion to suggest an acute infarct. Hemorrhage: No evidence of prior parenchymal hemorrhage on the susceptibility weighted images. Mass Lesion/ Mass Effect: No evidence of an intracranial mass or extra-axial fluid collection. No abnormal parenchymal or leptomeningeal enhancement is noted following contrast administration. No significant mass effect. Chronic Change: The white matter is within normal limits of signal intensity for age. Parenchyma: No significant volume loss for age. The brain parenchyma is otherwise within normal limits of signal intensity and morphology. Ventricles: Normal caliber and morphology. Skull Base: Hypothalamic and pituitary region are grossly normal. Craniocervical junction is normal. No significant marrow replacement process. Vasculature: Major intracranial arterial structures, and dural venous sinuses show typical flow void, suggesting patency by spin echo criteria. Other: The visualized paranasal sinuses and mastoid air cells are clear. The orbits and extracranial soft tissues are unremarkable. IMPRESSION: Normal MRI brain without and with contrast. 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 Author Type: Registered Nurse Type: [id number] Filed: 03/05/2025 10:12 Note Text: The patient received a copy of Colonoscopy discharge instructions that contain information for how to contact the physician who performed the procedure and when to seek medical care. Normal [facility] Colonoscopyon 03-05-2025 Colonoscopy [facility] Gastrointestinal Endoscopy Patient Name: Ángel Galvan Procedure Date: 03/05/2025 8:59 AM Date of : 1980 Admit Type: Outpatient Age: 44 Gender: Female Note Status: Finalized Procedure: Colonoscopy Indications: Screening in patient at increased risk: Colorectal cancer in mother before age 60 Providers: Ed Stephenson MD Patient Profile: This is a 44 year old female. Refer to note in patient chart for documentation of history and physical. Last Colonoscopy: none. The patient's first colonoscopy is today. Referring Physician: Payam anderson) Munira (Referring MD) Medicines: Fentanyl 100 micrograms IV, Midazolam 6 mg IV, Diphenhydramine 50 mg IV Complications: No immediate complications. Estimated blood loss: Minimal. Requesting Provider: Procedure: Pre-Anesthesia Assessment: - Prior to the procedure, a History and Physical was performed, and patient medications and allergies were reviewed. The patient's tolerance of previous anesthesia was also reviewed. The risks and benefits of the procedure and the sedation options and risks were discussed with the patient. All questions were answered, and informed consent was obtained. Prior Anticoagulants: The patient has taken no anticoagulant or antiplatelet agents. ASA Grade Assessment: II - A patient with mild systemic disease. After reviewing the risks and benefits, the patient was deemed in satisfactory condition to undergo the procedure. After I obtained informed consent, the scope was passed under direct vision. Throughout the procedure, the patient's blood pressure, pulse, and oxygen saturations were monitored continuously. The Colonoscope was introduced through the anus and advanced to the cecum, identified by appendiceal orifice and ileocecal valve. The colonoscopy was performed without difficulty. The patient tolerated the procedure well. The quality of the bowel preparation was adequate to identify polyps greater than 5 mm in size. The ileocecal valve, appendiceal orifice, and rectum were photographed. Moderate Sedation: The administration of moderate sedation was initiated at 09:16. Moderate (conscious) sedation was personally administered by the endoscopist. The following parameters were monitored: oxygen saturation, heart rate, blood pressure, respiratory rate, EKG, adequacy of pulmonary ventilation, and response to care. Total physician intraservice time was 21 minutes. Findings: The perianal and digital rectal examinations were normal. Non-bleeding internal hemorrhoids were found during retroflexion. The hemorrhoids were mild and small. The exam was otherwise without abnormality. A diminutive (1-3 mm) polyp was found in the descending colon. The polyp was sessile. The polyp was removed with a jumbo cold forceps. Resection and retrieval were complete. Impression: - Non-bleeding internal hemorrhoids. - The examination was otherwise normal. - No specimens collected. Recommendation: - Patient has a contact number available for emergencies. The signs and symptoms of potential delayed complications were discussed with the patient. Return to normal activities tomorrow. Written discharge instructions were provided to the patient. - Resume previous diet. - Continue present medications. - Await pathology results. - Repeat colonoscopy in 5 years for surveillance. - Return to referring provider at appointment to be scheduled. Procedure Code(s): --- Professional --- 86836, Colonoscopy, flexible; with biopsy, single or multiple G0500, Moderate sedation services provided by the same physician or other qualified health critical care physician performing a gastrointestinal endoscopic service that sedation supports, requiring the presence of an independent trained observer to assist in the monitoring of the patient's level of consciousness and physiological status; initial 15 minutes of intra-service time; patient age 5 years or older (additional time may be reported with 85817, as appropriate) Diagnosis Code(s): --- Professional --- Z12.11, Encounter for screening for malignant neoplasm of colon Z80.0, Family history of malignant neoplasm of digestive organs K64.8, Other hemorrhoids CPT copyright 2020 [employer]. All rights reserved. The codes documented in this report are preliminary and upon group tester review may be revised to meet current compliance requirements. Attending Participation: I personally performed the entire procedure. Scope In: 9:24:31 AM Scope Out: 9:37:04 AM MD Ed Breaux MD 03/05/2025 9:54:59 AM This report has been signed electronically by Ed Stephenson MD Number of Addenda: 0 Note Initiated On: 03/05/2025 8:59 AM Estimated Blood Loss: Estimated blood loss: none. Estimated blood loss was minimal. Normal [facility] Colonoscopy Study observatio non 03-05-2025 [facility] Gastrointestinal Endoscopy Patient Name: Ángel Carrascoe Procedure Date: 03/05/2025 8:59 AM Date of : 1980 Admit Type: Outpatient Age: 44 Gender: Female Note Status: Finalized Procedure: Colonoscopy Indications: Screening in patient at increased risk: Colorectal cancer in mother before age 60 Providers: Ed Stephenson MD Patient Profile: This is a 44 year old female. Refer to note in patient chart for documentation of history and physical. Last Colonoscopy: none. The patient's first colonoscopy is today. Referring Physician: Payam Lombardo (Referring MD) Medicines: Fentanyl 100 micrograms IV, Midazolam 6 mg IV, Diphenhydramine 50 mg IV Complications: No immediate complications. Estimated blood loss: Minimal. Requesting Provider: Procedure: Pre-Anesthesia Assessment: - Prior to the procedure, a History and Physical was performed, and patient medications and allergies were reviewed. The patient's tolerance of previous anesthesia was also reviewed. The risks and benefits of the procedure and the sedation options and risks were discussed with the patient. All questions were answered, and informed consent was obtained. Prior Anticoagulants: The patient has taken no anticoagulant or antiplatelet agents. ASA Grade Assessment: II - A patient with mild systemic disease. After reviewing the risks and benefits, the patient was deemed in satisfactory condition to undergo the procedure. After I obtained informed consent, the scope was passed under direct vision. Throughout the procedure, the patient's blood pressure, pulse, and oxygen saturations were monitored continuously. The Colonoscope was introduced through the anus and advanced to the cecum, identified by appendiceal orifice and ileocecal valve. The colonoscopy was performed without difficulty. The patient tolerated the procedure well. The quality of the bowel preparation was adequate to identify polyps greater than 5 mm in size. The ileocecal valve, appendiceal orifice, and rectum were photographed. Moderate Sedation: The administration of moderate sedation was initiated at 09:16. Moderate (conscious) sedation was personally administered by the endoscopist. The following parameters were monitored: oxygen saturation, heart rate, blood pressure, respiratory rate, EKG, adequacy of pulmonary ventilation, and response to care. Total physician intraservice time was 21 minutes. Findings: The perianal and digital rectal examinations were normal. Non-bleeding internal hemorrhoids were found during retroflexion. The hemorrhoids were mild and small. The exam was otherwise without abnormality. A diminutive (1-3 mm) polyp was found in the descending colon. The polyp was sessile. The polyp was removed with a jumbo cold forceps. Resection and retrieval were complete. Impression: - Non-bleeding internal hemorrhoids. - The examination was otherwise normal. - No specimens collected. Recommendation: - Patient has a contact number available for emergencies. The signs and symptoms of potential delayed complications were discussed with the patient. Return to normal activities tomorrow. Written discharge instructions were provided to the patient. - Resume previous diet. - Continue present medications. - Await pathology results. - Repeat colonoscopy in 5 years for surveillance. - Return to referring provider at appointment to be scheduled. Procedure Code(s): --- Professional --- 06827, Colonoscopy, flexible; with biopsy, single or multiple G0500, Moderate sedation services provided by the same physician or other qualified health critical care physician performing a gastrointestinal (more content not included)... PROVATION [facility] Radiology Study observation (narrative) [facility] HISTORY PHYSICALon HISTORY PHYSICAL HNO ID: [id number] Author: ED STEPHENSON MD Service: General Surgery Author Type: Physician Type: H&P Filed: 03/05/2025 08:58 Note Text: Ángel is a 44-year-old female presenting for follow-up of neck pain, migraines, and new onset abdominal pain. Neck Pain: - Right-sided neck pain x1 month, described as a constant stiffness. - Pain localized along the spine on the right side; no radiation to shoulder or arm. - Recent x-rays showed C4-C6 degenerative disc disease. - Prednisone provided some relief. Paresthesia: - Paresthesia in hands, predominantly at night, causing awakening. - Describes hands as swollen like something's cut off." - Paresthesia sometimes involves entire hand, other times limited to third and fourth fingers. - Occasional pain and swelling in wrists. - Uses wrist brace on right hand PRN. - Right-handed. - Denies previous nerve studies. - Neurology appointment scheduled for next Wednesday. Migraines: - Migraines x3 months, increasing in frequency and intensity. - Initially began post-COVID vaccination in 2020, occurring once a month. - Currently experiencing migraines 3-4 times per week. - No aura; onset with a small headache that intensifies if not relieved by ibuprofen within 30 minutes. - Post-migraine "hangover" sensation. - Treated with Tylenol, ibuprofen, and caffeine with variable relief. - Recent ER visits x2 this month for severe migraines. Abdominal Pain: - Acute onset of abdominal pain after feeling a "pop" in the abdomen at 0330 on Wednesday morning. - Pain localized to the left side, with a sensation of swelling compared to the right side. - Pain exacerbated by lying down, sitting up, and lifting objects. - No nausea, emesis, or bowel movement changes. - Describes a "burning" sensation in the affected area. Family History: - Mother diagnosed with colon cancer at age 58-59, wondering when she should have a colonoscopy. - Extensive cancer history on maternal side. 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 metoprolol succinate ER (TOPROL XL) 25 mg 24 hr tablet Take 1 tablet by mouth once daily. venlafaxine ER (EFFEXOR XR) 75 mg 24 hr capsule Take 1 capsule by mouth once daily. peg 3350-Electrolytes (GOLYTELY) 236-22.74-6.74 -5.86 gram suspension Take 4,000 mL by mouth one time only for 1 dose. Refer to printed prep instructions from your provider. Review of Systems Objective BP 116/79 Pulse 82 Ht 154.9 cm (5' 0.98") Wt 67 kg (147 lb 11.3 oz) LMP 11/07/2024 (Exact Date) BMI 27.92 kg/m? Physical Exam Vitals and nursing note reviewed. Constitutional: Appearance: She is well-developed. She is not ill-appearing. Pulmonary: Effort: Pulmonary effort is normal. Abdominal: General: Abdomen is flat. Bowel sounds are normal. Palpations: Abdomen is soft. Tenderness: There is abdominal tenderness in the left lower quadrant. Hernia: No hernia is present. Musculoskeletal: Cervical back: Normal. Skin: General: Skin is warm and dry. Neurological: Mental Status: She is alert and oriented to person, place, and time. Psychiatric: Mood and Affect: Mood normal. Assessment and Plan 1. Left lower quadrant abdominal pain (R10.32) - Onset after feeling a "pop" in the abdomen; pain exacerbated by lying down, sitting up, and lifting. - No nausea, vomiting, or bowel movement changes reported. - Physical exam did not reveal any palpable hernia. - Advised rest, application of heat, and use of ibuprofen. - Provided a note for two days off work (02/16 and 02/17) to facilitate recovery. - Re-evaluate on Wednesday; if symptoms persist, consider further imaging or referral to general surgery. 2. Neck pain on right side (M54.2) - Pain described as constant stiffness, localized along the spine on the right side, without radiation to shoulder or arm. - Recent onset within the last month. - Cervical spine X-rays show degenerative disc disease at C4, C5, and C6 levels, but no significant spinal canal narrowing. - Prednisone provided temporary relief. - Discussed potential for physical therapy if pain persists. - Monitor symptoms; if chron (more content not included)... Normal [facility] Pathology biopsy report August (Tiss)on 03-05-2025 AP DISCLAIMER Normal [facility] Comment on above: Order Comment: Speci men Type: TISSUE SPECIMENOrdering Facility: [facility] Address: [address] [place] [address] Result Comment: Vinicio benedict Developed Test (LDT) Disclaimer: Performance characteristics of immunohistochemical, immunofluorescent, and chromogenic in-situ hybridization tests have been determined by the performing laboratory within [facility]'s [facility] Pathology and Laboratory Medicine Department ([facility], [facility], [facility], [facility], [facility], [facility], or [facility]) in a manner consistent with CLIA requirements. One or more of these tests may not have been cleared or approved by the FDA. [facility] is regulated under CLIA as qualified to perform high-complexity testing. These tests are used for clinical purposes. These should not be regarded as investigational or for research. Positive and negative controls stain appropriately. Performed By: #### 6 6121-5 ####[facility] LABCLIA [id number] [place] [address] [place] CASE REPORT Normal [facility] Comment on above: Order Comment: Speci men Type: TISSUE SPECIMENOrdering Facility: [facility] Address: [address] [place] [address] Result Comment: Surg [facility] Pathology Report Case: [id number] Authorizing Provider: Ed Stephenson MD Collected: 03/05/2025 09:36 AM Ordering Location: Ambulatory Surgery Received: 03/05/2025 12:09 PM Pathologist: Ivan Benjamin MD, PhD Specimen: Colon, Descending, Polyp Performed By: #### 6 6121-5 ####[facility] LABCLIA [id number] [address] [place] FINAL DIAGNOSIS Normal [facility] Comment on above: Order Comment: Speci men Type: TISSUE SPECIMENOrdering Facility: [facility] Address: [address] [place] [address] Result Comment: A. D escending colon polyp, biopsy: - Polypoid colonic mucosa with surface hyperplastic change. at 1108 EDT Performed By: #### 6 6121-5 ####[facility] LABCLIA [id number] [address] OF [place] FINAL PERFORMING LAB Normal [facility] Comment on above: Order Comment: Speci men Type: TISSUE SPECIMENOrdering Facility: [facility] Address: [address] [place] [address] Result Comment: Diag nostic interpretation performed at: [facility], [address] [place] [address] CLIA# [id number] Tint Layer: Saleem Howard MD Performed By: #### 6 6121-5 ####[facility] LABCLIA [id number] [address] OF [facility] GROSS DESCRIPTION [facility] Comment on above: Order Comment: Speci men Type: TISSUE SPECIMENOrdering Facility: [facility] Address: [address] [place] [address] Result Comment: Kwabena Urena olon, Descending, Polyp Received in formalin are two pieces of bhagat, soft tissue aggregating to 0.6 x 0.2 x 0.2 cm. Totally submitted in one cassette. KDK March 05, 2025 7:42 PM Gross examination performed at [facility], [address] [place] [address] Performed By: #### 6 6121-5 ####[facility] LABCLIA [id number] [address] OF [place] CNOVon 02-20-2025 CNOV Office Visit (NEURMM ) ----- CIARRATrevonÁNGEL Alvarez ([id number]) 1980 F Date Time Provider Department 02/20/25 10:00 AM SOLEDAD GARRIDO NEUR During your visit today, we recorded the following information about you: Pulse Blood pressure Weight Height 78/minute 130/82 64.5 kg 1.549 m Soledad Garrido APRN.CNP 02/20/2025 10:54 AM Addendum [facility] Neurologic [place] New Patient Evaluation CHIEF COMPLAINT: Headache Ángelevie Galvan is a 44 year old accompanied by her sister in law. Consult was requested by Noa Appiah CNP for an opinion regarding above CC. My final impression and recommendations will be communicated back to the requesting physician by way of the shared medical record or fax. Recording using [employer] software for draft documentation of the visit was discussed with the patient/authorized medical center representative; all questions welcomed and answered. Patient/authorized medical center representative agreed to proceed February 20, 2025 HPI: Ms. Galvan presents today secondary to issues of headaches. No headaches history since she received COVID vaccine. After that had two day migraine. Then once per month or every two months. The past six months coming 4-5 days per week. Has gone to the ED. Migraine HPI HEADACHE LOCATION: Frontal/temporal to top of head; feels sx from L hinduism across head then turns into full headache (not in jaw) Neck pain? Yes; stiff and R side pain - no neck injuries Onset: Headaches began around 2020 (see above) Quality: "pressure" Photophobia? Yes Phonophobia? Yes Nausea? Yes Vomitting? Yes Aura? How long? Yes ; dark stars in both eyes Worse with activity? Yes - worse after mowing lawn recently Severe? Yes; 10/10 Frequency: 4-5 days per week Duration? 4-5 hours but can last up to two days Autonomic features: None Autonomic headache features -: none Tinnitus? Yes; sometimes but not always with headache - not pulsatile (does not think) Positional? Yes - sometimes can happen when lying down, can happen when waking up (pressure when waking) Double vision? No Visual obscurations? Not blurred Worse with valsalva/sneeze/cough? No Caffeine intake? Tea, 6 cups/day Water intake? Four to seven 8 ounce glasses daily Alcohol? Rare Tobacco? 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 When overheated Sleep concerns? Yes; up every 1.5 hours. She snore. No gasping air. Feels fatigued during the day. Wakes to use the bathroom every time she gets up. Never had sleep study. Mood concerns? Yes- currently taking sertraline and Effexor History of concussion? No Plans for /current BC? Beginning stages of menopause a couple years ago; no estrogen supplements Family Hx of migraines, aneurysms, brain tumors: Daughter with migraines (menstrual related) Ophthalmology: 2 months ago Renal stone Yes, cardiovascular disease/arrhythmia Yes (VSD, enlarged L ventricle, regurg), cerebrovascular disease (TIA/stroke) No Personal hx of seizure(?). This was during . No further episodes until drug use at which time she had 10 seizures. Maybe had MRI at that time. Previous/Current Headache treatment Preventative: Sertraline- current Metoprolol- current Venlafaxine ER- current Buspirone- past Citalopram- past Keppra- past Rescue: Tylenol Ibuprofen Caffeine She did try 5 day dose of prednisone and has had only one migraine and one headache in last five days. Did help. # of doses of abortive medications per month: > or = 10 days/month (or 8 for opiates, 5 for barbiturates) Medication Overuse Headache concern? Yes PAST MEDICAL HISTORY Diagnosis Date Backache, unspecified [...] along with prinary VSD and PFO closure Current Outpatient Medications on File Prior to Visit Medication Sig predniSONE (DELTASONE) 50 mg Take 1 tablet by mouth once daily. sertraline (ZOLOFT) 100 mg tablet Take 2 tablets by mouth once daily. metoprolol succinate ER (TOPROL XL) 25 mg 24 hr tablet Take 1 tablet by mouth once daily. venlafaxine ER (EFFEXOR XR) 75 mg 24 hr capsule Take 1 capsule by mouth once daily. No current facility-administered medications on file prior to visit. Social History Tobacco Use Smoking status: Former Current packs/day: 0.25 Types: Cigarettes Smokeless tobacco: Never Substance Use Topics Alcohol use: Yes Comment: OCCASIONALLY Drug use: No Comment: history of meth use ALLERGIES Allergen Reactions Salud (more content not included)... Normal [facility] CNOVon 02-15-2025 CNOV Office Visit (FPWADS ) ----- ÁNGEL GALVAN ([id number]) 1980 F Date Time Provider Department 02/15/25 3:40 PM PAYAM MILLER During your visit today, we recorded the following information about you: Pulse Blood pressure Weight Height 82/minute 116/79 67 kg 1.549 m Payam Miller APRN.TRUCK DRIVING INSTRUCTOR 02/15/2025 4:23 PM Signed Ángel is a 44-year-old female presenting for follow-up of neck pain, migraines, and new onset abdominal pain. Neck Pain: - Right-sided neck pain x1 month, described as a constant stiffness. - Pain localized along the spine on the right side; no radiation to shoulder or arm. - Recent x-rays showed C4-C6 degenerative disc disease. - Prednisone provided some relief. Paresthesia: - Paresthesia in hands, predominantly at night, causing awakening. - Describes hands as swollen like something's cut off." - Paresthesia sometimes involves entire hand, other times limited to third and fourth fingers. - Occasional pain and swelling in wrists. - Uses wrist brace on right hand PRN. - Right-handed. - Denies previous nerve studies. - Neurology appointment scheduled for next Wednesday. Migraines: - Migraines x3 months, increasing in frequency and intensity. - Initially began post-COVID vaccination in 2020, occurring once a month. - Currently experiencing migraines 3-4 times per week. - No aura; onset with a small headache that intensifies if not relieved by ibuprofen within 30 minutes. - Post-migraine "hangover" sensation. - Treated with Tylenol, ibuprofen, and caffeine with variable relief. - Recent ER visits x2 this month for severe migraines. Abdominal Pain: - Acute onset of abdominal pain after feeling a "pop" in the abdomen at 0330 on Wednesday morning. - Pain localized to the left side, with a sensation of swelling compared to the right side. - Pain exacerbated by lying down, sitting up, and lifting objects. - No nausea, emesis, or bowel movement changes. - Describes a "burning" sensation in the affected area. Family History: - Mother diagnosed with colon cancer at age 58-59, wondering when she should have a colonoscopy. - Extensive cancer history on maternal side. PAST MEDICAL HISTORY Diagnosis Date Backache, unspecified Cervical high risk human papillomavirus (HPV) DNA test positive 03/09/2013 Chronic infective endocarditis Encounter for IUD insertion 06/09/2011 Mirena Insertion Generalized anxiety disorder PMH - PAST MEDICAL HISTORY OF HEART MURMUR PAST SURGICAL HISTORY Procedure Laterality Date INSERTION OF IUD 06/09/2011 Ambreen PAST SURGICAL HISTORY OF 01/25/2015 right ventricular mass removal and tricuspid valvuectomy along with prinary VSD and PFO closure Allergies: ALLERGIES Allergen Reactions Nickel Rash, Unknown, Hives Hydrocodone-Acetami* Itching Propoxyphene N-Acet* Vomiting Medications: sertraline (ZOLOFT) 100 mg tablet Take 2 tablets by mouth once daily. metoprolol succinate ER (TOPROL XL) 25 mg 24 hr tablet Take 1 tablet by mouth once daily. venlafaxine ER (EFFEXOR XR) 75 mg 24 hr capsule Take 1 capsule by mouth once daily. peg 3350-Electrolytes (GOLYTELY) 236-22.74-6.74 -5.86 gram suspension Take 4,000 mL by mouth one time only for 1 dose. Refer to printed prep instructions from your provider. Review of Systems Objective BP 116/79 Pulse 82 Ht 154.9 cm (5' 0.98") Wt 67 kg (147 lb 11.3 oz) LMP 11/07/2024 (Exact Date) BMI 27.92 kg/m? Physical Exam Vitals and nursing note reviewed. Constitutional: Appearance: She is well-developed. She is not ill-appearing. Pulmonary: Effort: Pulmonary effort is normal. Abdominal: General: Abdomen is flat. Bowel sounds are normal. Palpations: Abdomen is soft. Tenderness: There is abdominal tenderness in the left lower quadrant. Hernia: No hernia is present. Musculoskeletal: Cervical back: Normal. Skin: General: Skin is warm and dry. Neurological: Mental Status: She is alert and oriented to person, place, and time. Psychiatric: Mood and Affect: Mood normal. Assessment and Plan 1. Left lower quadrant abdominal pain (R10.32) - Onset after feeling a "pop" in the abdomen; pain exacerbated by lying down, sitting up, and lifting. - No nausea, vomiting, or bowel movement changes reported. - Physical exam did not reveal any palpable hernia. - Advised rest, application of heat, and use of ibuprofen. - Provided a note for two days off work (02/16 and 02/17) to facilitate recovery. - Re-evaluate on Wednesday; if symptoms persist, consider further imaging or referral to general surgery. 2. Neck pain on right side (M54.2) - Pain described as constant stiffness, localized along the spine on the right side, without radiation to shoulder or arm. - Recent onset within the last month. - Cervical spine X-rays show degenerative disc disease at C4, C5, and C6 leve (more content not included)... Normal [facility] Basic metabolic 2000 panelon 02-13-2025 Anion gap [Moles/Vol] 9 mmol/L Normal 8-15 [facility] Comment on above: Order Comment: Speci men Type: BLOOD SPECIMENOrdering Facility: [facility] Address: [address] [place] [address] Performed By: #### 2 4321-2 ####[facility] LABCLIA [id number] [place] [id number] [place] Calcium [Mass/Vol] 8.5 mg/dL Normal 8.5-10.2 [facility] Comment on above: Order Comment: Speci men Type: BLOOD SPECIMENOrdering Facility: [facility] Address: [address] [place] [address] Performed By: #### 2 4321-2 ####[facility] LABCLIA [id number] [address] [address] [place] Chloride [Moles/Vol] 103 mmol/L Normal 98-107 [facility] Comment on above: Order Comment: Speci men Type: BLOOD SPECIMENOrdering Facility: [facility] Address: [address] [place] [address] Performed By: #### 2 4321-2 ####[facility] LABCLIA [id number] [address] [address] [place] CO2 [Moles/Vol] 28 mmol/L Normal 22-30 [facility] Comment on above: Order Comment: Speci men Type: BLOOD SPECIMENOrdering Facility: [facility] Address: [address] [place], [place] [id number] Performed By: #### 2 4321-2 ####[facility] LABCLIA [id number] [address] [address] [place] [facility] Creatinine [Mass/Vol] 0.54 mg/dL Low 0.58-0.96 [facility] Comment on above: Order Comment: Jaret cheung Type: BLOOD SPECIMENOrdering Facility: [facility] Address: [address] [place] [address] Performed By: #### 2 4321-2 ####[facility] LABIA [id number] [address] OF [facility] Creatinine and Glomerular filtration rate.predicted panel (S/P/Bld) 117 mL/min/1.73m??? Normal >=60 [facility] Comment on above: Order Comment: Jaret cheung Type: BLOOD SPECIMENOrdering Facility: [facility] Address: [address] [place] [address] Result Comment: Kailee mated Glomerular Filtration Rate (eGFR) is calculated using the 2020 CKD-EPI creatinine equation. This equation utilizes serum creatinine, sex, and age as parameters. The creatinine assay has traceable calibration to isotope dilution-mass spectrometry. Refer to KDIGO guidelines for clinical interpretation. In patients with unstable renal function, e.g. those with acute kidney injury, the eGFR may not accurately reflect actual GFR. Performed By: #### 2 4321-2 ####[facility] LABCLIA [id number] [place] [address] [place] Glucose [Mass/Vol] 82 mg/dL Normal 74-99 [facility] Comment on above: Order Comment: Jaret cheung Type: BLOOD SPECIMENOrdering Facility: [facility] Address: [address] [place] [address] Result Comment: The [place] Diabetes Association (ADA) provides guidance for cutoff values for fasting glucose and random glucose. The ADA defines fasting as no caloric intake for at least 8 hours. Fasting plasma glucose results between 100 to 125 mg/dL indicate increased risk for diabetes (prediabetes). Fasting plasma glucose results greater than or equal to 126 mg/dL meet the criteria for diagnosis of diabetes. In the absence of unequivocal hyperglycemia, results should be confirmed by repeat testing. In a patient with classic symptoms of hyperglycemia or hyperglycemic crisis, random plasma glucose results greater than or equal to 200 mg/dL meet the criteria for diagnosis of diabetes. Reference: Standards of Medical Care in Diabetes 2016, [place] [employer]. Diabetes Care. 2016.39(Suppl 1). Performed By: #### 2 4321-2 ####[facility] LABCLIA [id number] [place] [id number] [place] Potassium [Moles/Vol] 4.0 mmol/L Normal 3.7-5.1 [facility] Comment on above: Order Comment: Speci men Type: BLOOD SPECIMENOrdering Facility: [facility] Address: [address] [place] [address] Performed By: #### 2 4321-2 ####[facility] LABIA [id number] [address] [place] Sodium [Moles/Vol] 140 mmol/L Normal 136-144 [facility] Comment on above: Order Comment: Jaret men Type: BLOOD SPECIMENOrdering Facility: [facility] Address: [address] [place] [address] Performed By: #### 2 4321-2 ####[facility] LABIA [id number] [address] [place] Urea nitrogen [Mass/Vol] 8 mg/dL Normal 7-21 [facility] Comment on above: Order Comment: Jaret men Type: BLOOD SPECIMENOrdering Facility: [facility] Address: [address] [place] [address] Performed By: #### 2 4321-2 ####[facility] LABIA [id number] [place] [id number] [facility] [place] CNOVon 02-08-2025 CNOV Office Visit (WADS ) ----- ÁNGEL GALVAN ([id number]) 1980 F Date Time Provider Department 02/08/25 2:40 PM NOA APPIAH During your visit today, we recorded the following information about you: Temperature Pulse Blood pressure Weight 97.7 degrees 75/minute 131/87 64.4 kg Height 1.549 m Noa Appiah APRN.TRUCK DRIVING INSTRUCTOR 02/08/2025 3:15 PM Signed This note was created using NoteWriter. Subjective Ángel Galvan is a 44 year old female. Patient presents with: Headache Started this morning with a headache States she was in the ER in [place] on Wednesday for a headache and received headache cocktail (toradol, reglan, benadryl) Headache then went away, then came back on Wednesday night and benadryl helped this Now getting 2-3 headaches per week States she has had a history of headaches since she got the Covid vaccine. States her headaches on in her left hinduism and over the top of her head. Light and sound makes it worse Was having n/v No vision changes, ear pain or dizziness. Has had some neck pain Seeing chiropractor Wednesday Wakes up in the middle of the night from her headache No recent illness Drinks 5 glasses of water per day Tried Tylenol, ibuprofen, caffeine. The history is provided by the patient. No russian language professor was used. Review of Systems Constitutional: Negative for activity change, appetite change, chills, diaphoresis, fatigue, fever and unexpected weight change. HENT: Negative. Eyes: Negative for photophobia and visual disturbance. Respiratory: Negative for apnea, cough, chest tightness, shortness of breath and wheezing. Cardiovascular: Negative for chest pain, palpitations and leg swelling. Gastrointestinal: Positive for nausea and vomiting. Genitourinary: Negative. Musculoskeletal: Negative. Skin: Negative for rash. Allergic/Immunologic: Negative. Neurological: Positive for headaches. Negative for dizziness, tremors, seizures, syncope, facial asymmetry, speech difficulty, weakness, light-headedness and numbness. Psychiatric/Behavioral: Negative for behavioral problems, confusion, decreased concentration, dysphoric mood, hallucinations, self-injury, sleep disturbance and suicidal ideas. The patient is not nervous/anxious. All other systems reviewed and are negative. Objective BP 131/87 (BP Site: Right Arm, BP Position: Sitting, BP Cuff Size: Regular Adult) Pulse 75 Temp 36.5 ?C (97.7 ?F) (Tympanic) Ht 154.9 cm (5' 1") Wt 64.4 kg (141 lb 15.6 oz) LMP 11/07/2024 (Exact Date) SpO2 99% BMI 26.83 kg/m? PAST MEDICAL HISTORY Diagnosis Date Backache, unspecified [...] along with prinary VSD and PFO closure Current Outpatient Medications on File Prior to Visit Medication Sig sertraline (ZOLOFT) 100 mg tablet Take 2 tablets by mouth once daily. metoprolol succinate ER (TOPROL XL) 25 mg 24 hr tablet Take 1 tablet by mouth once daily. venlafaxine ER (EFFEXOR XR) 75 mg 24 hr capsule Take 1 capsule by mouth once daily. QUEtiapine (SEROQUEL) 100 mg tablet Take 100 mg by mouth daily at bedtime. (Patient not taking: Reported on 01/03/2024) prazosin (MINIPRESS) 2 mg cap Take 2 mg by mouth daily at bedtime. (Patient not taking: Reported on 01/03/2024) melatonin 3 mg tablet TAKE 2 TABLETS BY MOUTH AT BEDTIME NEEDED FOR FOR INSOMNIA. (Patient not taking: Reported on 07/15/2022) lisinopril 2.5 mg tablet Take 1 tablet by mouth once daily. (Patient not taking: Reported on 11/07/2024) diphenhydrAMINE (BENADRYL) 25 mg capsule Take 1 capsule by mouth every 6 hours as needed (anxiety). Discontinue previous Rx (Patient not taking: Reported on 07/15/2022) No current facility-administered medications on file prior to visit. ALLERGIES Allergen Reactions Nickel Rash, Unknown, Hives Hydrocodone-Acetami* Itching Propoxyphene N-Acet* Vomiting Physical Exam Vitals reviewed. Constitutional: General: She is awake. She is not in acute distress. Appearance: Normal appearance. She is well-developed and normal weight. She is not ill-appearing. HENT: Head: Normocephalic. Right Ear: Hearing, tympanic membrane, ear canal and external ear normal. Left Ear: Hearing, tympanic membrane, ear canal and external ear normal. Nose: Nose normal. No congestion or rhinorrhea. Right Sinus: No maxillary sinus tenderness or frontal sinus tenderness. Left Sinus: No maxillary sinus tenderness or frontal sinus tenderness. Mouth/Throat: Lips: Grenelefe. (more content not included)... Normal [facility] XR CERVICAL 4V AP/LAT/FLX/EX Ton 02-08-2025 XR CERVICAL 4V AP/LAT/FLX/EXT * * *Final Report* * * DATE OF EXAM: Feb 08 2025 4:09PM WOX [id number] - XR CERVICAL 4V AP/LAT/FLX/EXT / PROCEDURE REASON: Neck pain * * * * Physician Interpretation * * * * EXAMINATION / TECHNIQUE: XR CERVICAL 4V AP/LAT/FLX/EXT HISTORY: Acute neck pain with headaches, no known injury. Neck pain COMPARISON: None RESULT: Counting reference: Craniocervical junction. Anatomic Variants: None. Reversal of the cervical lordosis. Minimal retrolisthesis of C4 on C5 and C5 on C6. Multilevel degenerative disc disease is moderate at C5-C6. No dynamic instability. Prevertebral soft tissues are normal. IMPRESSION: Degenerative changes as described. 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[employer]: ERLINDA Transcribe Date/Time: Feb 14 2025 6:05A Dictated by : HUNTER BYRD MD This examination was interpreted and the report reviewed and electronically signed by: HUNTER BYRD MD on Feb 14 2025 6:06AM EST [id number] Normal [facility] CNPNon 02-05-2025 RODRIGON Telephone ([employer]) ----- MANDYÁNGEL ([id number]) 1980 F Date Time Provider Department 02/05/25 ROBINSON SMITH During your visit today, we recorded the following information about you: Ria Haywood LPN 02/05/2025 3:50 PM Signed Received visit summary from [facility] ER for headache. Placed in provider's inbox for review. Route to MA scanning Allergies As of Date: 02/05/2025 Noted Allergy Reaction NICKEL 03/10/2010 2 - Rash 16 - Unknown 4 - Hives HYDROCODONE-ACETAMINOPHEN 10/09/2008 9 - Itching PROPOXYPHENE N-ACETAMINOPHEN 10/09/2008 11 - Vomiting Date Reviewed: 11/07/2024 Reviewed by: Johana Joiner LPN - Fully Assessed Reason for Visit: Received Outside Medical Records [[id number]] Cmt: [facility] ER Prescriptions as of 02/05/2025 - sertraline (ZOLOFT) 100 mg tablet Take 2 tablets by mouth once daily. - metoprolol succinate ER (TOPROL XL) 25 mg 24 hr tablet Take 1 tablet by mouth once daily. - venlafaxine ER (EFFEXOR XR) 75 mg 24 hr capsule Take 1 capsule by mouth once daily. - QUEtiapine (SEROQUEL) 100 mg tablet Take 100 mg by mouth daily at bedtime. - prazosin (MINIPRESS) 2 mg cap Take 2 mg by mouth daily at bedtime. - melatonin 3 mg tablet TAKE 2 TABLETS BY MOUTH AT BEDTIME NEEDED FOR FOR INSOMNIA. - lisinopril 2.5 mg tablet Take 1 tablet by mouth once daily. - diphenhydrAMINE (BENADRYL) 25 mg capsule Take 1 capsule by mouth every 6 hours as needed (anxiety). Discontinue previous Rx Problem List As Of Date 02/05/2025 Noted Resolved Ventricular Septal Defect [Q21.0] 03/03/2010 LVE (Left Ventricular Enlargement) [I51.7] 03/03/2010 DEON (Generalized Anxiety Disorder) [F41.1] 04/15/2010 Depression [F32.A] 04/15/2010 Cervical high risk human papillomavirus (HPV) D*03/09/2013 Chlamydia [A74.9] 03/10/2013 Seizures [R56.9] 11/22/2013 Palpitations [R00.2] 02/08/2022 Nicotine use disorder, F17.2 [F17.200] 02/08/2022 SVT (supraventricular tachycardia) (HCC) [I47.1*02/11/2022 Chronic systolic congestive heart failure (HCC)*07/10/2024 Encounter Status:Closed by RIA HAYWOOD on 02/05/25 Normal [facility] Emergency Department Summary on 02-03-2025 Emergency Department Summary [facility] Medical Records Department [address] [place] [address] Emergency Department Summary 02/03/25 MR#: [id number] Acct: [id number] Name: ÁNGEL GALVAN Rep #: [id number] : 1980 44 From: Brittani Riley DO PCP: Dr. Julio Cesar Smith MD Status:DEP ER Location: ED HPI History of Present Illness Chief Complaint: Headache Detail of Chief Complaint: Headache Informant: patient Narrative Narrative: Patient presents to the emergency department with complaint of a headache that started initially 2 days ago. Initially the headache was mild. This morning she woke up around 3 AM with more severe pain in the left side of her head. She describes nausea and while at work today she vomited x 3. She complains of photophobia. She does have history of migraines and gets them relatively frequently. She took 2 Tylenol and 2 ibuprofen this morning but did not get much relief. She denies fall or head injury. She states that she had like a sinus congestion or upper respiratory infection last week but had no fever with that. [facility] Medical History History of endocarditis Panic attack Depression Marijuana abuse Tobacco abuse Substance abuse Supraventricular tachycardia (02/08/22) Bacteremia Seizure disorder Home Medications ???Medication ???Instructions ???Recorded ???Last Taken ???Type metoprolol succinate 25 mg 25 mg PO DAILY 07/19/22 Unknown Hi story tablet,extended release 24 hr sertraline 100 mg tablet (Zoloft) 200 mg PO DAILY 07/19/22 Unknown History venlafaxine 37.5 mg tablet 37.5 mg PO DAILY 09/18/22 Unknown History hydroxyzine pamoate 25 mg capsule 25 mg PO QHS PRN anxiety 04/28/23 04/27/23 History Allergy/AdvReac Type Severity Reaction Status Date / Time hydrocodone (Hydrocodone) AdvReac Itching Verified 02/03/25 12:48 nickel (Nickel) AdvReac Itching Verified 02/03/25 12:48 propoxyphene napsylate (From AdvReac Itching Verified 02/03/25 12:48 Darvocet-N 100) Surgical History History of open heart surgery History of cardioversion (02/08/22) History of ventricular septal defect repair (01/25/15) Social History Smoking Status: Current every day smoker tobacco type: e-cigarettes substance use type: marijuana ROS ROS ED Review of Systems ROS Unobtainable: other Constitutional Constitutional ED: Reports lethargy; Denies chills, fever(s), sweats or weight loss Eyes Eyes: Denies blurry vision, change in vision or diplopia ENT ENT ED: Denies rhinorrhea or sore throat Cardiovascular Cardiovascular: Denies chest pain, orthopnea or racing heartbeat Respiratory/Chest Respiratory/Chest: Denies cough, dyspnea, dyspnea on exertion, orthopnea or sputum Gastrointestinal Gastrointestinal: Reports nausea and vomiting; Denies abdominal pain or diarrhea Genitourinary Genitourinary ED: Denies dysuria, hematuria or urinary frequency Musculoskeletal Musculoskeletal: Denies arthralgias, back pain, myalgias or neck pain Integumentary Denies abscess, Abrasions or rash Neurologic Neurologic: Reports headache(s); Denies weakness Psychiatric Psychiatric: Denies anxiety, depression or suicidal thoughts Endocrine Endocrinology: Denies polydipsia, polyphagia or polyuria Hematologic/Lymphatic Hematologic/Lymphatic: Denies easy bleeding, easy bruising or lymphadenopathy Allergic/Immunologic Allergic/Immunologic ED: Denies mouth swelling, tongue swelling or urticaria EXAM Physical Exam Const Vital Signs: 02/03/25 12:46 Temperature 96.8 F L Temperature Source Temporal Pulse Rate 73 Respiratory Rate 15 Blood Pressure 120/82 H Blood Pressure Mean 94 Pulse Ox 97 Oxygen Delivery Method Room Air Positive well nourished and well developed General Appearance ED: well developed and NAD HEENT Reports TM's clear and moist mucous membranes normocephalic and atraumatic; Negative for trauma or tenderness Tympanic Membrane ED: Yes TM's clear Eyes PERRL and EOMs intact bilaterally General Eye ED: Negative for pale conjunctiva or scleral icterus Neck no lymphadenopathy, supple and no JVD General: Negative for tenderness Chest Wall inspection of chest normal and palpation of chest normal Chest: Negative for tenderness Resp normal respiratory effort and clear to auscultation bilaterally Effort and Inspection: Negative for respiratory distress or pain with movement Auscultation: Negative for rhonchi, wheezes or diminished lung sounds Cardio regular rate, regular rhythm, S1 normal heart sound, S2 normal heart sound and no murmurs Peripheral Pulses: pulses 2+ throughout GI normal to inspection, nondistended, normo (more content not included)... Normal [facility] 11-08-2024 [facility] Telephone ([facility]) ----- ÁNGEL GALVAN ([id number]) 1980 F Date Time Provider Department 11/08/24 JACLYN RAMOS [facility] During your visit today, we recorded the following information about you: Jaclyn Ramos APRN.[facility] 11/08/2024 10:43 AM Signed Pertussis swab came back negative. Patient should do supportive therapies and follow-up if signs and symptoms seem to be getting worse not better. Kemi Egan MA 11/08/2024 11:07 AM Signed Unable to reach patient. Mailbox full/Mailbox not set up/ Number incorrect. Please try again later. MARGARET Reed Brittany L, MA 11/09/2024 9:11 AM Signed Patient active MyChart. Patient notified via [email or web address] message. Khai Copeland MA Allergies As of Date: 11/08/2024 Noted Allergy Reaction NICKEL 03/10/2010 2 - Rash 16 - Unknown 4 - Hives HYDROCODONE-ACETAMINOPHEN 10/09/2008 9 - Itching PROPOXYPHENE N-ACETAMINOPHEN 10/09/2008 11 - Vomiting Date Reviewed: 11/07/2024 Reviewed by: Johana Joiner LPN - Fully Assessed Reason for Visit: Results [95] Prescriptions as of 11/09/2024 - sertraline (ZOLOFT) 100 mg tablet Take 2 tablets by mouth once daily. - metoprolol succinate ER (TOPROL XL) 25 mg 24 hr tablet Take 1 tablet by mouth once daily. - venlafaxine ER (EFFEXOR XR) 75 mg 24 hr capsule Take 1 capsule by mouth once daily. - QUEtiapine (SEROQUEL) 100 mg tablet Take 100 mg by mouth daily at bedtime. - prazosin (MINIPRESS) 2 mg cap Take 2 mg by mouth daily at bedtime. - melatonin 3 mg tablet TAKE 2 TABLETS BY MOUTH AT BEDTIME NEEDED FOR FOR INSOMNIA. - lisinopril 2.5 mg tablet Take 1 tablet by mouth once daily. - diphenhydrAMINE (BENADRYL) 25 mg capsule Take 1 capsule by mouth every 6 hours as needed (anxiety). Discontinue previous Rx Problem List As Of Date 11/08/2024 Noted Resolved Ventricular Septal Defect [Q21.0] 03/03/2010 LVE (Left Ventricular Enlargement) [I51.7] 03/03/2010 DEON (Generalized Anxiety Disorder) [F41.1] 04/15/2010 Depression [F32.A] 04/15/2010 Cervical high risk human papillomavirus (HPV) D*03/09/2013 Chlamydia [A74.9] 03/10/2013 Seizures [R56.9] 11/22/2013 Palpitations [R00.2] 02/08/2022 Nicotine use disorder, F17.2 [F17.200] 02/08/2022 SVT (supraventricular tachycardia) (HCC) [I47.1*02/11/2022 Chronic systolic congestive heart failure (HCC)*07/10/2024 Encounter Status:Closed by KHAI COPELAND on 11/09/24 Normal [facility] B. pertussis and B. parapert ussis DNA panel (Nph)on 11-07-2024 B. parapertussis DNA DAVID+probe Ql (Unsp spec) Not detected Normal Not detected [facility] Comment on above: Order Comment: Speci men Type: SWABOrdering Facility: [facility] Address: [address] [place] [address] Performed By: #### 9 [id number] ####[facility] LABCLIA [id number] [address] B. pertussis DNA DAVID+probe Ql (Nph) Not detected Normal Not detected [facility] Comment on above: Order Comment: Speci men Type: SWABOrdering Facility: [facility] Address: [address] [place] [address] Performed By: #### 9 [id number] ####[facility] LABIA [id number] [address] OF [facility] CNOVon 11-07-2024 CNOV Office Visit ([facility] ) ----- ÁNGEL GALVAN ([id number]) 1980 F Date Time Provider Department 11/07/24 1:45 PM ADELA SCHUSTER [facility] During your visit today, we recorded the following information about you: Temperature Pulse Respiration Blood pressure 97 degrees 76/minute 22/minute 122/58 Weight Last Period 66 kg 11/07/24 Adela Schuster APRN.[employer] 11/07/2024 3:11 PM Signed This note was created using NoteWriter. Subjective Ángel Antonio Mandy is a 44 year old female. 44 year old female with PMH seizures, CHF, SVT, depression and anxiety presents for illness. Acute onset 5 days ago +cough Nonproductive +chest congestion +fever +headache +sore throat Endorses her daughter was diagnosed with whooping cough last +vapes The history is provided by the patient. No russian language professor was used. Cough This is a new problem. The current episode started more than 2 days ago. The problem occurs constantly. The problem has been gradually worsening. The cough is Non-productive. The maximum temperature recorded prior to her arrival was 100 to 100.9 F. Associated symptoms include headaches, rhinorrhea and sore throat. Pertinent negatives include no chest pain, no chills, no sweats, no weight loss, no ear congestion, no ear pain, no myalgias, no shortness of breath, no wheezing and no eye redness. She has tried nothing for the symptoms. She is a smoker. Her past medical history does not include bronchitis, pneumonia, bronchiectasis, COPD, emphysema or asthma. PAST MEDICAL HISTORY Diagnosis Date Backache, unspecified [...] prinary VSD and PFO closure ALLERGIES Nickel, Hydrocodone-Acetaminophen , and Propoxyphene N-Acetaminophen MEDICATIONS sertraline (ZOLOFT) 100 mg tablet Take 2 tablets by mouth once daily. metoprolol succinate ER (TOPROL XL) 25 mg 24 hr tablet Take 1 tablet by mouth once daily. venlafaxine ER (EFFEXOR XR) 75 mg 24 hr capsule Take 1 capsule by mouth once daily. QUEtiapine (SEROQUEL) 100 mg tablet Take 100 mg by mouth daily at bedtime. (Patient not taking: Reported on 01/03/2024) prazosin (MINIPRESS) 2 mg cap Take 2 mg by mouth daily at bedtime. (Patient not taking: Reported on 01/03/2024) melatonin 3 mg tablet TAKE 2 TABLETS BY MOUTH AT BEDTIME NEEDED FOR FOR INSOMNIA. (Patient not taking: Reported on 07/15/2022) lisinopril 2.5 mg tablet Take 1 tablet by mouth once daily. (Patient not taking: Reported on 11/07/2024) diphenhydrAMINE (BENADRYL) 25 mg capsule Take 1 capsule by mouth every 6 hours as needed (anxiety). Discontinue previous Rx (Patient not taking: Reported on 07/15/2022) FAMILY HISTORY Problem Relation Age of Onset Cancer Maternal Grandmother LUNG Cancer Maternal Aunt CERVICAL Colon Cancer Maternal Uncle Ischemic Heart Disease Maternal Uncle in his sleep at age 54 Social History Tobacco Use Smoking status: Former Current packs/day: 0.25 Types: Cigarettes Smokeless tobacco: Never Substance Use Topics Alcohol use: Yes Comment: OCCASIONALLY Drug use: No Comment: history of meth use Review of Systems Constitutional: Positive for fatigue and fever. Negative for chills and weight loss. HENT: Positive for rhinorrhea and sore throat. Negative for ear pain. Eyes: Negative for redness. Respiratory: Positive for cough. Negative for shortness of breath and wheezing. Cardiovascular: Negative for chest pain. Musculoskeletal: Negative for myalgias. Neurological: Positive for headaches. Hematological: Negative for adenopathy. Does not bruise/bleed easily. Psychiatric/Behavioral: Negative for agitation and behavioral problems. Objective BP 122/58 Pulse 76 Temp 36.1 ?C (97 ?F) Resp 22 Wt 66 kg (145 lb 8.1 oz) LMP 11/07/2024 (Exact Date) SpO2 99% BMI 27.49 kg/m? Physical Exam Vitals and nursing note reviewed. Constitutional: General: She is not in acute distress. Appearance: Normal appearance. She is normal weight. She is not ill-appearing, toxic-appearing or diaphoretic. HENT: Head: Normocephalic and atraumatic. Right Ear: Ear canal and external ear normal. Left Ear: Ear canal and external ear normal. Nose: Nose normal. No congestion or rhinorrhea. Mouth/Throat: Mouth: Mucous membranes are moist. Pharynx: Posterior oropharyngeal erythema present. No oropharyngeal exudate. Eyes: General: Right eye: No discharge. Left eye: No discharge. Extraocular Movements: Extraocular (more content not included)... Normal [facility] XR CHEST 2V FRONTAL/LATon XR CHEST 2V FRONTAL/LAT * * *Final Report* * * DATE OF EXAM: Nov 07 2024 2:12PM WOX [id number] - XR CHEST 2V FRONTAL/LAT / PROCEDURE REASON: multiple diagnoses * * * * Physician Interpretation * * * * EXAMINATION: CHEST RADIOGRAPH (2 VIEW FRONTAL and LATERAL) CLINICAL HISTORY: Acute cough Exposure to pertussis MQ: XC2_6 EXAM DATE/TIME: 11/07/2024 2:12 PM COMPARISON: Chest x-ray dated 02/17/2022 RESULT: Lines, tubes, and devices: None. Lungs and pleura: No consolidation. No lung mass. No pleural effusion. No pneumothorax. Cardiomediastinal silhouette: Stable cardiomediastinal silhouette with postsurgical changes from median sternotomy. Bones and soft tissues: No acute abnormality. IMPRESSION: No acute radiographic abnormality. 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[employer]: [facility] Transcribe Date/Time: Nov 07 2024 2:14P Dictated by : LUTHER CARDONA MD This examination was interpreted and the report reviewed and electronically signed by: LUTHER CARDONA MD on Nov 07 2024 2:14PM EST DIVISION OF RADIOLOGY * * *Final Report* * * DATE OF EXAM: Nov 07 2024 2:12PM WOX [id number] - XR CHEST 2V FRONTAL/LAT / PROCEDURE REASON: multiple diagnoses * * * * Physician Interpretation * * * * EXAMINATION: CHEST RADIOGRAPH (2 VIEW FRONTAL & LATERAL) CLINICAL HISTORY: Acute cough Exposure to pertussis MQ: XC2_6 EXAM DATE/TIME: 11/07/2024 2:12 PM COMPARISON: Chest x-ray dated 02/17/2022 RESULT: Lines, tubes, and devices: None. Lungs and pleura: No consolidation. No lung mass. No pleural effusion. No pneumothorax. Cardiomediastinal silhouette: Stable cardiomediastinal silhouette with postsurgical changes from median sternotomy. Bones and soft tissues: No acute abnormality. DIVISION OF RADIOLOGY Provider, [facility] - 11/07/2024 * * *Final Report* * * DATE OF EXAM: Nov 07 2024 2:12PM WOX [id number] - XR CHEST 2V FRONTAL/LAT / PROCEDURE REASON: multiple diagnoses * * * * Physician Interpretation * * * * EXAMINATION: CHEST RADIOGRAPH (2 VIEW FRONTAL & LATERAL) CLINICAL HISTORY: Acute cough Exposure to pertussis MQ: XC2_6 EXAM DATE/TIME: 11/07/2024 2:12 PM COMPARISON: Chest x-ray dated 02/17/2022 RESULT: Lines, tubes, and devices: None. Lungs and pleura: No consolidation. No lung mass. No pleural effusion. No pneumothorax. Cardiomediastinal silhouette: Stable cardiomediastinal silhouette with postsurgical changes from median sternotomy. Bones and soft tissues: No acute abnormality. IMPRESSION IMPRESSION: No acute radiographic abnormality. 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 Date/Time: Nov 07 2024 2:14P Dictated by : LUTHER CARDONA MD This examination was interpreted and the report reviewed and electronically signed by: LUTHER CARDONA MD on Nov 07 2024 2:14PM EST [facility] Radiology Study observation (narrative) [facility] XR Chest PA and LateralOrder ed By: [facility] Provider on 11-07-2024 [facility] CNOVon 07-10-2024 CNOV Office Visit ([facility] ) ----- ÁNGEL GALVAN ([id number]) 1980 F Date Time Provider Department 07/10/24 4:00 PM ROBINSON SMITH [facility] During your visit today, we recorded the following information about you: Temperature Pulse Blood pressure Weight 97.8 degrees 77/minute 114/78 66 kg Height 1.549 m Robinson Smith MD 07/10/2024 5:42 PM Signed CHIEF COMPLAINT No chief complaint on file. HISTORY OF PRESENT ILLNESS Ángel Galvan is a 43 year old female who presents here today for tonsil concerns. I last saw this patient on 01/03/2024. - Endorsed a burning sensation of her throat that radiated to ear canal - Looked in her throat, noticed a hole with a while film - Onset 2 days ago - Seen at [facility] on 07/07 - Strep test negative Mood - Feels like Effexor is not working - Would like to increase dose or increase Zoloft. Health Maintenance Due for Cervical Cancer Screening Due for Covid-19 Vaccine (- season) Due for Influenza Vaccine (1) Due for Hep C Screening Due for DTaP, Tdap, Td Vaccine (1- Tdap) Due for Hep B Vaccine (1 of 3-3 dose series) Past medical history, appointments, medications, allergies reviewed. Cardiac history . Valve surgery , history endocarditis. VSD and PFO repaired. Seizure history, no seizures for a long time , no anticonvulsant REVIEW OF SYSTEMS General: Feels well, no weight changes, fevers or chills. HEENT: +Sore throat No sinus congestion or earache Cardiac: No chest pain, palpitations Resp: No cough, wheeze, shortness of breath GI: No reflux symptoms, food intolerance, bowel changes. : No urinary frequency, dysuria. MS: No pain or joint complaints. PAST MEDICAL HISTORY PAST MEDICAL HISTORY No date: Backache, unspecified 03/09/2013: Cervical high risk human papillomavirus (HPV) DNA test positive No date: Chronic infective endocarditis 06/09/2011: Encounter for IUD insertion Comment: Mirena Insertion No date: Generalized anxiety disorder No date: PMH - PAST MEDICAL HISTORY OF Comment: HEART MURMUR PHYSICAL EXAMINATION BP 114/78 Pulse 77 Temp 36.6 ?C (97.8 ?F) Ht 154.9 cm (5' 1") Wt 66 kg (145 lb 8.1 oz) LMP 06/02/2011 SpO2 99% BMI 27.49 kg/m? General: Alert, well developed, well nourished, no distress, pleasant and cooperative. Heart: Regular rate and rhythm. Normal S1 and S2. No murmurs, rubs, or gallops. Lungs: Clear to auscultation bilaterally. No respiratory distress. No wheezes, rales, or rhonchi. Abdomen: Soft, non-tender, no distention. Extremities: Feet/ankles without edema, posterior tibial pulses full and symmetrical. Data Reviewed Latest Ref Rng 07/07/2024 Strep A (POCT) Negative Negative Procedural Control Valid Assessment/Plan (R09.89) Tonsil pain (primary encounter diagnosis) Comment: Ongoing Plan: Recommend salt water rinses 1-2x times/day (I50.22) Chronic systolic congestive heart failure (HCC) Comment: Stable. Follows cardiology Plan: Continue current regimen Continue to follow with cardiology (R56.9) Seizures (HCC) Comment: historical Plan: noted for record. No current needs. Requested Prescriptions Signed Prescriptions Disp Refills venlafaxine ER (EFFEXOR XR) 75 mg 24 hr capsule 30 capsule 11 Sig: Take 1 capsule by mouth once daily. RTO: if symptoms fail to improve or worsen Scribe Attestation: By signing my name below, I, Darling Garg, attest that this documentation has been prepared under the direction and in the presence of Julio Cesar Smith M.D. Electronically Signed: Nguyễn Desouza. July 10, 2024 4:06 PM Allergies As of Date: 07/10/2024 Noted Allergy Reaction NICKEL 03/10/2010 2 - Rash 16 - Unknown 4 - Hives HYDROCODONE-ACETAMINOPHEN 10/09/2008 9 - Itching PROPOXYPHENE N-ACETAMINOPHEN 10/09/2008 11 - Vomiting Date Reviewed: 07/10/2024 Reviewed by: Ria Haywood LPN - Fully Assessed Reason for Visit: Sore Throat [200] Primary Visit Diagnosis:Tonsil pain [R09.89] Other Visit Diagnoses:Chronic systolic congestive heart failure (HCC) [I50.22] Seizures (HCC) [R56.9] History of bacterial endocarditis [Z86.79] Order(s):venlafaxine ER (EFFEXOR XR) 75 mg 24 hr capsuleTake 1 capsule by mouth once daily.Disp: 30 capsuleRfl: 11 Prescriptions as of 07/10/2024 - venlafaxine ER (EFFEXOR XR) 75 mg 24 hr capsule Take 1 capsule by mouth once daily. - metoprolol succinate ER (TOPROL XL) 25 [...] AT BEDTIME NEEDED FOR FOR INSOMNIA. - lisinopril 2.5 mg tablet Take 1 tablet by mouth once daily. - diphenhydrAMINE (B (more content not included)... Normal [facility] CNOVon 07-07-2024 CNOV Office Visit ([facility] ) ----- ÁNGEL GALVAN ([id number]) 1980 F Date Time Provider Department 07/07/24 2:15 PM JOSÉ LUIS SORIA [facility] During your visit today, we recorded the following information about you: Temperature Pulse Respiration Blood pressure 97.9 degrees 71/minute 18/minute 120/74 Weight 65.4 kg José Luis Soria PA 07/07/2024 2:30 PM Signed This note was created using [email or web address] Subjective Ángel Galvan is a 43 year old female. HPI 43-year-old female presents for sore throat, right ear pain. Patient states she has had a sore throat for about 1 day. She has pain in the right ear. She states that she noticed a white spot on her right tonsil. She denies any difficulty swallowing or breathing. She is still able to eat and drink. No fevers. No vomiting or diarrhea. No cough or congestion. No other complaint. 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 metoprolol succinate ER (TOPROL XL) 25 mg 24 hr tablet Take 1 tablet by mouth once daily. sertraline (ZOLOFT) 100 mg tablet Take 2 tablets by mouth once daily. QUEtiapine (SEROQUEL) 100 mg tablet Take 100 mg by mouth daily at bedtime. (Patient not taking: Reported on 01/03/2024) prazosin (MINIPRESS) 2 mg cap Take 2 mg by mouth daily at bedtime. (Patient not taking: Reported on 01/03/2024) melatonin 3 mg tablet TAKE 2 TABLETS BY MOUTH AT BEDTIME NEEDED FOR FOR INSOMNIA. (Patient not taking: Reported on 07/15/2022) venlafaxine HCl (EFFEXOR ORAL) Take by mouth. (Patient not taking: Reported on 04/10/2022) lisinopril 2.5 mg tablet Take 1 tablet [...] Social History Tobacco Use Smoking status: Former Current packs/day: 0.25 Types: Cigarettes Smokeless tobacco: Never Substance Use Topics Alcohol use: Yes Comment: OCCASIONALLY Drug use: No Comment: history of meth use Review of Systems Constitutional: Negative for chills and fever. HENT: Positive for ear pain and sore throat. Negative for congestion. Respiratory: Negative for cough and shortness of breath. Cardiovascular: Negative for chest pain. Gastrointestinal: Negative for diarrhea and vomiting. Objective BP 120/74 Pulse 71 Temp 36.6 ?C (97.9 ?F) Resp 18 Wt 65.4 kg (144 lb 2.9 oz) LMP 06/02/2011 SpO2 99% BMI 27.24 kg/m? Physical Exam Vitals and nursing note reviewed. Constitutional: General: She is not in acute distress. Appearance: Normal appearance. She is not toxic-appearing. HENT: Right Ear: Tympanic membrane and ear canal normal. Left Ear: Tympanic membrane and ear canal normal. Nose: Nose normal. Mouth/Throat: Mouth: Mucous membranes are moist. Pharynx: Oropharynx is clear. Posterior oropharyngeal erythema present. Tonsils: Tonsillar exudate present. 2+ on the right. 2+ on the left. Comments: Patient has 2+ tonsils bilaterally. Uvula midline. She does have exudate noted on the right tonsil. No [employer] noted on exam. Handling secretions. No trismus. Eyes: Conjunctiva/sclera: Conjunctivae normal. Cardiovascular: Rate and Rhythm: Normal rate and regular rhythm. Pulmonary: Effort: Pulmonary effort is normal. Breath sounds: Normal breath sounds. Skin: General: Skin is warm and dry. Neurological: Mental Status: She is alert. Assessment and Plan ASSESSMENT/PLAN: 1. Sore throat - ICD9: 462, ICD10: J02.9 - suspect viral - Group A strep molecular testing negative - Discussed supportive care treatment with fluids, rest and analgesia. - The patient may also use warm salt water gargles, throat lozenges and/or OTC throat spray as needed. - The patient should follow up in 3-5 days if symptoms persist or worsen - STREP A MOLECULAR (POC) Diagnosis and treatment plan were discussed and questions were answer (more content not included)... Normal [facility] STREP A MOLECULAR (POC)on Procedural Control Valid [facility] Strep A (POCT) Negative Negative [facility] Basic Metabolic Profile (BMP )on 06-22-2024 BUN/CRE 21.1 RATIO High 10-20 [facility] Comment on above: Order Comment: 'TROP ' Serial specimen #1, #2 or #3: 1 Performed By: #### L [id number], L100.0100, L500.2500 #### [facility] [address] [place], [place], [id number] [place],Total 10.0 mg/dL Normal 8.5-10.1 [facility] Comment on above: Order Comment: 'TROP ' Serial specimen #1, #2 or #3: 1 Performed By: #### L [id number], L100.0100, L500.2500 #### [facility] [address] [place], [address] Chloride [Moles/Vol] 104 mmol/L Normal 98-107 [facility] Comment on above: Order Comment: 'TROP ' Serial specimen #1, #2 or #3: 1 Performed By: #### L [id number], L100.0100, L500.2500 #### [facility] [address] [place] [place], [address] CO2 [Moles/Vol] 29.0 mmol/L Normal 21.0-32.0 [facility] Comment on above: Order Comment: 'TROP ' Serial specimen #1, #2 or #3: 1 Performed By: #### L [id number], L100.0100, L500.2500 #### [facility] [address] [place], [address] Creatinine [Mass/Vol] 0.57 mg/dL Normal 0.55-1.02 [facility] Comment on above: Order Comment: 'TROP ' Serial specimen #1, #2 or #3: 1 Result Comment: The validity of the calculated GFR GFRAA in patients over 70 years has not been determined. Clinical correlation is essential. Performed By: #### L [id number], L100.0100, L500.2500 #### [facility] [address] [place], [address] ECRCL 113.42 ml/min Normal [facility] Comment on above: Order Comment: 'TROP ' Serial specimen #1, #2 or #3: 1 Performed By: #### L [id number], L100.0100, L500.2500 #### [facility] [address] [place], [address] EST GFR - AA 149 mL/min Normal >60 [facility] Comment on above: Order Comment: 'TROP ' Serial specimen #1, #2 or #3: 1 Result Comment: Afri can Bangladeshi GFR Calc Performed By: #### L [id number], L100.0100, L500.2500 #### [facility] [address] [place], [address] GAP 6 Normal 5-15 [facility] Comment on above: Order Comment: 'TROP ' Serial specimen #1, #2 or #3: 1 Performed By: #### L [id number], L100.0100, L500.2500 #### [facility] [address] [place] [place], [address] GFR/1.73 sq M.predicted among non-blacks MDRD (S/P/Bld) [Vol rate/Area] 123 mL/min/{1.73_m2} Normal >60 [facility] Comment on above: Order Comment: 'TROP ' Serial specimen #1, #2 or #3: 1 Result Comment: Non- GFR Calc Performed By: #### L [id number], L100.0100, L500.2500 #### [facility] [address] [place], [address] Glucose [Mass/Vol] 101 mg/dL Normal 74-106 [facility] Comment on above: Order Comment: 'TROP ' Serial specimen #1, #2 or #3: 1 Result Comment: Fast ing Glucose result from 100 to 125 mg/dL suggests IMPAIRED HOMEOSTASIS per A.D.A. criteria. Performed By: #### L [id number], L100.0100, L500.2500 #### [facility] [address] [place] [place], [address] Potassium [Moles/Vol] 4.2 mmol/L Normal 3.5-5.1 [facility] Comment on above: Order Comment: 'TROP ' Serial specimen #1, #2 or #3: 1 Performed By: #### L [id number], L100.0100, L500.2500 #### [facility] [address] [place], [address] Sodium [Moles/Vol] 139 mmol/L Normal 136-145 [facility] [facility] Comment on above: Order Comment: 'TROP ' Serial specimen #1, #2 or #3: 1 Performed By: #### L 501.4020, L100.0100, L500.2500 #### [facility] [address] [place], [address] Urea nitrogen [Mass/Vol] 12 mg/dL Normal 7-18 [facility] Comment on above: Order Comment: 'TROP ' Serial specimen #1, #2 or #3: 1 Performed By: #### L 501.4020, L100.0100, L500.2500 #### [facility] [address] [place], [address] CBC W/Diff, Automatedon 08- Absolute Lymph 2.92 X10 3/uL Normal 0.83-4.51 [facility] Comment on above: Performed By: #### L 501.4020, L100.0100, L500.2500 #### [facility] [address] [place], [address] Absolute Neut 5.4 X10 3/uL Normal 2.0-7.7 [facility] Comment on above: Performed By: #### L 501.4020, L100.0100, L500.2500 #### [facility] [address] [place], [address] Basophils/100 WBC (Bld) 0.6 % Normal 0-1 [facility] Comment on above: Performed By: #### L 501.4020, L100.0100, L500.2500 #### [facility] [address] [place], [address] Eosinophils/100 WBC (Bld) 1.1 % Normal 0-5 [facility] Comment on above: Performed By: #### L 501.4020, L100.0100, L500.2500 #### [facility] [address] [place], [address] Erythrocyte distribution width (RBC) [Ratio] 14.0 % Normal 11.6-14.6 [facility] Comment on above: Performed By: #### L 501.4020, L100.0100, L500.2500 #### [facility] [address] [place], [address] Hematocrit (Bld) [Volume fraction] 41.3 % Normal 37-47 [facility] Comment on above: Performed By: #### L 501.4020, L100.0100, L500.2500 #### [facility] [address] [place], [address] Hemoglobin (Bld) [Mass/Vol] 13.1 g/dL Normal 12.0-15.0 [facility] Comment on above: Performed By: #### L 501.4020, L100.0100, L500.2500 #### [facility] [address] [place] [place], [address] IG% 0.300 Normal 0.0-0.9 [facility] Comment on above: Result Comment: IG% - Immature Granulocytes (promyelocytes, myelocytes and metamyelocytes) > 1% indicates that a LEFT SHIFT is Present. Performed By: #### L 501.4020, L100.0100, L500.2500 #### [facility] [address] [place], [address] Lymphocytes/100 WBC (Bld) 32.2 % Normal 19-41 [facility] Comment on above: Performed By: #### L 501.4020, L100.0100, L500.2500 #### [facility] [address] [place], [address] MCH (RBC) [Entitic mass] 28.2 pg Normal 27.0-32.0 [facility] Comment on above: Performed By: #### L 501.4020, L100.0100, L500.2500 #### [facility] [address] [place] [place], [address] MCHC (RBC) [Mass/Vol] 31.7 g/dL Low 32-36 [facility] Comment on above: Performed By: #### L 501.4020, L100.0100, L500.2500 #### [facility] [address] [place] [place], [address] MCV (RBC) [Entitic vol] 89.0 fL Normal 81-99 [facility] Comment on above: Performed By: #### L 501.4020, L100.0100, L500.2500 #### [facility] [address] [place], [address] Monocytes/100 WBC (Bld) 5.9 % Normal 0-10 [facility] Comment on above: Performed By: #### L 501.4020, L100.0100, L500.2500 #### [facility] [address] [place] [place], [address] Neutrophils/100 WBC (Bld) 59.9 % Normal 47-70 [facility] Comment on above: Performed By: #### L 501.4020, L100.0100, L500.2500 #### [facility] [address] [place], [address] Nucleated RBC (Bld) [#/Vol] 0 10*3/uL Normal 0-5 [facility] Comment on above: Performed By: #### L 501.4020, L100.0100, L500.2500 #### [facility] [address] [place], [address] Platelet mean volume (Bld) [Entitic vol] 11.6 fL Normal 6.2-12.0 [facility] Comment on above: Performed By: #### L 501.4020, L100.0100, L500.2500 #### [facility] [address] [place], [address] Platelets (Bld) [#/Vol] 286 10*3/uL Normal 150-450 [facility] Comment on above: Performed By: #### L 501.4020, L100.0100, L500.2500 #### [facility] [address] [place] [place], [address] RBC (Bld) [#/Vol] 4.64 10*6/uL Normal 4.2-5.[address] [facility] Comment on above: Performed By: #### L 501.4020, L100.0100, L500.2500 #### [facility] [address] [place], [address] RDW SD 45.1 fl High 35.1-43.9 [facility] Comment on above: Performed By: #### L 501.4020, L100.0100, L500.2500 #### [facility] [address] [place] [place], [address] WBC (Bld) [#/Vol] 9.1 10*3/uL Normal 4.4-11.0 [facility] Comment on above: Performed By: #### L 501.4020, L100.0100, L500.2500 #### [facility] [address] [place] [place], [address] Nirmala 06-22-2024 [facility] Telephone (RITA) ----- ÁNGEL GALVAN ([id number]) 1980 F Date Time Provider Department 06/22/24 ROBINSON SMITH During your visit today, we recorded the following information about you: Ria Haywood LPN 06/22/2024 4:38 PM Signed Received ed visit summary for chest pain from [facility]. Placed in provider's inbox for review. Route to MA scanning Allergies As of Date: 06/22/2024 Noted Allergy Reaction NICKEL 03/10/2010 2 - Rash 16 - Unknown 4 - Hives HYDROCODONE-ACETAMINOPHEN 10/09/2008 9 - Itching PROPOXYPHENE N-ACETAMINOPHEN 10/09/2008 11 - Vomiting Date Reviewed: 01/03/2024 Reviewed by: Ria Haywood LPN - Fully Assessed Reason for Visit: Received Outside Medical Records [[id number]] Cmt: [facility] ED 06/22/24 Prescriptions as of 06/22/2024 - venlafaxine ER (EFFEXOR XR) 37.5 mg 24 hr capsule Take 1 capsule by mouth once daily. - metoprolol succinate ER (TOPROL XL) 25 [...] BEDTIME NEEDED FOR FOR INSOMNIA. - venlafaxine HCl (EFFEXOR ORAL) Take by mouth. - lisinopril 2.5 mg tablet Take 1 tablet by mouth once daily. - diphenhydrAMINE (BENADRYL) 25 mg capsule Take 1 capsule by mouth every 6 hours as needed (anxiety). Discontinue previous Rx Problem List As Of Date 06/22/2024 Noted Resolved Ventricular Septal Defect [Q21.0] 03/03/2010 LVE (Left Ventricular Enlargement) [I51.7] 03/03/2010 DEON (Generalized Anxiety Disorder) [F41.1] 04/15/2010 Depression [F32.A] 04/15/2010 Cervical high risk human papillomavirus (HPV) D*03/09/2013 Chlamydia [A74.9] 03/10/2013 Seizures [R56.9] 11/22/2013 Palpitations [R00.2] 02/08/2022 Nicotine use disorder, F17.2 [F17.200] 02/08/2022 SVT (supraventricular tachycardia) (HCC) [I47.1*02/11/2022 Encounter Status:Closed by RIA HAYWOOD on 06/22/24 Normal [facility] Chest 1 View (Portable)on Chest 1 View (Portable) [facility] Imaging Services [address] [place] [address] Chest 1 View (Portable) MR#: [id number] Acct: [id number] Name: NÁGEL GALVAN Rep #: [id number] : 1980 F 43 From: Monroe Rasheed MD PCP: Dr. Julio Cesar Smith MD Status: REG ER Study: Chest 1 View (Portable) Date of Exam: 06/22/24 Exam# [id number] Ordering Dr: Kenneth Harmon MD [id number] STUDY: X-RAY CHEST REASON FOR EXAM: Female, 43 years old. chest pain TECHNIQUE: Single AP portable view of the chest. COMPARISON: 04/28/2023 FINDINGS: Status post median sternotomy. The lungs are clear and expanded. There is no demonstrated pleural abnormality. Normal size heart. Normal mediastinum and bonita. Normal visualized pulmonary arteries. Normal visualized aortic arch and descending thoracic aorta. Normal visualized thoracic spine. Normal visualized ribs, clavicles, and shoulders. There is no demonstrated abnormality of the visualized soft tissue structures of the upper abdomen. RAD/Chest 1 View (Portable) IMPRESSION: No active disease. Electronically Signed: Monroe Rasheed MD at 10:13 EDT , CC: Dr. Kenneth Harmon MD; Dr. 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 Julio Cesar Smith MD Status:REG ER Location: ED HPI History of Present Illness Chief Complaint: Chest Pain Informant: patient Onset/Context/Timing Onset: Today and Yesterday Activity at onset: gradual Timing: Intermittent Quality: Positive for Burning and Pain Location: Left Chest Maximum Severity: Mild Worsened By: Nothing; Not Worsened By Exertion Relieved By: Nothing Associated Symptoms: Positive for Nausea and Vomiting; Negative for Diaphoresis, Dyspnea, Cough, Fever, Lightheadedness, Acid Reflux or Palpitations Narrative Narrative: 43-year-old female history of anxiety history of prior endocarditis from a dental infection. History of prior substance abuse but has been clean for 2 years. Prior surgery for VSD and endocarditis. States yesterday around 5 AM she was awoke with left-sided chest discomfort. Comes and goes. Not associated with exertion. She took some Tums because she has had reflux before and said she threw those up. She took a Seroquel Might Be Anxiety. She Denies Any Recent Exertional Dyspnea nor Exertional Chest Pain. No History of DVT or PE. No Recent Travel Surgery or Immobilization. No Leg Pain or Swelling. No Hemoptysis. Prior Similar Symptoms: Yes Recent Illness/Hospitalization: No CVD Risk Factors: Negative for Hypertension, Diabetes, Hypercholesterolemia, Family History 1' or Smoking PE Risk Factors: Negative for Recent Travel/Surgery, Recent Immobilization, Prior DVT or PE or OCP + Smoking + >/=35 TAD Risk Factors: Negative for Marfan's Syndrome [facility] Medical History History of endocarditis Panic attack Depression Marijuana abuse Tobacco abuse Substance abuse Supraventricular tachycardia (02/08/22) Bacteremia Seizure disorder Home Medications ???Medication ???Instructions ???Recorded ???Last Taken ???Type metoprolol succinate 25 mg 25 mg PO DAILY 07/19/22 Unknown History tablet,extended release 24 hr sertraline 100 mg tablet (Zoloft) 200 mg PO DAILY 07/19/22 Unknown History venlafaxine 37.5 mg tablet 37.5 mg PO DAILY 07/19/22 Unknown History hydroxyzine pamoate 25 mg capsule 25 mg PO QHS PRN anxiety 04/28/23 04/27/23 History Allergy/AdvReac Type Severity Reaction Status Date / Time hydrocodone (Hydrocodone) AdvReac Itching Verified 06/22/24 09:15 nickel (Nickel) AdvReac Itching Verified 06/22/24 09:15 propoxyphene napsylate (From AdvReac Itching Verified 06/22/24 09:15 Darvocet-N 100) Surgical History History of open heart surgery History of cardioversion (02/08/22) History of ventricular septal defect repair (01/25/15) Social History Smoking Status: Current every day smoker tobacco type: e-cigarettes substance use type: marijuana ROS ROS ED ROS Narrative Left-sided chest pain. Constitutional Constitutional ED: Denies chills or fever(s) Eyes Eyes: Reports none ENT ENT ED: Denies ear pain Cardiovascular Cardiovascular: Reports as per HPI and chest pain; Denies palpitations or racing heartbeat Respiratory/Chest Respiratory/Chest: Denies cough or dyspnea Gastrointestinal Gastrointestinal: Reports nausea; Denies abdominal pain, constipation, diarrhea or melena Genitourinary Genitourinary ED: Denies dysuria or hematuria Musculoskeletal Musculoskeletal: Denies arthralgias Integumentary Denies abscess Neurologic Neurologic: Denies headache(s) Psychiatric Psychiatric: Reports anxiety Endocrine Endocrinology: Denies cold intolerance Hematologic/Lymphatic Hematologic/Lymphatic: Denies easy bleeding, easy bruising or lymphadenopathy Allergic/Immunologic Allergic/Immunologic ED: Denies mouth swelling, tongue swelling or urticaria EXAM Physical Exam Narrative Exam Narrative: 15-year-old female no acute distress. Vital signs stable afebrile. Pulse ox 100% on room air no hypoxia. H EENT exam unremarkable. Neck nontender. Lungs clear to auscultation bilaterally. Heart regular rhythm rate about 70 no murmur. Chest wall and ribs no reproducible pain. No ecchymosis or bruising. No redness or warmth. No rashes or signs of trauma. Abdomen soft and nontender. Moving all 4 extremities. Calves are nontender without edema or cords. 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 Dorsi plantarflexion intact. She is awake and alert no focal motor deficits. Exam benign. No reproducible pain Const Vital Signs: 06/22/24 09:16 06/22/24 09:24 06/22/24 09:47 Temperatu (more content not included)... Normal [facility] L501.4020on 06-22-2024 TROPONIN-I HS 4 pg/mL Normal 3.0-54.0 [facility] Comment on above: Order Comment: 'TROP ' Serial specimen #1, #2 or #3: 1 Result Comment: Plea se Note: New Test Units and Gender Specific Reference Ranges. For more information see Policy Stat Procedure [place] High Sensitivity Troponin (TNIH) and attachments. Performed By: #### L 501.4020, L100.0100, L500.2500 #### [facility] [address] [place], [address] XR Tibia and Fibula - right AP and Lateralon 06-14-2023 IMPRESSION: No radiographic evidence of acute osseous abnormality. 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[employer]: ERLINDA Transcribe Date/Time: Jun 14 2023 4:42P Dictated by : LUTHER CARDONA MD This examination was interpreted and the report reviewed and electronically signed by: LUTHER CARDONA MD on Jun 14 2023 4:43PM [facility] DIVISION OF RADIOLOGY * * *Final Report* * * DATE OF EXAM: Jun 14 2023 4:28PM WOX [id number] - XR TIBIA FIBULA 2V AP/LAT RT / PROCEDURE REASON: Acute right ankle pain * * * * Physician Interpretation * * * * TITLE: XR TIBIA FIBULA 2V AP/LAT RT CLINICAL INDICATION: Pain TECHNIQUE: Frontal and lateral radiographs of the right tibia/fibula COMPARISON: None FINDINGS: No acute fracture or dislocation identified. No destructive osseous lesion. DIVISION OF RADIOLOGY Provider, [facility] - 06/14/2023 * * *Final Report* * * DATE OF EXAM: Jun 14 2023 4:28PM WOX [id number] - XR TIBIA FIBULA 2V AP/LAT RT / PROCEDURE REASON: Acute right ankle pain * * * * Physician Interpretation * * * * TITLE: XR TIBIA FIBULA 2V AP/LAT RT CLINICAL INDICATION: Pain TECHNIQUE: Frontal and lateral radiographs of the right tibia/fibula COMPARISON: None FINDINGS: No acute fracture or dislocation identified. No destructive osseous lesion. IMPRESSION IMPRESSION: No radiographic evidence of acute osseous abnormality. 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 Date/Time: Jun 14 2023 4:42P Dictated by : LUTHER CARDONA MD This examination was interpreted and the report reviewed and electronically signed by: LUTHER CARDONA MD on Jun 14 2023 4:43PM EST [facility] Radiology Study observation (narrative) [facility] XR Tibia and Fibula - right AP and LateralOrdered By: Teri Provider on 06-14-2023 [facility] CNOVon 05-18-2023 CNOV Office Visit (GEOVANI POB) ----- ÁNGEL GALVAN ([id number]) 1980 F Date Time Provider Department 05/18/23 3:00 PM BETHANY OSUNAHAGCARDPOB During your visit today, we recorded the following information about you: Pulse Blood pressure Weight 88/minute 122/81 73 kg Libia Stock MA 05/18/2023 3:01 PM Signed C/o increased SOB c/o being very fatigued has been out of Metoprolol for about 2 weeks. MARGARET Gonzalez Sergey Aleksandrovich, MD 05/18/2023 3:22 PM Signed Heart [facility] Vascular [facility] SECTION OF CARDIAC PACING and ELECTROPHYSIOLOGY OUTPATIENT VISIT DATE May 18, 2023 OUTPATIENT VISIT TYPE ESTABLISHED PRIMARY CARE PHYSICIAN: Robinson Smith [address] [place] [address] [place] [address] HISTORY OF PRESENT ILLNESS: Prior history: 42-year-old [...] left side of the chest lasting for "a second". She also describes sensation of single skipped heartbeats that she describes as "jumping". Denies sustained palpitation or syncope. Her ECG [...] monitor in 2021 showed physiologic burden of huitron (more content not included)... Normal [facility] Absolute lymphocyte countOrd ered By: Rosalind Millan on 06-28-2023 Lymphocytes Auto (Unsp spec) [#/Vol] 1.81 10*3/uL 0.83-4.51 [facility] Basophil percentageOrdered B y: Rosalind Millan on 04-28-2023 Basophils/100 WBC (Bld) 0.5 % 0-1 [facility] Bilirubin [Mass/Vol] 0.10 mg/dL 0.20-1.00 [facility] Comment on above: For patients on eltr ombopag therapy, use of Dimension [place] TBIL is not recommended. Chloride [Moles/Vol] 111 mmol/L 98-107 [facility] Eosinophils/100 WBC (Bld) 1.7 % 0-5 [facility] Glucose [Mass/Vol] 82 mg/dL 74-106 [facility] Neutrophils (Bld) [#/Vol] 3.6 10*3/uL 2.0-7.7 [facility] Neutrophils/100 WBC (Bld) 60.2 % 47-70 [facility] Potassium [Moles/Vol] 3.5 mmol/L 3.5-5.1 [facility] Protein [Mass/Vol] 7.3 g/dL 6.4-8.2 [facility] Sodium [Moles/Vol] 140 mmol/L 136-145 [facility] WBC (Bld) [#/Vol] 5.9 10*3/uL 4.4-11.0 [facility] Beta hCG serum qualOrdered B y: Rosalind Millan on 04-28-2023 Beta HCG ( test) Ql Negative [facility] Blood erythrocytes count (nu mber/volume)Ordered By: Rosalind Millan on 04-28-2023 RBC (Bld) [#/Vol] 4.27 10*6/uL 4.2-5.[address] [facility] Blood hemoglobin measurement (mass/volume)Ordered By: Rosalind Millan on 04-28-2023 Hemoglobin (Bld) [Mass/Vol] 12.4 g/dL 12.0-15.0 [facility] Blood lymphocytes/100 leukoc ytesOrdered By: Rosalind Millan on 04-28-2023 Lymphocytes/100 WBC (Bld) 30.7 % 19-41 [facility] Blood monocytes/100 leukocyt esOrdered By: Rosalind Millan on 04-28-2023 Monocytes/100 WBC (Bld) 6.6 % 0-10 [facility] Blood platelet mean volumeOr dered By: Rosalind Millan on 04-28-2023 Platelet mean volume (Bld) [Entitic vol] 10.4 fL 6.2-12.0 [facility] Determination of erythrocyte mean corpuscular volume (MCV)Ordered By: Rosalind Millan on 04-28-2023 MCV (RBC) [Entitic vol] 86.7 fL 81-99 [facility] Direct bilirubinOrdered By: Rosalind Millan on 04-28-2023 Bilirubin.direct [Mass/Vol] 0.06 mg/dL 0.00-0.30 [facility] Hematocrit Auto (Bld) [Volum e fraction]Ordered By: Rosalind Millan on 04-28-2023 Hematocrit (Bld) [Volume fraction] 37.0 % 37-47 [facility] Laboratory - Chemistry and C hemistry - challengeOrdered By: Rosalind Millan on 04-28-2023 ALP [Catalytic activity/Vol] 117 U/L 45-117 [facility] ALT [Catalytic activity/Vol] 25 U/L 13-56 [facility] CO2 [Moles/Vol] 25.0 mmol/L 21.0-32.0 [facility] Globulin (S) [Mass/Vol] 3.9 g/dL 2.2-4.2 [facility] Lipase [Catalytic activity/Vol] 45 U/L 13-75 [facility] Comment on above: Please note:LIPASE r evised reference range effective 23. New Lipase methodology. Expected to produce lower values than the previous assay method. NEW Reference Range: 13 - 75 U/L Urea nitrogen/Creatinine [Mass ratio] 14.9 mg/mg 10-20 [facility] Laboratory - Hematology and Cell countsOrdered By: Rosalind Millan on 04-28-2023 Erythrocyte distribution width (RBC) [Entitic vol] 45.1 fL 35.1-43.9 [facility] Erythrocyte distribution width (RBC) [Ratio] 14.3 % 11.6-14.6 [facility] Immature granulocytes/100 WBC (Bld) 0.300 % 0.0-0.9 [facility] Comment on above: IG% - Immature Granu locytes (promyelocytes, myelocytes and metamyelocytes) > 1% indicates that a LEFT SHIFT is Present. MCH (RBC) [Entitic mass] 29.0 pg 27.0-32.0 [facility] Nucleated RBC/100 WBC (Bld) [Ratio] 0 % 0-5 [facility] MCHC Auto (RBC) [Mass/Vol]Or dered By: Rosalind Millan on 04-28-2023 MCHC (RBC) [Mass/Vol] 33.5 g/dL 32-36 [facility] No Panel InformationOrdered By: Rosalind Millan on 04-28-2023 D-Dimer Quantitative (PE/DVT) 0.57 FEU/ug/m 0.27-0.49 [facility] Comment on above: D-Dimer ELEVATED (>0 .49): Additional studies and clinicalassessments are indicated to conclude diagnosis of:Deep Vein Thrombosis (DVT) or Pulmonary Embolism (PE)CRITICAL VALUE VERIFIED. CALLED TO [id number]/28/23 [id number] Deanna Ledbetter.RESULTS READ BACK BY SAME . Estimated Creatinine Clearance Calc 91.58 ml/min [facility] Estimated GFR (MDRD) Amer 140 mL/min >60 [facility] Comment on above: GFR Calc Estimated GFR (MDRD) Non-Af Amer 116 mL/min >60 [facility] Comment on above: Non- GFR Calc Troponin I High Sensitivity 5 pg/mL 3.0-54.0 [facility] Comment on above: Please Note: [place] t Units and Gender Specific Reference Ranges. For more information see Policy Stat Procedure [place] High Sensitivity Troponin (TNIH) and attachments. Platelets bldOrdered By: Autumn Millan on 04-28-2023 Platelets (Bld) [#/Vol] 260 10*3/uL 150-450 [facility] Serum or plasma albumin mckenna urement (mass/volume)Ordered By: Rosalind Millan on 04-28-2023 Albumin [Mass/Vol] 3.4 g/dL 3.2-5.0 [facility] Serum or plasma calcium mckenna urement (mass/volume)Ordered By: Rosalind Millan on 04-28-2023 Calcium [Mass/Vol] 8.7 mg/dL 8.5-10.1 [facility] Serum or plasma creatinine m easurement (mass/volume)Ordered By: Rosalind Millan on 04-28-2023 Creatinine [Mass/Vol] 0.61 mg/dL 0.55-1.02 [facility] Comment on above: The validity of the calculated GFR & GFRAA in patients over 70 years has not been determined. Clinical correlation is essential. Serum or plasma urea nitroge n measurement (mass/volume)Ordered By: Rosalind Millan on 04-28-2023 Urea nitrogen [Mass/Vol] 9 mg/dL 7-18 [facility] Thin prep Papanicolaou smear with manual screeningOrdered By: Rosalind Millan on 04-28-2023 Thin prep Papanicolaou smear with manual screening 14 U/L 15-37 [facility] Thin prep Papanicolaou smear with manual screening 4 5-15 [facility] Absolute lymphocyte counton 09-18-2022 Lymphocytes Auto (Unsp spec) [#/Vol] 2.04 10*3/uL 0.83-4.51 [facility] Work Phone: Basophil percentageon 2021 Basophil percentage 0-5 SEEN /hpf 0-5 [facility] Work Phone: Basophils/100 WBC (Bld) 0.6 % 0-1 [facility] Work Phone: Chloride [Moles/Vol] 108 mmol/L 98-107 [facility] Work Phone: Eosinophils/100 WBC (Bld) 3.2 % 0-5 [facility] Work Phone: Glucose [Mass/Vol] 69 mg/dL 74-106 [facility] Work Phone: Neutrophils (Bld) [#/Vol] 4.3 10*3/uL 2.0-7.7 [facility] Work Phone: Neutrophils/100 WBC (Bld) 59.5 % 47-70 [facility] Work Phone: Potassium [Moles/Vol] 3.9 mmol/L 3.5-5.1 [facility] Work Phone: Sodium [Moles/Vol] 140 mmol/L 136-145 [facility] Work Phone: WBC (Bld) [#/Vol] 7.2 10*3/uL 4.4-11.0 [facility] Work Phone: Bilirubin Test strip Ql (U)o n 09-18-2022 Bilirubin Ql (U) Negative Negative [facility] Work Phone: Blood erythrocytes count (nu mber/volume)on 09-18-2022 RBC (Bld) [#/Vol] 4.50 10*6/uL 4.2-5.4 [facility] Work Phone: Blood hemoglobin measurement (mass/volume)on 09-18-2022 Hemoglobin (Bld) [Mass/Vol] 12.8 g/dL 12.0-15.0 [facility] Work Phone: Blood lymphocytes/100 leukoc yteson 09-18-2022 Lymphocytes/100 WBC (Bld) 28.5 % 19-41 [facility] Work Phone: Blood monocytes/100 leukocyt eson 09-18-2022 Monocytes/100 WBC (Bld) 7.9 % 0-10 [facility] Work Phone: Blood platelet mean volumeon 09-18-2022 Platelet mean volume (Bld) [Entitic vol] 10.1 fL 6.2-12.0 [facility] Work Phone: Determination of erythrocyte mean corpuscular volume (MCV)on 09-18-2022 MCV (RBC) [Entitic vol] 87.1 fL 81-99 [facility] Work Phone: Hematocrit Auto (Bld) [Volum e fraction]on 09-18-2022 Hematocrit (Bld) [Volume fraction] 39.2 % 37-47 [facility] Work Phone: Ketones Test strip Ql (U)on 09-18-2022 Ketones Ql (U) Negative Negative [facility] Work Phone: Laboratory - Chemistry and C hemistry - challengeon 09-18-2022 CO2 [Moles/Vol] 26.0 mmol/L 21.0-32.0 [facility] Work Phone: Urea nitrogen/Creatinine [Mass ratio] 22.4 mg/mg 10-20 [facility] Work Phone: Laboratory - Hematology and Cell countson 09-18-2022 Erythrocyte distribution width (RBC) [Entitic vol] 44.1 fL 35.1-43.9 [facility] Work Phone: Erythrocyte distribution width (RBC) [Ratio] 13.8 % 11.6-14.6 [facility] Work Phone: Immature granulocytes/100 WBC (Bld) 0.300 % 0.0-0.9 [facility] Work Phone: Comment on above: IG% - Immature Granu locytes (promyelocytes, myelocytes and metamyelocytes) > 1% indicates that a LEFT SHIFT is Present. MCH (RBC) [Entitic mass] 28.4 pg 27.0-32.0 [facility] Work Phone: Nucleated RBC/100 WBC (Bld) [Ratio] 0 % 0-5 [facility] Work Phone: MCHC Auto (RBC) [Mass/Vol]on 09-18-2022 MCHC (RBC) [Mass/Vol] 32.7 g/dL 32-36 [facility] Work Phone: Mucus LM Ql (Urine sed)on Mucus Ql (Urine sed) 0 SEEN /hpf [facility] Work Phone: Nitrite Test strip Ql (U)on 09-18-2022 Nitrite Ql (U) Negative Negative [facility] Work Phone: No Panel Informationon 09-18 Estimated Creatinine Clearance Calc 125.40 ml/min [facility] Work Phone: Estimated GFR (MDRD) Amer 200 mL/min >60 [facility] Work Phone: Comment on above: GFR Calc Estimated GFR (MDRD) Non-Af Amer 165 mL/min >60 [facility] Work Phone: Comment on above: Non- GFR Calc Platelets bldon 09-18-2022 Platelets (Bld) [#/Vol] 264 10*3/uL 150-450 [facility] Work Phone: Protein Test strip Ql (U)on 09-18-2022 Protein Ql (U) Negative Negative [facility] Work Phone: Serum or plasma calcium mckenna urement (mass/volume)on 09-18-2022 Calcium [Mass/Vol] 8.6 mg/dL 8.5-10.1 [facility] Work Phone: Serum or plasma creatinine m easurement (mass/volume)on 09-18-2022 Creatinine [Mass/Vol] 0.45 mg/dL 0.55-1.02 [facility] Work Phone: Comment on above: The validity of the calculated GFR & GFRAA in patients over 70 years has not been determined. Clinical correlation is essential. Serum or plasma urea nitroge n measurement (mass/volume)on 09-18-2022 Urea nitrogen [Mass/Vol] 10 mg/dL 7-18 [facility] Work Phone: Squamous epithelial cells de tection in urine sediment by light microscopyon 09-18-2022 Epithelial cells.squamous LM Ql (Urine sed) 5-10 SEEN /hpf 5-10 [facility] Work Phone: Thin prep Papanicolaou smear with manual screeningon 09-18-2022 Thin prep Papanicolaou smear with manual screening 6 5-15 [facility] Work Phone: Urine blood detectionon 09-01 RBC Ql (U) Negative Negative [facility] Work Phone: RBC Ql (U) 0 SEEN /hpf 0-5 [facility] Work Phone: Urine clarityon 09-18-2022 Clarity (U) Sl. Cloudy Clear [facility] Work Phone: Urine color determinationon 09-18-2022 Color (U) Yellow Yellow [facility] Work Phone: Urine glucose detectionon Glucose Ql (U) 50 mg/dl Normal [facility] Work Phone: Urine leukocyte esterase det ection by dipstickon 09-18-2022 Leukocyte esterase Test strip Ql (U) 25 /ul Negative [facility] Work Phone: Urine pHon 09-18-2022 pH (U) 6.0 [pH] 5.0 - 8.0 [facility] Work Phone: Urine sediment bacteria coun t by microscopy (number/high power field)on 09-18-2022 Bacteria LM.HPF (Urine sed) [#/Area] 1 /[HPF] None Seen [facility] Work Phone: Urine specific gravity measu rementon 09-18-2022 Specific gravity (U) [Rel density] 1.010 1.002-1.030 [facility] Work Phone: Urobilinogen Auto test strip Ql (U)on 09-18-2022 Urobilinogen Ql (U) Normal mg/dl Normal [facility] Work Phone: Basophil percentageon 2021 Basophil percentage 0 SEEN /hpf 0-5 [facility] Work Phone: Bilirubin Test strip Ql (U)o n 07-19-2022 Bilirubin Ql (U) Negative Negative [facility] Work Phone: Ketones Test strip Ql (U)on 07-19-2022 Ketones Ql (U) Negative Negative [facility] Work Phone: Mucus LM Ql (Urine sed)on Mucus Ql (Urine sed) 0 SEEN /hpf [facility] Work Phone: Nitrite Test strip Ql (U)on 07-19-2022 Nitrite Ql (U) Negative Negative [facility] Work Phone: Protein Test strip Ql (U)on 07-19-2022 Protein Ql (U) Negative Negative [facility] Work Phone: Squamous epithelial cells de tection in urine sediment by light microscopyon 07-19-2022 Epithelial cells.squamous LM Ql (Urine sed) 0-5 SEEN /hpf 5-10 [facility] Work Phone: Urine blood detectionon 07-02 RBC Ql (U) 10 /ul Negative [facility] Work Phone: RBC Ql (U) 0 SEEN /hpf 0-5 [facility] Work Phone: Urine clarityon 07-19-2022 Clarity (U) Clear Clear [facility] Work Phone: Urine color determinationon 07-19-2022 Color (U) Yellow Yellow [facility] Work Phone: Urine glucose detectionon Glucose Ql (U) Normal mg/dl Normal [facility] Work Phone: Urine leukocyte esterase det ection by dipstickon 07-19-2022 Leukocyte esterase Test strip Ql (U) 25 /ul Negative [facility] Work Phone: Urine pHon 07-19-2022 pH (U) 6.0 [pH] 5.0 - 8.0 [facility] Work Phone: Urine sediment bacteria coun t by microscopy (number/high power field)on 07-19-2022 Bacteria LM.HPF (Urine sed) [#/Area] 0 /[HPF] None Seen [facility] Work Phone: Urine specific gravity measu rementon 07-19-2022 Specific gravity (U) [Rel density] 1.015 1.002-1.030 [facility] Work Phone: Urobilinogen Auto test strip Ql (U)on 07-19-2022 Urobilinogen Ql (U) Normal mg/dl Normal [facility] Work Phone: STREP A MOLECULAR (POC)on Procedural Control Valid [facility] Strep A (POCT) Negative Negative [facility] CBC Auto DifferentialOrdered By: Ciro Barlow on 07-04-2021 Absolute Baso # 0.0 10*3/uL 0.0 - 0.2 10*3/uL [facility] Work Phone: Absolute Neut # 5.5 10*3/uL 1.8 - 7.0 10*3/uL [facility] Work Phone: [phone] Basophils/100 WBC (Bld) 0.4 % 0.0 - 2.0 % [facility] Work Phone: [phone] Eosinophils (Bld) [#/Vol] 0.1 10*3/uL 0.0 - 0.5 10*3/uL [facility] Work Phone: [phone] Eosinophils/100 WBC (Bld) 1.5 % 1.0 - 6.0 % [facility] Work Phone: [phone] Granulocytes/100 WBC (Bld) 68.9 % 40.0 - 80.0 % [facility] Work Phone: [phone] Hematocrit (Bld) [Volume fraction] 41.1 % 35.0 - 47.0 % [facility] Work Phone: Hemoglobin.gastrointes tinal spec 1 Ql (Stl) 13.6 g/dL 11.7 - 16.0 g/dL [facility] Work Phone: Interpretation and review of laboratory results Abnormal [facility] Work Phone: [phone] Lymphocytes (Bld) [#/Vol] 1.9 10*3/uL 1.0 - 4.3 10*3/uL [facility] Work Phone: Lymphocytes/100 WBC (Bld) 23.3 % 20.0 - 40.0 % [facility] Work Phone: MCH (RBC) [Entitic mass] 28.4 pg 26.0 - 34.0 pg [facility] Work Phone: [phone] MCHC (RBC) [Mass/Vol] 33.0 % 32.0 - 36.0 % [facility] Work Phone: [phone] MCV (RBC) [Entitic vol] 86.0 fL 79.0 - 98.0 fL [facility] Work Phone: [phone] Monocytes (Bld) [#/Vol] 0.5 10*3/uL 0.0 - 0.8 10*3/uL [facility] Work Phone: [phone] Monocytes/100 WBC (Bld) 5.9 % 2.0 - 10.0 % [facility] Work Phone: [phone] Platelet distribution width (Bld) [Ratio] 14.6 % High 11.5 - 14.5 % [facility] Work Phone: [phone] Platelet mean volume (Bld) [Entitic vol] 8.7 fL 7.4 - 10.4 fL [facility] Work Phone: [phone] Platelets (Bld) [#/Vol] 265 10*3/uL 140 - 440 10*3/uL [facility] Work Phone: [phone] RBC (Bld) [#/Vol] 4.78 10*6/uL 3.80 - 5.2 0 10*6/uL [facility] Work Phone: [phone] WBC (Bld) [#/Vol] 7.9 10*3/uL 3.6 - 10.7 10*3/uL [facility] Work Phone: [phone] Test Performed by [facility] [address] [address] [facility] Work Phone: [phone] [facility] Work Phone: [phone] Hemoglobin A1Con 07-04-2021 Glucose [Mass/Vol] 100 mg/dL [facility] Comment on above: Performed By: #### V D25H #### [facility] [address] [place] [address] #### HA1C2, TSH5 #### [facility] [address] [place] [address] #### HEMDF #### [facility] [address] [place] [address] HbA1c (Bld) [Mass fraction] 5.1 % Normal [facility] Comment on above: Result Comment: Norm al less than 5.7% Prediabetes 5.7% to 6.4% Diabetes 6.5% or higher --HgbA1C levels may not be accurate in patients who have renal disease, received recent blood transfusions, are anemic, or who have dyshemoglobinemia. Performed By: #### V D25H #### [facility] [address] [place] [address] #### HA1C2, TSH5 #### [address] [address] #### HEMDF #### [address] [address] Hemoglobin [id number] By: Cris Barlow on 07-04-2021 HbA1c (Bld) [Mass fraction] 5.1 % [facility] Work Phone: Comment on above: Normal less than 5.7 % Prediabetes 5.7% to 6.4% Diabetes 6.5% or higher --HgbA1C levels may not be accurate in patients who have renal disease, received recent blood transfusions, are anemic, or who have dyshemoglobinemia. Magnesium [Mass/Vol] 100 mg/dL [facility] Work Phone: Test Performed by [facility], [address] [place] [address] [facility] Work Phone: [facility] Work Phone: Hemogram w/ Autodiffon 07-04 Abs Baso Cnt 0.0 10*3/uL Normal 0.0-0.2 [facility] Comment on above: Performed By: #### V D25H #### [facility] [address] [place] [address] #### HA1C2, TSH5 #### [address] [address] #### HEMDF #### [address] [address] Abs Neutrophile Cnt 5.5 10*3/uL Normal 1.8-7.0 [facility] Comment on above: Performed By: #### V D25H #### [facility] [address] [place] [address] #### HA1C2, TSH5 #### [facility] [address] [place] [phone] #### HEMDF #### [facility] [address] [place] [address] Basophils/100 WBC (Bld) 0.4 % Normal 0.0-2.0 [facility] Comment on above: Performed By: #### V D25H #### [facility] [address] [place] [address] #### HA1C2, TSH5 #### [facility] [address] [place] [phone] #### HEMDF #### [facility] [address] [place] [address] Eosinophils (Bld) [#/Vol] 0.1 10*3/uL Normal 0.0-0.5 [facility] Comment on above: Performed By: #### V D25H #### [facility] [address] [place] [address] #### HA1C2, TSH5 #### [facility] [address] [place] [phone] #### HEMDF #### [facility] [address] [place] [address] Eosinophils/100 WBC (Bld) 1.5 % Normal 1.0-6.0 [facility] Comment on above: Performed By: #### V D25H #### [facility] [address] [place] [address] #### HA1C2, TSH5 #### [facility] [address] [place] [phone] #### HEMDF #### [facility] [address] [place] [address] Erythrocyte distribution width (RBC) [Ratio] 14.6 % High 11.5-14.5 [facility] Comment on above: Performed By: #### V D25H #### [facility] [address] [place] [address] #### HA1C2, TSH5 #### [facility] [address] [place] [phone] #### HEMDF #### [address] [address] Granulocytes/100 WBC (Bld) 68.9 % Normal 40.0-80.0 [facility] Comment on above: Performed By: #### V D25H #### [facility] [address] [place] [address] #### HA1C2, TSH5 #### [address] [phone] #### HEMDF #### [address] [address] Hematocrit (Bld) [Volume fraction] 41.1 % Normal 35.0-47.0 [facility] Comment on above: Performed By: #### V D25H #### [facility] [address] [place] [address] #### HA1C2, TSH5 #### [facility] [address] [place] [phone] #### HEMDF #### [address] [address] Hemoglobin (Bld) [Mass/Vol] 13.6 g/dL Normal 11.7-16.0 [facility] Comment on above: Performed By: #### V D25H #### [facility] [address] [place] [address] #### HA1C2, TSH5 #### [address] [address] #### HEMDF #### [address] [address] Lymphocytes (Bld) [#/Vol] 1.9 10*3/uL Normal 1.0-4.3 [facility] Comment on above: Performed By: #### V D25H #### [facility] [address] [place] [address] #### HA1C2, TSH5 #### [address] [address] #### HEMDF #### [address] [address] Lymphocytes/100 WBC (Bld) 23.3 % Normal 20.0-40.0 [facility] Comment on above: Performed By: #### V D25H #### [facility] [address] [place] [address] #### HA1C2, TSH5 #### [address] [address] #### HEMDF #### [address] [address] MCH (RBC) [Entitic mass] 28.4 pg Normal 26.0-34.0 [facility] Comment on above: Performed By: #### V D25H #### [facility] [address] [place] [address] #### HA1C2, TSH5 #### [address] [address] #### HEMDF #### [address] [address] MCHC 33.0 % Normal 32.0-36.0 [facility] Comment on above: Performed By: #### V D25H #### [facility] [address] [place] [address] #### HA1C2, TSH5 #### [address] [address] #### HEMDF #### [address] [address] MCV (RBC) [Entitic vol] 86.0 fL Normal 79.0-98.0 [facility] Comment on above: Performed By: #### V D25H #### [facility] [address] [place] [address] #### HA1C2, TSH5 #### [address] [place] [address] #### HEMDF #### [facility] [address] [place] [address] Monocytes (Bld) [#/Vol] 0.5 10*3/uL Normal 0.0-0.8 [facility] Comment on above: Performed By: #### V D25H #### [facility] [address] [place] [address] #### HA1C2, TSH5 #### [facility] [address] [place] [address] #### HEMDF #### [address] [address] Monocytes/100 WBC (Bld) 5.9 % Normal 2.0-10.0 [facility] Comment on above: Performed By: #### V D25H #### [facility] [address] [place] [address] #### HAMic2, TSH5 #### [facility] [address] [place] [address] #### HEMDF #### [address] [address] Platelet mean volume (Bld) [Entitic vol] 8.7 fL Normal 7.4-10.4 [facility] Comment on above: Performed By: #### V D25H #### [facility] [address] [place] [address] #### HA1C2, TSH5 #### [facility] [address] [place] [address] #### HEMDF #### [address] [address] Platelets (Bld) [#/Vol] 265 10*3/uL Normal 140-440 [facility] Comment on above: Performed By: #### V D25H #### [facility] [address] [place] [address] #### HA1C2, TSH5 #### [address] #### HEMDF #### [facility] [address] [place] [address] RBC (Bld) [#/Vol] 4.78 10*6/uL Normal 3.80-5.20 [facility] Comment on above: Performed By: #### V D25H #### [facility] [address] [place] [address] #### HA1C2, TSH5 #### [address] [address] #### HEMDF #### [address] [address] WBC (Bld) [#/Vol] 7.9 10*3/uL Normal 3.6-10.7 [facility] Comment on above: Performed By: #### V D25H #### [facility] [address] [place] [address] #### HA1C2, TSH5 #### [address] #### HEMDF #### [address] [address] TSH without ReflexOrdered By : Ciro Barlow on 07-04-2021 TSH Qn 1.171 u[IU]/mL 0.465 - 4.680 u[IU]/mL [facility] Work Phone: Test Performed by [facility], [address] [place] [address] [facility] Work Phone: [facility] Work Phone: Thyroid Stim. Hormoneon 09-0 Thyroid Stim. Hormone 1.171 u[IU]/mL Normal 0.465-4.68 0 [facility] Comment on above: Performed By: #### V D25H #### [facility] [address] [place] [address] #### HA1C2, TSH5 #### [address] #### HEMDF #### [address] [place] [address] Vit D 25-OH, Totalon 021 Vit D 25-OH, Total 28 ng/mL Low 30-100 [facility] Comment on above: Result Comment: Ther apy is based on measurement of Total 25- OHD with the following classification levels: Less than 20 ng/mL: Indicative of Vit D deficiency 20-30 ng/mL: Suggests Vit D insufficiency Optimal: Greater than or equal to 30 ng/mL Test performed by Real Time Tomography Competitive Immunoassay, measuring Total Vitamin D, not individual fractions. Performed By: #### V D25H #### [facility] [address] [place] [address] #### HA1C2, TSH5 #### [facility] [address] [place] [address] #### HEMDF #### [facility] [address] [place] [address] Vitamin D 25 HydroxyOrdered By: Ciro Barlow on 07-04-2021 Interpretation and review of laboratory results Abnormal [facility] Work Phone: Vit D, 25-Hydroxy 28 ng/mL Low 30 - 100 ng/mL [facility] Work Phone: Comment on above: Therapy is based on measurement of Total 25-OHD with the following classification levels: Less than 20 ng/mL: Indicative of Vit D deficiency 20-30 ng/mL: Suggests Vit D insufficiency Optimal: Greater than or equal to 30 ng/mL Test performed by Real Time Tomography Competitive Immunoassay, measuring Total Vitamin D, not individual fractions. Test Performed by [facility], [address], [place], [place] [address] [facility] Work Phone: [facility] Work Phone: CBC and Differentialon 12-18 Abs Baso 0.04 k/uL Normal <0.11 [facility] Abs [place] 0.67 k/uL Normal <0.87 [facility] Abs Neut 6.79 k/uL Normal 1.45-7.50 [facility] Absolute nRBC <0.01 Normal <0.01 [facility] Basophils/100 WBC (Bld) 0.4 % Normal [facility] DTYPE Auto Diff Normal [facility] Eosinophils (Bld) [#/Vol] 0.04 10*3/uL Normal <0.46 [facility] Eosinophils/100 WBC (Bld) 0.4 % Normal [facility] Erythrocyte distribution width (RBC) [Ratio] 13.2 % Normal 11.5-15.0 [facility] Hematocrit (Bld) [Volume fraction] 49.6 % High 36.0-46.0 [facility] Hemoglobin (Bld) [Mass/Vol] 15.8 g/dL High 11.5-15.5 [facility] Lymphocytes (Bld) [#/Vol] 3.17 10*3/uL Normal 1.00-4.00 [facility] Lymphocytes/100 WBC (Bld) 29.6 % Normal [facility] MCH (RBC) [Entitic mass] 27.8 pG Normal 26.0-34.0 [facility] MCHC (RBC) [Mass/Vol] 31.9 g/dL Normal 30.5-36.0 [facility] MCV (RBC) [Entitic vol] 87.2 fL Normal 80.0-100.0 [facility] Monocytes/100 WBC (Bld) 6.3 % Normal [facility] Neutrophils/100 WBC (Bld) 63.3 % Normal [facility] NRBCs 0.0 /100 WBC Normal 0 [facility] Platelet mean volume (Bld) [Entitic vol] 10.8 fL Normal 9.0-12.7 [facility] Platelets (Bld) [#/Vol] 328 10*3/uL Normal 150-400 [facility] RBC (Bld) [#/Vol] 5.69 10*6/uL High 3.90-5.20 [facility] WBC (Bld) [#/Vol] 10.71 10*3/uL Normal 3.70-11.00 [facility] Comp Metabolic Panelon 12-18 Albumin [Mass/Vol] 4.7 g/dL Normal 3.9-4.9 [facility] ALP [Catalytic activity/Vol] 95 U/L Normal 34-123 [facility] ALT [Catalytic activity/Vol] 14 U/L Normal 7-38 [facility] Anion gap [Moles/Vol] 15 mmol/L Normal 9-18 [facility] AST [Catalytic activity/Vol] 21 U/L Normal 13-35 [facility] Bilirubin [Mass/Vol] 0.4 mg/dL Normal 0.2-1.3 [facility] Calcium [Mass/Vol] 9.2 mg/dL Normal 8.5-10.2 [facility] Chloride [Moles/Vol] 97 mmol/L Normal 97-105 [facility] CO2 [Moles/Vol] 24 mmol/L Normal 22-33 [facility] Creatinine [Mass/Vol] 0.73 mg/dL Normal 0.58-0.96 [facility] eGFR- Amer. >60 Normal [facility] GFR/1.73 sq M predicted among non-blacks MDRD (S/P/Bld) [Vol rate/Area] mL/min/{1.73_m2} Normal [facility] Comment on above: Result Comment: eGFR (Estimated GFR) Units of measure: mL/min/1.73 meters squared eGFR is derived from the reexpressed MDRD Study equation using the following parameters: serum creatinine, age, gender and race. The creatinine assay has been calibrated to be traceable to IDMS. An eGFR <60 mL/min/1.73m2 for >3 months is consistent with chronic kidney disease. Refer to KDOQI guidelines for clinical interpretation. In patients with unstable renal function, e.g. those with acute kidney injury, the eGFR may not accurately reflect actual GFR. Glucose [Mass/Vol] 101 mg/dL High 74-99 [facility] Potassium [Moles/Vol] 3.9 mmol/L Normal 3.7-5.1 [facility] Protein [Mass/Vol] 7.8 g/dL Normal 6.3-8.0 [facility] Sodium [Moles/Vol] 136 mmol/L Normal 136-144 [facility] Urea nitrogen [Mass/Vol] 12 mg/dL Normal 7-21 [facility] ECG COMPLETEon 12-18-2019 ECG COMPLETE NAME : YUN JIMENEZ PID : [id number] : [id number] Gender : Female Race : ORD : [id number] Procedure Date : Dec 17 2019 22:05:29 Edit Date : Dec 18 2019 07:38:32 Diagnosis:NORMAL SINUS RHYTHM RIGHTWARD AXIS INCOMPLETE RIGHT BUNDLE BRANCH BLOCK BORDERLINE ECG NO PREVIOUS ECGS AVAILABLE confirmed 2210 Confirmed by DO WILHELM PAMELA ([id number]), film editor AHMET BURGOS ([id number]) on 12/18/2019 7:38:31 AM Ventricular Rate : 88 BPM Atrial Rate : 88 BPM P-R Interval : 136 ms QRS Duration : 94 ms Q-T Interval : 354 ms QTC Calculation(Bazett) : 428 ms P [place] : 18 degrees R [place] : 90 degrees T [place] : 56 degrees Test Reason : Chest Pain Location : 26 : ER L ED Overread By : DO WILHELM PAMELA Edited By : AHMET BURGOS Referred By : , Acquired by : GMR, [facility] ED NOTEon 12-18-2019 ED NOTE HNO ID: [id number] Author: Tatum (Rn) JAMES Castro Service: ? Author Type: Registered Nurse Type: ED Notes Filed: 12/17/2019 10:04 PM Note Text: Pt bib EMS from [facility]. She was furlowed before she left. Pt report rolling to her side to put a book on a table and felt a pop. She now reports 10/10 cp, denies shortness of breath. Pt reports she can palpate a wire in her chest. Pt had bypass 4 years ago. [facility] High Sens Troponin Ton 12-18 High Sensitivity ALEXIA <6 Normal <12 [facility] Comment on above: Result Comment: When assessing risk for acute coronary syndromes: In patients undergoing blood draw greater than or equal to 2 hours from symptom onset, with history of very low to moderate risk and non-ischemic ECG, an initial hs-Troponin T less than 12 ng/L AND a 1 hour delta hs-Troponin T less than 3 ng/L should be considered very low risk for 30 day MACE. High Sensitivity ALEXIA <6 Normal <12 [facility] Comment on above: Result Comment: When assessing risk for acute coronary syndromes: In patients undergoing blood draw greater than or equal to 2 hours from symptom onset, with history of very low to moderate risk and non-ischemic ECG, an initial hs-Troponin T less than 12 ng/L AND a 1 hour delta hs-Troponin T less than 3 ng/L should be considered very low risk for 30 day MACE. XR CHEST 2V FRONTAL/LATon XR CHEST 2V FRONTAL/LAT * * *Final Report* * * DATE OF EXAM: Dec 17 2019 10:29PM HCX [id number] - XR CHEST 2V FRONTAL/LAT / PROCEDURE REASON: Chest pain * * * * Physician Interpretation * * * * RESULT: EXAMINATION: CHEST RADIOGRAPH (2 VIEW FRONTAL and LATERAL) CLINICAL HISTORY: Chest pain MQ: XC2_5 Comparison: None available RESULT: Lines, tubes, and devices: Post median sternotomy Lungs and pleura: No consolidation, pleural effusion, or pneumothorax is demonstrated. Cardiomediastinal silhouette: Normal cardiomediastinal silhouette. Other: . IMPRESSION: No acute radiographic abnormality. Transcribed Using Voice Recognition Transcribe Date/Time: Dec 17 2019 10:31P Dictated by: MATEO VINSON MD This examination was interpreted and the report reviewed and electronically signed by: MATEO VINSON MD on Dec 17 2019 10:34PM EST [id number] [facility] ED NOTEon 12-17-2019 ED NOTE HNO ID: [id number] Author: Tatum (Rn) JAMES Castro Service: ? 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 01-01-2015 Anion gap 5 mmol/L Invalid Interpretation Code [place] [employer] Phone: Chloride 107 mmol/L Invalid Interpretation Code [facility] [employer] Phone: CO2 27 mmol/L Invalid Interpretation Code [facility] [employer] Phone: Erythrocytes (RBC) 3.89 10*6/uL Low [facility] [email or web address] Work Phone: Hematocrit (HCT) 31.3 % Low [facility] [employer] Phone: Hemoglobin (HGB) 9.7 g/dL Low [facility] [employer] Phone: Platelets 193 10*3/mm3 Invalid Interpretation Code [place] [employer] Phone: Potassium 3.8 mmol/L Invalid Interpretation Code [facility] [employer] Phone: RDW-CA 17.2 % Invalid Interpretation Code [employer] Phone: Sodium 139 mmol/L Invalid Interpretation Code [place] Phone: WBC (Leukocytes) 23.6 10*3/uL High Isaac [facility] [employer] Phone: Clinical Lists Update: Prelo family reunification specialist 12-31-2014 BUN/Creatinine Ratio 13.8 mg/mg Invalid Interpretation Code [place] [facility] Phone: Calcium 8.5 mg/dL Invalid Interpretation Code [employer] Phone: Creatinine 0.8 mg/dL Invalid Interpretation Code [employer] Phone: Glucose 91 mg/dL Invalid Interpretation Code [employer] Phone: Urea nitrogen 11 mg/dL Invalid Interpretation Code [employer] Phone: Office Visiton 12-28-2011 Documentation of current medications (procedure) Done Invalid Interpretation Code [employer] Phone: Tobacco use [facility] current some day smoker Invalid Interpretation Code [employer] Phone: Replaced Document: [facility] E CG Observationson 12-28-2011 electrocardiogram interpretation Sinus Rhythm WITHIN NORMAL LIMITS Invalid Interpretation Code [employer] Phone: P wave axis, electrocardiogram 42 deg Invalid Interpretation Code [employer] Phone: HI interval, electrocardiogram 150 ms Invalid Interpretation Code [employer] Phone: Pulse (Heart Rate) 401 ms Invalid Interpretation Code [employer] Phone: Pulse (Heart Rate) 79 /min Invalid Interpretation Code [employer] Phone: QRS axis, electrocardiogram 54 deg Invalid Interpretation Code [employer] Phone: QRS duration, electrocardiogram 113 ms Invalid Interpretation Code [employer] Phone: QT interval, electrocardiogram new path ms Invalid Interpretation Code [facility] Work Phone: T wave axis, electrocardiogram 53 deg Invalid Interpretation Code [facility] Work Phone: No Panel Information [facility] Vital Signs Date Time Vital Sign Value Performing Clinician Facility 03-05-2025 10:14-0400 Diastolic blood pressure 72 mm[Hg] Ed Stephenson MD Work Phone: [facility] 03-05-2025 10:14-0400 Heart rate 79 /min Ed Stephenson MD Work Phone: [facility] 03-05-2025 10:14-0400 Respiratory rate 16 /min Ed Stephenson MD Work Phone: [facility] 03-05-2025 10:14-0400 SaO2% (BldA) [Mass fraction] 98 % Ed Stephenson MD Work Phone: [facility] 03-05-2025 10:14-0400 Systolic blood pressure 106 mm[Hg] Ed Stephenson MD Work Phone: [facility] 03-05-2025 09:04-0400 Body mass index (BMI) [Ratio] 27.91 kg/m2 Ed Stephenson MD Work Phone: [facility] 03-05-2025 09:04-0400 Body temperature 97.2 [degF] Ed Stephenson MD Work Phone: [facility] 03-05-2025 09:04-0400 Body weight 67 kg Ed Stephenson MD Work Phone: [facility] 02-20-2025 09:50-0400 Body height 154.9 cm Soledad Garrido APPRENTICE COSMETOLOGIST.TRUCK DRIVING INSTRUCTOR Work Phone: [facility] 02-20-2025 09:50-0400 Body mass index (BMI) [Ratio] 26.87 kg/m2 Soledad Garrido APPRENTICE COSMETOLOGIST.TRUCK DRIVING INSTRUCTOR Work Phone: [facility] 02-20-2025 09:50-0400 Body weight 64.5 kg Soledad Jeromehlhausen APPRENTICE COSMETOLOGIST.TRUCK DRIVING INSTRUCTOR Work Phone: [facility] 02-20-2025 09:50-0400 Diastolic blood pressure 82 mm[Hg] Soledad Bacahausen APPRENTICE COSMETOLOGIST.TRUCK DRIVING INSTRUCTOR Work Phone: [facility] 02-20-2025 09:50-0400 Heart rate 78 /min Soledaderin Bacahausen APPRENTICE COSMETOLOGIST.TRUCK DRIVING INSTRUCTOR Work Phone: [facility] 02-20-2025 09:50-0400 SaO2% (BldA) [Mass fraction] 98 % Soledad Dahlhausen APPRENTICE COSMETOLOGIST.TRUCK DRIVING INSTRUCTOR Work Phone: [facility] 02-20-2025 09:50-0400 Systolic blood pressure 130 mm[Hg] Soledad Bacahausen APPRENTICE COSMETOLOGIST.TRUCK DRIVING INSTRUCTOR Work Phone: [facility] 02-15-2025 15:41-0400 Body height 154.9 cm Payam Miller APPRENTICE COSMETOLOGIST.TRUCK DRIVING INSTRUCTOR Work Phone: [facility] 02-15-2025 15:41-0400 Body mass index (BMI) [Ratio] 27.92 kg/m2 Payam Paul APPRENTICE COSMETOLOGIST.TRUCK DRIVING INSTRUCTOR Work Phone: [facility] 02-15-2025 15:41-0400 Body weight 67 kg Payam Paul APPRENTICE COSMETOLOGIST.TRUCK DRIVING INSTRUCTOR Work Phone: [facility] 02-15-2025 15:41-0400 Diastolic blood pressure 79 mm[Hg] Payam Paul APPRENTICE COSMETOLOGIST.TRUCK DRIVING INSTRUCTOR Work Phone: [facility] 02-15-2025 15:41-0400 Heart rate 82 /min Payam Paul APPRENTICE COSMETOLOGIST.TRUCK DRIVING INSTRUCTOR Work Phone: [facility] 02-15-2025 15:41-0400 Systolic blood pressure 116 mm[Hg] Payam Paul APPRENTICE COSMETOLOGIST.TRUCK DRIVING INSTRUCTOR Work Phone: [facility] 02-08-2025 14:43-0400 Body height 154.9 cm Noa Appiah APPRENTICE COSMETOLOGIST.TRUCK DRIVING INSTRUCTOR Work Phone: [facility] 02-08-2025 14:43-0400 Body mass index (BMI) [Ratio] 26.83 kg/m2 Noa Cardenaster APPRENTICE COSMETOLOGIST.TRUCK DRIVING INSTRUCTOR Work Phone: [facility] 02-08-2025 14:43-0400 Body temperature 97.7 [degF] Noa Cardenaster APPRENTICE COSMETOLOGIST.TRUCK DRIVING INSTRUCTOR Work Phone: [facility] 02-08-2025 14:43-0400 Body weight 64.4 kg Noa Cardenaster APPRENTICE COSMETOLOGIST.TRUCK DRIVING INSTRUCTOR Work Phone: [facility] 02-08-2025 14:43-0400 Diastolic blood pressure 87 mm[Hg] Noa Cardenaster APPRENTICE COSMETOLOGIST.TRUCK DRIVING INSTRUCTOR Work Phone: [facility] 02-08-2025 14:43-0400 Heart rate 75 /min Noa Cardenaster APPRENTICE COSMETOLOGIST.TRUCK DRIVING INSTRUCTOR Work Phone: [facility] 02-08-2025 14:43-0400 SaO2% (BldA) [Mass fraction] 99 % Noa Cardenaster APPRENTICE COSMETOLOGIST.TRUCK DRIVING INSTRUCTOR Work Phone: [facility] 02-08-2025 14:43-0400 Systolic blood pressure 131 mm[Hg] Noa Cardenaster APPRENTICE COSMETOLOGIST.TRUCK DRIVING INSTRUCTOR Work Phone: [facility] 02-03-2025 13:51-0400 Body temperature 97.4 [degF] Dr. Julio Cesar Smith MD Work Phone: [facility] 02-03-2025 13:51-0400 Diastolic blood pressure 84 mm[Hg] Dr. Julio Cesar Smith MD Work Phone: [facility] 02-03-2025 13:51-0400 Heart rate 71 /min Dr. Julio Cesar Smith MD Work Phone: [facility] 02-03-2025 13:51-0400 Respiratory rate 16 /min Dr. Julio Cesar Smith MD Work Phone: [facility] 02-03-2025 13:51-0400 SaO2% (BldA) [Mass fraction] 98 % Dr. Julio Cesar Smith MD Work Phone: [facility] 02-03-2025 13:51-0400 Systolic blood pressure 120 mm[Hg] Dr. Julio Cesar Smith MD Work Phone: [facility] 02-03-2025 12:46-0400 Body height 154.[address] Julio Cesar Smith MD Work Phone: [facility] 02-03-2025 12:46-0400 Body mass index (BMI) [Ratio] 26 kg/m2 Dr. Julio Cesar Smith MD Work Phone: [facility] 02-03-2025 12:46-0400 Body weight 62.[address] Julio Cesar Smith MD Work Phone: [facility] 11-07-2024 13:56-0500 Body mass index (BMI) [Ratio] 27.49 kg/m2 Adela Schuster APPRENTICE COSMETOLOGIST.TRUCK DRIVING INSTRUCTOR Work Phone: [facility] 11-07-2024 13:56-0500 Body temperature 97 [degF] Adela Schuster APPRENTICE COSMETOLOGIST.TRUCK DRIVING INSTRUCTOR Work Phone: [facility] 11-07-2024 13:56-0500 Body weight 66 kg Adela Schuster APPRENTICE COSMETOLOGIST.TRUCK DRIVING INSTRUCTOR Work Phone: [facility] 11-07-2024 13:56-0500 Diastolic blood pressure 58 mm[Hg] Adela Schuster APPRENTICE COSMETOLOGIST.TRUCK DRIVING INSTRUCTOR Work Phone: [facility] 11-07-2024 13:56-0500 Heart rate 76 /min Adela Schuster APPRENTICE COSMETOLOGIST.TRUCK DRIVING INSTRUCTOR Work Phone: [facility] 11-07-2024 13:56-0500 Respiratory rate 22 /min Adela Schuster APPRENTICE COSMETOLOGIST.TRUCK DRIVING INSTRUCTOR Work Phone: [facility] 11-07-2024 13:56-0500 SaO2% (BldA) [Mass fraction] 99 % Adela Schuster APPRENTICE COSMETOLOGIST.TRUCK DRIVING INSTRUCTOR Work Phone: [facility] 11-07-2024 13:56-0500 Systolic blood pressure 122 mm[Hg] Adela Schuster MIGUEL ANGEL Work Phone: [facility] 07-10-2024 16:03-0400 Body height 154.9 cm Robinson Smith MD Work Phone: [facility] 07-10-2024 16:03-0400 Body mass index (BMI) [Ratio] 27.49 kg/m2 Robinson Smith MD Work Phone: [facility] 07-10-2024 16:03-0400 Body temperature 97.81 [degF] Robinson Smith MD Work Phone: [facility] 07-10-2024 16:03-0400 Body weight 66 kg Robinson Smith MD Work Phone: [facility] 07-10-2024 16:03-0400 Diastolic blood pressure 78 mm[Hg] Robinson Smith MD Work Phone: [facility] 07-10-2024 16:03-0400 Heart rate 77 /min Robinson Smith MD Work Phone: [facility] 07-10-2024 16:03-0400 SaO2% (BldA) [Mass fraction] 99 % Robinson Smith MD Work Phone: [facility] 07-10-2024 16:03-0400 Systolic blood pressure 114 mm[Hg] Robinson Smith MD Work Phone: [facility] 07-07-2024 14:16-0400 Body mass index (BMI) [Ratio] 27.24 kg/m2 José Luis Soria PA Work Phone: [facility] 07-07-2024 14:16-0400 Body temperature 97.9 [degF] José Luis Soria PA Work Phone: [facility] 07-07-2024 14:16-0400 Body weight 65.4 kg José Luis Ablouise PA Work Phone: [facility] 07-07-2024 14:16-0400 Diastolic blood pressure 74 mm[Hg] Krislyn Aberegg PA Work Phone: [facility] 07-07-2024 14:16-0400 Heart rate 71 /min Krislyn Aberegg PA Work Phone: [facility] 07-07-2024 14:16-0400 Respiratory rate 18 /min Krislyn Aberegg PA Work Phone: [facility] 07-07-2024 14:16-0400 SaO2% (BldA) [Mass fraction] 99 % Krislyn Aberegg PA Work Phone: [facility] 07-07-2024 14:16-0400 Systolic blood pressure 120 mm[Hg] Krislyn Aberegg PA Work Phone: [facility] 01-23-2024 01:54-0400 Body temperature 97.1 [degF] [facility] 01-23-2024 01:54-0400 Diastolic blood pressure 81 mm[Hg] [facility] 01-23-2024 01:54-0400 Heart rate 73 /min [facility] 01-23-2024 01:54-0400 Respiratory rate 16 /min [facility] 01-23-2024 01:54-0400 SaO2% (BldA) [Mass fraction] 96 % [facility] 01-23-2024 01:54-0400 Systolic blood pressure 118 mm[Hg] [facility] 01-23-2024 00:14-0400 Body height 154.94 cm [facility] 01-23-2024 00:14-0400 Body mass index (BMI) [Ratio] 29.9 kg/m2 [facility] 01-23-2024 00:14-0400 Body weight 71.9 kg [facility] 01-03-2024 15:42-0500 Body height 154.9 cm Robinson Smith MD Work Phone: [facility] 01-03-2024 15:42-0500 Body weight 71 kg Robinson Smith MD Work Phone: [facility] 01-03-2024 15:42-0500 Diastolic blood pressure 68 mm[Hg] Robinson Smith MD Work Phone: [facility] 01-03-2024 15:42-0500 Heart rate 82 /min Robinson Smith MD Work Phone: [facility] 01-03-2024 15:42-0500 SaO2% (BldA) [Mass fraction] 98 % Robinson Smith MD Work Phone: [facility] 01-03-2024 15:42-0500 Systolic blood pressure 101 mm[Hg] Robinson Smith MD Work Phone: [facility] 01-01-2024 11:13-0500 Body temperature 96.5 [degF] [facility] 01-01-2024 11:13-0500 Diastolic blood pressure 81 mm[Hg] [facility] 01-01-2024 11:13-0500 Heart rate 66 /min [facility] 01-01-2024 11:13-0500 Respiratory rate 16 /min [facility] 01-01-2024 11:13-0500 SaO2% (BldA) [Mass fraction] 96 % [facility] 01-01-2024 11:13-0500 Systolic blood pressure 113 mm[Hg] [facility] 01-01-2024 09:28-0500 Body height 154.94 cm [facility] 01-01-2024 09:28-0500 Body mass index (BMI) [Ratio] 30.1 kg/m2 [facility] 01-01-2024 09:28-0500 Body weight 72.25 kg [facility] 12-31-2023 10:20-0500 Body temperature 97.81 [degF] Hunter Ramos APRN.TRUCK DRIVING INSTRUCTOR Work Phone: [facility] 12-31-2023 10:20-0500 Body weight 73.03 kg Hunter Ramos APRN.TRUCK DRIVING INSTRUCTOR Work Phone: [facility] 12-31-2023 10:20-0500 Diastolic blood pressure 61 mm[Hg] Hunter Richard APPRENTICE COSMETOLOGIST.TRUCK DRIVING INSTRUCTOR Work Phone: [facility] 12-31-2023 10:20-0500 Heart rate 68 /min Hunter Ramos APPRENTICE COSMETOLOGIST.TRUCK DRIVING INSTRUCTOR Work Phone: [facility] 12-31-2023 10:20-0500 Respiratory rate 18 /min Hunter Ramos APPRENTICE COSMETOLOGIST.TRUCK DRIVING INSTRUCTOR Work Phone: [facility] 12-31-2023 10:20-0500 SaO2% (BldA) [Mass fraction] 100 % Hunter Ramos APPRENTICE COSMETOLOGIST.TRUCK DRIVING INSTRUCTOR Work Phone: [facility] 12-31-2023 10:20-0500 Systolic blood pressure 113 mm[Hg] Hunter Ramos APPRENTICE COSMETOLOGIST.TRUCK DRIVING INSTRUCTOR Work Phone: [facility] 11-24-2023 19:47-0500 Body height 154.94 cm [facility] 11-24-2023 19:47-0500 Body mass index (BMI) [Ratio] 30.2 kg/m2 [facility] 11-24-2023 19:47-0500 Body temperature 98.1 [degF] [facility] 11-24-2023 19:47-0500 Body weight 72.57 kg [facility] 11-24-2023 19:47-0500 Diastolic blood pressure 89 mm[Hg] [facility] 11-24-2023 19:47-0500 Heart rate 92 /min [facility] 11-24-2023 19:47-0500 Respiratory rate 16 /min [facility] 11-24-2023 19:47-0500 SaO2% (BldA) [Mass fraction] 100 % [facility] 11-24-2023 19:47-0500 Systolic blood pressure 123 mm[Hg] [facility] 05-18-2023 14:51-0400 Body weight 73.03 kg Bethany Osuna MD Work Phone: [facility] 05-18-2023 14:51-0400 Diastolic blood pressure 81 mm[Hg] Bethany Osuna MD Work Phone: [facility] 05-18-2023 14:51-0400 Heart rate 88 /min Bethany Osuna MD Work Phone: [facility] 05-18-2023 14:51-0400 SaO2% (BldA) [Mass fraction] 97 % Bethany Osuna MD Work Phone: [facility] 05-18-2023 14:51-0400 Systolic blood pressure 122 mm[Hg] Bethany Osuna MD Work Phone: [facility] 04-28-2023 18:46-0400 Diastolic blood pressure 74 mm[Hg] [facility] 04-28-2023 18:46-0400 Heart rate 75 /min [facility] 04-28-2023 18:46-0400 Respiratory rate 20 /min [facility] 04-28-2023 18:46-0400 SaO2% (BldA) [Mass fraction] 100 % [facility] 04-28-2023 18:46-0400 Systolic blood pressure 126 mm[Hg] [facility] 04-28-2023 15:53-0400 Body height 154.94 cm [facility] 04-28-2023 15:53-0400 Body mass index (BMI) [Ratio] 31.4 kg/m2 [facility] 04-28-2023 15:53-0400 Body temperature 97.8 [degF] [facility] 04-28-2023 15:53-0400 Body weight 75.38 kg [facility] 04-28-2023 15:26-0400 Body temperature 98.2 [degF] Jaclyn Ramos APRN.TRUCK DRIVING INSTRUCTOR Work Phone: [facility] 04-28-2023 15:26-0400 Body weight 75.3 kg Jaclyn Ramos APRN.TRUCK DRIVING INSTRUCTOR Work Phone: [facility] 04-28-2023 15:26-0400 Diastolic blood pressure 80 mm[Hg] Jaclyn Ramos APRN.TRUCK DRIVING INSTRUCTOR Work Phone: [facility] 04-28-2023 15:26-0400 Heart rate 80 /min Jaclyn Ramos APRN.TRUCK DRIVING INSTRUCTOR Work Phone: [facility] 04-28-2023 15:26-0400 Respiratory rate 18 /min Jaclyn Ramos APRN.TRUCK DRIVING INSTRUCTOR Work Phone: [facility] 04-28-2023 15:26-0400 SaO2% (BldA) [Mass fraction] 100 % Jaclyn Ramos APRN.TRUCK DRIVING INSTRUCTOR Work Phone: [facility] 04-28-2023 15:26-0400 Systolic blood pressure 122 mm[Hg] Jaclyn Ramos APRN.TRUCK DRIVING INSTRUCTOR Work Phone: [facility] 09-18-2022 12:01-0500 Diastolic blood pressure 73 mm[Hg] [facility] Work Phone: 09-18-2022 12:01-0500 Heart rate 71 /min [facility] Work Phone: 09-18-2022 12:01-0500 Respiratory rate 16 /min [facility] Work Phone: 09-18-2022 12:01-0500 SaO2% (BldA) [Mass fraction] 100 % [facility] Work Phone: 09-18-2022 12:01-0500 Systolic blood pressure 109 mm[Hg] [facility] Work Phone: 09-18-2022 10:50-0500 Body temperature 97.9 [degF] [facility] Work Phone: 09-18-2022 09:48-0500 Body height 154.94 cm [facility] Work Phone: 09-18-2022 09:48-0500 Body mass index (BMI) [Ratio] 29.5 kg/m2 [facility] Work Phone: 09-18-2022 09:48-0500 Body weight 70.76 kg [facility] Work Phone: 07-19-2022 23:11-0400 Diastolic blood pressure 68 mm[Hg] [facility] Work Phone: 07-19-2022 23:11-0400 Heart rate 79 /min [facility] Work Phone: 07-19-2022 23:11-0400 Respiratory rate 16 /min [facility] Work Phone: 07-19-2022 23:11-0400 SaO2% (BldA) [Mass fraction] 95 % [facility] Work Phone: 07-19-2022 23:11-0400 Systolic blood pressure 120 mm[Hg] [facility] Work Phone: 07-19-2022 19:59-0400 Body height 154.94 cm [facility] Work Phone: 07-19-2022 19:59-0400 Body mass index (BMI) [Ratio] 26.4 kg/m2 [facility] Work Phone: 07-19-2022 19:59-0400 Body temperature 98.2 [degF] [facility] Work Phone: 07-19-2022 19:59-0400 Body weight 63.5 kg [facility] Work Phone: 07-15-2022 11:39-0400 Body temperature 97.9 [degF] Jaclyn Ramos APRN.TRUCK DRIVING INSTRUCTOR Work Phone: [facility] 07-15-2022 11:39-0400 Body weight 63.5 kg Jaclyn Ramos APRN.TRUCK DRIVING INSTRUCTOR Work Phone: [facility] 07-15-2022 11:39-0400 Diastolic blood pressure 60 mm[Hg] Jaclyn Ramos APRN.TRUCK DRIVING INSTRUCTOR Work Phone: [facility] 07-15-2022 11:39-0400 Heart rate 92 /min Jaclyn Ramos APRN.TRUCK DRIVING INSTRUCTOR Work Phone: [facility] 07-15-2022 11:39-0400 Respiratory rate 16 /min Jaclyn Ramos APRN.TRUCK DRIVING INSTRUCTOR Work Phone: [facility] 07-15-2022 11:39-0400 SaO2% (BldA) [Mass fraction] 100 % Jaclyn Ramos APRN.TRUCK DRIVING INSTRUCTOR Work Phone: [facility] 07-15-2022 11:39-0400 Systolic blood pressure 102 mm[Hg] Jaclyn Ramos APRN.TRUCK DRIVING INSTRUCTOR Work Phone: [facility] 04-10-2022 14:22-0400 Body height 153 cm Bethany Ousna MD Work Phone: [facility] 04-10-2022 14:22-0400 Body weight 57.15 kg Bethany Osuna MD Work Phone: [facility] 04-10-2022 14:22-0400 Diastolic blood pressure 80 mm[Hg] Bethany Osuna MD Work Phone: [facility] 04-10-2022 14:22-0400 Heart rate 90 /min Bethany Osuna MD Work Phone: [facility] 04-10-2022 14:22-0400 SaO2% (BldA) [Mass fraction] 96 % Bethany Osuna MD Work Phone: [facility] 04-10-2022 14:22-0400 Systolic blood pressure 112 mm[Hg] Bethany Osuna MD Work Phone: [facility] 03-25-2022 09:43-0400 Body height 154.9 cm Payam Lombardo APRN.TRUCK DRIVING INSTRUCTOR Work Phone: [facility] 03-25-2022 09:43-0400 Body weight 58.11 kg Payam Lombardo APRN.TRUCK DRIVING INSTRUCTOR Work Phone: [facility] 03-25-2022 09:43-0400 Diastolic blood pressure 45 mm[Hg] Payam Lombardo APRN.CNP Work Phone: [facility] 03-25-2022 09:43-0400 Heart rate 76 /min Payam Lombardo APRN.TRUCK DRIVING INSTRUCTOR Work Phone: [facility] 03-25-2022 09:43-0400 Systolic blood pressure 107 mm[Hg] Payam Lombardo APPRENTICE COSMETOLOGIST.TRUCK DRIVING INSTRUCTOR Work Phone: [facility] 12-28-2011 08:52-0500 BMI (Body Mass Index) 24.14 kg/m2 [facility] Work Phone: 12-28-2011 08:52-0500 BP Diastolic 70 mm[Hg] [facility] Work Phone: 12-28-2011 08:52-0500 BP Systolic 106 mm[Hg] [facility] Work Phone: 12-28-2011 08:52-0500 Height 154.94 cm [facility] Work Phone: 12-28-2011 08:52-0500 Pulse (Heart Rate) 80 /min [facility] Work Phone: 12-28-2011 08:52-0500 Respiratory Rate 16 /min [facility] Work Phone: 12-28-2011 08:52-0500 Weight 57.74 kg [facility] Work Phone: Encounters Encounter Date Encounter Type Care Provider Facility Start: 06-05-2025 End: 06-05-2025 ambulatory ROBINSON SMITH Facility:[facility] Start: 05-29-2025 End: 05-30-2025 Refill Robinson Smith MD Work Phone: Family Practice Comment on above: Refill Request Start: 05-25-2025 End: 05-25-2025 Refill Soledad Garrido APRN.TRUCK DRIVING INSTRUCTOR Work Phone: Neurology Comment on above: Refill Request Start: 05-15-2025 End: 05-15-2025 Emergency department patient visit GIA YELENA TITUS [facility] Start: 03-27-2025 End: 05-27-2025 Follow-up encounter Soledad Garrido APRN.CNP Work Phone: Neurology Start: 03-12-2025 End: 03-13-2025 ambulatory ROBINSON SMITH Facility:[facility] Start: 03-09-2025 End: 03-12-2025 [facility] Work Phone: Neurology Start: 03-06-2025 End: 05-06-2025 Follow-up encounter Soledad Garrido APRN.CNP Work Phone: Neurology Start: 03-06-2025 ambulatory ROBINSON Garnica ty:[facility] Start: 03-06-2025 End: 03-06-2025 Subsequent hospital visit by physician [facility] (I-Stat/1.5t) Work Phone: Radiology Comment on above: Migraine with aura a nd without status migrainosus, not intractable [G43.109] Start: 03-05-2025 End: 05-05-2025 Follow-up encounter Payam Miller APRN.CNP Work Phone: Family Practice Start: 03-05-2025 ambulatory ROBINSON Garnica ty:[facility] Start: 03-05-2025 End: 03-05-2025 Subsequent hospital visit by physician Ed Stephenson MD Work Phone: Ambulatory Surgery Comment on above: Family history of co sammi cancer in mother [Z80.0] Start: 02-20-2025 End: 02-20-2025 Patient encounter procedure Soledad Garrido APRN.CNP Work Phone: Neurology Comment on above: Migraine with aura a nd without status migrainosus, not intractable (Primary Dx); Headache, unspecified headache type; Sleep apnea-like behavior; Neck pain Refill Request Start: 02-20-2025 End: 02-20-2025 ambulatory SOLEDAD GARRIDO Facility:[facility] Start: 02-15-2025 End: 02-15-2025 Office outpatient visit 25 minutes Payam Miller APPRENTICE COSMETOLOGIST.TRUCK DRIVING INSTRUCTOR Work Phone: [facility] Comment on above: Left lower quadrant abdominal pain (Primary Dx); Neck pain on right side; Bilateral hand numbness; Other migraine without status migrainosus, not intractable; Family history of colon cancer in mother; Screening for colon cancer Start: 02-15-2025 End: 02-15-2025 ambulatory SELF Facility:[facility] Start: 02-14-2025 End: 04-16-2025 Follow-up encounter Payam Miller APPRENTICE COSMETOLOGIST.TRUCK DRIVING INSTRUCTOR Work Phone: [facility] Start: 02-13-2025 End: 02-13-2025 ambulatory ROBINSON SMITH Facility:[facility] Start: 02-08-2025 End: 02-08-2025 Subsequent hospital visit by physician [facility] Martha Work Phone: Radiology Comment on above: Neck pain [M54.2] Start: 02-08-2025 End: 02-08-2025 Office outpatient visit 25 minutes Noa Appiah APPRENTICE COSMETOLOGIST.TRUCK DRIVING INSTRUCTOR Work Phone: [facility] Comment on above: Headache, unspecifie d headache type (Primary Dx); Neck pain Start: 02-08-2025 End: 02-08-2025 ambulatory Deepa Berrios RN [employer]SE [employer] Start: 02-08-2025 End: 02-08-2025 Patient encounter procedure Deepa Berrios RN [employer]SE [employer] Comment on above: Appointment Start: 02-06-2025 End: 02-09-2025 ambulatory Robinson Smith MD Work Phone: Internal Medicine Main [facility] Start: 02-05-2025 End: 02-05-2025 Telephone encounter Robinson Smith MD Work Phone: [facility] Comment on above: Received Outside Med [facility] Records ([facility] ER) Start: 02-03-2025 End: 02-03-2025 Emergency department patient visit Dr. Julio Cesar Smith MD Work Phone: -Emergency Department Work Phone: Start: 11-08-2024 End: 11-09-2024 Telephone encounter Jaclyn Ramos APRN.TRUCK DRIVING INSTRUCTOR Work Phone: [facility] Comment on above: Results Start: 11-07-2024 End: 11-07-2024 Subsequent hospital visit by physician Donita [facility] Martha Work Phone: Radiology Comment on above: Acute cough [R05.1] Start: 11-07-2024 End: 11-07-2024 ambulatory ROBINSON SMITH Facility:[facility] Start: 11-07-2024 End: 11-07-2024 Patient encounter procedure Adela Schuster LIBRA.TRUCK DRIVING INSTRUCTOR Work Phone: [facility] Comment on above: Acute cough (Primary Dx); Exposure to pertussis; URI, acute Start: 10-20-2024 End: 10-20-2024 Refill Robinson Smith MD Work Phone: [facility] Comment on above: Refill Request Start: 10-04-2024 End: 10-09-2024 ambulatory Robinson Smith MD Work Phone: Internal Medicine [place] [address] Start: 09-01-2024 End: 09-19-2024 Refill Robinson Smith MD Work Phone: [facility] Comment on above: Refill Request Start: 08-15-2024 End: 08-15-2024 Refill Robinson Smith MD Work Phone: [facility] Comment on above: Refill Request Start: 07-10-2024 End: 07-10-2024 ambulatory ROBINSON SMITH Facility:[facility] Start: 07-10-2024 End: 07-10-2024 Patient encounter procedure Robinson Simth MD Work Phone: [facility] Comment on above: Tonsil pain (Primary Dx); Chronic systolic congestive heart failure (HCC); Seizures (HCC); History of bacterial endocarditis Start: 07-07-2024 End: 07-07-2024 ambulatory ROBINSON SMITH Facility:[facility] Start: 07-07-2024 End: 07-07-2024 Patient encounter procedure José Luis AGUILAR Work Phone: [facility] Comment on above: Sore throat (Primary Dx) Start: 06-22-2024 End: 06-22-2024 Refill Robinson Smith MD Work Phone: [facility] Comment on above: Refill Request Received Outside Med ical Records ([facility] ED 06/22/24) Start: 06-22-2024 End: 06-22-2024 Emergency department patient visit [facility] Facility:[facility] Start: 05-15-2024 Refill Robinson miller MD Work Phone: [facility] Comment on above: Refill Request Start: 01-24-2024 Telephone encounter Robinson Smith MD Work Phone: [facility] Comment on above: Received Outside Med ical Records ([facility] ED 01/23/24) Start: 01-23-2024 End: 01-23-2024 Emergency department patient visit [facility]Emer[facility] Work Phone: Start: 01-03-2024 End: 01-03-2024 Patient encounter procedure Robinson Smith MD Work Phone: [facility] Comment on above: Facial abscess (Prim lorraine Dx); Adjustment disorder with mixed anxiety and depressed mood; SVT (supraventricular tachycardia) (HCC) Start: 01-01-2024 End: 01-01-2024 Emergency department patient visit [facility]Emer[facility] Work Phone: Start: 12-31-2023 End: 12-31-2023 Patient encounter procedure Hunter Ramos APRN.CNP Work Phone: [facility] Comment on above: Facial infection (Pr imary Dx) Start: 11-24-2023 End: 11-24-2023 Emergency department patient visit [facility]Emer[facility] Work Phone: Start: 06-14-2023 End: 06-14-2023 Subsequent hospital visit by physician [facility] Work Phone: Radiology Comment on above: Acute right ankle pa in [M25.571] Start: 05-18-2023 End: 05-18-2023 ambulatory BETHANY OSUNA Facility:[place] [facility] Start: 05-18-2023 End: 05-18-2023 Patient encounter procedure Bethany Osuna MD Work Phone: [facility] Cardiology [place] Comment on above: PAC (premature atria l contraction) (Primary Dx) Start: 04-29-2023 Telephone encounter Robinson Smith MD Work Phone: [facility] Comment on above: Received Outside Med ical Records ([facility] ED 04/28/23 ) Start: 04-28-2023 End: 04-28-2023 Emergency department patient visit [facility]Emergency [facility] Work Phone: Start: 04-28-2023 End: 04-28-2023 Patient encounter procedure Jaclyn Ramos APRN.TRUCK DRIVING INSTRUCTOR Work Phone: [facility] Comment on above: Chest discomfort (Pr imary Dx) Start: 11-11-2022 ambulatory Robinson miller MD Work Phone: Internal Medicine Main Black Start: 09-18-2022 Telephone encounter Robinson Smith MD Work Phone: [facility] Comment on above: Received Outside Med ical Records ([facility] CT abdomen/ pelvis without contrast 09/18/2022) Received Outside Med ical Records ([facility] Emergency Depart Summary 09/16/2022) Received Outside Med ical Records Start: 09-18-2022 End: 09-18-2022 Emergency department patient visit [facility]Emergency Department Start: 07-19-2022 End: 07-19-2022 Emergency department patient visit [facility]Emergency Department Start: 07-15-2022 End: 07-15-2022 Patient encounter procedure Jaclyn Ramos APRN.TRUCK DRIVING INSTRUCTOR Work Phone: [facility] Comment on above: Sore throat (Primary Dx); At increased risk of exposure to COVID-19 virus Start: 04-21-2022 Refill Robinson miller MD Work Phone: [facility] Comment on above: Refill Request Start: 04-10-2022 End: 04-10-2022 Patient encounter procedure Bethany Osuna MD Work Phone: [facility] [place] Comment on above: SVT (supraventricula r tachycardia) (HCC) (Primary Dx) Start: 03-25-2022 Telephone encounter Nisreen Hanley rafa APPRENTICE COSMETOLOGIST.TRUCK DRIVING INSTRUCTOR Work Phone: [facility] Comment on above: Patient Update Start: 03-25-2022 End: 03-25-2022 Patient encounter procedure Payam Lombardo APPRENTICE COSMETOLOGIST.TRUCK DRIVING INSTRUCTOR Work Phone: [facility] Comment on above: SVT (supraventricula r tachycardia) (HCC) (Primary Dx); DEON (generalized anxiety disorder); Depression, unspecified depression type Start: 03-04-2022 Telephone encounter Robinson Smith MD Work Phone: [facility] Comment on above: Received Outside Med [facility] Records (Cardiac Testing Dept [facility] ) Start: 02-13-2022 Patient Outreach Andre maldonado RN Work Phone: [employer] Comment on above: Transition Of Care ( [facility] initial outreach- discharge 02/11) Start: 02-12-2022 Patient Outreach Treasure Reid RN [facility] Care Management Comment on above: Transition Of Care ( [facility] discharge 02-11-22- initial outreach ) Start: 12-15-2021 Telephone encounter Robinson Smith MD Work Phone: [facility] Comment on above: Opened In Error Start: 07-04-2021 End: 07-04-2021 Subsequent hospital visit by physician 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 Work Phone: [facility] Procedures Date Procedure Procedure Detail Performing Clinician Start: 03-06-2025 Mri brain brain stem w/o w/contrast material Soledad Garrido APPRENTICE COSMETOLOGIST.TRUCK DRIVING INSTRUCTOR Work Phone: Start: 03-05-2025 Colonoscopy flx dx w/collj spec when pfrmd Payam Miller APPRENTICE COSMETOLOGIST.TRUCK DRIVING INSTRUCTOR Work Phone: Start: 03-05-2025 Colonoscopy Sleep Main Work Phone: Start: 11-07-2024 Radiologic exam ches t 2 views Adela Schuster APPRENTICE COSMETOLOGIST.TRUCK DRIVING INSTRUCTOR Work Phone: Start: 07-07-2024 STREP A MOLECULAR (POC) José Luis AGUILAR Work Phone: Start: 06-14-2023 Radiologic examinati on tibia & fibula 2 views Juan Mathis MD Work Phone: Start: 05-18-2023 Ecg routine ecg w/le ast 12 lds w/i&r Bethany Osuna MD Work Phone: Start: 04-28-2023 CT angiography of ch est with contrast Start: 04-28-2023 Plain chest X-ray Start: 09-18-2022 CT of abdomen and pe lvis without contrast Start: 07-19-2022 CT of abdomen and pe lvis without contrast Start: 07-15-2022 STREP A MOLECULAR (POC) Jaclyn Ramos APPRENTICE COSMETOLOGIST.TRUCK DRIVING INSTRUCTOR Work Phone: Start: 04-10-2022 Ecg routine ecg w/le ast 12 lds w/i&r Bethany Osuna MD Work Phone: Start: 07-04-2021 Hemoglobin glycosyla kayden a1c Cirobobbi Tinsley Cain APPRENTICE COSMETOLOGIST - TRUCK DRIVING INSTRUCTOR Work Phone: Start: 12-28-2011 End: 12-28-2011 Electrocardiogram, complete Jose Maldonado MD Start: 12-28-2011 End: 12-28-2011 Follow Up Appt 3 months Jose Maldonado MD Plan of Treatment Date Care Activity Detail Author Start: 03-05-2030 Screening for malign ant neoplasm of colon [facility] Start: 02-15-2026 Annual PCP Team Playroom Attendant augustine Disease Visit Annual PCP Team Chronic Disease Visit [facility] Start: 02-08-2026 Annual PCP Team Playroom Attendant augustine Disease Visit Annual PCP Team Chronic Disease Visit [facility] Start: 07-10-2025 Annual PCP Team Playroom Attendant augustine Disease Visit Annual PCP Team Chronic Disease Visit [facility] Start: 07-02-2025 Influenza vaccination C [facility] Start: 03-15-2025 End: 03-15-2025 Follow-up encounter 03/15/2025 10:00 AM EDT [facility] Neurology [address] [id number] Soledad Garrido, APPRENTICE COSMETOLOGIST.TRUCK DRIVING INSTRUCTOR [address] [address] follow up - review MRI results Neurology Comment on above: follow up - review M RI results Start: 03-14-2025 End: 03-14-2025 ambulatory 03/14/2025 10:45 AM EDT OT/PT/Speech Visit [facility] [address] [place] [address] Timothy Soler, PT [address] [place] [address] Sleep apnea-like behavior [G47.39] [facility] Comment on above: Sleep apnea-like beh avior [G47.39] Start: 03-13-2025 End: 03-13-2025 Patient encounter procedure Neurology Comment on above: Sleep apnea-like beh avior [G47.39] Sleep apnea-like beh avior Start: 03-13-2025 End: 03-13-2025 Admission to same day surgery center 03/13/2025 8:30 AM EDT [facility] General Surgery [address], [place] [id number] Maude Olsen, APPRENTICE COSMETOLOGIST.TRUCK DRIVING INSTRUCTOR [address] [place] [address] FU: Colonoscopy with path 03/05/2025. Surg hx updated. [facility] General Surgery Comment on above: FU: Colonoscopy with path 03/05/2025. Surg hx updated. [facility] Start: 03-13-2025 End: 03-13-2025 Follow-up encounter 03/13/2025 8:30 AM EDT [facility] General Surgery [address] [place] [address] Maude Olsen APRN.TRUCK DRIVING INSTRUCTOR [address] [place] [address] 03-05 colonoscopy follow up General Surgery Comment on above: 03-05 colonoscopy fo llow up VV Start: 03-06-2025 End: 03-06-2025 ambulatory 03/06/2025 1:15 PM EDT OT/PT/Speech Visit [facility] [address] [place] [address] Clarence Snowden, PT [address] [place] [address] Sleep apnea-like behavior [G47.39] [facility] Comment on above: Sleep apnea-like beh avior [G47.39] Start: 03-06-2025 End: 03-06-2025 Patient encounter procedure 03/06/2025 12:30 PM EDT Appointment Radiology [address] [place] [address] Sleep apnea-like behavior [G47.39] Radiology Comment on above: Sleep apnea-like beh avior [G47.39] Start: 03-05-2025 End: 03-05-2025 Patient encounter procedure 03/05/2025 10:15 AM EDT Appointment Ambulatory Surgery [address] [place] [address] Ed Stephenson MD [address] [place] [address] Family history of colon cancer in mother [Z80.0]; Screening for colon cancer [Z12.11] Ambulatory Surgery Comment on above: Family history of co sammi cancer in mother [Z80.0]; Screening for colon cancer [Z12.11] Start: 02-21-2025 End: 02-21-2025 Patient encounter procedure 02/21/2025 3:00 PM EDT Office Visit Family Practice [address] [place], [place] [id number] Robinson Smith MD [address] [place], [place] [address] migraine headaches Family Practice Comment on above: migraine headaches Start: 02-20-2025 End: 02-20-2025 Patient encounter procedure 02/20/2025 10:00 AM EDT Office Visit Neurology [address] [id number] Soledad Garrido APRN.TRUCK DRIVING INSTRUCTOR [address] [address] Headache, unspecified headache type Neurology Comment on above: Headache, unspecifie d headache type Start: 02-15-2025 End: 02-15-2025 Patient encounter procedure 02/15/2025 10:00 AM EDT Office Visit Family Practice [address] [place], [place] [id number] Payam Miller, LIBRA.TRUCK DRIVING INSTRUCTOR [address] [place] [address] one week Folllow up/headache Family Practice Comment on above: one week Folllow up/ headache Start: 02-06-2025 End: 05-08-2025 Basic metabolic 2000 panel - Serum or Plasma BASIC METABOLIC PANEL Lab Routine Chronic systolic congestive heart failure (HCC) Expected: 02/06/2025, Expires: 05/08/2025 [facility] Work Phone: Comment on above: Expected: 02/06/2025 , Expires: 05/08/2025 Start: 02-03-2025 [facility] Start: 11-07-2024 End: 02-06-2025 Bordetella pertussis and Bordetella parapertussis DNA panel - Nasopharynx BORDETELLA PERTUSSIS AND PARAPERTUSSIS DNA, NAAT, NASOPHARYNGEAL SWAB Lab Routine Acute cough Exposure to pertussis Expected: 11/07/2024, Expires: 02/06/2025 [facility] Work Phone: Comment on above: Expected: 11/07/2024 , Expires: 02/06/2025 Start: 07-02-2024 Covid-19 Vaccine () Covid-19 Vaccine () [facility] Start: 07-02-2024 Covid-19 Vaccine () Covid-19 Vaccine () [facility] Start: 07-02-2024 Influenza vaccination Influenza Vacc ine (#1) [facility] Start: 01-23-2024 [facility] Start: 01-01-2024 [facility] Start: 11-24-2023 [facility] Start: 07-02-2023 Covid-19 Vaccine () Covid-19 Vaccine () [facility] Start: 07-02-2023 Influenza vaccination [facility] Start: 12-15-2022 COVID-19 VACCINE (3 - Booster for Pfizer series) COVID-19 VACCINE (3 - Booster for Pfizer series) [facility] Comment on above: Postponed from 10/30 (Declined at this time) Postponed from 07/25 (Declined at this time) Start: 12-15-2022 PNEUMOCOCCAL (2 - PCV) PNEUMOCOCCAL (2 - PCV) [facility] Start: 12-15-2022 Pneumococcal vaccination Pneum ococcal Vaccine (2 of 2 - PCV) [facility] Start: 12-15-2022 Urine microalbumin profile DTAP,TDAP ,TD (1 - Tdap) [facility] Comment on above: Postponed from 10/25 (Declined at this time) Start: 07-15-2022 End: 07-29-2022 Influenza virus A and B RNA and SARS-CoV-2 (COVID-19) N gene panel - Respiratory specimen by DAVID with probe detection COVID WITH FLUA+B, ROUTINE Microbiology Routine Sore throat At increased risk of exposure to COVID-19 virus Expected: 07/15/2022, Expires: 07/29/2022 [facility] Work Phone: Comment on above: Expected: 07/15/2022 , Expires: 07/29/2022 Start: 07-02-2022 Influenza vaccination INFLUENZA (#1) [facility] Start: 2021 Mammography MAMMOGRAM [facility] Start: 2021 Screening for malign ant neoplasm of breast Mammogram Screening [facility] Start: 07-25-2021 COVID-19 VACCINE (3 - Booster for Pfizer series) COVID-19 VACCINE (3 - Booster for Pfizer series) [facility] Start: 07-25-2021 COVID-19 VACCINE (3 - Pfizer series) COVID-19 VACCINE (3 - Pfizer series) [facility] Start: 07-02-2021 Influenza vaccination Flu vaccine (# 1) [facility] Work Phone: Start: 03-09-2018 HPV TESTING HPV TESTING [facility] Start: 03-09-2018 PAP TESTING PAP TESTING [facility] Start: 03-09-2018 Screening for malign ant neoplasm of cervix [facility] Start: 12-28-2011 End: 12-28-2011 *BMP *BMP [facility] Work Phone: Start: 12-28-2011 End: 12-28-2011 *CBC with Differential *CBC with Differential [facility] Phone: Start: 12-28-2011 End: 12-28-2011 *Hepatic Function Panel *Hepatic Function Panel [facility] Work Phone: Start: 12-28-2011 End: 12-28-2011 Chest x-ray X-Ray, Chest, PA & Lateral [facility] Phone: Start: 12-28-2011 End: 12-28-2011 Echocardiography Echocardiogram (complete) [facility] Phone: Start: 12-28-2011 End: 12-28-2011 Electrocardiogram, complete EKG (In office) [facility] Phone: Start: 12-28-2011 End: 12-28-2011 Follow Up Appt 3 months Follow Up Appt 3 months Martha zuniga [facility] Work Phone: Start: 12-28-2011 End: 12-28-2011 Lipid panel [AGGREGATE] *Lipid Profile [facility] Phone: Start: 12-28-2011 End: 12-28-2011 Pulmonary Fuction Test - complete Pulmonary Fuction Test - complete [facility] Phone: Start: 12-28-2011 End: 12-28-2011 Thyroid stimulating hormone (TSH) *TSH [facility] Phone: Start: 12-28-2011 End: 12-28-2011 Thyroxine (T4) *T4 (Total) [facility] Phone: Start: 12-28-2011 End: 12-28-2011 Tilt table evaluation Tilt Table Test [facility] Phone: Start: 2002 Screening for malign ant neoplasm of cervix Cervical cancer screen [facility] Work Phone: Start: 2000 DTaP/Tdap/Td vaccine (1 - Tdap) DTaP/Tdap/Td vaccine (1 - Tdap) [facility] Work Phone: Start: 2000 Hepatitis B Vaccine (1 of 3 - 19+ 3-dose series) Hepatitis B Vaccine (1 of 3 - 19+ 3-dose series) [facility] Start: 2000 Urine microalbumin profile [facility] Start: 1999 HEPATITIS C SCREENING HEPATITIS C [facility] Start: 1999 Hepatitis C screening Hepatitis C [facility] Start: 1996 HIV screening HIV screen [facility] Work Phone: Start: 1982 Varicella vaccine (1 of 2 - 2-dose childhood series) Varicella vaccine (1 of 2 - 2-dose childhood series) [facility] Work Phone: Start: 1981 HEPATITIS B (1 of 3 - 3-dose series) HEPATITIS B (1 of 3 - 3-dose series) [facility] Start: 1981 Hepatitis B Vaccine (1 of 3 - 3-dose series) Hepatitis B Vaccine (1 of 3 - 3-dose series) [facility] Start: 1981 Hepatitis C screening Hepatitis C kwasi LARSON Work Phone: Start: 1981 Screening for malign ant neoplasm of colon [facility] End: 11-03-2025 DBT Breast - bilateral screening MICHAEL SCREENING W [facility] Radiology Routine Encounter for screening mammogram for breast cancer 1 Occurrences starting 10/04/2024 until 11/03/2025 [facility] Work Phone: Comment on above: 1 Occurrences starti ng 10/04/2024 until 11/03/2025 End: 02-20-2026 HOME SLEEP APNEA TEST (HSAT) HOME SLEEP APNEA TEST (HSAT) Procedures Routine Sleep apnea-like behavior 1 Occurrences starting 02/20/2025 until 02/20/2026 [facility] Comment on above: 1 Occurrences starti ng 02/20/2025 until 02/20/2026 End: 12-11-2023 MICHAEL SCREENING MICHAEL SCREENING Radiology Routine Encounter for screening mammogram for breast cancer 1 Occurrences starting 11/11/2022 until 12/11/2023 [facility] Work Phone: Comment on above: 1 Occurrences starti ng 11/11/2022 until 12/11/2023 End: 03-22-2026 MR Brain WO and W contrast IV MRI BRAIN WO/W IVCON Radiology Routine Migraine with aura and without status migrainosus, not intractable 1 Occurrences starting 02/20/2025 until 03/22/2026 [facility] Work Phone: Comment on above: 1 Occurrences starti ng 02/20/2025 until 03/22/2026 Patient Education [facility] Work Phone: Patient referral [facility] Work Phone: End: 02-15-2026 Screening colonoscopy COLONOSCOPY SCREENING Endoscopy Routine Family history of colon cancer in mother Screening for colon cancer 1 Occurrences starting 02/15/2025 until 02/15/2026 [facility] Work Phone: Comment on above: 1 Occurrences starti ng 02/15/2025 until 02/15/2026 Tissue Pathology bio psy report [facility] Work Phone: Comment on above: Release Upon Ambrocioin g for 1 Occurrences starting 03/05/2025, 1 completed End: 03-10-2026 XR CERV OTHER 4V AP/LAT/FLX/EXT XR CERV OTHER 4V AP/LAT/FLX/EXT Radiology Routine Neck pain 1 Occurrences starting 02/08/2025 until 03/10/2026 [facility] Work Phone: Comment on above: 1 Occurrences starti ng 02/08/2025 until 03/10/2026 XR CERV OTHER 4V AP/LAT/FLX/EXT XR CERV OTHER 4V AP/LAT/FLX/EXT Radiology Routine Neck pain 02/08/2025 4:09 PM EDT [facility] Immunizations Immunization Date Immunization Notes Care Provider Fa cili 12-15-2021 influenza, injectabl e, quadrivalent, contains preservative Treasure Reid RN [facility] 12-15-2021 pneumococcal polysaccharide vaccine, 23 valent Treasure Reid RN [facility] 12-15-2021 influenza virus vacc ine, unspecified formulation Hunter Ramos APRN.[employer] Work Phone: [facility] 05-30-2021 COVID-19, Pfizer, PF , 30mcg/0.3mL 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 Work Phone: [facility] Work Phone: 05-09-2021 COVID-19, Pfizer, PF , 30mcg/0.3mL 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 2020 Medicaid [id number] 2014 Unknown [id number] 2014 Unknown [id number] 1980 Unknown [id number] Unknown [id number] Unknown [id number] Social History Date Type Detail Facility Start: 1980 Sex Assigned At Not on file S [facility] Work Phone: Start: 02-03-2025 Tobacco smoking stat us WYIS Smokes tobacco daily [facility] History of tobacco use Cigarette Smoker C [facility] Start: 02-11-2022 End: 05-25-2025 Alcohol intake Current drinker of alcohol (finding) [facility] Start: 08-31-2008 History SDOH Alcohol Comment OCCASIONALLY [facility] Start: 01-29-2022 End: 04-10-2022 Exposure to SARS-CoV-2 (event) Not sure [facility] Start: 04-10-2022 Tobacco Comment 4 xigs daily [facility] Start: 07-15-2022 End: 07-07-2024 Tobacco smoking status NHIS Ex-smoker [facility] Work Phone: History of tobacco use Current smoker [facility] Work Phone: Start: 07-15-2022 End: 05-18-2023 Cigarettes smoked current (pack per day) - Reported 0.3 [facility] Start: 07-15-2022 End: 07-07-2024 Tobacco use and exposure Smokeless tobacco non-user [facility] Work Phone: Start: 07-19-2022 End: 01-01-2024 Tobacco smoking status NHIS Unknown if ever smoked [facility] Start: 02-25-2022 Heavy [facility] Start: 02-25-2022 Marijuana;Unkn own if other use, but suspected given tox;screen findings. [facility] Start: 01-01-2015 Alone [facility] Start: 01-01-2015 Cigarettes [facility] Start: 1980 Sex Assigned At Female [facility] Start: 05-18-2023 End: 02-20-2025 Tobacco use panel [facility] National Score (1-100), lower number is lower risk 48 [facility] Start: 08-02-2019 End: 02-03-2025 Sex Female (finding) [facility] Sexual Orientation [facility] [place] NEGATED: Clemente dodge - - [facility] Work Phone: NEGATED: Clemente dar [facility] Functional Status Date Assessment Result Facility 02-18-2015 Are you deaf, or do you have serious difficulty hearing No 02/18/2015 8:55 AM EDT Leticia Yi Cma No [facility] 02-18-2015 Are you blind, or do you have serious difficulty seeing, even when wearing glasses No 02/18/2015 8:55 AM EDLeticia Clark Cma No [facility] 02-18-2015 Do you have serious difficulty walking or climbing stairs Yes 02/18/2015 8:55 AM EDLeticia Clark Cma Yes [facility] 02-18-2015 Do you have difficul ty dressing or bathing No 02/18/2015 8:55 AM Leticia Harrington Cma [facility] 02-18-2015 Because of a physica l, mental, or emotional condition, do you have difficulty doing errands alone such as visiting a physician's office or shopping No 02/18/2015 8:55 AM EDT Leticia Yi Cma [facility] NEGATED: Highlighted row Functional performance Functional status health issues are not documented [facility] [facility] Work Phone: Mental Status Date Assessment Result Facility 02-03-2025 Cognitive function Level Of Cons ciousness Awake;Alert;Appropriate ;Follows Commands [facility] Work Phone: 01-23-2024 Cognitive function Level Of Cons ciousness Awake;Alert;Appropriate ;Follows Commands [facility] Work Phone: 11-24-2023 Cognitive function Level Of Cons ciousness Awake;Alert;Appropriate ;Follows Commands [facility] Work Phone: 04-28-2023 Cognitive function Voice/Name [facility] Work Phone: 02-18-2015 Because of a physical, mental, or emotional condition, do you have serious difficulty concentrating, remembering, or making decisions No 02/18/2015 8:55 AM EDT Leticia Yi Cma [facility] NEGATED: Highlighted row Cognitive function [Interpretation] Cognitive status health issues are not documented [facility] Work Phone: Clinical Notes 12-15-2021 to 06-05-2025 Telephone Encounter - Robinson Smith MD - 05/30/2025 10:22 AM EDTTelephone Encounter - Robinson Smith MD - 05/30/2025 10:22 AM EDT Note Date & Type Note Facility 06-05-2025 Note HNO ID: [id number] Author: JOSÉ LUIS SORIA PA Service: ? Author Type: Physician Hand I Cutter Type: Progress Notes Filed: 06/05/2025 13:56 Note Text: URGENT CARE MARTHA Galvan is a 44 year old female. Patient presents with: Derm Problem: Dry red, patches, flat on R upper thigh area, R elbow area, R back of leg x 1.5 weeks, increasing in size Itching, burning, painful HPI Rash: - Onset: 1-1.5 weeks ago. - Initially small, now spreading in the same areas. - Locations: back of the leg and elbow. - Describes sensation as "a bunch of little prickles." - Denies new exposures to detergents or body washes. - Denies recent hot tub use. 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 - Reports a coworker had contact dermatitis. Review of Systems Skin: (+) rash, (+) pruritus, (+) burning skin sensation, (+) skin paresthesia Objective BP 124/82 Pulse 74 Temp 36.2 ?C (97.2 ?F) Resp 18 Wt 64 kg (141 lb 1.5 oz) LMP 05/31/2025 (Exact Date) SpO2 100% BMI 26.66 kg/m? Physical Exam Vitals and nursing note reviewed. Constitutional: General: She is not in acute distress. Appearance: Normal appearance. She is not toxic-appearing. Skin: General: Skin is warm and dry. Findings: Rash present. Comments: Erythematous slightly raised pinpoint pustules and papules noted over right inner thigh, right posterior knee and right arm. No vesicular lesions. No drainage or fluctuance. Some linear lesions with scabbing noted. Neurological: Mental Status: She is alert. General: No acute distress. Skin: Erythematous rash on back of leg and elbow, appears inflamed. { 1. Rash (R21) - Acute pruritic rash on back of leg and elbow; differentials include folliculitis and contact dermatitis. - Start prednisone to reduce inflammation and pruritus. - Start topical antibiotic ointment - Educated patient on the non-contagious nature of contact dermatitis and advised to discontinue any newly identified exposures. Recording using [employer] software for draft documentation of the visit was discussed with the patient/authorized medical center representative; all questions welcomed and answered. Patient/authorized medical center representative agreed to proceed Diagnosis and treatment plan were discussed and questions were answered to the patient's satisfaction. Pt acknowledged understanding of concepts and follow up plan. Specific signs and symptoms that would indicate the need for higher level of care were discussed in detail warranting prompt ER evaluation. Disposition The patient was discharged. Procedures [facility] 05-30-2025 Telephone encounter Note The following approved medication requests have been transmitted electronically. Requested Prescriptions Signed Prescriptions Disp Refills metoprolol succinate ER (TOPROL XL) 25 mg 24 hr tablet 30 tablet 5 Sig: Take 1 tablet by mouth once daily. Authorizing Provider: ROBINSON SMITH sertraline (ZOLOFT) 100 mg tablet 60 tablet 1 Sig: Take 2 tablets by mouth once daily. Authorizing Provider: ROBINSON SMITH MD [facility] 05-30-2025 Miscellaneous Notes The following approved medication requests have been transmitted electronically. Requested Prescriptions Signed Prescriptions Disp Refills metoprolol succinate ER (TOPROL XL) 25 mg 24 hr tablet 30 tablet 5 Sig: Take 1 tablet by mouth once daily. Authorizing Provider: ROBINSON SMITH sertraline (ZOLOFT) 100 mg tablet 60 tablet 1 Sig: Take 2 tablets by mouth once daily. Authorizing Provider: ROBINSON SMITH MD Prescription Refill Information The patient has been identified by name and date of : Yes Caregiver verified no other encounters exist for this prescription request: Yes Caregiver confirmed with patient/requestor that no other refills are due, in the near future, with this provider at this time: Yes /The last office visit in the department: 01/30 Does the patient have a future office visit with this provider/department: No Requested Prescriptions Pending Prescriptions Disp Refills metoprolol succinate ER (TOPROL XL) 25 mg 24 hr tablet 30 tablet 5 Sig: Take 1 tablet by mouth once daily. sertraline (ZOLOFT) 100 mg tablet 60 tablet 1 Sig: Take 2 tablets by mouth once daily. Carrie Pina LPN May 29, 2025 9:09 AM documented in this encounter [facility] 05-29-2025 Telephone encounter Note Prescription Refill Information The patient has been identified by name and date of : Yes Caregiver verified no other encounters exist for this prescription request: Yes Caregiver confirmed with patient/requestor that no other refills are due, in the near future, with this provider at this time: Yes /The last office visit in the department: 01/30 Does the patient have a future office visit with this provider/department: No Requested Prescriptions Pending Prescriptions Disp Refills metoprolol succinate ER (TOPROL XL) 25 mg 24 hr tablet 30 tablet 5 Sig: Take 1 tablet by mouth once daily. sertraline (ZOLOFT) 100 mg tablet 60 tablet 1 Sig: Take 2 tablets by mouth once daily. Carrie Pina LPN May 29, 2025 9:09 AM [facility] 05-25-2025 Telephone encounter Note The following approved medication requests have been transmitted electronically. Requested Prescriptions Signed Prescriptions Disp Refills metoprolol succinate ER (TOPROL XL) 25 mg 24 hr tablet 30 tablet 5 Sig: Take 1 tablet by mouth once daily. Authorizing Provider: ROBINSON SMITH MD [facility] 05-25-2025 Miscellaneous Notes The following approved medication requests have been transmitted electronically. Requested Prescriptions Signed Prescriptions Disp Refills metoprolol succinate ER (TOPROL XL) 25 mg 24 hr tablet 30 tablet 5 Sig: Take 1 tablet by mouth once daily. Authorizing Provider: ROBINSON SMITH MD Prescription Refill Information The patient has been identified by name and date of : Yes Caregiver verified no other encounters exist for this prescription request: Yes Caregiver confirmed with patient/requestor that no other refills are due, in the near future, with this provider at this time: Yes The last office visit in the department: 02/15/2025 Does the patient have a future office visit with this provider/department: Yes Requested Prescriptions Pending Prescriptions Disp Refills metoprolol succinate ER (TOPROL XL) 25 mg 24 hr tablet [Pharmacy Med Name: metoprolol succinate ER 25 mg tablet,extended release 24 hr] 30 tablet 1 Sig: Take 1 tablet by mouth once daily. nAa Cardoza MA May 25, 2025 11:47 AM documented in this encounter [facility] 05-25-2025 Telephone encounter Note Pharmacy verified in [facility]. Patient has been identified by name and date of : Yes Patient aware RX will be sent to pharmacy. No need to notify patient. Pharmacy phones for refill(s): Requested Prescriptions Pending Prescriptions Disp Refills gabapentin (NEURONTIN) 300 mg capsule [Pharmacy Med Name: gabapentin 300 mg capsule] 60 capsule 2 Sig: Take 1 capsule by mouth two times a day. Date of last office visit : 02/20/2025 Date of next office visit : Visit date not found Last 2 Encounter Wt Readings: Date: Wt: 03/05/2025 67 kg (147 lb 11.3 oz) 02/20/2025 64.5 kg (142 lb 3.2 oz) Please advise. Rosalind Weaver MA [facility] 05-25-2025 Miscellaneous Notes Pharmacy verified in [facility]. Patient has been identified by name and date of : Yes Patient aware RX will be sent to pharmacy. No need to notify patient. Pharmacy phones for refill(s): Requested Prescriptions Pending Prescriptions Disp Refills gabapentin (NEURONTIN) 300 mg capsule [Pharmacy Med Name: gabapentin 300 mg capsule] 60 capsule 2 Sig: Take 1 capsule by mouth two times a day. Date of last office visit : 02/20/2025 Date of next office visit : Visit date not found Last 2 Encounter Wt Readings: Date: Wt: 03/05/2025 67 kg (147 lb 11.3 oz) 02/20/2025 64.5 kg (142 lb 3.2 oz) Please advise. Rosalind Weaver MA documented in this encounter [facility] 05-25-2025 Telephone encounter Note Prescription Refill Information The patient has been identified by name and date of : Yes Caregiver verified no other encounters exist for this prescription request: Yes Caregiver confirmed with patient/requestor that no other refills are due, in the near future, with this provider at this time: Yes The last office visit in the department: 02/15/2025 Does the patient have a future office visit with this provider/department: Yes Requested Prescriptions Pending Prescriptions Disp Refills metoprolol succinate ER (TOPROL XL) 25 mg 24 hr tablet [Pharmacy Med Name: metoprolol succinate ER 25 mg tablet,extended release 24 hr] 30 tablet 1 Sig: Take 1 tablet by mouth once daily. Ana Cardoza MA May 25, 2025 11:47 AM [facility] 05-15-2025 Hospital Discharg e instructions Patient Education 05/15/2025 13:37:14 Chest Pain, Uncertain Cause Uncertain Causes of Chest Pain Chest pain can happen for a number of reasons. Sometimes the cause can't be determined. If your condition does not seem serious, and your pain does not appear to be coming from your heart, your healthcare provider may recommend watching it closely. Sometimes the signs of a serious problem take more time to appear. Many problems not related to your heart can cause chest pain. These include: Musculoskeletal. Costochondritis is an inflammation of the tissues around the ribs that can occur from trauma or overuse injuries, or a strain of the muscles of the chest wall Respiratory. Pneumonia, collapsed lung (pneumothorax), or inflammation of the lining of the chest and lungs (pleurisy) Gastrointestinal. Esophageal reflux, heartburn, ulcers, or gallbladder disease Anxiety and panic disorders Nerve compression and inflammation Rare miscellaneous problems such as aortic aneurysm (a swelling of the large artery coming out of the heart) or pulmonary embolism (a blood clot in the lungs) Home care After your visit, follow these recommendations: Rest today and avoid strenuous activity. Take any prescribed medicine as directed. Be aware of any recurrent chest pain and notice any changes Follow-up care Follow up with your healthcare provider if you do not start to feel better within 24 hours, or as advised. Call 911 Call 911 if any of these occur: A change in the type of pain: if it feels different, becomes more severe, lasts longer, or begins to spread into your shoulder, arm, neck, jaw or back Shortness of breath or increased pain with breathing Weakness, dizziness, or fainting Rapid heart beat Crushing sensation in your chest When to seek medical advice Call your healthcare provider right away if any of the following occur: Cough with dark colored sputum (phlegm) or blood Fever of 100.4 F (38 C) or higher, or as directed by your healthcare provider Swelling, pain or redness in one leg 2010-1928 [employer]. [address] [place] [address]. All rights reserved. This information is not intended as a substitute for professional medical care. Always follow your healthcare professional's instructions. Follow Up Care 05/15/2025 12:17:37 With:LACY MERRILL MD Address: [address] [place] [phone]- [phone] When:2-4 days With:PARMINDER FLOREZ MD Address: [address] [place] [phone]- [phone] When:2-4 days With:JENNIFER DE PAZ MD Address: [address] [place] [address] [address] [phone] When:2-4 days [facility] 05-15-2025 Note Discharge Instructions Thank you for allowing [facility] to assist you with your healthcare needs. The following is important discharge information regarding your hospital visit. Diagnosis from Today's Visit Chest pain What to Do Next Instructions from Your Care Team Discharge Return to Work, School, or Sports (Return to Work, School, or Sports) - Ordered -- 05/16/25, May return to: work, 05/15/25 13:38:00 EDT Post Acute Orders No qualifying data available. You Need to Schedule the Following Appointments Follow Up with LACY MERRILL MD When:Within 2-4 days Where:[address] [place], [place] [id number]- [phone] Follow Up with PARMINDER FLOREZ MD When:Within 2-4 days Where:[address] [facility] [address] [place] [address]- [phone] Follow Up with JENNIFER DE PAZ MD When:Within 2-4 days Where:[address] [facility] [address] [place] [address]- [phone] Allergies NKA Medications Please ask your primary doctor or pharmacist before taking any other medication not listed, including over the counter drugs, herbal medications, vitamins and or supplements as they may interact with your home medications. Please take this list to your next doctor s visit. Bring all medications you take, including over the counter medications, herbals and other supplements with you to your doctor s visit. Patients and families are reminded to discard old lists and to update any records with all medication providers or retail pharmacies. Education Materials Uncertain Causes of Chest Pain Chest pain can happen for a number of reasons. Sometimes the cause can't be determined. If your condition does not seem serious, and your pain does not appear to be coming from your heart, your healthcare provider may recommend watching it closely. Sometimes the signs of a serious problem take more time to appear. Many problems not related to your heart can cause chest pain. These include: Musculoskeletal. Costochondritis is an inflammation of the tissues around the ribs that can occur from trauma or overuse injuries, or a strain of the muscles of the chest wall Respiratory. Pneumonia, collapsed lung (pneumothorax), or inflammation of the lining of the chest and lungs (pleurisy) Gastrointestinal. Esophageal reflux, heartburn, ulcers, or gallbladder disease Anxiety and panic disorders Nerve compression and inflammation Rare miscellaneous problems such as aortic aneurysm (a swelling of the large artery coming out of the heart) or pulmonary embolism (a blood clot in the lungs) Home care After your visit, follow these recommendations: Rest today and avoid strenuous activity. Take any prescribed medicine as directed. Be aware of any recurrent chest pain and notice any changes Follow-up care Follow up with your healthcare provider if you do not start to feel better within 24 hours, or as advised. Call 911 Call 911 if any of these occur: A change in the type of pain: if it feels different, becomes more severe, lasts longer, or begins to spread into your shoulder, arm, neck, jaw or back Shortness of breath or increased pain with breathing Weakness, dizziness, or fainting Rapid heart beat Crushing sensation in your chest When to seek medical advice Call your healthcare provider right away if any of the following occur: Cough with dark colored sputum (phlegm) or blood Fever of 100.4 F (38 C) or higher, or as directed by your healthcare provider Swelling, pain or redness in one leg 0520-5109 [employer]. [address] [place] [address], [place] [address]. All rights reserved. This information is not intended as a substitute for professional medical care. Always follow your healthcare professional's instructions. Additional Information VACCINATE! IT SAVES LIVES! Members of the community who have not yet received the COVID-19 vaccine and would like to receive it can visit one of [facility] vaccine clinics. There are many vaccine clinic locations within the [facility]. For locations and available times, please visit [email or web address] It is important to note that some COVID mobile vaccine clinics are held outdoors and may be canceled in rainy or stormy conditions. To learn more about pediatric vaccinations (ages 5-11), we invite you to visit the [facility] webpage. [email or web address]-[email or web address] To learn more about the COVID-19 vaccine, we invite you to visit the CDC website for a list of frequently asked questions. https://www.cdc.gov/coronavirus/ 2019-ncov/vaccines/faq.html [facility] Patient Portal Access Instructions: Stay connected with your healthcare team and access your personal medical information anytime with the [facility] Patient Portal. If you would like a full copy of your medical records please contact the [facility] Medical Records Department Wednesday through Wednesday between 8a.m. and 4:30p.m. Please follow the directions below to access the portal: 1.Access the email account you provided upon registration to the [facility].2.Look for an invitation email from [facility].3.Open the email and access the invitation link: Accept Invitation to [facility]4.Fill in the required stiles to create your account. Sign into [email or web address] with your username and password that you created in the above steps to stay up to date. You can then view a summary of results, a summary of your visits, and the ability to download your summaries to your computer or send the information securely to a physician. Remember that your healthcare information is confidential, so carefully consider who you will allow to register on the [facility] Patient Portal for access to your information. You can also access the [facility] Patient Portal on the [employer]. Simply click on "Health Records" under "Health Data" and then click on the Sai logo. HOW TO SAFELY DISPOSE OF PRESCRIPTION MEDICATIONS Please use one of the following methods to safely dispose of your unused medications. 1.Use a drug disposal kit: the drug disposal pouch allows you to safely discard your old and unused drugs. Ask your nurse to give you one when you are discharged.2.Visit a local take-back location: Many local pharmacies and police departments have programs that collect old and unwanted prescription drugs. Call your local pharmacy or go to http://Metaboli.EnhanceWorks/3K4Rt7u to find one close to you.3.Make use of household items: Use cat litter or old coffee grounds to dispose medications if other options are not available. Mix your drugs with these household products, seal them in an airtight container and throw it into the garbage. Call [facility]: [phone] to be sure your drugs can be disposed of in this way. Some medicines may require a different approach.4.Never flush your medications down the toilet. IF YOU HAVE BEEN PRESCRIBED AN OPIOIDS FOR PAIN If you have been prescribed an opioid (such as hydrocodone, oxycodone or morphine), it is critical to understand the possible side effects and risks of opioid pain medications. Even when taken as directed, opioids can have several side effects including: Tolerance, meaning you might need to take more of a medication for the same pain relief. Nausea, vomiting and/or constipation. Sleepiness, dizziness, dry mouth, confusion, depression or itching. Physical dependence, meaning you have withdrawal symptoms when a medication is stopped ? this can develop within a few days. KNOW YOUR RESPONSIBILITIES It is important to know exactly how much and how often to take the opioid pain medications you are prescribed. Never take opioids in higher amounts or more often than prescribed. Do not combine opioids with alcohol or other drugs that cause drowsiness, such as benzodiazepines, also known as benzos, including diazepam and alprazolam, muscle relaxants or sleep aids. Never sell or share prescription opioids. This is illegal. Store opioids in a secure place and out of reach of others (including children, family, friends and visitors). The last page(s) of this document has been signed and retained as a CHART COPY Signatures Patient Education Materials Chest Pain, Uncertain Cause Medication Leaflets My discharge plan and instructions have been reviewed and explained to me and I,ÁNGEL GALVAN understand my current condition and have read and understand these discharge instructions. I have received a written copy of the plan/instructions. If I have questions, I am aware that I should contact my doctor. Patient/Cardiovascular Invasive Specialist Signature: Date/Time: Relationship to Patient: Witness Name/Signature: Date/Time: [facility] 05-15-2025 Note Exam Date Time Procedure Performing Provider Status 05/15/25 12:41 PM XR Chest 1 View GISELL CISNEROS MD; Auth (Verified) [id number] ORIGINAL EXAMINATION: ONE XRAY VIEW OF THE CHEST 05/15/2025 12:42 pm COMPARISON: None HISTORY: ORDERING SYSTEM PROVIDED HISTORY: Reason for Exam: chest pain FINDINGS: The cardiomediastinal silhouette is normal in width and contour. There is no focal consolidation, pleural effusion or pneumothorax. Status post median sternotomy. No acute displaced fracture is identified. IMPRESSION: No acute cardiopulmonary process. Interpreted by: Gisell Cisneros Preliminary Report By: Gisell Cisneros Electronically signed By Gisell Cisneros Dictated Date: 05/15/2025 1:01:14 PM Prelim Date: 05/15/2025 1:02:51 PM Sign Date: 05/15/2025 1:02:51 PM Ordering Provider: YENI LLAMAS [facility]07-15-2025 Note* Exam Date Time Procedure Performing Provider Status 05/15/25 12:28 PM EKG [ED AOH] - CV GIA KIRK ; A uth (Verified) ECG Final Report Sinus rhythm Electronic Signature: GIA KIRK DO 05/15/2025 12:43:32 [facility]05-19-2025 NoteHNO ID: [id number] Author: ?, ?, ? Service: ? Author Type: ? Type: Progress Notes Filed: 03/19/2025 13:41 Note Text: Sleep Study Check-In Documentation Date: March 19, 2025 Name: Ángel Galvan Comments: HST was returned in working order without all sleep questionnaires Patient was not reached. A voicemail was left with patient to call back to complete questionnaires. [facility]05-13-2025 NoteHNO ID: [id number] Author: ?, ?, ? Service: ? Author Type: ? Type: Progress Notes Filed: 03/13/2025 15:13 Note Text: Nom[facility] # [id number] , date shipped out 03-13-25 FED EX ONLY Tracking mailout: [id number] Tracking return: [id number]05-12-2025 NoteHNO ID: [id number] Author: ANDRE THOMPSON APRN.TRUCK DRIVING INSTRUCTOR Service: ? Author Type: Nurse Practitioner Type: Progress Notes Filed: 03/12/2025 19:58 Note Text: March 12, 2025 Standing PSG Orders signed in the last 90 days None Future PSG Orders signed in the last 90 days Ordered Auth. provider HOME SLEEP APNEA TEST (HSAT) [[id number]] 02/20/25 Soledad Garrido APRN.TRUCK DRIVING INSTRUCTOR Assoc. diagnoses: Sleep apnea-like behavior [G47.39] Q: Indications: A: Obstructive sleep apnea Q: STOP-BANG conditions - Select All That Apply: A: SNORING that is loud or disruptive A2: TIREDNESS, fatigue or sleepiness during the day Q: Current use of supplemental oxygen during sleep period?: A: No All Prior Sleep Studies (past 365 days) 02/20/2025 10:39 Sleep Studies HOME SLEEP APNEA TEST (HSAT) HOME SLEEP APNEA TEST (HSAT) Order Status: Ordered, Future Expires: 02/20/26 BMI Readings from Last 2 Encounters: 03/05/25 : 27.91 kg/m? 02/20/25 : 26.87 kg/m? PAST MEDICAL HISTORY Diagnosis Date Backache, unspecified Cervical high risk human papillomavirus (HPV) DNA test positive 03/09/2013 Chronic infective endocarditis Encounter for IUD insertion 06/09/2011 Mirena Insertion Generalized anxiety disorder PMH - PAST MEDICAL HISTORY OF HEART MURMUR The medical record was reviewed to determine if the proposed sleep study conforms to the AASM Practice Parameters for the Indications for Polysomnography and Related Procedures, or if the sleep study is indicated for other reasons. Indications for study: ANA LAURA suspected without comorbid medical or sleep disorders Sleep study to be performed: Home Sleep Apnea Test (HSAT) Special instructions: None-follow laboratory protocol [facility] Staff Note: I have read the above protocol, edited as needed, and agree to the plan. Andre Thompson APRN.TRUCK DRIVING INSTRUCTOR 7:58 PM, 03/12/2025[facility]05-12[facility] History of Present illness Narrative* Andre Thompson APRN.CNP - 03/12/2025 12:33 PM EDT March 12, 2025 Standing PSG Orders signed in the last 90 days None Future PSG Orders signed in the last 90 days Ordered Auth. provider HOME SLEEP APNEA TEST (HSAT) [[id number]] 02/20/25 Soledad Garrido APRN.TRUCK DRIVING INSTRUCTOR Assoc. diagnoses: Sleep apnea-like behavior [G47.39] Q: Indications: A: Obstructive sleep apnea Q: STOP-BANG conditions - Select All That Apply: A: SNORING that is loud or disruptive A2: TIREDNESS, fatigue or sleepiness during the day Q: Current use of supplemental oxygen during sleep period?: A: No All Prior Sleep Studies (past 365 days) 02/20/2025 10:39 Sleep Studies HOME SLEEP APNEA TEST (HSAT) HOME SLEEP APNEA TEST (HSAT) Order Status: Ordered, Future Expires: 02/20/26 BMI Readings from Last 2 Encounters: 03/05/25 : 27.91 kg/m 02/20/25 : 26.87 kg/m PAST MEDICAL HISTORY Diagnosis Date Backache, unspecified Cervical high risk human papillomavirus (HPV) DNA test positive 03/09/2013 Chronic infective endocarditis Encounter for IUD insertion 06/09/2011 Mirena Insertion Generalized anxiety disorder PMH - PAST MEDICAL HISTORY OF HEART MURMUR The medical record was reviewed to determine if the proposed sleep study conforms to the AASM Practice Parameters for the Indications for Polysomnography and Related Procedures, or if the sleep studyis indicated for other reasons. Indications for study: ANA LAURA suspected without comorbid medical or sleep disorders Sleep study to be performed: Home Sleep Apnea Test (HSAT) Special instructions: None-follow laboratory protocol [facility] Staff Note: I have read the above protocol, edited as needed, and agree to the plan. Andre Thompson APRN.CNP 7:58 PM, 03/12/2025 * Nathalia Hernandez - 03/09/2025 3:15 PM EDT March 09, 2025 An order has been received for Home Sleep Apnea Test (HSAT) from Soledad Foreman APRN.RODRIGO , aldo Romero. [facility] Staff. Visit prep complete. Comments :No The sleep study is scheduled for 03-13-25. Insurance: Payor: [facility] MEDICAID / Plan: [facility] / Product Type: Medicaid / Payer/Plan Subscr Sex Relation Sub. Ins. ID Effective Group Num 1. ÁNGEL LUCAS 1980 Female Self [id number] 12/02/22 [facility] [address] Nathalia Hernandez documented [facility] NoteHNO ID: [id number] Author: ?, ?, ? Service: ? Author Type: ? Type: Progress Notes Filed: 03/12/2025 19:58 Note Text: March 09, 2025 An order has been received for Home Sleep Apnea Test (HSAT) from Soledad Foreman APRN.TRUCK DRIVING INSTRUCTOR , aldo Romero. [facility] Staff. Visit prep complete. Comments :No The sleep study is scheduled for 03-13-25. Insurance: Payor: [facility] MEDICAID / Plan: [facility] MEDICAID / Product Type: Medicaid / Payer/Plan Subscr Sex Relation Sub. Ins. ID Effective Group Num 1. ÁNGEL LUCAS 1980 Female Self [id number] 12/02/22 [facility] [address] [facility] History of Present illness Narrative* Tracey Adair, RT(R) - 03/06/2025 12:30 PM EDT Radiology Service Progress Note DATE OF SERVICE: March 06, 2025 TIME: 12:37 PM PATIENT IDENTITY VERIFICATION COMPLETED USING TWO (2) STANDARD IDENTIFIERS: Name and Date of confirmed by patient verbally. FALL SCREENING: Has the patient had 2 falls in the last year or 1 fall with injury or currently using an Ambulatory Assistive Device (Walker, Cane, Wheelchair, Crutches, etc.)? No PATIENT GENDER DATA: Assigned female at . status: : No status:NO. PATIENT RELEVANT IMPLANT DATA REVIEWED: Yes PATIENT PRESENTS WITH AN IMPLANTABLE OR ATTACHED STRATEGIC ALLIANCES MANAGER: No ALLERGIES: Reviewed and unchanged CONTRAST ALLERGY: NO. EXAM: MRI - CONTRAST TYPE: GROUP II PERIPHERAL IV DATA: Ambulatory: A peripheral IV was started in the Right antecubital site with a Angio cath: 22 gauge. RADIOLOGY DEPARTMENT: MR; Exam(s) Completed: Head: Routine Brain. Lavender Administered: No SIGNATURE: RT Jose(R) PATIENT NAME: Ángel Galvan DATE: March 06, 2025 TIME: 12:37 PM documented in this encounterPrem[facility]-2025 NoteHNO ID: [id number] Author: TRACEY ADAIR RT(R) Service: ? Author Type: Technologist Type: Progress Notes Filed: 03/06/2025 12:39 Note Text: Radiology Service Progress Note DATE OF SERVICE: March 06, 2025 TIME: 12:37 PM PATIENT IDENTITY VERIFICATION COMPLETED USING TWO (2) STANDARD IDENTIFIERS: Name and Date of confirmed by patient verbally. FALL SCREENING: Has the patient had 2 falls in the last year or 1 fall with injury or currently using an Ambulatory Assistive Device (Walker, Cane, Wheelchair, Crutches, etc.)? No PATIENT GENDER DATA: Assigned female at . status: : No status: NO. PATIENT RELEVANT IMPLANT DATA REVIEWED: Yes PATIENT PRESENTS WITH AN IMPLANTABLE OR ATTACHED STRATEGIC ALLIANCES MANAGER: No ALLERGIES: Reviewed and unchanged CONTRAST ALLERGY: NO. EXAM: MRI - CONTRAST TYPE: GROUP II PERIPHERAL IV DATA: Ambulatory: A peripheral IV was started in the Right antecubital site with a Angio cath: 22 gauge. RADIOLOGY DEPARTMENT: MR; Exam(s) Completed: Head: Routine Brain. Lavender Administered: No SIGNATURE: RT Jose(R) PATIENT NAME: Ángel Galvan DATE: March 06, 2025 TIME: 12:37 [facility]05-05-2025 Note* Discharge Instr - Nursing - Luciana Garcia RN - 03/05/2025 10:12 AM EDT The patient received a copy of Colonoscopy discharge instructions that contain information for how to contact the physician who performed the procedure and when to seek medical care. [facility]05-05-2025 Miscellaneous Notes* Discharge Instr - Nursing - Luciana Garcia RN - 03/05/2025 10:12 AM EDT The patient received a copy of Colonoscopy discharge instructions that contain information for how to contact the physician who performed the procedure and when to seek medical care. documented in this encounterPrem[facility] History and physical note * Ed Stephenson MD - 03/05/2025 10:00 AM EDT Ángel is a 44-year-old female presenting for follow-up of neck pain, migraines, and new onset abdominal pain. Neck Pain: - Right-sided neck pain x1 month, described as a "constant stiffness." - Pain localized along the spine on the right side; no radiation to shoulder or arm. - Recent x-rays showed C4-C6 degenerative disc disease. - Prednisone provided some relief. Paresthesia: - Paresthesia in hands, predominantly at night, causing awakening. - Describes hands as "swollen like something's cut off." - Paresthesia sometimes involves entire hand, other times limited to third and fourth fingers. - Occasional pain and swelling in wrists. - Uses wrist brace on right hand PRN. - Right-handed. - Denies previous nerve studies. - Neurology appointment scheduled for next Wednesday. Migraines: - Migraines x3 months, increasing in frequency and intensity. - Initially began post-COVID vaccination in 2020, occurring once a month. - Currently experiencing migraines 3-4 times per week. - No aura; onset with a small headache that intensifies if not relieved by ibuprofen within 30 minutes. - Post-migraine "hangover" sensation. - Treated with Tylenol, ibuprofen, and caffeine with variable relief. - Recent ER visits x2 this month for severe migraines. Abdominal Pain: - Acute onset of abdominal pain after feeling a "pop" in the abdomen at 0330 on Wednesday morning. - Pain localized to the left side, with a sensation of swelling compared to the right side. - Pain exacerbated by lying down, sitting up, and lifting objects. - No nausea, emesis, or bowel movement changes. - Describes a "burning" sensation in the affected area. Family History: - Mother diagnosed with colon cancer at age 58-59, wondering when she should have a colonoscopy. - Extensive cancer history on maternal side. 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 metoprolol succinate ER (TOPROL XL) 25 mg 24 hr tablet Take 1 tablet by mouth once daily. venlafaxine ER (EFFEXOR XR) 75 mg 24 hr capsule Take 1 capsule by mouth once daily. peg 3350-Electrolytes (GOLYTELY) 236-22.74-6.74 -5.86 gram suspension Take 4,000 mL by mouth one time only for 1 dose. Refer to printed prep instructions from your provider. Review of Systems Objective BP 116/79 Pulse 82 Ht 154.9 cm (5' 0.98") Wt 67 kg (147 lb 11.3 oz) LMP 11/07/2024 (Exact Date) BMI 27.92 kg/m Physical Exam Vitals and nursing note reviewed. Constitutional: Appearance: She is well-developed. She is not ill-appearing. Pulmonary: Effort: Pulmonary effort is normal. Abdominal: General: Abdomen is flat. Bowel sounds are normal. Palpations: Abdomen is soft. Tenderness: There is abdominal tenderness in the left lower quadrant. Hernia: No hernia is present. Musculoskeletal: Cervical back: Normal. Skin: General: Skin is warm and dry. Neurological: Mental Status: She is alert and oriented to person, place, and time. Psychiatric: Mood and Affect: Mood normal. Assessment and Plan 1. Left lower quadrant abdominal pain (R10.32) - Onset after feeling a "pop" in the abdomen; pain exacerbated by lying down, sitting up, and lifting. - No nausea, vomiting, or bowel movement changes reported. - Physical exam did not reveal any palpable hernia. - Advised rest, application of heat, and use of ibuprofen. - Provided a note for two days off work (02/16 and 02/17) to facilitate recovery. - Re-evaluate on Wednesday; if symptoms persist, consider further imaging or referral to general surgery. 2. Neck pain on right side (M54.2) - Pain described as constant stiffness, localized along the spine on the right side, without radiation to shoulder or arm. - Recent onset within the last month. - Cervical spine X-rays show degenerative disc disease at C4, C5, and C6 levels, but no significantspinal canal narrowing. - Prednisone provided temporary relief. - Discussed potential for physical therapy if pain persists. - Monitor symptoms; if chronic, consider referral to pain management or MRI of the spine. 3. Bilateral hand numbness (R20.0) - Numbness and tingling primarily at night, sometimes involving the entire hand, other times localized to the third and fourth fingers. - Occasional swelling in the wrist area. - Negative Phalen's and Tinel's tests. - Suspected carpal tunnel syndrome. - Recommended wearing wrist braces on both hands at night. - Follow-up PRN if no improvement/worsening 4. Other migraine without status migrainosus, not intractable (G43.809) - Migraines increasing in frequency and intensity over the last three months, occurring 3-4 times per week. - No aura reported; onset often begins with a mild headache. - Temporary relief with ibuprofen, Tylenol, and caffeine. - Deferred further management to upcoming neurology appointment. 5. Family history of colon cancer in mother (Z80.0) 6. Screening for colon cancer (Z12.11) - Mother diagnosed with colon cancer at age 58. - Discussed early screening due to family history. - Ordered colonoscopy; patient to schedule at her convenience. - Discussed potential for genetic counseling if insurance denies coverage. Payam Miller APRN.TRUCK DRIVING INSTRUCTOR UPDATED HISTORY AND PHYSICAL EXAMINATION SERVICE DATE: 03/05/2025 SERVICE TIME: 8:58 AM PHYSICAL EXAM MUST BE COMPLETED ON ADMISSION The History and Physical (completed in the past 30 days) has been reviewed and the patient has beenexamined. The contents accurately reflect the patient's condition with the following additions or revisions since the H&P was completed. Examination indicates no changes. This H&P can be found in the attached. SIGNATURE: Ed Stephenson III, MD PATIENT NAME: Ángel Galvan DATE: March 05, 2025 TIME: 8:58 AM [facility]05-05-[facility] History and physical note* Ed Stephenson MD - 03/05/2025 10:00 AM EDT Ángel is a 44-year-old female presenting for follow-up of neck pain, migraines, and new onset abdominal pain. Neck Pain: - Right-sided neck pain x1 month, described as a "constant stiffness." - Pain localized along the spine on the right side; no radiation to shoulder or arm. - Recent x-rays showed C4-C6 degenerative disc disease. - Prednisone provided some relief. Paresthesia: - Paresthesia in hands, predominantly at night, causing awakening. - Describes hands as "swollen like something's cut off." - Paresthesia sometimes involves entire hand, other times limited to third and fourth fingers. - Occasional pain and swelling in wrists. - Uses wrist brace on right hand PRN. - Right-handed. - Denies previous nerve studies. - Neurology appointment scheduled for next Wednesday. Migraines: - Migraines x3 months, increasing in frequency and intensity. - Initially began post-COVID vaccination in 2020, occurring once a month. - Currently experiencing migraines 3-4 times per week. - No aura; onset with a small headache that intensifies if not relieved by ibuprofen within 30 minutes. - Post-migraine "hangover" sensation. - Treated with Tylenol, ibuprofen, and caffeine with variable relief. - Recent ER visits x2 this month for severe migraines. Abdominal Pain: - Acute onset of abdominal pain after feeling a "pop" in the abdomen at 0330 on Wednesday morning. - Pain localized to the left side, with a sensation of swelling compared to the right side. - Pain exacerbated by lying down, sitting up, and lifting objects. - No nausea, emesis, or bowel movement changes. - Describes a "burning" sensation in the affected area. Family History: - Mother diagnosed with colon cancer at age 58-59, wondering when she should have a colonoscopy. - Extensive cancer history on maternal side. 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 metoprolol succinate ER (TOPROL XL) 25 mg 24 hr tablet Take 1 tablet by mouth once daily. venlafaxine ER (EFFEXOR XR) 75 mg 24 hr capsule Take 1 capsule by mouth once daily. peg 3350-Electrolytes (GOLYTELY) 236-22.74-6.74 -5.86 gram suspension Take 4,000 mL by mouth one time only for 1 dose. Refer to printed prep instructions from your provider. Review of Systems Objective BP 116/79 Pulse 82 Ht 154.9 cm (5' 0.98") Wt 67 kg (147 lb 11.3 oz) LMP 11/07/2024 (Exact Date) BMI 27.92 kg/m Physical Exam Vitals and nursing note reviewed. Constitutional: Appearance: She is well-developed. She is not ill-appearing. Pulmonary: Effort: Pulmonary effort is normal. Abdominal: General: Abdomen is flat. Bowel sounds are normal. Palpations: Abdomen is soft. Tenderness: There is abdominal tenderness in the left lower quadrant. Hernia: No hernia is present. Musculoskeletal: Cervical back: Normal. Skin: General: Skin is warm and dry. Neurological: Mental Status: She is alert and oriented to person, place, and time. Psychiatric: Mood and Affect: Mood normal. Assessment and Plan 1. Left lower quadrant abdominal pain (R10.32) - Onset after feeling a "pop" in the abdomen; pain exacerbated by lying down, sitting up, and lifting. - No nausea, vomiting, or bowel movement changes reported. - Physical exam did not reveal any palpable hernia. - Advised rest, application of heat, and use of ibuprofen. - Provided a note for two days off work (02/16 and 02/17) to facilitate recovery. - Re-evaluate on Wednesday; if symptoms persist, consider further imaging or referral to general surgery. 2. Neck pain on right side (M54.2) - Pain described as constant stiffness, localized along the spine on the right side, without radiation to shoulder or arm. - Recent onset within the last month. - Cervical spine X-rays show degenerative disc disease at C4, C5, and C6 levels, but no significantspinal canal narrowing. - Prednisone provided temporary relief. - Discussed potential for physical therapy if pain persists. - Monitor symptoms; if chronic, consider referral to pain management or MRI of the spine. 3. Bilateral hand numbness (R20.0) - Numbness and tingling primarily at night, sometimes involving the entire hand, other times localized to the third and fourth fingers. - Occasional swelling in the wrist area. - Negative Phalen's and Tinel's tests. - Suspected carpal tunnel syndrome. - Recommended wearing wrist braces on both hands at night. - Follow-up PRN if no improvement/worsening 4. Other migraine without status migrainosus, not intractable (G43.809) - Migraines increasing in frequency and intensity over the last three months, occurring 3-4 times per week. - No aura reported; onset often begins with a mild headache. - Temporary relief with ibuprofen, Tylenol, and caffeine. - Deferred further management to upcoming neurology appointment. 5. Family history of colon cancer in mother (Z80.0) 6. Screening for colon cancer (Z12.11) - Mother diagnosed with colon cancer at age 58. - Discussed early screening due to family history. - Ordered colonoscopy; patient to schedule at her convenience. - Discussed potential for genetic counseling if insurance denies coverage. Payam Miller APRN.TRUCK DRIVING INSTRUCTOR UPDATED HISTORY AND PHYSICAL EXAMINATION SERVICE DATE: 03/05/2025 SERVICE TIME: 8:58 AM PHYSICAL EXAM MUST BE COMPLETED ON ADMISSION The History and Physical (completed in the past 30 days) has been reviewed and the patient has beenexamined. The contents accurately reflect the patient's condition with the following additions or revisions since the H&P was completed. Examination indicates no changes. This H&P can be found in the attached. SIGNATURE: Ed Stephenson III, MD PATIENT NAME: Ángel Galvan DATE: March 05, 2025 TIME: 8:58 AM [facility] Telephone encounter Note * Telephone Encounter - Jenna Melgar MA - 02/20/2025 3:05 PM EDT Prescription Refill Information The patient has been identified by name and date of : Yes Caregiver verified no other encounters exist for this prescription request: Yes Caregiver confirmed with patient/requestor that no other refills are due, in the near future, with this provider at this time: Yes The last office visit in the department: Does the patient have a future office visit with this provider/department: Yes Requested Prescriptions Pending Prescriptions Disp Refills sertraline (ZOLOFT) 100 mg tablet 60 tablet 1 Sig: Take 2 tablets by mouth once daily. metoprolol succinate ER (TOPROL XL) 25 mg 24 hr tablet 30 tablet 1 Sig: Take 1 tablet by mouth once daily. Jenna Melgar MA February 20, 2025 3:05 PM [facility]04-22-[facility] Miscellaneous Notes* Telephone Encounter - Jenna Melgar MA - 02/20/2025 3:05 PM EDT Prescription Refill Information The patient has been identified by name and date of : Yes Caregiver verified no other encounters exist for this prescription request: Yes Caregiver confirmed with patient/requestor that no other refills are due, in the near future, with this provider at this time: Yes The last office visit in the department: Does the patient have a future office visit with this provider/department: Yes Requested Prescriptions Pending Prescriptions Disp Refills sertraline (ZOLOFT) 100 mg tablet 60 tablet 1 Sig: Take 2 tablets by mouth once daily. metoprolol succinate ER (TOPROL XL) 25 mg 24 hr tablet 30 tablet 1 Sig: Take 1 tablet by mouth once daily. Jenna Melgar MA February 20, 2025 3:05 PM documented in this encounterPrem[facility] Instructions* Patient Instructions* Soledad Garrido APRN.CNP - 02/20/2025 10:43 AM EDT Begin taking gabapentin 300 mg at bedtime for 5-7 days as your headache preventive; if you tolerateit well without side effects (drowsiness, dizziness, or leg swelling), add a morning dose so it is taken twice daily. Schedule an MRI of your brain for further evaluation of your headaches. Arrange for physical therapy to address neck pain that may be contributing to your headaches. Complete an at?home sleep study to help rule out sleep apnea; you will receive a kit in the mail with instructions. Limit the use of [id number] headache medications (such as Tylenol, ibuprofen, and caffeine mixtures) to fewer than 10 days per month by rotating them when needed. Follow up in approximately 4 weeks or after your MRI (and after starting gabapentin so we can review your progress and adjust your treatment as necessary). documented in this encounterPrem[facility]04[facility] History of Present illness Narrative* Soledad Garrido APRN.CNP - 02/20/2025 10:00 AM EDT Images from the original note were not included. [facility] [place] New Patient Evaluation CHIEF COMPLAINT: Headache Ángel Galvan is a 44 year old accompanied by her sister in law. Consult was requested by Noa Appiah CNP for an opinion regarding above CC. My final impression and recommendations will be communicated back to the requesting physician by way of the shared medical record or fax. Recording using [employer] software for draft documentation of the visit was discussed with the patient/authorized medical center representative; all questions welcomed and answered. Patient/authorized medical center representative agreed to proceed February 20, 2025 HPI: Ms. Galvan presents today secondary to issues of headaches. No headaches history since she received COVID vaccine. After that had two day migraine. Then once per month or every two months. The past six months coming 4- 5 days per week. Has gone to the ED. Migraine HPI HEADACHE LOCATION: Frontal/temporal to top of head; feels sx from L hinduism across head then turns into full headache (not in jaw) Neck pain? Yes; stiff and R side pain - no neck injuries Onset: Headaches began around 2020 (see above) Quality: "pressure" Photophobia? Yes Phonophobia? Yes Nausea? Yes Vomitting? Yes Aura? How long? Yes ; dark stars in both eyes Worse with activity? Yes - worse after mowing lawn recently Severe? Yes; 10/10 Frequency: 4-5 days per week Duration? 4-5 hours but can last up to two days Autonomic features: None Autonomic headache features -: none Tinnitus? Yes; sometimes but not always with headache - not pulsatile (does not think) Positional? Yes - sometimes can happen when lying down, can happen when waking up (pressure when waking) Double vision? No Visual obscurations? Not blurred Worse with valsalva/sneeze/cough? No Caffeine intake? Tea, 6 cups/day Water intake? Four to seven 8 ounce glasses daily Alcohol? Rare Tobacco? 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 When overheated Sleep concerns? Yes; up every 1.5 hours. She snore. No gasping air. Feels fatigued during the day. Wakes to use the bathroom every time she gets up. Never had sleep study. Mood concerns? Yes- currently taking sertraline and Effexor History of concussion? No Plans for /current BC? Beginning stages of menopause a couple years ago; no estrogen supplements Family Hx of migraines, aneurysms, brain tumors: Daughter with migraines (menstrual related) Ophthalmology: 2 months ago Renal stone Yes, cardiovascular disease/arrhythmia Yes (VSD, enlarged L ventricle, regurg), cerebrovascular disease (TIA/stroke) No Personal hx of seizure(?). This was during . No further episodes until drug use at which time she had 10 seizures. Maybe had MRI at that time. Previous/Current Headache treatment Preventative: Sertraline- current Metoprolol- current Venlafaxine ER- current Buspirone- past Citalopram- past Keppra- past Rescue: Tylenol Ibuprofen Caffeine She did try 5 day dose of prednisone and has had only one migraine and one headache in last five days. Did help. # of doses of abortive medications per month: > or = 10 days/month (or 8 for opiates, 5 for barbiturates) Medication Overuse Headache concern? Yes PAST MEDICAL HISTORY Diagnosis Date Backache, unspecified [...] along with prinary VSD and PFO closure Current Outpatient Medications on File Prior to Visit Medication Sig predniSONE (DELTASONE) 50 mg Take 1 tablet by mouth once daily. sertraline (ZOLOFT) 100 mg tablet Take 2 tablets by mouth once daily. metoprolol succinate ER (TOPROL XL) 25 mg 24 hr tablet Take 1 tablet by mouth once daily. venlafaxine ER (EFFEXOR XR) 75 mg 24 hr capsule Take 1 capsule by mouth once daily. No current facility-administered medications on file prior to visit. Social History Tobacco Use Smoking status: Former Current packs/day: 0.25 Types: Cigarettes Smokeless tobacco: Never Substance Use Topics Alcohol use: Yes Comment: OCCASIONALLY Drug use: No Comment: history of meth use ALLERGIES Allergen Reactions Nickel Rash, Unknown, Hives Hydrocodone-Acetami* Itching Propoxyphene N-Acet* Vomiting Review of Systems: Constitutional: denies fever, weight loss, loss of appetite Cardiopulmonary: denies chest pain, palpitations (on occasion) Respiratory: denies shortness of breath GI: denies recent nausea, vomiting, diarrhea, constipation : denies incontinence Musculoskeletal: denies weakness Neuro: denies tremors, loss of feeling, dizziness, seizure, blackout, + paresthesia (L arm when sleeping), facial paresthesia, facial weakness, difficulty in speech, slurring of words, dysarthria, dysphagia, memory loss, + headache Physical Exam: 02/20/25 0950 BP: 130/82 BP Site: Left Arm BP Position: Sitting BP Cuff Size: Large Adult Pulse: 78 SpO2: 98% Weight: 64.5 kg (142 lb 3.2 oz) Height: 154.9 cm (5' 1") Patient is alert and in no distress. Dress is appropriate. Mood is appropriate Breathing appears regular and unstressed Neurologic examination: Cognitively intact. No deficits. No formal MOCA performed. CN: Pupils equal and reactive to light, extraocular movements intact with no nystagmus, mild R facial asymmetry to mouth, facial sensation intact bilaterally to light touch. V1-3, hearing intact bilaterally, symmetric evaluation of the soft palate, tongue is midline with no deviation, shoulder shrug is symmetric. Motor Examination: Right Upper Extremity: (of 5) Left Upper Extremity: (of 5) Shoulder Abduction: Deltoid (Ax/C5) 5 Shoulder Abduction 5 Elbow Flexion: Biceps (MC/R and C5/6) 5 Elbow Flexion 5 Elbow Extension: Triceps (R/C7) 5 Elbow Extension 5 Wrist Flexion (M/U and C6/7) 5 Wrist Flexion 5 Wrist Extension (R/C6) 5 Wrist Extension 5 Finger Abduction (U/T1) 5 Finger Abduction 5 Room Cooler Installer 5 Room Cooler Installer 5 Right Lower Extremity: (of 5) Left Lower Extremity: (of 5) Hip Flexion: Iliopsoas (F and L1/2) 5 Hip Flexion 5 Knee Extension: Quadriceps (F and L3/4) 5 Knee Extension 5 Knee Flexion: Hamstrings (S/S1) 5 Knee Flexion 5 Dorsiflexion: Tibialis Anterior (DP and L4/5) 5 Dorsiflexion 5 Plantarflexion: Gastrocnemius/Soleus (T and S1/2) 5 Plantarflexion 5 Reflexes: Right Extremities Left Extremities: Triceps (C7-8R) 2+ Triceps 2+ Biceps (C5-6MC) 2+ Biceps 2+ Brachioradialis (C5-6R) 2+ Brachioradialis 2+ Patellar (L3-4F) 2+ Patellar 2+ Achilles (S1-2S) 2+ Achilles 2+ Ankle Clonus: negative bilaterally Cote's: + R Sensory Intact to light touch upper and lower extremities bilaterally Temperature: intact in all extremities Normal toe and finger vibratory sensation Pain with palpation over bilateral occipital region. Coordination: No dysmetria on finger to nose. No tremors noted. No drift seen. Gait normal in stance and pattern. Negative Romberg. Tandem without imbalance. Labs/studies: CT Brain Report CT BRAIN WO IVCON Exam End: 07/26/2021 10:41 PM (Final result) Narrative: * * *Final Report* * * DATE OF EXAM: Jul 26 2021 10:40PM [facility] 0504 - CT BRAIN WO IVCON / PROCEDURE REASON: Headache, acute, normal neuro exam * * * * Physician Interpretation * * * * EXAMINATION: CT BRAIN WO IVCON CLINICAL HISTORY: Headache, acute, normal neuro exam TECHNIQUE: Serial axial images without IV contrast were obtained from the vertex to the foramen magnum. CT Dose-Length Product (DLP): 698 mGy*cm CT Dose Reduction Employed: Iterative recon COMPARISON: None. RESULT: Parenchyma: No definite areas of abnormal attenuation within the brain parenchyma. No evidence of large territory acute infarction, acute intraparenchymal hemorrhage, or parenchymal mass lesion. Extra-axial: The ventricles are within normal limits of size and configuration for age. No evidence of acute extra-axial hemorrhage, other extra-axial fluid collection, or extra-axial mass lesion. Mass Effect: No significant mass effect. Other: The calvarium is intact. The visualized portions of the paranasal sinuses and mastoid air cells are clear. No acute abnormality of the visualized orbits. No significant additional findings on the finance effectiveness manager image. Impression: IMPRESSION: No evidence of an acute intracranial process. 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 Date/Time: Jul 26 2021 10:53P Dictated by : CARLYLE ORTEZ MD This examination was interpreted and the report reviewed and electronically signed by: CARLYLE ORTEZ MD on Jul 26 2021 10:56PM EST Latest Ref Rng 02/10/2022 02/17/2022 WBC 3.70 - 11.00 k/uL 10.55 RBC 3.90 - 5.20 m/uL 5.20 Hemoglobin 11.5 - 15.5 g/dL 15.1 Hematocrit 36.0 - 46.0 % 45.5 MCV 80.0 - 100.0 fL 87.5 MCH 26.0 - 34.0 pg 29.0 MCHC 30.5 - 36.0 g/dL 33.2 RDW-CV 11.5 - 15.0 % 13.5 Platelet Count 150 - 400 k/uL 236 MPV 9.0 - 12.7 fL 11.1 Absolute nRBC <0.01 k/uL <0.01 Glucose 74 - 99 mg/dL 78 BUN 7 - 21 mg/dL 6 (L) Creatinine 0.58 - 0.96 mg/dL 0.51 (L) Sodium 136 - 144 mmol/L 140 Potassium 3.7 - 5.1 mmol/L 4.1 Chloride 97 - 105 mmol/L 102 CO2 22 - 30 mmol/L 26 Anion Gap 9 - 18 mmol/L 12 Calcium 8.5 - 10.2 mg/dL 9.3 eGFR >=60 mL/min/1.73m 121 Legend: (L) Low Assessment/Plan: Migraine with aura and without status migrainosus, not intractable (G43.109) Neck pain (M54.2) Comment: Onset of headaches in 2020 with increase in frequency and severity over the past six months, occurring 4-5 days per week. Symptoms include unilateral left-sided temporal pain that radiates to the top of the head, associated with photophobia, phonophobia, nausea, and emesis. Describes visual aura as "dark stars" in both eyes preceding headaches. Neck pain is present, particularly on the right side, with a sensation of stiffness. Recent cervical spine X-rays show degenerative changes at C4, C5, and C6 (up to a moderate degree). Neurological exam reveals mild R facial asymmetry and brisk reflexes bilaterally with + R Cote's. Sx would be consistent with migraine with aura with possible cervical contribution. After discussion regarding medications and exam findings will proceed with plan below. - Ordered MRI of the brain to rule out intracranial pathology such as small strokes or masses. - Initiated gabapentin 300 mg PO at bedtime for 5-7 days, then increase to 300 mg PO BID. Monitor for side effects such as drowsiness, dizziness, and leg swelling. - Referred to physical therapy for cervical spine management. - Advised to limit use of [id number]-msn-ornhrsw analgesics to less than 10 days per month to avoid medication overuse headache. - Follow-up in 4 weeks to review MRI results and assess response to gabapentin. Sleep apnea-like behavior (G47.39) Comment: Reports poor sleep quality, waking every 1.5 hours, and daytime fatigue. Nocturia is present. Partner reports mild snoring. No history of gasping for air during sleep. Differential diagnosisincludes sleep apnea (noting that this may contribute to headaches). - Ordered home sleep study to evaluate for sleep apnea. Previous/Current Headache treatment Preventative: Sertraline- current Metoprolol- current Venlafaxine ER- current Buspirone- past Citalopram- past Keppra- past Rescue: Tylenol Ibuprofen Caffeine Office Visit on 02/20/25 HOME SLEEP APNEA TEST (HSAT) MRI BRAIN WO/W IVCON CONSULT TO NEUROLOGY CONSULT TO PHYSICAL THERAPY Soledad Garrido APRN.CNP I spent a total of 55 minutes on the date of the service which included preparing to see the patient, [id number]-imal patient care, completing clinical documentation, obtaining and/or reviewing separately obtained history, performing a medically appropriate examination, counseling and educating the pat ient/family/caregiver, and ordering medications, tests, or procedures. Portions of this note were created with electronic dictation and errors in spelling, syntax, and meaning may have occurred. documented in this encounterPrem[facility] NoteHNO ID: [id number] Author: SOLEDAD GARRIDO APRN.CNP Service: ? Author Type: Nurse Practitioner Type: Progress Notes Filed: 02/20/2025 10:54 Note Text: [facility] [place] New Patient Evaluation CHIEF COMPLAINT: Headache Ángel Galvan is a 44 year old accompanied by her sister in law. Consult was requested by Noa Appiah CNP for an opinion regarding above CC. My final impression and recommendations will be communicated back to the requesting physician by way of the shared medical record or fax. Recording using [employer] software for draft documentation of the visit was discussed with the patient/authorized medical center representative; all questions welcomed and answered. Patient/authorized medical center representative agreed to proceed February 20, 2025 HPI: Ms. Galvan presents today secondary to issues of headaches. No headaches history since she received COVID vaccine. After that had two day migraine. Then once per month or every two months. The past six months coming 4-5 days per week. Has gone to the ED. Migraine HPI HEADACHE LOCATION: Frontal/temporal to top of head; feels sx from L hinduism across head then turns into full headache (not in jaw) Neck pain? Yes; stiff and R side pain - no neck injuries Onset: Headaches began around 2020 (see above) Quality: "pressure" Photophobia? Yes Phonophobia? Yes Nausea? Yes Vomitting? Yes Aura? How long? Yes ; dark stars in both eyes Worse with activity? Yes - worse after mowing lawn recently Severe? Yes; 10/10 Frequency: 4-5 days per week Duration? 4-5 hours but can last up to two days Autonomic features: None Autonomic headache features -: none Tinnitus? Yes; sometimes but not always with headache - not pulsatile (does not think) Positional? Yes - sometimes can happen when lying down, can happen when waking up (pressure when waking) Double vision? No Visual obscurations? Not blurred Worse with valsalva/sneeze/cough? No Caffeine intake? Tea, 6 cups/day Water intake? Four to seven 8 ounce glasses daily Alcohol? Rare Tobacco? 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 When overheated Sleep concerns? Yes; up every 1.5 hours. She snore. No gasping air. Feels fatigued during the day. Wakes to use the bathroom every time she gets up. Never had sleep study. Mood concerns? Yes- currently taking sertraline and Effexor History of concussion? No Plans for /current BC? Beginning stages of menopause a couple years ago; no estrogen supplements Family Hx of migraines, aneurysms, brain tumors: Daughter with migraines (menstrual related) Ophthalmology: 2 months ago Renal stone Yes, cardiovascular disease/arrhythmia Yes (VSD, enlarged L ventricle, regurg), cerebrovascular disease (TIA/stroke) No Personal hx of seizure(?). This was during . No further episodes until drug use at which time she had 10 seizures. Maybe had MRI at that time. Previous/Current Headache treatment Preventative: Sertraline- current Metoprolol- current Venlafaxine ER- current Buspirone- past Citalopram- past Keppra- past Rescue: Tylenol Ibuprofen Caffeine She did try 5 day dose of prednisone and has had only one migraine and one headache in last five days. Did help. # of doses of abortive medications per month: > or = 10 days/month (or 8 for opiates, 5 for barbiturates) Medication Overuse Headache concern? Yes PAST MEDICAL HISTORY Diagnosis Date Backache, unspecified [...] along with prinary VSD and PFO closure Current Outpatient Medications on File Prior to Visit Medication Sig predniSONE (DELTASONE) 50 mg Take 1 tablet by mouth once daily. sertraline (ZOLOFT) 100 mg tablet Take 2 tablets by mouth once daily. metoprolol succinate ER (TOPROL XL) 25 mg 24 hr tablet Take 1 tablet by mouth once daily. venlafaxine ER (EFFEXOR XR) 75 mg 24 hr capsule Take 1 capsule by mouth once daily. No current facility-administered medications on file prior to visit. Social History Tobacco Use Smoking status: Former Current packs/day: 0.25 Types: Cigarettes Smokeless tobacco: Never Substance Use Topics Alcohol use: Yes Comment: OCCASIONALLY Drug use: No Comment: history of meth use ALLERGIES Allergen Reactions Nickel Rash, Unknown, Hives Hydrocodone-Acetami* Itching Propoxyphene N-Acet* Vomiting Review of Systems: Constitutional: denies fever, weight loss, loss of appetite Cardiopulmonary: denies chest pain, palpitations (on occasion) Respiratory: denies shortness (more content not included)...[facility]04-17-2025 Instructions* Patient Instructions* Payam Miller APRN.TRUCK DRIVING INSTRUCTOR - 02/15/2025 4:04 PM EDT COLONOSCOPY BOWEL PREPARATION INSTRUCTIONS GOLYTELY/NULYTELY/TRILYTE/COLYTE Your doctor has scheduled you for a colonoscopy. To have a successful colonoscopy, you must have a clean colon, that is empty. A clean colon allows your doctor to see the entire colon & diagnose issues like polyps or cancer. For doctors, a clean colon is like driving on a thelma day; a dirty colon like driving in a storm. It is very important that you follow these instructions exactly, or your colonoscopy might not be as effective, could be canceled, and you may need to do the bowel prep and the colonoscopy again. TRANSPORTATION REQUIREMENTS You are receiving IV sedation. For your safety, a responsible adult escort must accompany you to and from your procedure: Your adult escort MUST be present with you at check-in for your colonoscopy. Your adult escort MUST remain in the endoscopy area until you are discharged. Your adult escort MUST transport you home once you are discharged. You are NOT allowed to operate any form of transportation (i.e. drive a car, bicycle, etc.) or leave the Endoscopy Center ALONE. It is not safe to do so. If you cannot meet these requirements, your procedure will be canceled. MEDICATION REQUIREMENTS For your safety, certain medications will need to be stopped or adjusted before you can have your procedure: BLOOD THINNERS: If you take blood thinners, such as Coumadin (warfarin), Plavix (clopidogrel), Ticlid (ticlopidine hydrochloride), Agrylin (anagrelide), Xarelto (Rivaroxaban), Pradaxa (Dabigatran), Eliquis (Apixaban), or Effient (Prasugrel), contact the physician who is prescribing these medications at least 2 weeks prior to your procedure to discuss any necessary adjustments. DIABETES: If you take medications for diabetes, your dosage may need to be adjusted. If you are being treated for diabetes with insulin, diabetic pills, or other injectable medicationsdo not take your REGULAR dose after midnight on the day of your procedure. If you are taking any other types of insulin such as Lantus, Humalog, NPH (long- acting insulin), or70/30 insulin, take half your normal dose the day before your procedure. DIABETES/WEIGHT MANAGEMENT: If you take medications for weight-loss, your dosage may need to be adjusted Contact the doctor who prescribes this medication for further instructions. If you take medications for weight-loss like semaglutide (Ozempic, Wegovy, Rybelsus), dulaglutide (Trulicity), liraglutide (Victoza, Saxenda), exenatide (Byetta, Bydureon), or lixisenatide (Adylyxin), stop your medication 1 week prior to your procedure. If you take medications like canagliflozin (Invokana), dapagliflozin (Farxiga, Forxiga), empagliflozin (Jardiance), stop your medication 3 days prior to your procedure. If you take ertugliflozin (Steglatro) stop your medication 4 days prior to your procedure. IRON: If you take iron pills, STOP them 1 week BEFORE your procedure, may resume after. OTHER MEDS: May take all other medications (including aspirin, antibiotics, water pills / diureticslike Lasix or Metolozone, blood pressure meds, etc.) at their usual scheduled time with a sip of water. DIET REQUIREMENTS The day before your colonoscopy, you may have a clear liquid diet (see below). The day of your colonoscopy, you may continue a clear liquid diet until 3 hours before your colonoscopy. Within 3 hours of your colonoscopy, take only any medications (as above) with a sip of water. Clear Liquid Diet Broth (chicken, beef or vegetable broth or bullion. Just the broth, no solids). Water Coffee or Tea (NO milk or creamer), but sugar and sugar substitutes are allowed. Clear liquids including clear, yellow, green, blue (NO red, NO orange, NO purple) Sodas / soft drinks Gatorade or other sports drinks T[employer] or flavored drinks Plain Jell-O or other gelatins Fruit juice (strained; no-pulp) Popsicles or hard candy BOWEL PREPARATION (GOLYTELY/NULYTELY/TRILYTE/COLYTE) Split Dosing Bowel Prep: This means drinking your bowel prep in two doses. Split dosing helps cleanyour colon better and makes it less likely that your procedure will be canceled. Fill your prescription for Golytely/Nulytely/Trilyte/Colyte: The afternoon before your colonoscopy, mix the solution and refrigerate. You may add the flavor pack (if present) that came with the bowel preparation. Do not add ice, sugar, or other flavorings to the solution. You will drink your prep in two doses, by several hours. On the evening before your colonoscopy: 1. 6 PM drink the first half of the bowel preparation solution. Drink one 8-ounce glass every 15 minutes. 2. Six hours before your colonoscopy, drink the second half of the solution. Drink one 8-ounce glass every 15 minutes. 3. You may continue a clear liquid diet until 3 hours before your colonoscopy. Bowel prep can work differently from person to person. Some people's bowels move slowly and they may need different instructions. Please see your doctor in office or virtually for personalized bowel prep instructions if you have: Medical condition that needs special accommodations Had a poor bowel prep results or failed bowel prep attempts in the past. Had difficulty with anesthesia during the procedure. FREQUENTLY ASKED QUESTIONS Q: What if I suffer from constipation? A: Recommend taking extra laxatives to resolve your constipation days prior to entering the bowel prep day. Q: What if have had prior poor preps results in past? A: Contact your physician as you will likely need additional bowel prep instructions. Q: What if I have motility issues like Parkinson's, MS (multiple sclerosis), wheelchair dependent, etc.? or on medications that slow bowel emptying (narcotics, gabapentin, anticholinergic medicationsetc.) A: Contact your physician as you will likely need extra time and additional laxatives to complete your bowel prep. Q: What if I cannot drink large volume of liquid? A: Start your prep 2-3 hours earlier to allow yourself more time to complete the entire prep. Q: What if I can't finish my bowel prep? A: If you cannot finish your entire bowel prep, it is likely that your colonoscopy will need to be rescheduled due to poor prep quality. Q: What if I had bariatric surgery? Do I still have to complete the entire prep? A: Yes, gastric bypass surgery involves the stomach & small bowel. You may need to drink smaller amounts, slower (may need more time to complete your bowel prep). Gastric bypass does not alter the length of your colon so you will need to complete the entire bowel prep, it may just take longer time to complete it. Q: What if I am on dialysis? A: Please consult your pony ride operator prior to scheduling to get instructions pertinent to you. In general, dialysis patients take the [employer] bowel prep and have the procedure same day of their dialysis (colonoscopy in AM, dialysis in PM). Q: How do I know if something is considered as clear liquid diet? A: If you can pour it in a glass and you can see through it, it is considered clear liquid Q: Can I eat nuts, seeds, beans, popcorn, dried fruits, vegetables & fruits that have skin peel? A: No, you will need to not eat these items starting 3 days prior to procedure. Q: Can I take Uber/Lyft/taxi/bus home? A: An adult MUST be present with you at check-in for your colonoscopy and remain in the endoscopy area until you are discharged. You can take Uber home only if this adult escort is with you at check in, remain in the endoscopy area until you are discharged, and takes the Uber with you to home. Q: Can I sleep it off here and drive myself home? A: No, you must have an adult with you at time of procedure check in, remain in the endoscopy center during your procedure, and drive you home. You cannot drive a vehicle after your procedure the rest of the day. documented in this encounterPremier [facility] NoteHNO ID: [id number] Author: PAYAM MILLER APRN.RODRIGO Service: ? Author Type: Nurse Practitioner Type: Progress Notes Filed: 02/15/2025 16:23 Note Text: Ángel is a 44-year-old female presenting for follow-up of neck pain, migraines, and new onset abdominal pain. Neck Pain: - Right-sided neck pain x1 month, described as a "constant stiffness." - Pain localized along the spine on the right side; no radiation to shoulder or arm. - Recent x-rays showed C4-C6 degenerative disc disease. - Prednisone provided some relief. Paresthesia: - Paresthesia in hands, predominantly at night, causing awakening. - Describes hands as "swollen like something's cut off." - Paresthesia sometimes involves entire hand, other times limited to third and fourth fingers. - Occasional pain and swelling in wrists. - Uses wrist brace on right hand PRN. - Right-handed. - Denies previous nerve studies. - Neurology appointment scheduled for next Wednesday. Migraines: - Migraines x3 months, increasing in frequency and intensity. - Initially began post-COVID vaccination in 2020, occurring once a month. - Currently experiencing migraines 3-4 times per week. - No aura; onset with a small headache that intensifies if not relieved by ibuprofen within 30 minutes. - Post-migraine "hangover" sensation. - Treated with Tylenol, ibuprofen, and caffeine with variable relief. - Recent ER visits x2 this month for severe migraines. Abdominal Pain: - Acute onset of abdominal pain after feeling a "pop" in the abdomen at 0330 on Wednesday morning. - Pain localized to the left side, with a sensation of swelling compared to the right side. - Pain exacerbated by lying down, sitting up, and lifting objects. - No nausea, emesis, or bowel movement changes. - Describes a "burning" sensation in the affected area. Family History: - Mother diagnosed with colon cancer at age 58-59, wondering when she should have a colonoscopy. - Extensive cancer history on maternal side. PAST MEDICAL HISTORY Diagnosis Date Backache, unspecified [...] along with prinary VSD and PFO closure Allergies: ALLERGIES Allergen Reactions Nickel Rash, Unknown, Hives Hydrocodone-Acetami* Itching Propoxyphene N-Acet* Vomiting Medications: sertraline (ZOLOFT) 100 mg tablet Take 2 tablets by mouth once daily. metoprolol succinate ER (TOPROL XL) 25 mg 24 hr tablet Take 1 tablet by mouth once daily. venlafaxine ER (EFFEXOR XR) 75 mg 24 hr capsule Take 1 capsule by mouth once daily. peg 3350-Electrolytes (GOLYTELY) 236-22.74-6.74 -5.86 gram suspension Take 4,000 mL by mouth one time only for 1 dose. Refer to printed prep instructions from your provider. Review of Systems Objective BP 116/79 Pulse 82 Ht 154.9 cm (5' 0.98") Wt 67 kg (147 lb 11.3 oz) LMP 11/07/2024 (Exact Date) BMI 27.92 kg/m? Physical Exam Vitals and nursing note reviewed. Constitutional: Appearance: She is well-developed. She is not ill-appearing. Pulmonary: Effort: Pulmonary effort is normal. Abdominal: General: Abdomen is flat. Bowel sounds are normal. Palpations: Abdomen is soft. Tenderness: There is abdominal tenderness in the left lower quadrant. Hernia: No hernia is present. Musculoskeletal: Cervical back: Normal. Skin: General: Skin is warm and dry. Neurological: Mental Status: She is alert and oriented to person, place, and time. Psychiatric: Mood and Affect: Mood normal. Assessment and Plan 1. Left lower quadrant abdominal pain (R10.32) - Onset after feeling a "pop" in the abdomen; pain exacerbated by lying down, sitting up, and lifting. - No nausea, vomiting, or bowel movement changes reported. - Physical exam did not reveal any palpable hernia. - Advised rest, application of heat, and use of ibuprofen. - Provided a note for two days off work (02/16 and 02/17) to facilitate recovery. - Re-evaluate on Wednesday; if symptoms persist, consider further imaging or referral to general surgery. 2. Neck pain on right side (M54.2) - Pain described as constant stiffness, localized along the spine on the right side, without radiation to shoulder or arm. - Recent onset within the last month. - Cervical spine X-rays show degenerative disc disease at C4, C5, and C6 levels, but no significant spinal canal narrowing. - Prednisone provided temporary relief. - Discussed potential for physical therapy if pain persists. - Monitor symptoms; if chronic, consider referral to pain management or MRI of the spine. 3. Bi (more content not included)...[facility]04-17-2025 History of Present illness Narrative* Payam Miller APRN.TRUCK DRIVING INSTRUCTOR - 02/15/2025 3:43 PM EDT Ángel is a 44-year-old female presenting for follow-up of neck pain, migraines, and new onset abdominal pain. Neck Pain: - Right-sided neck pain x1 month, described as a "constant stiffness." - Pain localized along the spine on the right side; no radiation to shoulder or arm. - Recent x-rays showed C4-C6 degenerative disc disease. - Prednisone provided some relief. Paresthesia: - Paresthesia in hands, predominantly at night, causing awakening. - Describes hands as "swollen like something's cut off." - Paresthesia sometimes involves entire hand, other times limited to third and fourth fingers. - Occasional pain and swelling in wrists. - Uses wrist brace on right hand PRN. - Right-handed. - Denies previous nerve studies. - Neurology appointment scheduled for next Wednesday. Migraines: - Migraines x3 months, increasing in frequency and intensity. - Initially began post-COVID vaccination in 2020, occurring once a month. - Currently experiencing migraines 3-4 times per week. - No aura; onset with a small headache that intensifies if not relieved by ibuprofen within 30 minutes. - Post-migraine "hangover" sensation. - Treated with Tylenol, ibuprofen, and caffeine with variable relief. - Recent ER visits x2 this month for severe migraines. Abdominal Pain: - Acute onset of abdominal pain after feeling a "pop" in the abdomen at 0330 on Wednesday morning. - Pain localized to the left side, with a sensation of swelling compared to the right side. - Pain exacerbated by lying down, sitting up, and lifting objects. - No nausea, emesis, or bowel movement changes. - Describes a "burning" sensation in the affected area. Family History: - Mother diagnosed with colon cancer at age 58-59, wondering when she should have a colonoscopy. - Extensive cancer history on maternal side. PAST MEDICAL HISTORY Diagnosis Date Backache, unspecified [...] along with prinary VSD and PFO closure Allergies: ALLERGIES Allergen Reactions Nickel Rash, Unknown, Hives Hydrocodone-Acetami* Itching Propoxyphene N-Acet* Vomiting Medications: sertraline (ZOLOFT) 100 mg tablet Take 2 tablets by mouth once daily. metoprolol succinate ER (TOPROL XL) 25 mg 24 hr tablet Take 1 tablet by mouth once daily. venlafaxine ER (EFFEXOR XR) 75 mg 24 hr capsule Take 1 capsule by mouth once daily. peg 3350-Electrolytes (GOLYTELY) 236-22.74-6.74 -5.86 gram suspension Take 4,000 mL by mouth one time only for 1 dose. Refer to printed prep instructions from your provider. Review of Systems Objective BP 116/79 Pulse 82 Ht 154.9 cm (5' 0.98") Wt 67 kg (147 lb 11.3 oz) LMP 11/07/2024 (Exact Date) BMI 27.92 kg/m Physical Exam Vitals and nursing note reviewed. Constitutional: Appearance: She is well-developed. She is not ill-appearing. Pulmonary: Effort: Pulmonary effort is normal. Abdominal: General: Abdomen is flat. Bowel sounds are normal. Palpations: Abdomen is soft. Tenderness: There is abdominal tenderness in the left lower quadrant. Hernia: No hernia is present. Musculoskeletal: Cervical back: Normal. Skin: General: Skin is warm and dry. Neurological: Mental Status: She is alert and oriented to person, place, and time. Psychiatric: Mood and Affect: Mood normal. Assessment and Plan 1. Left lower quadrant abdominal pain (R10.32) - Onset after feeling a "pop" in the abdomen; pain exacerbated by lying down, sitting up, and lifting. - No nausea, vomiting, or bowel movement changes reported. - Physical exam did not reveal any palpable hernia. - Advised rest, application of heat, and use of ibuprofen. - Provided a note for two days off work (02/16 and 02/17) to facilitate recovery. - Re-evaluate on Wednesday; if symptoms persist, consider further imaging or referral to general surgery. 2. Neck pain on right side (M54.2) - Pain described as constant stiffness, localized along the spine on the right side, without radiation to shoulder or arm. - Recent onset within the last month. - Cervical spine X-rays show degenerative disc disease at C4, C5, and C6 levels, but no significantspinal canal narrowing. - Prednisone provided temporary relief. - Discussed potential for physical therapy if pain persists. - Monitor symptoms; if chronic, consider referral to pain management or MRI of the spine. 3. Bilateral hand numbness (R20.0) - Numbness and tingling primarily at night, sometimes involving the entire hand, other times localized to the third and fourth fingers. - Occasional swelling in the wrist area. - Negative Phalen's and Tinel's tests. - Suspected carpal tunnel syndrome. - Recommended wearing wrist braces on both hands at night. - Follow-up PRN if no improvement/worsening 4. Other migraine without status migrainosus, not intractable (G43.809) - Migraines increasing in frequency and intensity over the last three months, occurring 3-4 times per week. - No aura reported; onset often begins with a mild headache. - Temporary relief with ibuprofen, Tylenol, and caffeine. - Deferred further management to upcoming neurology appointment. 5. Family history of colon cancer in mother (Z80.0) 6. Screening for colon cancer (Z12.11) - Mother diagnosed with colon cancer at age 58. - Discussed early screening due to family history. - Ordered colonoscopy; patient to schedule at her convenience. - Discussed potential for genetic counseling if insurance denies coverage. Payam Miller APRN.TRUCK DRIVING INSTRUCTOR Recording using [employer] software for draft documentation of the visit was discussed with the patient/authorized medical center representative; all questions welcomed and answered. Patient/authorized medical center representative agreed to proceed documented in this encounterPrem[facility]04-[facility] History of Present illness Narrative* Quoc Jim RT(R) - 02/08/2025 4:00 PM EDT Radiology Service Progress Note PATIENT NAME: Ángel Galvan DATE OF SERVICE: February 08, 2025 TIME: 3:56 PM PATIENT IDENTITY VERIFICATION COMPLETED USING TWO (2) IDENTIFIERS: Name and Date of confirmedby patient verbally. FALL SCREENING: Has the patient had 2 falls in the last year or 1 fall with injury or currently using an Ambulatory Assistive Device (Walker, Cane, Wheelchair, Crutches, etc.)? No PATIENT GENDER DATA: Assigned female at . status: : No status:NO. PATIENT RELEVANT IMPLANT DATA REVIEWED: Yes PATIENT PRESENTS WITH AN IMPLANTABLE OR ATTACHED STRATEGIC ALLIANCES MANAGER: No RADIOLOGY DEPARTMENT: General X-ray: Exam(s) Completed: Spine X-Ray(s): Cervical AP / LAT / FLEX-EXT PERIPHERAL IV DATA: Not applicable SIGNED BY: RT Arsenio(R) February 08, 2025 3:56 PM documented in this encounterPremier Health [facility]04-10-2025 NoteHNO ID: [id number] Author: QUOC JIM RT(Freddie) Service: ? Author Type: Endocrinology Specialist Type: Progress Notes Filed: 02/08/2025 16:07 Note Text: Radiology Service Progress Note PATIENT NAME: Ángel Galvan DATE OF SERVICE: February 08, 2025 TIME: 3:56 PM PATIENT IDENTITY VERIFICATION COMPLETED USING TWO (2) IDENTIFIERS: Name and Date of confirmed by patient verbally. FALL SCREENING: Has the patient had 2 falls in the last year or 1 fall with injury or currently using an Ambulatory Assistive Device (Walker, Cane, Wheelchair, Crutches, etc.)? No PATIENT GENDER DATA: Assigned female at . status: : No status: NO. PATIENT RELEVANT IMPLANT DATA REVIEWED: Yes PATIENT PRESENTS WITH AN IMPLANTABLE OR ATTACHED STRATEGIC ALLIANCES MANAGER: No RADIOLOGY DEPARTMENT: General X-ray: Exam(s) Completed: Spine X-Ray(s): Cervical AP / LAT / FLEX-EXT PERIPHERAL IV DATA: Not applicable SIGNED BY: RT Arsenio(Freddie) February 08, 2025 3:56 PMC[facility] Instructions* Patient Instructions* Noa Appiah APRN.CNP - 02/08/2025 2:59 PM EDT Please take prednisone in the morning and with food Do not take any NSAIDs including ibuprofen, motrin, aleve, etc. documented in this encounterPremier Health [facility]04-10-2025 NoteHNO ID: [id number] Author: NOA APPIAH APRN.CNP Service: ? Author Type: Nurse Practitioner Type: Progress Notes Filed: 02/08/2025 15:15 Note Text: This note was created using NoteWriter. Chuck Mckay J Hartsoe is a 44 year old female. Patient presents with: Headache Started this morning with a headache States she was in the ER in [place] on Wednesday for a headache and received headache cocktail (toradol, reglan, benadryl) Headache then went away, then came back on Wednesday night and benadryl helped this Now getting 2-3 headaches per week States she has had a history of headaches since she got the Covid vaccine. States her headaches on in her left hinduism and over the top of her head. Light and sound makes it worse Was having n/v No vision changes, ear pain or dizziness. Has had some neck pain Seeing chiropractor Wednesday Wakes up in the middle of the night from her headache No recent illness Drinks 5 glasses of water per day Tried Tylenol, ibuprofen, caffeine. The history is provided by the patient. No russian language professor was used. Review of Systems Constitutional: Negative for activity change, appetite change, chills, diaphoresis, fatigue, fever and unexpected weight change. HENT: Negative. Eyes: Negative for photophobia and visual disturbance. Respiratory: Negative for apnea, cough, chest tightness, shortness of breath and wheezing. Cardiovascular: Negative for chest pain, palpitations and leg swelling. Gastrointestinal: Positive for nausea and vomiting. Genitourinary: Negative. Musculoskeletal: Negative. Skin: Negative for rash. Allergic/Immunologic: Negative. Neurological: Positive for headaches. Negative for dizziness, tremors, seizures, syncope, facial asymmetry, speech difficulty, weakness, light-headedness and numbness. Psychiatric/Behavioral: Negative for behavioral problems, confusion, decreased concentration, dysphoric mood, hallucinations, self-injury, sleep disturbance and suicidal ideas. The patient is not nervous/anxious. All other systems reviewed and are negative. Objective BP 131/87 (BP Site: Right Arm, BP Position: Sitting, BP Cuff Size: Regular Adult) Pulse 75 Temp 36.5 ?C (97.7 ?F) (Tympanic) Ht 154.9 cm (5' 1") Wt 64.4 kg (141 lb 15.6 oz) LMP 11/07/2024 (Exact Date) SpO2 99% BMI 26.83 kg/m? PAST MEDICAL HISTORY Diagnosis Date Backache, unspecified [...] along with prinary VSD and PFO closure Current Outpatient Medications on File Prior to Visit Medication Sig sertraline (ZOLOFT) 100 mg tablet Take 2 tablets by mouth once daily. metoprolol succinate ER (TOPROL XL) 25 mg 24 hr tablet Take 1 tablet by mouth once daily. venlafaxine ER (EFFEXOR XR) 75 mg 24 hr capsule Take 1 capsule by mouth once daily. QUEtiapine (SEROQUEL) 100 mg tablet Take 100 mg by mouth daily at bedtime. (Patient not taking: Reported on 01/03/2024) prazosin (MINIPRESS) 2 mg cap Take 2 mg by mouth daily at bedtime. (Patient not taking: Reported on 01/03/2024) melatonin 3 mg tablet TAKE 2 TABLETS BY MOUTH AT BEDTIME NEEDED FOR FOR INSOMNIA. (Patient not taking: Reported on 07/15/2022) lisinopril 2.5 mg tablet Take 1 tablet by mouth once daily. (Patient not taking: Reported on 11/07/2024) diphenhydrAMINE (BENADRYL) 25 mg capsule Take 1 capsule by mouth every 6 hours as needed (anxiety). Discontinue previous Rx (Patient not taking: Reported on 07/15/2022) No current facility-administered medications on file prior to visit. ALLERGIES Allergen Reactions Nickel Rash, Unknown, Hives Hydrocodone-Acetami* Itching Propoxyphene N-Acet* Vomiting Physical Exam Vitals reviewed. Constitutional: General: She is awake. She is not in acute distress. Appearance: Normal appearance. She is well-developed and normal weight. She is not ill-appearing. HENT: Head: Normocephalic. Right Ear: Hearing, tympanic membrane, ear canal and external ear normal. Left Ear: Hearing, tympanic membrane, ear canal and external ear normal. Nose: Nose normal. No congestion or rhinorrhea. Right Sinus: No maxillary sinus tenderness or frontal sinus tenderness. Left Sinus: No maxillary sinus tenderness or frontal sinus tenderness. Mouth/Throat: Lips: Grenelefe. Mouth: Mucous membranes are moist. Pharynx: Oropharynx is clear. Uvula midline. Eyes: General: Right eye: No discharge. Left eye: No discharge. Extraocular Movements: Extraocular movements intact. Conjunctiva/sclera: Conjunctivae normal. Pupils: Pupils are equal, round (more content not included)...[facility]04-10-2025 History of Present illness Narrative* Noa Appiah APRN.TRUCK DRIVING INSTRUCTOR - 02/08/2025 2:46 PM EDT This note was created using [email or web address] Subjective Ángel Galvan is a 44 year old female. Patient presents with: Headache Started this morning with a headache States she was in the ER in [place] on Wednesday for a headache and received headache cocktail (toradol, reglan, benadryl) Headache then went away, then came back on Wednesday night and benadryl helped this Now getting 2-3 headaches per week States she has had a history of headaches since she got the Covid vaccine. States her headaches on in her left hinduism and over the top of her head. Light and sound makes it worse Was having n/v No vision changes, ear pain or dizziness. Has had some neck pain Seeing chiropractor Wednesday Wakes up in the middle of the night from her headache No recent illness Drinks 5 glasses of water per day Tried Tylenol, ibuprofen, caffeine. The history is provided by the patient. No russian language professor was used. Review of Systems Constitutional: Negative for activity change, appetite change, chills, diaphoresis, fatigue, fever and unexpected weight change. HENT: Negative. Eyes: Negative for photophobia and visual disturbance. Respiratory: Negative for apnea, cough, chest tightness, shortness of breath and wheezing. Cardiovascular: Negative for chest pain, palpitations and leg swelling. Gastrointestinal: Positive for nausea and vomiting. Genitourinary: Negative. Musculoskeletal: Negative. Skin: Negative for rash. Allergic/Immunologic: Negative. Neurological: Positive for headaches. Negative for dizziness, tremors, seizures, syncope, facial asymmetry, speech difficulty, weakness, light-headedness and numbness. Psychiatric/Behavioral: Negative for behavioral problems, confusion, decreased concentration, dysphoric mood, hallucinations, self-injury, sleep disturbance and suicidal ideas. The patient is not nervous/anxious. All other systems reviewed and are negative. Objective BP 131/87 (BP Site: Right Arm, BP Position: Sitting, BP Cuff Size: Regular Adult) Pulse 75 Temp36.5 C (97.7 F) (Tympanic) Ht 154.9 cm (5' 1") Wt 64.4 kg (141 lb 15.6 oz) LMP 11/07/2024 (Exact Date) SpO2 99% BMI 26.83 kg/m PAST MEDICAL HISTORY Diagnosis Date Backache, unspecified [...] along with prinary VSD and PFO closure Current Outpatient Medications on File Prior to Visit Medication Sig sertraline (ZOLOFT) 100 mg tablet Take 2 tablets by mouth once daily. metoprolol succinate ER (TOPROL XL) 25 mg 24 hr tablet Take 1 tablet by mouth once daily. venlafaxine ER (EFFEXOR XR) 75 mg 24 hr capsule Take 1 capsule by mouth once daily. QUEtiapine (SEROQUEL) 100 mg tablet Take 100 mg by mouth daily at bedtime. (Patient not taking: Reported on 01/03/2024) prazosin (MINIPRESS) 2 mg cap Take 2 mg by mouth daily at bedtime. (Patient not taking: Reported on01/03/2024) melatonin 3 mg tablet TAKE 2 TABLETS BY MOUTH AT BEDTIME NEEDED FOR FOR INSOMNIA. (Patient not taking: Reported on 07/15/2022) lisinopril 2.5 mg tablet Take 1 tablet by mouth once daily. (Patient not taking: Reported on 11/07/2024) diphenhydrAMINE (BENADRYL) 25 mg capsule Take 1 capsule by mouth every 6 hours as needed (anxiety).Discontinue previous Rx (Patient not taking: Reported on 07/15/2022) No current facility-administered medications on file prior to visit. ALLERGIES Allergen Reactions Nickel Rash, Unknown, Hives Hydrocodone-Acetami* Itching Propoxyphene N-Acet* Vomiting Physical Exam Vitals reviewed. Constitutional: General: She is awake. She is not in acute distress. Appearance: Normal appearance. She is well-developed and normal weight. She is not ill-appearing. HENT: Head: Normocephalic. Right Ear: Hearing, tympanic membrane, ear canal and external ear normal. Left Ear: Hearing, tympanic membrane, ear canal and external ear normal. Nose: Nose normal. No congestion or rhinorrhea. Right Sinus: No maxillary sinus tenderness or frontal sinus tenderness. Left Sinus: No maxillary sinus tenderness or frontal sinus tenderness. Mouth/Throat: Lips: Grenelefe. Mouth: Mucous membranes are moist. Pharynx: Oropharynx is clear. Uvula midline. Eyes: General: Right eye: No discharge. Left eye: No discharge. Extraocular Movements: Extraocular movements intact. Conjunctiva/sclera: Conjunctivae normal. Pupils: Pupils are equal, round, and reactive to light. Cardiovascular: Rate and Rhythm: Normal rate and regular rhythm. Pulses: Normal pulses. Heart sounds: Normal heart sounds. Pulmonary: Effort: Pulmonary effort is normal. No respiratory distress. Breath sounds: Normal breath sounds. No decreased breath sounds or wheezing. Musculoskeletal: General: Normal range of motion. Cervical back: Full passive range of motion without pain, normal range of motion and neck supple. Right lower leg: No edema. Left lower leg: No edema. Lymphadenopathy: Cervical: No cervical adenopathy. Skin: General: Skin is warm and dry. Capillary Refill: Capillary refill takes less than 2 seconds. Findings: No rash. Neurological: General: No focal deficit present. Mental Status: She is alert and oriented to person, place, and time. Mental status is at baseline. Cranial Nerves: No cranial nerve deficit. Sensory: Sensation is intact. No sensory deficit. Motor: Motor function is intact. No weakness. Coordination: Coordination is intact. Gait: Gait is intact. Gait normal. Psychiatric: Attention and Perception: Attention and perception normal. Mood and Affect: Mood and affect normal. Speech: Speech normal. Behavior: Behavior normal. Behavior is cooperative. Thought Content: Thought content normal. Thought content does not include homicidal or suicidal ideation. Cognition and Memory: Cognition and memory normal. Judgment: Judgment normal. ASSESSMENT/PLAN: 1. Headache, unspecified headache type - ICD9: 784.0, ICD10: R51.9 (primary diagnosis) - PREDNISONE 50 MG TABLET- discussed use and side effects - CONSULT TO NEUROLOGY - ED if severe, discussed red flag symptoms and when to be evaluated in the ED. Pt VU 2. Neck pain - ICD9: 723.1, ICD10: M54.2 - XR CERV OTHER 4V AP/LAT/FLX/EXT Follow up with pcp next week, as needed or sooner if new or worsening symptoms. Noa Appiah APRN.TRUCK DRIVING INSTRUCTOR documented [facility] Telephone encounter Note * Telephone Encounter - Deepa Berrios RN - 02/08/2025 1:52 PM EDT Patient calling with another migraine headache today, patient was seen in the ED for the same the other day and would like to have her PCP appointment moved up sooner if possible. Patient denies any new or worsening symptoms of which a provider is not aware:Yes Patient was conferenced to Mary in [facility] for PCP GO TO THE EMERGENCY ROOM OR CALL 911 IF: * You develop any new symptoms * Your condition worsens * You are concerned or anxious about your condition for any other reason. If you have any questions, you can call Nurse precast concrete products installer back. scheduling. . [facility]04-10-2025 Miscellaneous Notes* Telephone Encounter - Deepa Berrios RN - 02/08/2025 1:52 PM EDT Patient calling with another migraine headache today, patient was seen in the ED for the same the other day and would like to have her PCP appointment moved up sooner if possible. Patient denies any new or worsening symptoms of which a provider is not aware:Yes Patient was conferenced to Mary in [facility] for PCP GO TO THE EMERGENCY ROOM OR CALL 911 IF: * You develop any new symptoms * Your condition worsens * You are concerned or anxious about your condition for any other reason. If you have any questions, you can call Nurse precast concrete products installer back. scheduling. . documented in this encounterPrem[facility]04[facility] NotePatient Outreach (INTMMN) ÁNGEL GALVAN ([id number]) 1980 F Date Time Provider Department 02/06/25 [facility] During your visit today, we recorded the following information about you: Allergies As of Date: 02/06/2025 Noted Allergy Reaction NICKEL 03/10/2010 2 - Rash 16 - Unknown 4 - Hives HYDROCODONE-ACETAMINOPHEN 10/09/2008 9 - Itching PROPOXYPHENE N-ACETAMINOPHEN 10/09/2008 11 - Vomiting Date Reviewed: 11/07/2024 Reviewed by: Johana Joiner LPN - Fully Assessed Visit Diagnosis:Chronic systolic congestive heart failure (HCC) [I50.22] Order(s):BASIC METABOLIC PANEL [SQBMP] Order #: [id number] FUTURE Prescriptions as of 02/09/2025 - predniSONE (DELTASONE) 50 mg Take 1 tablet by mouth once daily. - sertraline (ZOLOFT) 100 mg tablet Take 2 tablets by mouth once daily. - metoprolol succinate ER (TOPROL XL) 25 mg 24 hr tablet Take 1 tablet by mouth once daily. - venlafaxine ER (EFFEXOR XR) 75 mg 24 hr capsule Take 1 capsule by mouth once daily. Problem List As Of Date 02/06/2025 Noted Resolved Ventricular Septal Defect [Q21.0] 03/03/2010 LVE (Left Ventricular Enlargement) [I51.7] 03/03/2010 DEON (Generalized Anxiety Disorder) [F41.1] 04/15/2010 Depression [F32.A] 04/15/2010 Cervical high risk human papillomavirus (HPV) D*03/09/2013 Chlamydia [A74.9] 03/10/2013 Seizures [R56.9] 11/22/2013 Palpitations [R00.2] 02/08/2022 Nicotine use disorder, F17.2 [F17.200] 02/08/2022 SVT (supraventricular tachycardia) (HCC) [I47.1*02/11/2022 Chronic systolic congestive heart failure (HCC)*07/10/2024 Encounter Status:Closed by RIN QUINTERO on 02/09/25[facility] 02-05-2025 Telephone encounter Note* Telephone Encounter - Ria Haywood LPN - 02/05/2025 3:49 PM EDT Received visit summary from [facility] ER for headache. Placed in provider's inbox for review. Route to MA scanning [facility]04-07-2025 Miscellaneous Notes* Telephone Encounter - Ria Haywood LPN - 02/05/2025 3:49 PM EDT Received visit summary from [facility] ER for headache. Placed in provider's inbox for review. Route to MA scanning documented in this encounterPrem[facility] Telephone encounter Note * Telephone Encounter - Khai Copeland MA - 11/09/2024 9:11 AM EST Patient active MyChart. Patient notified via [email or web address] message. Khai Copeland MA [facility]01-09-2025 Miscellaneous Notes* Telephone Encounter - Khai Copeland MA - 11/09/2024 9:11 AM EST Patient active MyChart. Patient notified via [email or web address] message. Khai Copeland MA * Telephone Encounter - Kemi Egan MA - 11/08/2024 11:05 AM EST Unable to reach patient. Mailbox full/Mailbox not set up/ Number incorrect. Please try again later. Kemi Egan MA * Telephone Encounter - Jaclyn Ramos APRN.CNP - 11/08/2024 10:42 AM EST Pertussis swab came back negative. Patient should do supportive therapies and follow-up if signs and symptoms seem to be getting worse not better. documented in this encounterPrem[facility]01-[facility]-2025 Telephone encounter Note * Telephone Encounter - Kemi Egan MA - 11/08/2024 11:05 AM EST Unable to reach patient. Mailbox full/Mailbox not set up/ Number incorrect. Please try again later. Kemi Egan MA [facility]01-08-2025 Telephone encounter Note* Telephone Encounter - Jaclyn Ramos APRN.CNP - 11/08/2024 10:42 AM EST Pertussis swab came back negative. Patient should do supportive therapies and follow-up if signs and symptoms seem to be getting worse not better. [facility] Work Phone: [phone]) 774-923001-07-2025 History of Present illness Narrative* Heather Wiley, RT(R) - 11/07/2024 2:10 PM EST Radiology Service Progress Note PATIENT NAME: Ángel Galvan DATE OF SERVICE: November 07, 2024 TIME: 2:08 PM PATIENT IDENTITY VERIFICATION COMPLETED USING TWO (2) IDENTIFIERS: Name and Date of confirmedby patient verbally. FALL SCREENING: Has the patient had 2 falls in the last year or 1 fall with injury or currently using an Ambulatory Assistive Device (Walker, Cane, Wheelchair, Crutches, etc.)? No PATIENT GENDER DATA: Female. status: : No status: NO. PATIENT RELEVANT IMPLANT DATA REVIEWED: Not Applicable PATIENT PRESENTS WITH AN IMPLANTABLE OR ATTACHED STRATEGIC ALLIANCES MANAGER: No RADIOLOGY DEPARTMENT: General X-ray: Exam(s) Completed: Chest X-Ray PERIPHERAL IV DATA: Not applicable SIGNED BY: RT Nina(Freddie) November 07, 2024 2:08 PM documented in this encounterPrem[facility]01-07-2025 NoteHNO ID: [id number] Author: HEATHER WILEY RT(R) Service: Radiology Author Type: Technologist Type: Progress Notes Filed: 11/07/2024 14:13 Note Text: Radiology Service Progress Note PATIENT NAME: Ángel Galvan DATE OF SERVICE: November 07, 2024 TIME: 2:08 PM PATIENT IDENTITY VERIFICATION COMPLETED USING TWO (2) IDENTIFIERS: Name and Date of confirmed by patient verbally. FALL SCREENING: Has the patient had 2 falls in the last year or 1 fall with injury or currently using an Ambulatory Assistive Device (Walker, Cane, Wheelchair, Crutches, etc.)? No PATIENT GENDER DATA: Female. status: : No status: NO. PATIENT RELEVANT IMPLANT DATA REVIEWED: Not Applicable PATIENT PRESENTS WITH AN IMPLANTABLE OR ATTACHED STRATEGIC ALLIANCES MANAGER: No RADIOLOGY DEPARTMENT: General X-ray: Exam(s) Completed: Chest X-Ray PERIPHERAL IV DATA: Not applicable SIGNED BY: RT Nina(R) November 07, 2024 2:08 [facility]01-07-2025 NoteHNO ID: [id number] Author: ADELA SCHUSTER APRN.TRUCK DRIVING INSTRUCTOR Service: ? Author Type: Nurse Practitioner Type: Progress Notes Filed: 11/07/2024 15:11 Note Text: This note was created using NoteWriter. Subjective Ángel Galvan is a 44 year old female. 44 year old female with PMH seizures, CHF, SVT, depression and anxiety presents for illness. Acute onset 5 days ago +cough Nonproductive +chest congestion +fever +headache +sore throat Endorses her daughter was diagnosed with whooping cough last +vapes The history is provided by the patient. No russian language professor was used. Cough This is a new problem. The current episode started more than 2 days ago. The problem occurs constantly. The problem has been gradually worsening. The cough is Non-productive. The maximum temperature recorded prior to her arrival was 100 to 100.9 F. Associated symptoms include headaches, rhinorrhea and sore throat. Pertinent negatives include no chest pain, no chills, no sweats, no weight loss, no ear congestion, no ear pain, no myalgias, no shortness of breath, no wheezing and no eye redness. She has tried nothing for the symptoms. She is a smoker. Her past medical history does not include bronchitis, pneumonia, bronchiectasis, COPD, emphysema or asthma. PAST MEDICAL HISTORY Diagnosis Date Backache, unspecified [...] ALLERGIES Nickel, Hydrocodone-Acetaminophen, and Propoxyphene N-Acetaminophen MEDICATIONS sertraline (ZOLOFT) 100 mg tablet Take 2 tablets by mouth once daily. metoprolol succinate ER (TOPROL XL) 25 mg 24 hr tablet Take 1 tablet by mouth once daily. venlafaxine ER (EFFEXOR XR) 75 mg 24 hr capsule Take 1 capsule by mouth once daily. QUEtiapine (SEROQUEL) 100 mg tablet Take 100 mg by mouth daily at bedtime. (Patient not taking: Reported on 01/03/2024) prazosin (MINIPRESS) 2 mg cap Take 2 mg by mouth daily at bedtime. (Patient not taking: Reported on 01/03/2024) melatonin 3 mg tablet TAKE 2 TABLETS BY MOUTH AT BEDTIME NEEDED FOR FOR INSOMNIA. (Patient not taking: Reported on 07/15/2022) lisinopril 2.5 mg tablet Take 1 tablet by mouth once daily. (Patient not taking: Reported on 11/07/2024) diphenhydrAMINE (BENADRYL) 25 mg capsule Take 1 capsule by mouth every 6 hours as needed (anxiety). Discontinue previous Rx (Patient not taking: Reported on 07/15/2022) FAMILY HISTORY Problem Relation Age of Onset Cancer Maternal Grandmother LUNG Cancer Maternal Aunt CERVICAL Colon Cancer Maternal Uncle Ischemic Heart Disease Maternal Uncle in his sleep at age 54 Social History Tobacco Use Smoking status: Former Current packs/day: 0.25 Types: Cigarettes Smokeless tobacco: Never Substance Use Topics Alcohol use: Yes Comment: OCCASIONALLY Drug use: No Comment: history of meth use Review of Systems Constitutional: Positive for fatigue and fever. Negative for chills and weight loss. HENT: Positive for rhinorrhea and sore throat. Negative for ear pain. Eyes: Negative for redness. Respiratory: Positive for cough. Negative for shortness of breath and wheezing. Cardiovascular: Negative for chest pain. Musculoskeletal: Negative for myalgias. Neurological: Positive for headaches. Hematological: Negative for adenopathy. Does not bruise/bleed easily. Psychiatric/Behavioral: Negative for agitation and behavioral problems. Objective BP 122/58 Pulse 76 Temp 36.1 ?C (97 ?F) Resp 22 Wt 66 kg (145 lb 8.1 oz) LMP 11/07/2024 (Exact Date) SpO2 99% BMI 27.49 kg/m? Physical Exam Vitals and nursing note reviewed. Constitutional: General: She is not in acute distress. Appearance: Normal appearance. She is normal weight. She is not ill-appearing, toxic-appearing or diaphoretic. HENT: Head: Normocephalic and atraumatic. Right Ear: Ear canal and external ear normal. Left Ear: Ear canal and external ear normal. Nose: Nose normal. No congestion or rhinorrhea. Mouth/Throat: Mouth: Mucous membranes are moist. Pharynx: Posterior oropharyngeal erythema present. No oropharyngeal exudate. Eyes: General: Right eye: No discharge. Left eye: No discharge. Extraocular Movements: Extraocular movements intact. Conjunctiva/sclera: Conjunctivae normal. Pupils: Pupils are equal, round, and reactive to light. Cardiovascular: Rate and Rhythm: Normal rate and regular rhythm. Pulses: Normal pulses. Heart sounds: Normal heart sounds. No murmur heard. No friction rub. Pulmonary: Effort: (more content not included)...[facility]01-07-2025 History of Present illness Narrative* Adela Schuster APRN.RODRIGO - 11/07/2024 2:03 PM EST This note was created using [email or web address]. Subjective Ángel Galvan is a 44 year old female. 44 year old female with PMH seizures, CHF, SVT, depression and anxiety presents for illness. Acute onset 5 days ago +cough Nonproductive +chest congestion +fever +headache +sore throat Endorses her daughter was diagnosed with whooping cough last +vapes The history is provided by the patient. No russian language professor was used. Cough This is a new problem. The current episode started more than 2 days ago. The problem occurs constantly. The problem has been gradually worsening. The cough is Non-productive. The maximum temperature recorded prior to her arrival was 100 to 100.9 F. Associated symptoms include headaches, rhinorrhea and sore throat. Pertinent negatives include no chest pain, no chills, no sweats, no weight loss, noear congestion, no ear pain, no myalgias, no shortness of breath, no wheezing and no eye redness. She has tried nothing for the symptoms. She is a smoker. Her past medical history does not include bronchitis, pneumonia, bronchiectasis, COPD, emphysema or asthma. PAST MEDICAL HISTORY Diagnosis Date Backache, unspecified [...] ALLERGIES Nickel, Hydrocodone-Acetaminophen, and Propoxyphene N-Acetaminophen MEDICATIONS sertraline (ZOLOFT) 100 mg tablet Take 2 tablets by mouth once daily. metoprolol succinate ER (TOPROL XL) 25 mg 24 hr tablet Take 1 tablet by mouth once daily. venlafaxine ER (EFFEXOR XR) 75 mg 24 hr capsule Take 1 capsule by mouth once daily. QUEtiapine (SEROQUEL) 100 mg tablet Take 100 mg by mouth daily at bedtime. (Patient not taking: Reported on 01/03/2024) prazosin (MINIPRESS) 2 mg cap Take 2 mg by mouth daily at bedtime. (Patient not taking: Reported on01/03/2024) melatonin 3 mg tablet TAKE 2 TABLETS BY MOUTH AT BEDTIME NEEDED FOR FOR INSOMNIA. (Patient not taking: Reported on 07/15/2022) lisinopril 2.5 mg tablet Take 1 tablet by mouth once daily. (Patient not taking: Reported on 11/07/2024) diphenhydrAMINE (BENADRYL) 25 mg capsule Take 1 capsule by mouth every 6 hours as needed (anxiety).Discontinue previous Rx (Patient not taking: Reported on 07/15/2022) FAMILY HISTORY Problem Relation Age of Onset Cancer Maternal Grandmother LUNG Cancer Maternal Aunt CERVICAL Colon Cancer Maternal Uncle Ischemic Heart Disease Maternal Uncle in his sleep at age 54 Social History Tobacco Use Smoking status: Former Current packs/day: 0.25 Types: Cigarettes Smokeless tobacco: Never Substance Use Topics Alcohol use: Yes Comment: OCCASIONALLY Drug use: No Comment: history of meth use Review of Systems Constitutional: Positive for fatigue and fever. Negative for chills and weight loss. HENT: Positive for rhinorrhea and sore throat. Negative for ear pain. Eyes: Negative for redness. Respiratory: Positive for cough. Negative for shortness of breath and wheezing. Cardiovascular: Negative for chest pain. Musculoskeletal: Negative for myalgias. Neurological: Positive for headaches. Hematological: Negative for adenopathy. Does not bruise/bleed easily. Psychiatric/Behavioral: Negative for agitation and behavioral problems. Objective BP 122/58 Pulse 76 Temp 36.1 C (97 F) Resp 22 Wt 66 kg (145 lb 8.1 oz) LMP 11/07/2024 (Exact Date) SpO2 99% BMI 27.49 kg/m Physical Exam Vitals and nursing note reviewed. Constitutional: General: She is not in acute distress. Appearance: Normal appearance. She is normal weight. She is not ill-appearing, toxic-appearing or diaphoretic. HENT: Head: Normocephalic and atraumatic. Right Ear: Ear canal and external ear normal. Left Ear: Ear canal and external ear normal. Nose: Nose normal. No congestion or rhinorrhea. Mouth/Throat: Mouth: Mucous membranes are moist. Pharynx: Posterior oropharyngeal erythema present. No oropharyngeal exudate. Eyes: General: Right eye: No discharge. Left eye: No discharge. Extraocular Movements: Extraocular movements intact. Conjunctiva/sclera: Conjunctivae normal. Pupils: Pupils are equal, round, and reactive to light. Cardiovascular: Rate and Rhythm: Normal rate and regular rhythm. Pulses: Normal pulses. Heart sounds: Normal heart sounds. No murmur heard. No friction rub. Pulmonary: Effort: Pulmonary effort is normal. No respiratory distress. Breath sounds: Normal breath sounds. No stridor. No wheezing, rhonchi or rales. Comments: Harsh cough noted Chest: Chest wall: No tenderness. Abdominal: General: Abdomen is flat. There is no distension. Palpations: Abdomen is soft. There is no mass. Tenderness: There is no abdominal tenderness. There is no right CVA tenderness, left CVA tenderness, guarding or rebound. Hernia: No hernia is present. Musculoskeletal: General: No swelling, tenderness, deformity or signs of injury. Normal range of motion. Cervical back: Normal range of motion and neck supple. No rigidity. Right lower leg: No edema. Left lower leg: No edema. Lymphadenopathy: Cervical: Cervical adenopathy present. Skin: General: Skin is warm and dry. Capillary Refill: Capillary refill takes less than 2 seconds. Coloration: Skin is not jaundiced or pale. Findings: No bruising, erythema, lesion or rash. Neurological: General: No focal deficit present. Mental Status: She is alert and oriented to person, place, and time. Cranial Nerves: No cranial nerve deficit. Sensory: No sensory deficit. Motor: No weakness. Coordination: Coordination normal. Gait: Gait normal. Psychiatric: Mood and Affect: Mood normal. Behavior: Behavior normal. Thought Content: Thought content normal. Judgment: Judgment normal. Assessment and Plan ASSESSMENT/PLAN:3 1. Acute cough - ICD9: 786.2, ICD10: R05.1 (primary diagnosis) X 5 days Lungs CTA +exposure to pertussis - XR CHEST 2V FRONTAL/LAT - BORDETELLA PERTUSSIS AND PARAPERTUSSIS DNA, NAAT, NASOPHARYNGEAL SWAB 2. Exposure to pertussis - ICD9: V01.89, ICD10: Z20.818 Daughter tested POSITIVE Will obtain, Await results - XR CHEST 2V FRONTAL/LAT - BORDETELLA PERTUSSIS AND PARAPERTUSSIS DNA, NAAT, NASOPHARYNGEAL SWAB 3. URI, acute - ICD9: 465.9, ICD10: J06.9 - Discussed viral etiology and rationale for treatment. - Symptomatic treatment with prn analgesia - Supportive care with fluids and rest - The patient may also use OTC cough and cold meds as needed, warm salt water gargles, throat lozenges and/or OTC throat spray as needed, and nasal saline gtts and suction prn. - Follow up in 3-5 days if symptoms persist or sooner if worsening of symptoms Adela Schuster APRN.[employer] documented in [facility] encounter[facility] Telephone encounter Note * Telephone Encounter - Carrie Pina LPN - 10/20/2024 2:33 PM EST Prescription Refill Information The patient has been identified by name and date of : Yes Caregiver verified no other encounters exist for this prescription request: Yes Caregiver confirmed with patient/requestor that no other refills are due, in the near future, with this provider at this time: Yes The last office visit in the department: 07/10/2024 Does the patient have a future office visit with this provider/department: No Requested Prescriptions Pending Prescriptions Disp Refills sertraline (ZOLOFT) 100 mg tablet [Pharmacy Med Name: sertraline 100 mg tablet] 60 tablet 1 Sig: Take 2 tablets by mouth once daily. metoprolol succinate ER (TOPROL XL) 25 mg 24 hr tablet [Pharmacy Med Name: metoprolol succinate ER 25 mg tablet,extended release 24 hr] 30 tablet 1 Sig: Take 1 tablet by mouth once daily. Carrie Pina LPN October 20, 2024 2:33 PM [facility]12-20-2024 Miscellaneous Notes* Telephone Encounter - Carrie Pina LPN - 10/20/2024 2:33 PM EST Prescription Refill Information The patient has been identified by name and date of : Yes Caregiver verified no other encounters exist for this prescription request: Yes Caregiver confirmed with patient/requestor that no other refills are due, in the near future, with this provider at this time: Yes The last office visit in the department: 07/10/2024 Does the patient have a future office visit with this provider/department: No Requested Prescriptions Pending Prescriptions Disp Refills sertraline (ZOLOFT) 100 mg tablet [Pharmacy Med Name: sertraline 100 mg tablet] 60 tablet 1 Sig: Take 2 tablets by mouth once daily. metoprolol succinate ER (TOPROL XL) 25 mg 24 hr tablet [Pharmacy Med Name: metoprolol succinate ER 25 mg tablet,extended release 24 hr] 30 tablet 1 Sig: Take 1 tablet by mouth once daily. Carrie Pina LPN October 20, 2024 2:33 PM documented in this encounterPrem[facility]12-[facility] NotePatient Outreach (INTMMN) ÁNGEL GALVAN ([id number]) 1980 F Date Time Provider Department 10/04/24 ROBINSON SMITH INTKADY During your visit today, we recorded the following information about you: Allergies As of Date: 10/04/2024 Noted Allergy Reaction NICKEL 03/10/2010 2 - Rash 16 - Unknown 4 - Hives HYDROCODONE-ACETAMINOPHEN 10/09/2008 9 - Itching PROPOXYPHENE N-ACETAMINOPHEN 10/09/2008 11 - Vomiting Date Reviewed: 07/10/2024 Reviewed by: Ria Haywood LPN - Fully Assessed Visit Diagnosis:Encounter for screening mammogram for breast cancer [Z12.31] Order(s):MICHAEL SCREENING W SHARON [[id number]] Order #: [id number] FUTURE Prescriptions as of 10/09/2024 - metoprolol succinate ER (TOPROL XL) 25 mg 24 hr tablet Take 1 tablet by mouth once daily. - sertraline (ZOLOFT) 100 mg tablet Take 2 tablets by mouth once daily. - venlafaxine ER (EFFEXOR XR) 75 mg 24 hr capsule Take 1 capsule by mouth once daily. - QUEtiapine (SEROQUEL) 100 mg tablet Take 100 mg by mouth daily at bedtime. - prazosin (MINIPRESS) 2 mg cap Take 2 mg by mouth daily at bedtime. - melatonin 3 mg tablet TAKE 2 TABLETS BY MOUTH AT BEDTIME NEEDED FOR FOR INSOMNIA. - lisinopril 2.5 mg tablet Take 1 tablet by mouth once daily. - diphenhydrAMINE (BENADRYL) 25 mg capsule Take 1 capsule by mouth every 6 hours as needed (anxiety). Discontinue previous Rx Problem List As Of Date 10/04/2024 Noted Resolved Ventricular Septal Defect [Q21.0] 03/03/2010 LVE (Left Ventricular Enlargement) [I51.7] 03/03/2010 DEON (Generalized Anxiety Disorder) [F41.1] 04/15/2010 Depression [F32.A] 04/15/2010 Cervical high risk human papillomavirus (HPV) D*03/09/2013 Chlamydia [A74.9] 03/10/2013 Seizures [R56.9] 11/22/2013 Palpitations [R00.2] 02/08/2022 Nicotine use disorder, F17.2 [F17.200] 02/08/2022 SVT (supraventricular tachycardia) (HCC) [I47.1*02/11/2022 Chronic systolic congestive heart failure (HCC)*07/10/2024 Encounter Status:Closed by [facility] on 10/09/24[facility] 09-19-2024 Telephone encounter Note* Telephone Encounter - Ria Haywood LPN - 09/19/2024 4:24 PM EST [facility] 09/06/24 [facility]11-19-2024 Miscellaneous Notes* Telephone Encounter - Ria Haywood LPN - 09/19/2024 4:24 PM EST [facility] Pt [facility] rx 09/06/24 * Telephone Encounter - Lillian Kuhn - 09/06/2024 1:02 PM EST Patient calling on the status of her refill request for venlafaxine ER (EFFEXOR XR) 75 mg 24 hr capsule. Patient states that pharmacy told her there was no refills available. Patient has been without the medication since last Wednesday. [facility]AC[facility] documented in this encounterPrem[facility]11-06-2024 Telephone encounter Note * Telephone Encounter - Lillian Kuhn - 09/06/2024 1:02 PM EST Patient calling on the status of her refill request for venlafaxine ER (EFFEXOR XR) 75 mg 24 hr capsule. Patient states that pharmacy told her there was no refills available. Patient has been without the medication since last Wednesday. PHARMACY: [facility]10-15-2024 Telephone encounter Note* Telephone Encounter - Robinson Smith MD - 08/15/2024 3:29 PM EDT The following approved medication requests have been transmitted electronically. Requested Prescriptions Signed Prescriptions Disp Refills metoprolol succinate ER (TOPROL XL) 25 mg 24 hr tablet 30 tablet 1 Sig: Take 1 tablet by mouth once daily. Authorizing Provider: ROBINSON SMITH sertraline (ZOLOFT) 100 mg tablet 60 tablet 1 Sig: Take 2 tablets by mouth once daily. Authorizing Provider: ROBINSON SMITH MD [facility]10-15-2024 Miscellaneous Notes* Telephone Encounter - Robinson Smith MD - 08/15/2024 3:29 PM EDT The following approved medication requests have been transmitted electronically. Requested Prescriptions Signed Prescriptions Disp Refills metoprolol succinate ER (TOPROL XL) 25 mg 24 hr tablet 30 tablet 1 Sig: Take 1 tablet by mouth once daily. Authorizing Provider: ROBINSON SMITH sertraline (ZOLOFT) 100 mg tablet 60 tablet 1 Sig: Take 2 tablets by mouth once daily. Authorizing Provider: ROBINSON SMITH MD * Telephone Encounter - Gris Holloway MA - 08/15/2024 3:14 PM EDT Pharmacy verified in [place]. Patient has been identified by name and date of : Yes Patient aware RX will be sent to pharmacy. No need to notify patient. Patient phones for refill(s): Requested Prescriptions Pending Prescriptions Disp Refills metoprolol succinate ER (TOPROL XL) 25 mg 24 hr tablet 30 tablet 0 Sig: Take 1 tablet by mouth once daily. sertraline (ZOLOFT) 100 mg tablet 60 tablet 0 Sig: Take 2 tablets by mouth once daily. Date of last office visit : 07/10/2024 Date of next office visit : Visit date not found Last 2 Encounter Wt Readings: Date: Wt: 07/10/2024 66 kg (145 lb 8.1 oz) 07/07/2024 65.4 kg (144 lb 2.9 oz) Blood Pressure: BUN (mg/dL) Date Value 02/17/2022 6 12/17/2019 12 Creatinine (mg/dL) Date Value 02/17/2022 0.51 12/17/2019 0.73 Sodium (mmol/L) Date Value 02/17/2022 140 12/17/2019 136 Potassium (mmol/L) Date Value 02/17/2022 4.1 12/17/2019 3.9 Last 1 Encounter BP Readings: Date: BP: 07/10/2024 114/78 Please advise. Gris Holloway MA documented in this encounterPrem[facility]10-[facility]24 Telephone encounter Note * Telephone Encounter - Gris Holloway MA - 08/15/2024 3:14 PM EDT Pharmacy verified in [place]. Patient has been identified by name and date of : Yes Patient aware RX will be sent to pharmacy. No need to notify patient. Patient phones for refill(s): Requested Prescriptions Pending Prescriptions Disp Refills metoprolol succinate ER (TOPROL XL) 25 mg 24 hr tablet 30 tablet 0 Sig: Take 1 tablet by mouth once daily. sertraline (ZOLOFT) 100 mg tablet 60 tablet 0 Sig: Take 2 tablets by mouth once daily. Date of last office visit : 07/10/2024 Date of next office visit : Visit date not found Last 2 Encounter Wt Readings: Date: Wt: 07/10/2024 66 kg (145 lb 8.1 oz) 07/07/2024 65.4 kg (144 lb 2.9 oz) Blood Pressure: BUN (mg/dL) Date Value 02/17/2022 6 12/17/2019 12 Creatinine (mg/dL) Date Value 02/17/2022 0.51 12/17/2019 0.73 Sodium (mmol/L) Date Value 02/17/2022 140 12/17/2019 136 Potassium (mmol/L) Date Value 02/17/2022 4.1 12/17/2019 3.9 Last 1 Encounter BP Readings: Date: BP: 07/10/2024 114/78 Please advise. Gris Holloway MA [facility]09-09-2024 NoteHNO ID: [id number] Author: ROBINSON SMITH MD Service: ? Author Type: Physician Type: Progress Notes Filed: 07/10/2024 17:42 Note Text: CHIEF COMPLAINT No chief complaint on file. HISTORY OF PRESENT ILLNESS Ángel Galvan is a 43 year old female who presents here today for tonsil concerns. I last saw this patient on 01/03/2024. - Endorsed a burning sensation of her throat that radiated to ear canal - Looked in her throat, noticed a hole with a while film - Onset 2 days ago - Seen at [facility] on 07/07 - Strep test negative Mood - Feels like Effexor is not working - Would like to increase dose or increase Zoloft. Health Maintenance Due for Cervical Cancer Screening Due for Covid-19 Vaccine (3- season) Due for Influenza Vaccine (1) Due for Hep C Screening Due for DTaP, Tdap, Td Vaccine (1- Tdap) Due for Hep B Vaccine (1 of 3-3 dose series) Past medical history, appointments, medications, allergies reviewed. Cardiac history . Valve surgery , history endocarditis. VSD and PFO repaired. Seizure history, no seizures for a long time , no anticonvulsant REVIEW OF SYSTEMS General: Feels well, no weight changes, fevers or chills. HEENT: +Sore throat No sinus congestion or earache Cardiac: No chest pain, palpitations Resp: No cough, wheeze, shortness of breath GI: No reflux symptoms, food intolerance, bowel changes. : No urinary frequency, dysuria. MS: No pain or joint complaints. PAST MEDICAL HISTORY PAST MEDICAL HISTORY No date: Backache, unspecified 03/09/2013: Cervical high risk human papillomavirus (HPV) DNA test positive No date: Chronic infective endocarditis 06/09/2011: Encounter for IUD insertion Comment: Mirena Insertion No date: Generalized anxiety disorder No date: PMH - PAST MEDICAL HISTORY OF Comment: HEART MURMUR PHYSICAL EXAMINATION BP 114/78 Pulse 77 Temp 36.6 ?C (97.8 ?F) Ht 154.9 cm (5' 1") Wt 66 kg (145 lb 8.1 oz) LMP 06/02/2011 SpO2 99% BMI 27.49 kg/m? General: Alert, well developed, well nourished, no distress, pleasant and cooperative. Heart: Regular rate and rhythm. Normal S1 and S2. No murmurs, rubs, or gallops. Lungs: Clear to auscultation bilaterally. No respiratory distress. No wheezes, rales, or rhonchi. Abdomen: Soft, non-tender, no distention. Extremities: Feet/ankles without edema, posterior tibial pulses full and symmetrical. Data Reviewed Latest Ref Rng 07/07/2024 Strep A (POCT) Negative Negative Procedural Control Valid Assessment/Plan (R09.89) Tonsil pain (primary encounter diagnosis) Comment: Ongoing Plan: Recommend salt water rinses 1-2x times/day (I50.22) Chronic systolic congestive heart failure (HCC) Comment: Stable. Follows cardiology Plan: Continue current regimen Continue to follow with cardiology (R56.9) Seizures (HCC) Comment: historical Plan: noted for record. No current needs. Requested Prescriptions Signed Prescriptions Disp Refills venlafaxine ER (EFFEXOR XR) 75 mg 24 hr capsule 30 capsule 11 Sig: Take 1 capsule by mouth once daily. RTO: if symptoms fail to improve or worsen Scribe Attestation: By signing my name below, I, Darling Garg, attest that this documentation has been prepared under the direction and in the presence of Julio Cesar Smith M.D. Electronically Signed: Nguyễn Desouza. July 10, 2024 4:06 [facility]09-09-2024 History of Present illness Narrative* Robinson Smith MD - 07/10/2024 4:06 PM EDT CHIEF COMPLAINT No chief complaint on file. HISTORY OF PRESENT ILLNESS Ángel Galvan is a 43 year old female who presents here today for tonsil concerns. I last saw this patient on 01/03/2024. - Endorsed a burning sensation of her throat that radiated to ear canal - Looked in her throat, noticed a hole with a while film - Onset 2 days ago - Seen at [facility] on 07/07 - Strep test negative Mood - Feels like Effexor is not working - Would like to increase dose or increase Zoloft. Health Maintenance Due for Cervical Cancer Screening Due for Covid-19 Vaccine (- season) Due for Influenza Vaccine (1) Due for Hep C Screening Due for DTaP, Tdap, Td Vaccine (1- Tdap) Due for Hep B Vaccine (1 of 3-3 dose series) Past medical history, appointments, medications, allergies reviewed. Cardiac history . Valve surgery , history endocarditis. VSD and PFO repaired. Seizure history, no seizures for a long time , no anticonvulsant REVIEW OF SYSTEMS General: Feels well, no weight changes, fevers or chills. HEENT: +Sore throat No sinus congestion or earache Cardiac: No chest pain, palpitations Resp: No cough, wheeze, shortness of breath GI: No reflux symptoms, food intolerance, bowel changes. : No urinary frequency, dysuria. MS: No pain or joint complaints. PAST MEDICAL HISTORY PAST MEDICAL HISTORY No date: Backache, unspecified 03/09/2013: Cervical high risk human papillomavirus (HPV) DNA test positive No date: Chronic infective endocarditis 06/09/2011: Encounter for IUD insertion Comment: Mirena Insertion No date: Generalized anxiety disorder No date: PMH - PAST MEDICAL HISTORY OF Comment: HEART MURMUR PHYSICAL EXAMINATION BP 114/78 Pulse 77 Temp 36.6 C (97.8 F) Ht 154.9 cm (5' 1") Wt 66 kg (145 lb 8.1 oz) LMP 06/02/2011 SpO2 99% BMI 27.49 kg/m General: Alert, well developed, well nourished, no distress, pleasant and cooperative. Heart: Regular rate and rhythm. Normal S1 and S2. No murmurs, rubs, or gallops. Lungs: Clear to auscultation bilaterally. No respiratory distress. No wheezes, rales, or rhonchi. Abdomen: Soft, non-tender, no distention. Extremities: Feet/ankles without edema, posterior tibial pulses full and symmetrical. Data Reviewed Latest Ref Rng 07/07/2024 Strep A (POCT) Negative Negative Procedural Control Valid Assessment/Plan (R09.89) Tonsil pain (primary encounter diagnosis) Comment: Ongoing Plan: Recommend salt water rinses 1-2x times/day (I50.22) Chronic systolic congestive heart failure (HCC) Comment: Stable. Follows cardiology Plan: Continue current regimen Continue to follow with cardiology (R56.9) Seizures (HCC) Comment: historical Plan: noted for record. No current needs. Requested Prescriptions Signed Prescriptions Disp Refills venlafaxine ER (EFFEXOR XR) 75 mg 24 hr capsule 30 capsule 11 Sig: Take 1 capsule by mouth once daily. RTO: if symptoms fail to improve or worsen Scribe Attestation: By signing my name below, IDarling, attest that this documentation has been prepared under the direction and in the presence of Julio Cesar Simth M.D. Electronically Signed: Nguyễn Desouza. July 10, 2024 4:06 PM documented in this encounterPremier [facility] Instructions* Patient Instructions* José Luis Soria PA - 07/07/2024 2:27 PM EDT PHARYNGITIS PATIENT INSTRUCTIONS DESCRIPTION: Inflammation and infection of the pharynx that can be caused by a variety of germs. SIGNS AND SYMPTOMS: -Sore throat. -Swallowing difficulty. -Tickle or "lump" in the throat. -Fever. -Swollen glands in the neck (sometimes). -Throat may be red or covered with a grayish membrane (sometimes). -Generalized aching. CAUSES: Infection from bacteria, viruses or fungi. PREVENTIVE MEASURES: -Avoid close contact with anyone with a sore throat. -Keep immunizations, including diphtheria, up to date. TREATMENT:-Home care is usually sufficient. -Use gargles to relieve throat pain. Prepare double strength tea, hot or cold, or a salt-water solution (1 teaspoon salt in 8 oz. warm water). Use to gargle as often as you wish. -Use a cool-mist ultrasonic humidifier to increase air moisture. This will relieve the dry, tight feeling in the throat. Clean humidifier daily. -If the glands are large and tender, apply moist, warm soaks at least 4 times a day for 30 to 60 minutes. The compresses will be more effective if they are kept warm. Be careful not to burn the skin. -Replace your toothbrush. It may be harboring germs. -Until infection is gone, don't share washcloths; or food. MEDICATIONS: -For minor discomfort you may use non-prescription drugs such as acetaminophen. Don't give aspirin to a child for any viral illness. -Non-prescription throat lozenges may help ease discomfort. ACTIVITY: Limited activity is necessary until symptoms disappear. DIET: Extra fluids are necessary. Drink at least 8 glasses of fluid daily, more for high fevers. If swallowing solid food is painful, try a liquid or soft diet for a few days. documented in this encounterPremier Health [facility]24 NoteHNO ID: [id number] Author: JOSÉ LUIS SORIA PA Service: ? Author Type: Physician Hand I Cutter Type: Progress Notes Filed: 07/07/2024 14:30 Note Text: This note was created using [email or web address]. Subjective Ángel Galvan is a 43 year old female. HPI 43-year-old female presents for sore throat, right ear pain. Patient states she has had a sore throat for about 1 day. She has pain in the right ear. She states that she noticed a white spot on her right tonsil. She denies any difficulty swallowing or breathing. She is still able to eat and drink. No fevers. No vomiting or diarrhea. No cough or congestion. No other complaint. 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 metoprolol succinate ER (TOPROL XL) 25 mg 24 hr tablet Take 1 tablet by mouth once daily. sertraline (ZOLOFT) 100 mg tablet Take 2 tablets by mouth once daily. QUEtiapine (SEROQUEL) 100 mg tablet Take 100 mg by mouth daily at bedtime. (Patient not taking: Reported on 01/03/2024) prazosin (MINIPRESS) 2 mg cap Take 2 mg by mouth daily at bedtime. (Patient not taking: Reported on 01/03/2024) melatonin 3 mg tablet TAKE 2 TABLETS BY MOUTH AT BEDTIME NEEDED FOR FOR INSOMNIA. (Patient not taking: Reported on 07/15/2022) venlafaxine HCl (EFFEXOR ORAL) Take by mouth. (Patient not taking: Reported on 04/10/2022) lisinopril 2.5 mg tablet Take 1 tablet [...] Social History Tobacco Use Smoking status: Former Current packs/day: 0.25 Types: Cigarettes Smokeless tobacco: Never Substance Use Topics Alcohol use: Yes Comment: OCCASIONALLY Drug use: No Comment: history of meth use Review of Systems Constitutional: Negative for chills and fever. HENT: Positive for ear pain and sore throat. Negative for congestion. Respiratory: Negative for cough and shortness of breath. Cardiovascular: Negative for chest pain. Gastrointestinal: Negative for diarrhea and vomiting. Objective BP 120/74 Pulse 71 Temp 36.6 ?C (97.9 ?F) Resp 18 Wt 65.4 kg (144 lb 2.9 oz) LMP 06/02/2011 SpO2 99% BMI 27.24 kg/m? Physical Exam Vitals and nursing note reviewed. Constitutional: General: She is not in acute distress. Appearance: Normal appearance. She is not toxic-appearing. HENT: Right Ear: Tympanic membrane and ear canal normal. Left Ear: Tympanic membrane and ear canal normal. Nose: Nose normal. Mouth/Throat: Mouth: Mucous membranes are moist. Pharynx: Oropharynx is clear. Posterior oropharyngeal erythema present. Tonsils: Tonsillar exudate present. 2+ on the right. 2+ on the left. Comments: Patient has 2+ tonsils bilaterally. Uvula midline. She does have exudate noted on the right tonsil. No [employer] noted on exam. Handling secretions. No trismus. Eyes: Conjunctiva/sclera: Conjunctivae normal. Cardiovascular: Rate and Rhythm: Normal rate and regular rhythm. Pulmonary: Effort: Pulmonary effort is normal. Breath sounds: Normal breath sounds. Skin: General: Skin is warm and dry. Neurological: Mental Status: She is alert. Assessment and Plan ASSESSMENT/PLAN: 1. Sore throat - ICD9: 462, ICD10: J02.9 - suspect viral - Group A strep molecular testing negative - Discussed supportive care treatment with fluids, rest and analgesia. - The patient may also use warm salt water gargles, throat lozenges and/or OTC throat spray as needed. - The patient should follow up in 3-5 days if symptoms persist or worsen - STREP A MOLECULAR (POC) Diagnosis and treatment plan were discussed and questions were answered to the patient's satisfaction. Pt acknowledged understanding of concepts and follow up plan. Specific signs and symptoms that would indicate the need for higher level of care were discussed in detail warranting prompt ER evaluation. José Luis Soria [facility]09-06-2024 History of Present illness Narrative* José Luis Soria PA - 07/07/2024 2:26 PM EDT This note was created using [email or web address]. Subjective Ángel Galvan is a 43 year old female. HPI 43-year-old female presents for sore throat, right ear pain. Patient states she has had a sore throat for about 1 day. She has pain in the right ear. She states that she noticed a white spot on her right tonsil. She denies any difficulty swallowing or breathing. She is still able to eat and drink. No fevers. No vomiting or diarrhea. No cough or congestion. No other complaint. 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 metoprolol succinate ER (TOPROL XL) 25 mg 24 hr tablet Take 1 tablet by mouth once daily. sertraline (ZOLOFT) 100 mg tablet Take 2 tablets by mouth once daily. QUEtiapine (SEROQUEL) 100 mg tablet Take 100 mg by mouth daily at bedtime. (Patient not taking: Reported on 01/03/2024) prazosin (MINIPRESS) 2 mg cap Take 2 mg by mouth daily at bedtime. (Patient not taking: Reported on01/03/2024) melatonin 3 mg tablet TAKE 2 TABLETS BY MOUTH AT BEDTIME NEEDED FOR FOR INSOMNIA. (Patient not taking: Reported on 07/15/2022) venlafaxine HCl (EFFEXOR ORAL) Take by mouth. (Patient not taking: Reported on 04/10/2022) lisinopril 2.5 mg tablet Take 1 tablet by mouth once daily. (Patient not taking: Reported on 04/10/2022) diphenhydrAMINE (BENADRYL) 25 mg capsule Take 1 capsule by mouth every 6 hours as needed (anxiety).Discontinue previous Rx (Patient not taking: Reported on 07/15/2022) FAMILY HISTORY Problem Relation Age of Onset Cancer Maternal Grandmother LUNG Cancer Maternal Aunt CERVICAL Colon Cancer Maternal Uncle Ischemic Heart Disease Maternal Uncle in his sleep at age 54 Social History Tobacco Use Smoking status: Former Current packs/day: 0.25 Types: Cigarettes Smokeless tobacco: Never Substance Use Topics Alcohol use: Yes Comment: OCCASIONALLY Drug use: No Comment: history of meth use Review of Systems Constitutional: Negative for chills and fever. HENT: Positive for ear pain and sore throat. Negative for congestion. Respiratory: Negative for cough and shortness of breath. Cardiovascular: Negative for chest pain. Gastrointestinal: Negative for diarrhea and vomiting. Objective BP 120/74 Pulse 71 Temp 36.6 C (97.9 F) Resp 18 Wt 65.4 kg (144 lb 2.9 oz) LMP 06/02/2011 SpO2 99% BMI 27.24 kg/m Physical Exam Vitals and nursing note reviewed. Constitutional: General: She is not in acute distress. Appearance: Normal appearance. She is not toxic-appearing. HENT: Right Ear: Tympanic membrane and ear canal normal. Left Ear: Tympanic membrane and ear canal normal. Nose: Nose normal. Mouth/Throat: Mouth: Mucous membranes are moist. Pharynx: Oropharynx is clear. Posterior oropharyngeal erythema present. Tonsils: Tonsillar exudate present. 2+ on the right. 2+ on the left. Comments: Patient has 2+ tonsils bilaterally. Uvula midline. She does have exudate noted on the right tonsil. No [employer] noted on exam. Handling secretions. No trismus. Eyes: Conjunctiva/sclera: Conjunctivae normal. Cardiovascular: Rate and Rhythm: Normal rate and regular rhythm. Pulmonary: Effort: Pulmonary effort is normal. Breath sounds: Normal breath sounds. Skin: General: Skin is warm and dry. Neurological: Mental Status: She is alert. Assessment and Plan ASSESSMENT/PLAN: 1. Sore throat - ICD9: 462, ICD10: J02.9 - suspect viral - Group A strep molecular testing negative - Discussed supportive care treatment with fluids, rest and analgesia. - The patient may also use warm salt water gargles, throat lozenges and/or OTC throat spray as needed. - The patient should follow up in 3-5 days if symptoms persist or worsen - STREP A MOLECULAR (POC) Diagnosis and treatment plan were discussed and questions were answered to the patient's satisfaction. Pt acknowledged understanding of concepts and follow up plan. Specific signs and symptoms that would indicate the need for higher level of care were discussed in detail warranting prompt ER evaluation. JEFF Chapman documented in this encounterPrem[facility] Telephone encounter Note * Telephone Encounter - Ria Haywood LPN - 06/22/2024 4:37 PM EDT Received ed visit summary for chest pain from [facility]. Placed in provider's inbox for review. Route to MA scanning [facility]08-22-2024 Miscellaneous Notes* Telephone Encounter - Ria Haywood LPN - 06/22/2024 4:37 PM EDT Received ed visit summary for chest pain from [facility]. Placed in provider's inbox for review. Route to MA scanning documented in this encounterPrem[facility]08-22-2024 Miscellaneous Notes* Telephone Encounter - Rosana Villanueva MA - 06/22/2024 12:42 PM EDT Patient asking for increased dose of Effexor Prescription Refill Information The patient has been identified by name and date of : Yes Caregiver verified no other encounters exist for this prescription request: Yes Caregiver confirmed with patient/requestor that no other refills are due, in the near future, with this provider at this time: Yes The last office visit in the department: 01/03/2024 Does the patient have a future office visit with this provider/department: Visit date not found Requested Prescriptions Pending Prescriptions Disp Refills venlafaxine ER (EFFEXOR XR) 37.5 mg 24 hr capsule 30 capsule 2 Sig: Take 1 capsule by mouth once daily. metoprolol succinate ER (TOPROL XL) 25 mg 24 hr tablet 30 tablet 2 Sig: Take 1 tablet by mouth once daily. sertraline (ZOLOFT) 100 mg tablet 60 tablet 2 Sig: Take 2 tablets by mouth once daily. Rosana Villanueva MA June 22, 2024 12:42 PM documented in this encounterPrem[facility]08-[facility]-2024 Telephone encounter Note * Telephone Encounter - Rosana Villanueva MA - 06/22/2024 12:42 PM EDT Patient asking for increased dose of Effexor Prescription Refill Information The patient has been identified by name and date of : Yes Caregiver verified no other encounters exist for this prescription request: Yes Caregiver confirmed with patient/requestor that no other refills are due, in the near future, with this provider at this time: Yes The last office visit in the department: 01/03/2024 Does the patient have a future office visit with this provider/department: Visit date not found Requested Prescriptions Pending Prescriptions Disp Refills venlafaxine ER (EFFEXOR XR) 37.5 mg 24 hr capsule 30 capsule 2 Sig: Take 1 capsule by mouth once daily. metoprolol succinate ER (TOPROL XL) 25 mg 24 hr tablet 30 tablet 2 Sig: Take 1 tablet by mouth once daily. sertraline (ZOLOFT) 100 mg tablet 60 tablet 2 Sig: Take 2 tablets by mouth once daily. Rosana Villanueva MA June 22, 2024 12:42 PM [facility]07-15-2024 Telephone encounter Note* Telephone Encounter - Carrie Pina LPN - 05/15/2024 3:09 PM EDT Prescription Refill Information The patient has been identified by name and date of : Yes Caregiver verified no other encounters exist for this prescription request: Yes Caregiver confirmed with patient/requestor that no other refills are due, in the near future, with this provider at this time: Yes The last office visit in the department: 01/03/2024 Does the patient have a future office visit with this provider/department: No Requested Prescriptions Pending Prescriptions Disp Refills venlafaxine ER (EFFEXOR XR) 37.5 mg 24 hr capsule [Pharmacy Med Name: venlafaxine ER 37.5 mg capsule,extended release 24 hr] 30 capsule 2 Sig: take 1 capsule by mouth once daily. metoprolol succinate ER (TOPROL XL) 25 mg 24 hr tablet [Pharmacy Med Name: metoprolol succinate ER 25 mg tablet,extended release 24 hr] 30 tablet 2 Sig: take 1 tablet by mouth once daily sertraline (ZOLOFT) 100 mg tablet [Pharmacy Med Name: sertraline 100 mg tablet] 60 tablet 2 Sig: Take 2 tablets by mouth once daily. Carrie Pina LPN May 15, 2024 3:09 PM [facility]07-15-2024 Miscellaneous Notes* Telephone Encounter - Carrie Pina LPN - 05/15/2024 3:09 PM EDT Prescription Refill Information The patient has been identified by name and date of : Yes Caregiver verified no other encounters exist for this prescription request: Yes Caregiver confirmed with patient/requestor that no other refills are due, in the near future, with this provider at this time: Yes The last office visit in the department: 01/03/2024 Does the patient have a future office visit with this provider/department: No Requested Prescriptions Pending Prescriptions Disp Refills venlafaxine ER (EFFEXOR XR) 37.5 mg 24 hr capsule [Pharmacy Med Name: venlafaxine ER 37.5 mg capsule,extended release 24 hr] 30 capsule 2 Sig: take 1 capsule by mouth once daily. metoprolol succinate ER (TOPROL XL) 25 mg 24 hr tablet [Pharmacy Med Name: metoprolol succinate ER 25 mg tablet,extended release 24 hr] 30 tablet 2 Sig: take 1 tablet by mouth once daily sertraline (ZOLOFT) 100 mg tablet [Pharmacy Med Name: sertraline 100 mg tablet] 60 tablet 2 Sig: Take 2 tablets by mouth once daily. Carrie Pina LPN May 15, 2024 3:09 PM documented in this encounterPrem[facility]03-25-2024 Miscellaneous Notes* Telephone Encounter - Ria Haywood LPN - 01/24/2024 10:50 AM EDT Received visit summary for headace from [facility] ED. Placed in provider's inbox for review. Route to MA scanning. documented in this encounterPrem[facility]03-04-[facility] History of Present illness Narrative* Robinson Smith MD - 01/03/2024 3:44 PM EST CHIEF COMPLAINT Patient presents with: Follow Up HISTORY OF PRESENT ILLNESS Ángel Galvan is a 43 year old female who presents here today for follow up of derm problem. I last saw this patient on 03/08/2020. Skin - Has a sore involving the right cheek - Came home from work and felt a knot on her cheek - Seen at [facility] on 12/31/2023 - Onset approximately 5 days ago - Tried OTC remedies without benefit - It was lanced, cultures were not taken - Was given prescription for bactrim 800-160 mg tablet BID x 7 days and cephalexin 500 mg capsule TID x 7 days - It has improved - Admits to drainage/seeping - Has been using warm compresses Health Maintenance Due for Hep B Vaccine (1 of 3-3 dose series) Due for Hep C Screening Due for DTaP, Tdap, Td Vaccine (1- Tdap) Due for Pap Testing Due for HPV Testing Due for Influenza Vaccine Due for Covid-19 Vaccine (3- season) Labs reviewed. Past medical history, appointments, medications, allergies reviewed. REVIEW OF SYSTEMS General: Feels well, no weight changes, fevers or chills. HEENT: No sinus congestion, earache, sore throat. Cardiac: No chest pain, palpitations Resp: No cough, wheeze, shortness of breath GI: No reflux symptoms, food intolerance, bowel changes. : No urinary frequency, dysuria. MS: No pain or joint complaints. Skin: +abscess of the right cheek, improved PAST MEDICAL HISTORY PAST MEDICAL HISTORY Diagnosis Date Backache, unspecified Cervical high risk human papillomavirus (HPV) DNA test positive 03/09/2013 Chronic infective endocarditis Encounter for IUD insertion 06/09/2011 Mirena Insertion Generalized anxiety disorder PMH - PAST MEDICAL HISTORY OF HEART MURMUR PHYSICAL EXAMINATION BP 101/68 Pulse 82 Ht 154.9 cm (5' 1") Wt 71 kg (156 lb 8.4 oz) LMP 06/02/2011 SpO2 98% BMI 29.58 kg/m General: Alert, well developed, well nourished, no distress, pleasant and cooperative. Heart: Regular rate and rhythm. Normal S1 and S2. No murmurs, rubs, or gallops. Lungs: Clear to auscultation bilaterally. No respiratory distress. No wheezes, rales, or rhonchi. Abdomen: Soft, non-tender, no distention. Extremities: Feet/ankles without edema, posterior tibial pulses full and symmetrical. Skin: Resolving abscess involving the right cheek with 2 cm of surrounding erythema, dusky red color with a scab centrally. No fluctuance. Data Reviewed Assessment/Plan (L02.01) Facial abscess (primary encounter diagnosis) Comment: Improving Plan: Continue current treatment plan May wash face with antibacterial soap with a clean/new wash cloth daily (F43.23) Adjustment disorder with mixed anxiety and depressed mood Comment: Stable, in need of refill Plan: sertraline (ZOLOFT) 100 mg tablet, venlafaxine ER (EFFEXOR XR) 37.5 mg 24 hr capsule (I47.10) SVT (supraventricular tachycardia) (HCC) Comment: In need of refill Plan: metoprolol succinate ER (TOPROL XL) 25 mg 24 hr tablet Requested Prescriptions Pending Prescriptions Disp Refills sertraline (ZOLOFT) 100 mg tablet 60 tablet 0 Sig: Take 2 tablets by mouth once daily. venlafaxine ER (EFFEXOR XR) 37.5 mg 24 hr capsule 30 capsule 0 Sig: Take 1 capsule by mouth once daily. metoprolol succinate ER (TOPROL XL) 25 mg 24 hr tablet 30 tablet 0 Sig: Take 1 tablet by mouth once daily. RTO: as needed Scribe Attestation: By signing my name below, IDarling, attest that this documentation has been prepared under the direction and in the presence of Julio Cesar Smith M.D. Electronically Signed: Nguyễn Desouza. January 03, 2024 3:45 PM Provider Attestation: Robinson Weber MD, personally performed the services described in this documentation. All medical record entries made by the scribe were at my direction and in my presence. I have reviewed the chart and discharge instructions (if applicable), and agree that the record reflects my personal performance and is accurate and complete. Electronically Signed: Robinson Smith MD January 03, 2024 4:51 PM documented in this encounterPrem[facility]03-01-2024 History of Present illness Narrative* Hunter Ramos APRN.[employer]UCK [employer]IVING [employer]CTOR - 12/31/2023 1:27 PM EST Images from the original note were not included. Subjective HPI HPI Ángel Galvan is a 43 year old female who presents today for CC of sore on right cheek. Thisstarted 2 days ago. Has tried otc medication for relief. Symptoms are worsened by nothing. Denies fever. Denies possibility of being . Denies eye pain/vision changes. .Patient presents with: Derm Problem: Sore R cheek x2 days PAST MEDICAL HISTORY Diagnosis Date Backache, unspecified [...] ALLERGIES Nickel, Hydrocodone-Acetaminophen, and Propoxyphene N-Acetaminophen MEDICATIONS sulfamethoxazole-trimethoprim (BACTRIM DS) 800-160 mg per tablet Take 1 tablet by mouth two times aday for 7 days. cephALEXin (KEFLEX) 500 mg capsule Take 1 capsule by mouth three times a day for 7 days. sertraline (ZOLOFT) 100 mg tablet Take 2 tablets by mouth once daily. QUEtiapine (SEROQUEL) 100 mg tablet Take 100 [...] by mouth every 6 hours as needed (anxiety).Discontinue previous Rx (Patient not taking: Reported on 07/15/2022) FAMILY HISTORY Problem Relation Age of Onset Cancer Maternal Grandmother LUNG Cancer Maternal Aunt CERVICAL Colon Cancer Maternal Uncle Ischemic Heart Disease Maternal Uncle in his sleep at age 54 Social History Tobacco Use Smoking status: Former Packs/day: .25 Types: Cigarettes Smokeless tobacco: Never Substance Use Topics Alcohol use: Yes Comment: OCCASIONALLY Drug use: No Comment: history of meth use ROS Objective Blood pressure 113/61, pulse 68, temperature 36.6 C (97.8 F), resp. rate 18, weight 73 kg (161 lb),last menstrual period 06/02/2011, SpO2 100%. Physical Exam Constitutional: General: She is not in acute distress. Appearance: She is not toxic-appearing or diaphoretic. HENT: Head: Normocephalic and atraumatic. Pulmonary: Effort: Pulmonary effort is normal. No accessory muscle usage or respiratory distress. Neurological: Mental Status: She is alert and oriented to person, place, and time. ASSESSMENT/PLAN: 1. Facial infection - ICD9: 136.8, ICD10: L08.9 - Begin treatment with Trimethoprim-sulfamethozazole (Bactrim) 2 DS PO BID - No lymphangetic streaking, this was defined for patient to watch for and to seek medical care immediately if appears - Follow up for recheck in three days, appointment scheduled Urgent f/u for worsening s/s. - SULFAMETHOXAZOLE 800 MG-TRIMETHOPRIM 160 MG TABLET - CEPHALEXIN 500 MG CAPSULE Hunter Ramos APRN.TRUCK [employer]IVING INSTRUCTOR documented in this encounterPrem[facility]01-24-[facility]24 Discharge summary Author Roly Blair [facility] November 24, 2023 10:41pm Note Date/Time November 24, 2023 1 0:14pm [facility] Medical Records Department [address] [place] [address] Emergency Department Summary 11/24/23 MR#: [id number] Acct: [id number] Name: ÁNGEL GALVAN Rep #:[id number] : 1980 43 From: Roly Blair MD PCP: Dr. Julio Cesar Smith MD Status:REG ER Location: ED HPI History of Present Illness Chief Complaint: Headache Informant: patient Narrative Narrative: Patient states she has a history of migraines and has been having 1 off-and-on for the past week. Tonight it came on while she was at work it was fairly severe, she thinks it was triggered by the heat of the fryer's in the kitchen which has triggered her headaches in the past, and she was having trouble concentrating on her job because of her sensitivity to light so her boss broughther here to the ER. She took George back and body and some ibuprofen earlier, states it put a dent in her headache but it is still prominent. She denies any new unusual symptoms, these are typical of her migraines when she gets them which is on average about once every 4 months. She has a right frontal parietalheadache, photophobia, nausea. No peripheral neurologic symptoms. No recent illness. No other [id number]-[id number] medications or drugs recently. [facility] Medical History Bacteremia Depression History of endocarditis Marijuana abuse Panic attack Seizure disorder Substance abuse Supraventricular tachycardia (02/08/22) Tobacco abuse Home Medications metoprolol succinate 25 mg tablet,extended release 24 hr 25 mg PO DAILY 07/19/22[History Last Taken Unknown] sertraline 100 mg tablet (Zoloft) 200 mg PO DAILY 07/19/22 [History Last Taken Unknown] venlafaxine 37.5 mg tablet 37.5 mg PO DAILY 07/19/22 [History Last Taken Unknown] hydroxyzine pamoate 25 mg capsule 25 mg PO QHS PRN anxiety 04/28/23 [History Last Taken 04/27/23] omeprazole 20 mg capsule,delayed release 20 mg PO DAILY 4 weeks #28 caps 04/28/23 [Rx Last Taken Unknown] prazosin 2 mg capsule (Minipress) 2 mg PO DAILY 04/28/23 [History Last Taken Unknown] quetiapine 100 mg tablet (Seroquel) 100 mg PO QHS 04/28/23 [History Last Taken Unknown] Allergy/AdvReac Type Severity Reaction Status Date / Time hydrocodone [Hydrocodone] AdvReac Itching Verified 11/24/23 19:50 nickel [Nickel] AdvReac Itching Verified 11/24/23 19:50 propoxyphene napsylate AdvReac Itching Verified 11/24/23 19:50 [From Darvocet-N 100] Surgical History History of cardioversion (02/08/22) History of open heart surgery History of ventricular septal defect repair (01/25/15) Social History Smoking Status: Former smoker substance use type: marijuana ROS ROS ED Constitutional Constitutional ED: Denies chills or fever(s) Eyes Eyes: Reports photophobia; Denies blurry vision or diplopia ENT ENT ED: Denies ear pain or sore throat Cardiovascular Cardiovascular: Denies chest pain or palpitations Respiratory/Chest Respiratory/Chest: Denies cough or dyspnea Gastrointestinal Gastrointestinal: Reports nausea; Denies abdominal pain, diarrhea or vomiting Genitourinary Genitourinary ED: Denies dysuria or urinary frequency Musculoskeletal Musculoskeletal: Denies back pain or myalgias Integumentary Denies abscess or rash Neurologic Neurologic: Reports headache(s); Denies paresthesias or weakness EXAM Physical Exam Const Vital Signs: 11/24/23 19:47 Temperature 98.1 F Temperature Source Temporal Pulse Rate 92 Respiratory Rate 16 Blood Pressure 123/89 H Blood Pressure Mean 100 Pulse Ox 100 Oxygen Delivery Method Room Air HEENT Reports normocephalic and moist mucous membranes atraumatic Eyes PERRL, EOMs intact bilaterally and conjunctivae normal Eyes Narrative: photophobia Neck no lymphadenopathy, supple and no meningeal signs Resp normal respiratory effort and clear to auscultation bilaterally GI non-tender and non-distended Palpation: soft Extremity normal to inspection and full ROM Neuro oriented x3 and CN's II-XII intact bilaterally Sensorium / Orientation: awake and alert Speech: speech normal Gait (Neuro): normal gait Motor Exam: strength 5/5 throughout Psych mental status grossly normal Skin Lesions: no lesions Rashes: no rashes MDM MDM MDM Narrative Medical decision making narrative: Patient sounds like she is having a standard migraine for her, I do not think she needs to have any advanced imaging or lumbar puncture to evaluate for other pathology such as meningitis or subarachnoid hemorrhage. She was treated empirically for migraine which is what she was requesting, she was given Reglan Benadryl and some IV fluids and Decadron to help prevent a recurrence and has been having them for the past week. She feeling much better on reevaluation andcomfortable going home. We discussed reasons to return. Discharge Plan Triage Chief Complaint: Headache ED Provider: Roly Blair Dx/Rx/DC Orders Clinical Impression: Headache, migraine Instructions: ED, Migraine (Classical) Prescriptions: No Action sertraline [Zoloft] 100 mg Tablet 200 mg PO DAILY venlafaxine [Effexor] 37.5 mg Tablet 37.5 mg PO DAILY metoprolol succinate 25 mg Tablet Extended Release 24 Hr 25 mg PO DAILY quetiapine [Seroquel] 100 mg tablet 100 mg PO QHS prazosin [Minipress] 2 mg capsule 2 mg PO DAILY hydroxyzine pamoate 25 mg capsule 25 mg PO QHS PRN Patient Comments: TAKE 1 CAPSULE BY MOUTH AT BEDTIME NEEDED FOR TROUBLE SLEEPING omeprazole 20 mg capsule,delayed release(DR/EC) 20 mg PO DAILY 28 Days Qty: 28 0RF Primary Care Provider: Julio Cesar Smith Referrals: Julio Cesar Smith MD [Primary Care Provider] - As Needed Disposition Disposition: Home, Self Care What to do if you have Problems For any increased pain, shortness of breath, bleeding, nausea or vomiting, chestpain, or any unexpected problems, contact your Primary Care Provider. Call [facility] ([phone]) or report to the closest Emergency Room. Call 911 if necessary. 11/24/232240 <Electronically signed by Roly Blair MD> Cosigner Signature (if applicable): CC: Dr. Julio Cesar Smith MD ~ Signed [facility] Work Phone: [phone]) 553-386608-14-2023 History of Present illness Narrative* Heather Wiley, RT(R) - 06/14/2023 4:30 PM EDT Radiology Service Progress Note PATIENT NAME: Ángel Galvan DATE OF SERVICE: June 14, 2023 TIME: 4:21 PM PATIENT IDENTITY VERIFICATION COMPLETED USING TWO (2) IDENTIFIERS: Name and Date of confirmedby patient verbally. FALL SCREENING: Has the patient had 2 falls in the last year or 1 fall with injury or currently using an Ambulatory Assistive Device (Walker, Cane, Wheelchair, Crutches, etc.)? No PATIENT GENDER DATA: Female. status: : No status: NO. PATIENT RELEVANT IMPLANT DATA REVIEWED: Not Applicable RADIOLOGY DEPARTMENT: General X-ray: Exam(s) Completed: Lower Extremity X- Ray(s): Tibia Fibula, Right PERIPHERAL IV DATA: Not applicable SIGNED BY: RT Nina(R) June 14, 2023 4:21 PM documented in this encounterPremier Health [facility]07-18-2023 NoteHNO ID: [id number] Author: Bethany Osuna MD Service: ? Author Type: Physician Type: Progress Notes Filed: 05/18/2023 3:22 PM Note Text: Heart [facility] Vascular [facility] SECTION OF CARDIAC PACING and ELECTROPHYSIOLOGY OUTPATIENT VISIT DATE May 18, 2023 OUTPATIENT VISIT TYPE ESTABLISHED PRIMARY CARE PHYSICIAN: Robinson Smith [address] [place] [address] [place] [address] HISTORY OF PRESENT ILLNESS: Prior history: 42-year-old [...] left side of the chest lasting for "a second". She also describes sensation of single skipped heartbeats that she describes as "jumping". Denies sustained palpitation or syncope. Her ECG [...] - ECG B/O W INTERP (MED OFFICE) Bethany Osuna MD CONTACT INFORMATION: Bethany Osuna, [facility]07-18-2023 History of Present illness Narrative* Bethany Osuna MD - 05/18/2023 3:19 PM EDT Images from the original note were not included. Heart [facility] Vascular [facility] SECTION OF CARDIAC PACING and ELECTROPHYSIOLOGY OUTPATIENT VISIT DATE May 18, 2023 OUTPATIENT VISIT TYPE ESTABLISHED PRIMARY CARE PHYSICIAN: Robinson Smith [address] [place] [address] [place] [address] HISTORY OF PRESENT ILLNESS: Prior history: 42-year-old [...] left side of the chest lasting for "a second". She also describes sensation ofsingle skipped heartbeats that she describes as "jumping". Denies sustained palpitation or syncope. Her ECG shows sinus rhythm at 79 bpm with normal intervals and no obvious preexcitation. Event monitor demonstrated sinus rhythm with infrequent supraventricular and ventricular ectopy, a brief episode of atrial tachycardia and NSVT, both not associated with symptoms, as well as multipleepisodes of dyspnea and chest pain that correlated [...] by mouth every 6 hours as needed (anxiety).Discontinue previous Rx (Patient not taking: Reported on [...] - ECG B/O W INTERP (MED OFFICE) Bethany Osuna MD CONTACT INFORMATION: Bethany Osuna MD documented in this encounterPrem[facility] Nurse Note* Libia Stock MA - 05/18/2023 2:55 PM EDT C/o increased SOB c/o being very fatigued has been out of Metoprolol for about 2 weeks. Libia Stock MA documented in this encounterPrem[facility]06-29-2023 Miscellaneous Notes* Telephone Encounter - Ria Haywood - 04/29/2023 5:33 PM EDT Received ED summary, labs, ekg and imaging for chest pain from [facility]. Placed in provider's inbox for review. Route to PR scanning. documented in this encounterPrem[facility]06-28-2023 History of Present illness Narrative* Jaclyn Ramos APRN.TRUCK DRIVING INSTRUCTOR - 04/28/2023 3:42 PM EDT Female with complaints of chest tightness and [...] mother will take her. documented in this encounterPrem[facility]11-18-2022 Miscellaneous Notes* Telephone Encounter - Carrie Pina LPN - 09/18/2022 1:51 PM EST Received 09/18/2022 from [facility]. Placed in provider's inbox for review. Route to PR for scanning ER Summary 09/16/2022 Left sided flank pain. Difficulty urinating. DX flank pain uncertain cause documented in this encounterPremier [facility]11-18-2022 Miscellaneous Notes* Telephone Encounter - Carrie Pina LPN - 09/18/2022 12:17 PM EST Received 09/18/2022 from [facility]. Placed in provider's inbox for review. Route to PR for scanning. 09/18/2022 CT abdomen and pelvis Stable examination No evidence of obstructive uropathy IUD is seen within the uterus documented in this encounterPrem[facility]09-14-2022 History of Present illness Narrative* Jaclyn Ramos APRN.TRUCK DRIVING INSTRUCTOR - 07/15/2022 11:48 AM EDT CC: Patient presents with: Sore Throat: sore [...] Wt 63.5 kg (140 lb) LMP 06/02/2011 [id number]% BMI 27.12 kg/m General appearance: alert, cooperative, [...] by mouth every 6 hours as needed (anxiety).Discontinue previous Rx (Patient not taking: Reported on [...] symptoms occur. Patient agreeable to treatment plan. Jaclyn Ramos APRN.TRUCK DRIVING INSTRUCTOR documented in this encounterPremier [facility]06-21-2022 Miscellaneous Notes* Telephone Encounter - Gris Holloway MA - 04/21/2022 7:37 AM EDT Pharmacy verified in [place]. Patient has been identified by name and [...] advise. Gris Holloway MA documented in this encounterPrem[facility]06-10-2022 History of Present illness Narrative* Bethany Osuna MD - 04/10/2022 3:02 PM EDT This note was created using [email or web address]. Subjective Ángel Galvan is a 41 year [...] left side of the chest lasting for "a second". She also describes sensation ofsingle skipped heartbeats that she describes as "jumping". Denies sustained palpitation or syncope. Her ECG shows sinus rhythm at 79 bpm with normal intervals and no obvious preexcitation. Event monitor demonstrated sinus rhythm with infrequent supraventricular and ventricular ectopy, a brief episode of atrial tachycardia and NSVT, both not associated with symptoms, as well as multipleepisodes of dyspnea and chest pain that correlated [...] 1 tablet by mouth once daily. 90 tablet1 melatonin 3 mg tablet Take 2 tablets [...] by mouth every 6 hours as needed (anxiety).Discontinue previous Rx 90 capsule 0 venlafaxine HCl [...] Cuff Size: Regular Adult) Pulse 90 Ht 5'0.25" (1.53 m) Wt 126 lb (57.2 kg) [...] to any arrhythmia. She does have PACs whichshe is aware of, but the burden is [...] supraventricular tachycardia. Meanwhile she can be seen i n EPS follow-up on as-needed basis. documented in this encounterPrem[facility]06-10-2022 Nurse Note* Libia Stock MA - 04/10/2022 2:24 PM EDT C/o sob and shooting pain in left chest area,states she is having a lot of anxiety since being off of the Lisinopril, also lightheadedness. Libia Stock MA documented in this encounterPremier [facility]05-25-2022 Miscellaneous Notes* Telephone Encounter - Gia Ascencio - 03/25/2022 2:13 PM EDT Patient is scheduled to see EP Gia Ascencio * Telephone Encounter - Nisreen Rivers APRN.CNP - 03/25/2022 1:48 PM EDT Consult to EP Any Provider For SVT Please call to Schedule Nisreen Rivers APRN.CNP * Telephone Encounter - Love Castano LPN - 03/25/2022 1:40 PM EDT Yes, Ms Galvan said she would see an EP. Thank you, Love Castano LPN * Telephone Encounter - Nisreen Rivers APRN.RODRIGO - 03/25/2022 11:29 AM EDT Ok To stop Lisinopril At Last OV She was hesitant about EP Referral. Has she changed her mind? Nisreen Rivers APRN.RODRIGO * Telephone Encounter - Love Castano LPN - 03/25/2022 11:20 AM EDT Ms Galvan called to let Nisreen Rivers NP know that since starting the lisinopril 2.5mg daily on 03-13-22, she has noted headache, exhaustion, and dizziness. Her B/P today at Payam Fox NP's officewas 107/45 as noted on her Epic chart. Ángel said she is going to hold the lisinopril at this timeuntil she hears back from our office. She also wanted to know if Nisreen is going to refer her to EP since she failed the lisinopril? She said this was discussed in office visit on 03-12-2022. Thank you, Love Castano LPN documented in this encounterPremier Health [facility]05-25-2022 History of Present illness Narrative* Payam Lombardo APRN.RODRIGO - 03/25/2022 9:50 AM EDT This note was created using NoteWriter. Subjective Ángel Galvan is a 41 year old female. Patient here for follow-up on mood and SVT. She saw the company accountant and was continued on metoprolol and started on low dose lisinopril. Since starting the lisinopril she has had a headache, and thismorning she felt dizzy. Her blood pressure is low today, she is not monitoring her blood pressure'sas she is still living in [facility], scheduled to be discharged from there at [...] by mouth every 6 hours as needed (anxiety).Discontinue previous Rx FAMILY HISTORY Problem Relation Age [...] 107/45 Pulse 76 Ht 154.9 cm (5' 0.98") Wt 58.1 kg (128 lb 1.6 oz) [...] to follow with cardiology. Recommend to contact company accountant about the symptoms she's experiencing since starting [...] with them. Plans to start counseling in [place] once she returns home after being discharged from [facility] next month. 3. Depression, unspecified depression type Follow up with us once yearly for a physical and as needed for any new concerns. Payam Lombardo APRN.RODRIGO documented in this encounterPremier [facility]05-04-2022 Miscellaneous Notes* Telephone Encounter - Carrie Pina LPN - 03/04/2022 10:59 AM EDT Received 03/14/2022 from Cardiac Testing Dept [facility]. Placed in provider's inbox for review. [facility] 02/24/2022 documented in this encounterPremier Health [facility]04-15-2022 History of Present illness Narrative* Andre Eid RN - 02/13/2022 1:43 PM EDT TRANSITIONAL CARE MANAGEMENT (TCM) COMMUNITY MONITORING PROGRAM Provider Action/FYI: Unable to reach- LM on VM. Additional Instructions Patient discharged from [facility] to Facility Substance Abuse Treatment Provider Name Lauren Ochoa TCM Home Visit Referral Source of Stratification: [facility] Admission Status: Discharged Readmission Risk Score: [...] close encounter Outreach ended documented in this encounterPremier Health [facility]04-14-2022 History of Present illness Narrative* Treasure Reid RN - 02/12/2022 1:23 PM EDT TCM Home Visit Referral Source of Stratification: [facility] Admission Status: Discharged Readmission Risk Score: [...] MANAGEMENT (TCM) COMMUNITY MONITORING PROGRAM Provider Action/FYI: [facility] discharge 02-11-22- initial outreach - Left voice [...] home medications as previously prescribed -Wear the color television console monitor for 14 days as instructed. Return as [...] just have to ask. Talk with your doctorand your family and ask for help. Nothing changes until you take that step. But you CAN do it. Contact made with patient: No - next outreach attempt will be on next business day Attempted outreach to patient for hospital discharge initial outreach first attempt. No answer. Left a voicemail to return my call at [phone] Will attempt to outreach to patient again later today or on next business day 02-13-22 if no return call from patient. Thank you. Outreach ended Treasure Reid RN, BSN Care Coordination team documented in this encounterPremier Health [facility]02-14-2022 Miscellaneous Notes* Telephone Encounter - Carrie Pina LPN - 12/15/2021 11:12 AM EST Opened in error documented in this encounterPremier Health [facility] SouthDischarge summary Author Kenneth Harmon [facility] January 01, 2024 11:04am Note Date/Time January 01, 2024 10:1 2am [facility] Medical Records Department [address] [place] [id number] Emergency Department Summary 01/01/24 MR#: [id number] Acct: [id number] Name: ÁNGEL GALVAN Rep #:[id number] : 1980 43 From: Kenneth Harmon MD PCP: Dr. Julio Cesar Smith MD Status:REG ER Location: ED HPI History of Present Illness Chief Complaint: Abscess Detail of Chief Complaint: Right-sided facial abscess and cellulitis. Began on Wednesday. Informant: patient Onset/Context/Timing Onset: Days Context: Gradual Onset Timing: Continuous Current Severity: Moderate Maximum Severity: Moderate Narrative Narrative: 43-year-old female developed right-sided facial cellulitis and abscess began on Wednesday. Worse on Wednesday saw in urgent care was started on Bactrim and Keflex. Its only gotten worse and now she has a small had do an abscess to the right of her nose. Denies any eye pain. Prior similar symptoms: No Recent Illness/Hospitalization: No PFSH PFS Medical History Bacteremia Depression History of endocarditis Marijuana abuse Panic attack Seizure disorder Substance abuse Supraventricular tachycardia (02/08/22) Tobacco abuse Home Medications metoprolol succinate 25 mg tablet,extended release 24 hr 25 mg PO DAILY 07/19/22[History Last Taken Unknown] sertraline 100 mg tablet (Zoloft) 200 mg PO DAILY 07/19/22 [History Last Taken Unknown] venlafaxine 37.5 mg tablet 37.5 mg PO DAILY 07/19/22 [History Last Taken Unknown] hydroxyzine pamoate 25 mg capsule 25 mg PO QHS PRN anxiety 04/28/23 [History Last Taken 04/27/23] omeprazole 20 mg capsule,delayed release 20 mg PO DAILY 4 weeks #28 caps 04/28/23 [Rx Last Taken Unknown] prazosin 2 mg capsule (Minipress) 2 mg PO DAILY 04/28/23 [History Last Taken Unknown] quetiapine 100 mg tablet (Seroquel) 100 mg PO QHS 04/28/23 [History Last Taken Unknown] cephalexin 500 mg capsule 500 mg PO Q6 #20 CAPSULES 01/01/24 [Rx Last Taken Unknown] Allergy/AdvReac Type Severity Reaction Status Date / Time hydrocodone [Hydrocodone] AdvReac Itching Verified 11/24/23 19:50 nickel [Nickel] AdvReac Itching Verified 11/24/23 19:50 propoxyphene napsylate AdvReac Itching Verified 11/24/23 19:50 [From Darvocet-N 100] Surgical History History of cardioversion (02/08/22) History of open heart surgery History of ventricular septal defect repair (01/25/15) Social History Smoking Status: Former smoker substance use type: marijuana ROS ROS ED ROS Narrative Denies any fever or chills. Right-sided facial abscess with cellulitis. Review of Systems ROS Unobtainable: Denies due to encephalopathy Constitutional Constitutional ED: Denies chills or fever(s) Eyes Eyes: Denies blurry vision ENT ENT ED: Denies ear pain Cardiovascular Cardiovascular: Denies chest pain Respiratory/Chest Respiratory/Chest: Denies cough or dyspnea Gastrointestinal Gastrointestinal: Denies abdominal pain, constipation, diarrhea, melena, nausea or vomiting Genitourinary Genitourinary ED: Denies dysuria Musculoskeletal Musculoskeletal: Denies arthralgias Integumentary Reports abscess Neurologic Neurologic: Denies headache(s) Psychiatric Psychiatric: Denies anxiety Endocrine Endocrinology: Denies cold intolerance Hematologic/Lymphatic Hematologic/Lymphatic: Reports none Allergic/Immunologic Allergic/Immunologic ED: Denies mouth swelling, tongue swelling or urticaria EXAM Physical Exam Narrative Exam Narrative: 43-year-old female no acute distress vital signs stable afebrile. HEENT exam just to the right of her nose on her face there is a small abscess. Surroundingindurated tissue and cellulitis along her right cheek with mild swelling around the right eye. There is no proptosis. Normal extraocular motions of her eye without pain. I do not think there is any orbital cellulitis. Neck nontender no lymphadenopathy. Lungs clear. Heart regular rhythm no murmur. Abdomen softnontender. Moving all 4 extremities. Awake and alert no focal motor deficits. Const Vital Signs: 01/01/24 09:28 Temperature 96.5 F L Temperature Source Temporal Pulse Rate 80 Respiratory Rate 16 Blood Pressure 112/61 Blood Pressure Mean 78 Pulse Ox 97 Oxygen Delivery Method Room Air Positive well nourished and well developed; Negative for cachectic, contracturesor unkempt General Appearance ED: well developed and NAD; Negative for unkempt, cachectic, contractures, cyanotic, diaphoretic or pallor Nutritional Appearance: Negative for cachectic HEENT Reports moist mucous membranes Negative for trauma or tenderness Eyes PERRL and EOMs intact bilaterally General Eye ED: Negative for pale conjunctiva, scleral icterus or other Neck no lymphadenopathy, supple and no JVD General: Negative for tenderness Lymph Lymphatic: Negative for other Chest Wall inspection of chest normal and palpation of chest normal Chest: Negative for other Resp normal respiratory effort and clear to auscultation bilaterally Effort and Inspection: Negative for retractions Auscultation: Negative for rales, rhonchi or wheezes Cardio regular rate, regular rhythm, S1 normal heart sound, S2 normal heart sound and no murmurs Palpation: Negative for palpable S3 or palpable S4 Rate: Negative for bradycardia or tachycardic Rhythm: Negative for abnormal rhythm GI normal to inspection, nondistended, normoactive bowel sounds, non-tender, non-distended and no masses Auscultation: normoactive bowel sounds Palpation: soft; Negative for tender, guarding or rebound tenderness present Back/Spine Negative for no CVA tenderness General Back: Negative for CVA tenderness Cervical Spine: Negative for cervical spine tenderness Thoracic Spine / Upper Back: Negative for thoracic spinal tenderness Lumbar Spine / Lower Back: Negative for lumbar spinal tenderness Extremity normal to inspection General Extremety ED: Negative for edema or tenderness General Extremity: Negative for edema Neuro oriented x3 and CN's II-XII intact bilaterally Sensorium / Orientation: alert; Negative for orientation impaired Motor Exam: strength 5/5 throughout Psych mental status grossly normal Appearance: Negative for unkempt Attitude: No agitated Mood & Affect: Negative for depressed, anxious or tearful Skin No no rashes or lesions noted and no wounds Skin Narrative: Right facial abscess with surrounding cellulitis. General Skin Exam: Negative for jaundice or pallor Lesions: No lesion noted Rashes: rashes noted Trauma: Negative for abrasion MDM MDM MDM Narrative Medical decision making narrative: 43-year-old female on Keflex and Bactrim right-sided facial abscess with cellulitis that needs drained. Let will be applied. I was able to express about 3 cc of pus and blood from the facial abscess. She will continue warm compresses. Keflex 4 times a day. Bactrim twice a day till gone. Has a appointment to see her doctor again on Wednesday. She knows to returnif she has worsening facial swelling, feels worse or fever. Otherwise outpatient treatment with warm compresses and antibiotics. History & Record Review Discussion w/independent historian: Patient Additional record(s) reviewed:: Prior inpatient record, Prior outpatient record,Prior ED visit and Prior labs Procedures Other Procedures Procedure(s): Small right facial abscess just to the right of her nose. Local anesthetized with let. I unroofed the small pimple. Was able to express about a cc of pus. Then used an 11 blade and opening up some more and express another2 cc of pus and blood. I do not think there is anything left to drain. Patientreally did not want incision on her face if at all possible. She was instructedon abscess care. She has follow-up on Wednesday. Discharge Plan Triage Chief Complaint: Abscess ED Provider: Kenneth Harmon Dx/Rx/DC Orders Clinical Impression: Abscess of face, History of endocarditis, Cellulitis Instructions: ED Abscess Incision And Drainage Prescriptions: New cephalexin 500 mg capsule 500 mg PO Q6 Qty: 20 0RF No Action sertraline [Zoloft] 100 mg Tablet 200 mg PO DAILY venlafaxine [Effexor] 37.5 mg Tablet 37.5 mg PO DAILY metoprolol succinate 25 mg Tablet Extended Release 24 Hr 25 mg PO DAILY quetiapine [Seroquel] 100 mg tablet 100 mg PO QHS prazosin [Minipress] 2 mg capsule 2 mg PO DAILY hydroxyzine pamoate 25 mg capsule 25 mg PO QHS PRN Patient Comments: TAKE 1 CAPSULE BY MOUTH AT BEDTIME NEEDED FOR TROUBLE SLEEPING omeprazole 20 mg capsule,delayed release(DR/EC) 20 mg PO DAILY 28 Days Qty: 28 0RF Primary Care Provider: Julio Cesar Smith Referrals: Julio Ceasr Smith MD [Primary Care Provider] - Keep Frances appointment Activity Restrictions/Additional Instructions: Keflex 4 times a day. The Bactrim twice today. Motrin and Tylenol for pain. Follow-up with your doctor in the next 3 to 5 days to ensure this is getting better return if it is getting worse or you develop a fever or feel a lot worse. Disposition Disposition: Home, Self Care What to do if you have Problems For any increased pain, shortness of breath, bleeding, nausea or vomiting, chestpain, or any unexpected problems, contact your Primary Care Provider. Call [facility] ([phone]) or report to the closest Emergency Room. Call 911 if necessary. 01/01/24 1104 <Electronically signed by Kenneth Harmon MD> Cosigner Signature (if applicable): CC: Dr. Julio Cesar Smith MD ~ Signed [facility] Work Phone: Evaluation + Plan note No data available for this section [facility] Evaluation note* Diagnosis SVT (supraventricular tachycardia) (HCC)- Primary Other specified cardiac dysrhythmias DEON (generalized anxiety disorder) Generalized anxiety disorder Depression, unspecified depression type [facility] encounter [facility] Diagnosis SVT (supraventricular tachycardia) (HCC)- Primary Other specified cardiac dysrhythmias documented in this encounter [facility] note* Diagnosis SVT (supraventricular tachycardia) (HCC)- Primary Other specified cardiac dysrhythmias documented in this encounter [facility] note* Diagnosis Sore throat- Primary Acute pharyngitis At increased risk of exposure to COVID-19 virus documented in this encounter [facility] noteNo assessment information availableWMagruder [facility] Work Phone: Evaluation note* Diagnosis Encounter for screening mammogram for breast cancer documented in this encounter [facility] note* Diagnosis Chest discomfort- Primary Other chest pain [facility] Diagnosis PAC (premature atrial contraction)- Primary Supraventricular premature beats documented in this encounter [facility]* Diagnosis Facial infection- Primary Other specified infectious and parasitic diseases [facility]* Diagnosis Facial abscess- Primary Cellulitis and abscess of face Adjustment disorder with mixed anxiety and depressed mood SVT (supraventricular tachycardia) (HCC) Other specified cardiac dysrhythmias documented in this encounter [facility] note* Diagnosis SVT (supraventricular tachycardia) (HCC) Other specified cardiac dysrhythmias Adjustment disorder with mixed anxiety and depressed mood [facility] Diagnosis Sore throat- Primary Acute pharyngitis documented in this encounter [facility] note* Diagnosis Tonsil pain- Primary Other diseases of pharynx, not elsewhere classified Chronic systolic congestive heart failure (HCC) Chronic systolic heart failure Seizures (HCC) Other convulsions History of bacterial endocarditis Personal history of other diseases of circulatory system documented in this encounter [facility] note* Diagnosis Acute right ankle pain documented in this encounter [facility] note* Diagnosis SVT (supraventricular tachycardia) (HCC) Other specified cardiac dysrhythmias Adjustment disorder with mixed anxiety and depressed mood [facility] Encounter for screening mammogram for breast cancer [facility] Diagnosis Adjustment disorder with mixed anxiety and depressed mood SVT (supraventricular tachycardia) (HCC) Other specified cardiac dysrhythmias [facility] Acute cough- Primary Exposure to pertussis Contact with or exposure to other communicable diseases URI, acute Acute upper respiratory infections of unspecified site Acute cough Exposure to pertussis Contact with or exposure to other communicable diseases [facility] Acute cough Exposure to pertussis Contact with or exposure to other communicable diseases [facility] Diagnosis Headache, unspecified headache type- Primary Neck pain Cervicalgia [facility] Ne[facility] pain Cervicalgia [facility] Diagnosis Chronic systolic congestive heart failure (HCC) Chronic systolic heart failure [facility] Diagnosis Left lower quadrant abdominal pain- Primary Neck pain on right side Cervicalgia Bilateral hand numbness Disturbance of skin sensation Other migraine without status migrainosus, not intractable Family history of colon cancer in mother Screening for colon cancer Special screening for malignant neoplasms, colon [facility] Diagnosis Migraine with aura and without status migrainosus, not intractable- Primary Migraine with aura, without mention of intractable migraine without mention of status migrainosus Headache, unspecified headache type Sleep apnea-like behavior Neck pain Cervicalgia [facility] Diagnosis Adjustment disorder with mixed anxiety and depressed mood SVT (supraventricular tachycardia) (HCC) Other specified cardiac dysrhythmias [facility] Diagnosis Encounter for screening for malignant neoplasm of colon- Primary Special screening for malignant neoplasms, colon Family history of colon cancer in mother Screening for colon cancer Special screening for malignant neoplasms, colon [facility] Diagnosis Migraine with aura and without status migrainosus, not intractable Migraine with aura, without mention of intractable migraine without mention of status migrainosus [facility] Diagnosis Migraine with aura and without status migrainosus, not intractable Migraine with aura, without mention of intractable migraine without mention of status migrainosus [facility] Diagnosis SVT (supraventricular tachycardia) (HCC) Other specified cardiac dysrhythmias [facility] Diagnosis ANA LAURA (obstructive sleep apnea)- Primary Obstructive sleep apnea (adult) (pediatric) documented in this encounter [facility]* Diagnosis SVT (supraventricular tachycardia) (HCC) Other specified cardiac dysrhythmias Adjustment disorder with mixed anxiety and depressed mood [facility] Additional Instructions Keflex 4 times a day. The Bactrim twice today. Motrin and Tylenol for pain. Follow-up with your doctor in the next 3 to 5 days to ensure this is getting better return if it is getting worse or you develop a fever or feel a lot worse.[facility] Work Phone: Reason for referral (narrative)* Diagnostic Procedure Only (Routine) - Pending Review Specialty Diagnoses / Procedures Referred By Contac t Referred To Contact [facility] Diagnoses Encounter for screening mammogram for breast cancer Procedures MICHAEL SCREENING SCREENING MAMMOGRAPHY BI 2-VIEW BREAST INC CAD Robinson Smith MD [address] [place] [address] [place] [address] [facility] [address] [place] [address] Referral ID Status Reason Start Date Expiration Date Visits Requested Visits Authorized [id number] Pending Review Auto-Generat ed Referral 11/11/2022 12/11/2023 1 1 [facility] for referral (narrative)* Diagnostic Procedure Only (Urgent) - Closed Specialty Diagnoses / Procedures Referred By Contac t Referred To Contact XR [facility]ING Diagnoses Acute right ankle pain Procedures XR TIBIA FIBULA 2V AP/LAT RIGHT RADIOLOGIC EXAMINATION TIBIA & FIBULA 2 VIEWS Juan Mathis MD [employer] [place] [address] [place] [address] Referral ID Status Reason Start Date Expiration Date V isits Requested Visits Authorized [id number] Closed Auto-Generate d Referral 06/14/2023 07/13/2024 1 1 [facility] for referral (narrative)* Diagnostic Procedure Only (Routine) - New Request Specialty Diagnoses / Procedures Referred By Contac t Referred To Contact [facility] Diagnoses Encounter for screening mammogram for breast cancer Procedures MICHAEL SCREENING W SHARON SCREENING DIGITAL BREAST TOMOSYNTHESIS BI SCREENING MAMMOGRAPHY BI 2-VIEW BREAST INC Robinson Thomason MD [address] [facility] [address] [facility] [address] [place] [address] Referral ID Status Reason Start Date Expiration Date Visits Requested Visits Authorized [id number] New Request Auto-Generat ed Referral 10/04/2024 11/03/2025 1 1 [facility] for referral (narrative)No reason for referral information [facility] Work [facility]: Reason for visit Narrative* Diagnostic Procedure Only (Urgent) - Closed Specialty Diagnoses / Procedures Referred By Contac t Referred To Contact XR IMAGING Diagnoses Acute right ankle pain Procedures XR TIBIA FIBULA 2V AP/LAT RIGHT RADIOLOGIC EXAMINATION TIBIA & FIBULA 2 VIEWS Juan Mathis MD [address] [place] [address] [place] [address] Referral ID Status Reason Start Date Expiration Date V isits Requested Visits Authorized [id number] Closed Auto-Generate d Referral 06/14/2023 07/13/2024 1 1 [facility] for visit Narrative* Diagnostic Procedure Only (Routine) - Closed Specialty Diagnoses / Procedures Referred By Contac t Referred To Contact XR IMAGING Diagnoses Neck pain Procedures XR CERV OTHER 4V AP/LAT/FLX/EXT RADEX SPINE CERVICAL 4 OR 5 VIEWS Noa Appiah, LIBRA.TRUCK DRIVING INSTRUCTOR [address] [place] [address] Phone: tel: fax: [place] [address] Referral ID Status Reason Start Date Expiration Date V isits Requested Visits Authorized [id number] Closed Auto-Generate d Referral 02/08/2025 03/10/2026 1 1 [facility] for visit Narrative* Outpatient Procedure (Routine) - Closed Specialty Diagnoses / Procedures Referred By Ko sotelo Referred To Contact [facility] Diagnoses Family history of colon cancer in mother Screening for colon cancer Procedures COLONOSCOPY SCREENING COLONOSCOPY FLX DX W/COLLJ SPEC WHEN PFSIMONED Payam Miller, APPRENTICE COSMETOLOGIST.TRUCK DRIVING INSTRUCTOR [address] [facility] [place] [address] Phone: tel: fax: [facility] [address] [place] [address] Referral ID Status Reason Start Date Expiration Date V isits Requested Visits Authorized [id number] Closed Auto-Generate d Referral 02/15/2025 02/15/2026 1 1 [facility] for visit Narrative* MRI/CT (Routine) - Closed Specialty Diagnoses / Procedures Referred By Ko sotelo Referred To Contact [facility] Diagnoses Migraine with aura and without status migrainosus, not intractable Procedures MRI BRAIN WO/W IVCON MRI BRAIN BRAIN STEM W/O W/CONTRAST MATERIAL Soledad Garrido, APPRENTICE COSMETOLOGIST.TRUCK DRIVING INSTRUCTOR [address] [address] Phone: tel: fax: [place] [address] Referral ID Status Reason Start Date Expiration Date V isits Requested Visits Authorized [id number] Closed Auto-Generate d Referral 02/21/2025 04/22/2025 1 1 [facility] Family History No Family History Records Found Father Name Dates Details Family history of cardiac di sorder(V17.49, Z82.49) Status:Active Relationship Condition Age at Onset Recorded Date/T sarah Unknown Family History?Unknown Unknown January 01, 2015 3:23pm Family History?Unknown Unknown January 01, 2015 3:23pm Relationship Condition Age at Onset Recorded Date/T sarah Unknown Family History?Unknown Unknown January 01, 2015 2:23pm Family History?Unknown Unknown January 01, 2015 2:23pm Summary Purpose Advance Directives No Advanced Directives Records FoundDocuments on File Type Date Recorded Patient Cardiovascular Invasive Specialist Expl anation Advance Directive(s) Advance Directive(s) 02/08/2022 11:30 AM Advance Directive(s) 07/26/2021 9:50 PM Advance Directive(s) 12/17/2019 11:37 PM Documents on File Type Date Recorded Patient Cardiovascular Invasive Specialist Expl anation Advance Directive(s) Advance Directive(s) 02/17/2022 12:02 PM Advance Directive(s) 02/08/2022 11:30 AM Advance Directive(s) 07/26/2021 9:50 PM Advance Directive(s) 12/17/2019 11:37 PM Documents on File Type Date Recorded Patient Cardiovascular Invasive Specialist Expl anation Advance Directive(s) Advance Directive(s) 02/17/2022 12:02 PM Advance Directive(s) 02/08/2022 11:30 AM Advance Directive(s) 07/26/2021 9:50 PM Advance Directive(s) 12/17/2019 11:37 PM Advance Directive Response Recorded Date/ Time Advance Directives No December 31 3:17pm Living Will No July 19, 2022 8:50pm Power of Resident Services Supervisor No July 8:50pm Advance Directive Response Recorded Date/ Time Advance Directives No December 31 2:17pm Living Will No September 18, 10:28am Power of Resident Services Supervisor No September 18, 2022 10:28am Advance Directive Response Recorded Date/ Time Advance Directives No December 31 3:17pm Living Will No April 28, 2023 3:52pm Power of Resident Services Supervisor No April 28 3:52pm Advance Directive Response Recorded Date/ Time Advance Directives No December 31 2:17pm Living Will No November 24 9:27pm Power of Resident Services Supervisor No November 24, 2023 9:27pm Advance Directive Response Recorded Date/ Time Advance Directives No December 31 3:17pm Living Will No January 23, 2024 12:41am Power of Resident Services Supervisor No January 22 12:41am Advance Directive Response Recorded Date/ Time Advance Directives No December 31 2:17pm Living Will No January 01, 2024 10:37am Power of Resident Services Supervisor No December 31 10:37am Advance Directive Response Recorded Date/ Time Living Will No February 03, 2025 1:13pm Do you have a Healthcare Power of Resident Services Supervisor? No February 03, 2025 1:13pm Advance Directives No December 31 3:17pm Health Concerns Infection Onset Date Last Indicated [...] Napier MD [address] [place] [address] Referral ID Status Reason Start Date Expiration Date Visits Requested Visits Authorized [id number] Authorized PCP Requested Referral 04/02/2022 06/23/2022 1 1 Chief Complaint and Reason for Visit Chief Complaint RLQ ABD PAIN Chief Complaint RLQ ABD PAIN FLANK PAIN Chief Complaint CHEST PAIN Chief Complaint MIGRAINE Chief Complaint MIGRAINE ABCESS headache Chief Complaint MIGRAINE ABCESS Chief Complaint Admit Date headache February 03, 2025 12:4 5pm Additional Source Comments INFORMATION SOURCE (unrecogn ized section and content) DATE CREATED AUTHOR 12/19/2019 [facility] DATE CREATED AUTHOR AUTHOR'S ORGANIZ ATION 07/10/2021 [facility] DATE CREATED AUTHOR AUTHOR'S ORGANIZ ATION 05/19/2023 [facility] DATE CREATED AUTHOR AUTHOR'S ORGANIZ ATION 02/11/2025 [facility] DATE CREATED AUTHOR AUTHOR'S ORGANIZ ATION 05/19/2025 [facility] DATE CREATED AUTHOR AUTHOR'S ORGANIZ ATION 06/08/2025 [facility] Source Comments (unrecognize d section and content) In the event this informatio n is protected by the Federal Confidentiality of Alcohol and Drug Abuse Patient Records regulations: The Federal rules restrict any use of the information to criminally investigate or prosecute any alcohol or drug abuse patient.[facility] the event this information is protected by the Federal Confidentiality of Alcohol and Drug Abuse Patient Records regulations: The Federal rules restrict any use of the information to criminally investigate or prosecute any alcohol or drug abuse patient.[facility] the event this information is protected by the Federal Confidentiality of Alcohol and Drug Abuse Patient Records regulations: The Federal rules restrict any use of the information to criminally investigate or prosecute any alcohol or drug abuse patient.[facility] the event this information is protected by the Federal Confidentiality of Alcohol and Drug Abuse Patient Records regulations: The Federal rules restrict any use of the information to criminally investigate or prosecute any alcohol or drug abuse patient.[facility] the event this information is protected by the Federal Confidentiality of Alcohol and Drug Abuse Patient Records regulations: The Federal rules restrict any use of the information to criminally investigate or prosecute any alcohol or drug abuse patient.[facility]In the event this information is protected by the Federal Confidentiality of Alcohol and Drug Abuse Patient Records regulations: The Federal rules restrict any use of the information to criminally investigate or prosecute any alcohol or drug abuse patient.[facility] the event this information is protected by the Federal Confidentiality of Alcohol and Drug Abuse Patient Records regulations: The Federal rules restrict any use of the information to criminally investigate or prosecute any alcohol or drug abuse patient.[facility] the event this information is protected by the Federal Confidentiality of Alcohol and Drug Abuse Patient Records regulations: The Federal rules restrict any use of the information to criminally investigate or prosecute any alcohol or drug abuse patient.[facility] the event this information is protected by the Federal Confidentiality of Alcohol and Drug Abuse Patient Records regulations: The Federal rules restrict any use of the information to criminally investigate or prosecute any alcohol or drug abuse patient.[facility]In the event this information is protected by the Federal Confidentiality of Alcohol and Drug Abuse Patient Records regulations: The Federal rules restrict any use of the information to criminally investigate or prosecute any alcohol or drug abuse patient.[facility] the event this information is protected by the Federal Confidentiality of Alcohol and Drug Abuse Patient Records regulations: The Federal rules restrict any use of the information to criminally investigate or prosecute any alcohol or drug abuse patient.[facility] the event this information is protected by the Federal Confidentiality of Alcohol and Drug Abuse Patient Records regulations: The Federal rules restrict any use of the information to criminally investigate or prosecute any alcohol or drug abuse patient.[facility] the event this information is protected by the Federal Confidentiality of Alcohol and Drug Abuse Patient Records regulations: The Federal rules restrict any use of the information to criminally investigate or prosecute any alcohol or drug abuse patient.[facility]In the event this information is protected by the Federal Confidentiality of Alcohol and Drug Abuse Patient Records regulations: The Federal rules restrict any use of the information to criminally investigate or prosecute any alcohol or drug abuse patient.[facility]In the event this information is protected by the Federal Confidentiality of Alcohol and Drug Abuse Patient Records regulations: The Federal rules restrict any use of the information to criminally investigate or prosecute any alcohol or drug abuse patient.[facility] the event this information is protected by the Federal Confidentiality of Alcohol and Drug Abuse Patient Records regulations: The Federal rules restrict any use of the information to criminally investigate or prosecute any alcohol or drug abuse patient.[facility]In the event this information is protected by the Federal Confidentiality of Alcohol and Drug Abuse Patient Records regulations: The Federal rules restrict any use of the information to criminally investigate or prosecute any alcohol or drug abuse patient.[facility]In the event this information is protected by the Federal Confidentiality of Alcohol and Drug Abuse Patient Records regulations: The Federal rules restrict any use of the information to criminally investigate or prosecute any alcohol or drug abuse patient.[facility]In the event this information is protected by the Federal Confidentiality of Alcohol and Drug Abuse Patient Records regulations: The Federal rules restrict any use of the information to criminally investigate or prosecute any alcohol or drug abuse patient.[facility]In the event this information is protected by the Federal Confidentiality of Alcohol and Drug Abuse Patient Records regulations: The Federal rules restrict any use of the information to criminally investigate or prosecute any alcohol or drug abuse patient.[facility]In the event this information is protected by the Federal Confidentiality of Alcohol and Drug Abuse Patient Records regulations: The Federal rules restrict any use of the information to criminally investigate or prosecute any alcohol or drug abuse patient.[facility]In the event this information is protected by the Federal Confidentiality of Alcohol and Drug Abuse Patient Records regulations: The Federal rules restrict any use of the information to criminally investigate or prosecute any alcohol or drug abuse patient.[facility]In the event this information is protected by the Federal Confidentiality of Alcohol and Drug Abuse Patient Records regulations: The Federal rules restrict any use of the information to criminally investigate or prosecute any alcohol or drug abuse patient.[facility]In the event this information is protected by the Federal Confidentiality of Alcohol and Drug Abuse Patient Records regulations: The Federal rules restrict any use of the information to criminally investigate or prosecute any alcohol or drug abuse patient.[facility]In the event this information is protected by the Federal Confidentiality of Alcohol and Drug Abuse Patient Records regulations: The Federal rules restrict any use of the information to criminally investigate or prosecute any alcohol or drug abuse patient.[facility]In the event this information is protected by the Federal Confidentiality of Alcohol and Drug Abuse Patient Records regulations: The Federal rules restrict any use of the information to criminally investigate or prosecute any alcohol or drug abuse patient.[facility]In the event this information is protected by the Federal Confidentiality of Alcohol and Drug Abuse Patient Records regulations: The Federal rules restrict any use of the information to criminally investigate or prosecute any alcohol or drug abuse patient.[facility]In the event this information is protected by the Federal Confidentiality of Alcohol and Drug Abuse Patient Records regulations: The Federal rules restrict any use of the information to criminally investigate or prosecute any alcohol or drug abuse patient.[facility]In the event this information is protected by the Federal Confidentiality of Alcohol and Drug Abuse Patient Records regulations: The Federal rules restrict any use of the information to criminally investigate or prosecute any alcohol or drug abuse patient.[facility]In the event this information is protected by the Federal Confidentiality of Alcohol and Drug Abuse Patient Records regulations: The Federal rules restrict any use of the information to criminally investigate or prosecute any alcohol or drug abuse patient.[facility]In the event this information is protected by the Federal Confidentiality of Alcohol and Drug Abuse Patient Records regulations: The Federal rules restrict any use of the information to criminally investigate or prosecute any alcohol or drug abuse patient.[facility]In the event this information is protected by the Federal Confidentiality of Alcohol and Drug Abuse Patient Records regulations: The Federal rules restrict any use of the information to criminally investigate or prosecute any alcohol or drug abuse patient.[facility]In the event this information is protected by the Federal Confidentiality of Alcohol and Drug Abuse Patient Records regulations: The Federal rules restrict any use of the information to criminally investigate or prosecute any alcohol or drug abuse patient.[facility]In the event this information is protected by the Federal Confidentiality of Alcohol and Drug Abuse Patient Records regulations: The Federal rules restrict any use of the information to criminally investigate or prosecute any alcohol or drug abuse patient.[facility]In the event this information is protected by the Federal Confidentiality of Alcohol and Drug Abuse Patient Records regulations: The Federal rules restrict any use of the information to criminally investigate or prosecute any alcohol or drug abuse patient.[facility]In the event this information is protected by the Federal Confidentiality of Alcohol and Drug Abuse Patient Records regulations: The Federal rules restrict any use of the information to criminally investigate or prosecute any alcohol or drug abuse patient.[facility]In the event this information is protected by the Federal Confidentiality of Alcohol and Drug Abuse Patient Records regulations: The Federal rules restrict any use of the information to criminally investigate or prosecute any alcohol or drug abuse patient.[facility]In the event this information is protected by the Federal Confidentiality of Alcohol and Drug Abuse Patient Records regulations: The Federal rules restrict any use of the information to criminally investigate or prosecute any alcohol or drug abuse patient.[facility]In the event this information is protected by the Federal Confidentiality of Alcohol and Drug Abuse Patient Records regulations: The Federal rules restrict any use of the information to criminally investigate or prosecute any alcohol or drug abuse patient.[facility]In the event this information is protected by the Federal Confidentiality of Alcohol and Drug Abuse Patient Records regulations: The Federal rules restrict any use of the information to criminally investigate or prosecute any alcohol or drug abuse patient.[facility] SouthIn the event this information is protected by the Federal Confidentiality of Alcohol and Drug Abuse Patient Records regulations: The Federal rules restrict any use of the information to criminally investigate or prosecute any alcohol or drug abuse patient.[facility] SouthIn the event this information is protected by the Federal Confidentiality of Alcohol and Drug Abuse Patient Records regulations: The Federal rules restrict any use of the information to criminally investigate or prosecute any alcohol or drug abuse patient.[facility]In the event this information is protected by the Federal Confidentiality of Alcohol and Drug Abuse Patient Records regulations: The Federal rules restrict any use of the information to criminally investigate or prosecute any alcohol or drug abuse patient.[facility]In the event this information is protected by the Federal Confidentiality of Alcohol and Drug Abuse Patient Records regulations: The Federal rules restrict any use of the information to criminally investigate or prosecute any alcohol or drug abuse patient.[facility]In the event this information is protected by the Federal Confidentiality of Alcohol and Drug Abuse Patient Records regulations: The Federal rules restrict any use of the information to criminally investigate or prosecute any alcohol or drug abuse patient.[facility] SouthIn the event this information is protected by the Federal Confidentiality of Alcohol and Drug Abuse Patient Records regulations: The Federal rules restrict any use of the information to criminally investigate or prosecute any alcohol or drug abuse patient.[facility] SouthIn the event this information is protected by the Federal Confidentiality of Alcohol and Drug Abuse Patient Records regulations: The Federal rules restrict any use of the information to criminally investigate or prosecute any alcohol or drug abuse patient.[facility] SouthIn the event this information is protected by the Federal Confidentiality of Alcohol and Drug Abuse Patient Records regulations: The Federal rules restrict any use of the information to criminally investigate or prosecute any alcohol or drug abuse patient.[facility] SouthIn the event this information is protected by the Federal Confidentiality of Alcohol and Drug Abuse Patient Records regulations: The Federal rules restrict any use of the information to criminally investigate or prosecute any alcohol or drug abuse patient.[facility] SouthIn the event this information is protected by the Federal Confidentiality of Alcohol and Drug Abuse Patient Records regulations: The Federal rules restrict any use of the information to criminally investigate or prosecute any alcohol or drug abuse patient.[facility] SouthIn the event this information is protected by the Federal Confidentiality of Alcohol and Drug Abuse Patient Records regulations: The Federal rules restrict any use of the information to criminally investigate or prosecute any alcohol or drug abuse patient.[facility] SouthIn the event this information is protected by the Federal Confidentiality of Alcohol and Drug Abuse Patient Records regulations: The Federal rules restrict any use of the information to criminally investigate or prosecute any alcohol or drug abuse patient.[facility] Reason for Visit (unrecogniz ed section and content) Reason Onset Date Comments Transition Of Care 02/12/2022 [facility] discharge 02-11-22- initial outreach Reason Onset Date Comments Transition Of Care 02/13/2022 [facility] initial o utreach- discharge 02/11 Reason Comments Opened In Error Reason Comments Received Outside Medical Records Cardiac Testing Dept [facility] General Reason Comments Follow Up Reason Comments Patient Update Reason Comments New Patient SVT Reason Comments Refill Request Reason Comments Sore Throat sore throat x 2 days , cough x 1 day Reason Comments Received Outside Medical Records [facility] CT abdomen/ pelvis without contrast 09/18/2022 Reason Comments Received Outside Medical Records [facility] Emergency Depart Summary 09/16/2022 Reason Comments Received Outside Medical Records Reason Comments Chest Congestion Chest congestion and SOB x 6 days Reason Comments Received Outside Medical Records [facility] ED 04/28/23 Reason Comments Cardiology Follow Up SVT c/o SOB x 1 mon th and very fatigued Reason Comments Derm Problem Sore R cheek x2 days Reason Comments Received Outside Medical Records [facility] ED 01/23/24 Reason Onset Date Comments Refill Request 06/22/2024 Reason Comments Received Outside Medical Records [facility] 06/22/24 Reason Comments Sore Throat Causing R ear pain x 1 day Reason Comments Sore Throat Reason Onset Date Comments Refill Request 08/15/2024 Reason Onset Date Comments Refill Request 09/01/2024 Reason Comments Cough Chest congestion, fe tierney, headache, sore throat, SOB, wheeze x 5 daysDaughter + for whopping coffee Reason Comments Results Reason Comments Received Outside Medical Records [facility] ER Reason Comments Appointment Reason Comments Headache Reason Comments Follow Up Now thinks she has a hernia Reason Comments New Patient Headache, unspecifie d headache type Specialty Diagnoses / Procedures Referred By Ko soetlo Referred To Contact Neurology Diagnoses Headache, unspecified headache type Procedures CONSULT TO NEUROLOGY OFFICE/OUTPATIENT NEW HIGH MDM 60 MINUTES Noa Appiah, LIBRA.TRUCK DRIVING INSTRUCTOR [address] [place] [address] Phone: tel: fax: Referral ID Status Reason Start Date Expiration Date V isits Requested Visits Authorized [id number] Closed PCP Requested Referral 02/08/2025 02/08/2026 1 1 Reason Onset Date Comments Refill Request 02/20/2025 Reason Onset Date Comments Refill Request 05/29/2025 Care Teams (unrecognized sec tion and content) Broiler Supervisor Relationship Specialty Start Date End Date Robinson Smith MD [address] [place] [address] PCP - General Family Practice 12/15/11 Treasure Reid, dry janitor Rn Radiation Oncology 02/12/22 03/14/22 Broiler Supervisor Relationship Specialty Start Date End Date Robinson Smith MD [address] [place] [address] PCP - General Family Practice 12/15/11 Broiler Supervisor Relationship Specialty Start Date End Date Robinson Smith MD [address] [place] [address] PCP - General Family Practice 12/15/11 Broiler Supervisor Relationship Specialty Start Date End Date Robinson Smith MD [address] [place] [address] PCP - General Family Practice 12/15/11 Broiler Supervisor Relationship Specialty Start Date End Date Robinson Smith MD [address] [place] [address] PCP - General Family Practice 12/15/11 Broiler Supervisor Relationship Specialty Start Date End Date Robinson Smith MD [address] [facility] [place] [address] PCP - General Family Practice 12/15/11 Broiler Supervisor Relationship Specialty Start Date End Date Robinson Smith MD [address] [facility] [place] [address] PCP - General Family Practice 12/15/11 Broiler Supervisor Relationship Specialty Start Date End Date Robinson Smith MD [employer] [place] [address] PCP - General Family Medicine 12/15/11 Broiler Supervisor Relationship Specialty Start Date End Date Robinson Smith MD [address] [place] [address] [place] [address] PCP - General Family Medicine 12/15/11 Broiler Supervisor Relationship Specialty Start Date End Date Robinson Smith MD [employer] [facility] [place] [address] PCP - General Family Medicine 12/15/11 Team Status: Active Member Role Status Dates Dr. Julio Cesar Smith MD Family Provider Active Dr. Julio Cesar Smith MD Primary Care Provider Active Team Status: Inactive Member Role Status Dates Dr. Julio Cesar Smith MD Primary Care Provider Active Dr. Rosalind Millan MD Emergency Provider Active Broiler Supervisor Relationship Specialty Start Date End Date Robinson Smith MD [address] [facility] [place] [address] PCP - General Family Medicine 12/15/11 Broiler Supervisor Relationship Specialty Start Date End Date Robinson Smith MD [address] [place] [address], [place] [address] PCP - General Family Medicine 12/15/11 Broiler Supervisor Relationship Specialty Start Date End Date Robinson Smith MD [address] [place] [address] PCP - General Family Medicine 12/15/11 Team Status: Inactive Member Role Status Dates Dr. Julio Cesar Smith MD Primary Care Provider Active Dr. Roly Blair MD Emergency Provider Active Broiler Supervisor Relationship Specialty Start Date End Date Robinson Smith MD [address] [facility] [place] [address] PCP - General Family Medicine 12/15/11 Broiler Supervisor Relationship Specialty Start Date End Date Robinson Smith MD [address] [place] [place] [address] PCP - General Family Medicine 12/15/11 Team Status: Inactive Member Role Status Dates Dr. Julio Cesar Smith MD Primary Care Provider Active Dr. Roly Blair MD Attending Provider, Emergency Provider Active Team Status: Inactive Member Role Status Dates Dr. Julio Cesar Smith MD Primary Care Provider Active Dr. Kenneth Harmon MD Attending Provider, Emergency Pro vider Active Broiler Supervisor Relationship Specialty Start Date End Date Robinson Smith MD [address] [facility] [place] [address] PCP - General Family Medicine 12/15/11 Team Status: Inactive Member Role Status Dates Dr. Julio Cesar Smith MD Primary Care Provider Active Dr. Kenneth Harmon MD Emergency Provider Active Broiler Supervisor Relationship Specialty Start Date End Date Robinson Smith MD [address] [place] [place] [address] PCP - General Family Medicine 12/15/11 Broiler Supervisor Relationship Specialty Start Date End Date Robinson Smith MD [address] [place] [place] [address] PCP - General Family Medicine 12/15/11 Broiler Supervisor Relationship Specialty Start Date End Date Robinson Smith MD [address] [place] [place] [address] PCP - General Family Medicine 12/15/11 Broiler Supervisor Relationship Specialty Start Date End Date Robinson Smith MD [address] [place] [place] [address] PCP - General Family Medicine 12/15/11 Broiler Supervisor Relationship Specialty Start Date End Date Robinson Smith MD [address] [place] [address] PCP - General Family Medicine 12/15/11 Broiler Supervisor Relationship Specialty Start Date End Date Robinson Smith MD [address] [place] [place] [address] PCP - General Family Medicine 12/15/11 Payam Miller, APPRENTICE COSMETOLOGIST.TRUCK DRIVING INSTRUCTOR [address] [facility] [address] [place] [address] Copier Operator Internal Medicine 10/08/24 Broiler Supervisor Relationship Specialty Start Date End Date Robinson Smith MD [address] [place] [place] [address] PCP - General Family Medicine 12/15/11 Payam Miller, APPRENTICE COSMETOLOGIST.TRUCK DRIVING INSTRUCTOR [address] [facility] [place] [address] Copier Operator Internal Medicine 10/08/24 Broiler Supervisor Relationship Specialty Start Date End Date Robinson Smith MD [address] [place] [place] [address] PCP - General Family Medicine 12/15/11 Payam Miller APRN.TRUCK DRIVING INSTRUCTOR [address] [facility] [address] [place], [place] [address] Copier Operator Internal Medicine 10/08/24 Broiler Supervisor Relationship Specialty Start Date End Date Robinson Smith MD [address] [facility], [place] [address] PCP - General Family Medicine 12/15/11 Payam Miller, APPRENTICE COSMETOLOGIST.TRUCK DRIVING INSTRUCTOR [address] [facility] [address] [place], [place] [address] Copier Operator Internal Medicine 10/08/24 Broiler Supervisor Relationship Specialty Start Date End Date Robinson Smith MD [address] [facility], [place] [address] PCP - General Family Medicine 12/15/11 Payam Miller, APPRENTICE COSMETOLOGIST.TRUCK DRIVING INSTRUCTOR [address] [facility] [address] [place], [place] [id number] Copier Operator Internal Medicine 10/08/24 Team Status: Active Member Role Status Dates Dr. Julio Cesar Smith MD Primary Care Provider Active Team Status: Inactive Member Role Status Dates Dr. Julio Cesar Smith MD Primary Care Provider Active Start: February 03, 2025 End: February 03, 2025 Dr. Brittani Riley DO Referring Provider Active S tart: February 03, 2025 End: February 03, 2025 Dr. Brittani Riley , Emergency Provider Active S tart: February 03, 2025 End: February 03, 2025 Broiler Supervisor Relationship Specialty Start Date End Date Robinson Smith MD [address] [facility], [place] [address] PCP - General Family Medicine 12/15/11 Payam Miller, APPRENTICE COSMETOLOGIST.TRUCK DRIVING INSTRUCTOR [address] [facility] [address] [place], [place] [id number] Copier Operator Internal Medicine 10/08/24 Broiler Supervisor Relationship Specialty Start Date End Date Robinson Smith MD [address] [place], [place] [address] PCP - General Family Medicine 12/15/11 Payam Miller APRN.TRUCK DRIVING INSTRUCTOR [address] [facility] [address] [place], [place] [address] Copier Operator Internal Medicine 10/08/24 Broiler Supervisor Relationship Specialty Start Date End Date Robinson Smith MD [address] [place], [place] [address] PCP - General Family Medicine 12/15/11 Payam Miller APRN.TRUCK DRIVING INSTRUCTOR [address] [facility] [address] [place], [place] [address] Copier Operator Internal Medicine 10/08/24 Broiler Supervisor Relationship Specialty Start Date End Date Robinson Smith MD [address] [place], [place] [address] PCP - General Family Medicine 12/15/11 Payam Miller, APPRENTICE COSMETOLOGIST.TRUCK DRIVING INSTRUCTOR [address] [facility] [address] [place], [place] [address] Copier Operator Internal Medicine 10/08/24 Broiler Supervisor Relationship Specialty Start Date End Date Robinson Smith MD [address] [place], [place] [address] PCP - General Family Medicine 12/15/11 Payam Miller APPRENTICE COSMETOLOGIST.TRUCK DRIVING INSTRUCTOR [address] [facility] [place] [address] Copier Operator Internal Medicine 10/08/24 Broiler Supervisor Relationship Specialty Start Date End Date Robinson Smith MD [address] [place], [place] [address] PCP - General Family Medicine 12/15/11 Payam Miller, APPRENTICE COSMETOLOGIST.TRUCK DRIVING INSTRUCTOR [address] [facility] [address] [place], [place] [address] Copier Operator Internal Medicine 10/08/24 Broiler Supervisor Relationship Specialty Start Date End Date Robinson Smith MD [address] [place], [place] [address] PCP - General Family Medicine 12/15/11 Payam Miller, APPRENTICE COSMETOLOGIST.TRUCK DRIVING INSTRUCTOR [address] [facility] [address] [place], [place] [address] Copier Operator Internal Medicine 10/08/24 Broiler Supervisor Relationship Specialty Start Date End Date Robinson Smith MD [address] [place], [place] [address] PCP - General Family Medicine 12/15/11 Payam Miller, APPRENTICE COSMETOLOGIST.TRUCK DRIVING INSTRUCTOR [address] [facility] [address] [place], [place] [address] Copier Operator Internal Medicine 10/08/24 Broiler Supervisor Relationship Specialty Start Date End Date Robinson Smith MD [address] [place], [place] [address] PCP - General Family Medicine 12/15/11 Payam Miller, APPRENTICE COSMETOLOGIST.TRUCK DRIVING INSTRUCTOR [address] [facility] [address] [place] [address] Copier Operator Internal Medicine 10/08/24 Broiler Supervisor Relationship Specialty Start Date End Date Robinson Smith MD [address] [facility] [place] [address] PCP - General Family Medicine 12/15/11 Payam Miller APRN.RODRIGO [address] [facility] [address] [place], [place] [address] Copier Operator Internal Medicine 10/08/24 Goals (unrecognized section and content) Goals may be documented in a n alternate sectionGoals may be documented in an alternate sectionGoals may be documented in an alternate sectionGoals may be documented in an alternate sectionGoals may be documented in an alternate sectionGoals may be documented in an alternate sectionGoals may be documented in an alternate section No data available for this section FOR RECORDS PERTAINING TO PATIENTS WHO ARE [...] BE BASED ON THE PRIMARY CLINICAL RECORDS. [employer] provides no warranty or guarantee of the accuracy or completeness of information in this document.
[2025-09-11 19:10] VITALS: BP 128/70; PULSE 70; RESP 18; TEMP 36.7; O2SAT 100
== END 2025-09-11 19:12 | disposition home or self-care (01) ==
PROVIDERS: Emergency Provider Student in an Organized Health Care Education/Training Program; PCP Family Medicine; Visit Provider Student in an Organized Health Care Education/Training Program
DX: L02.214 Cutaneous abscess of groin (principal); F32.A Depression, unspecified; Z79.899 Other long term (current) drug therapy; Z86.79 Personal history of other diseases of the circulatory system; F17.290 Nicotine dependence, other tobacco product, uncomplicated
CPT/HCPCS: 10060; 74177; 80048; 85025; 99283; Q9967